=== PATIENT | female | born 1965 | race Caucasian/White ===

== ENCOUNTER → 2018-10-13 07:14 | Outpatient (CLI) | payer MEDICAID, SELFPAY ==
--- NOTE | 2018-10-13 07:49 | US_ITS ---
STUDY: ABDOMINAL ULTRASOUND REASON FOR EXAM: Female, 52 years old. Right-sided pain TECHNIQUE: Transabdominal ultrasound was performed with real-time and static sullivan scale imaging. TECHNICAL QUALITY: Adequate. COMPARISON: None. FINDINGS: Liver: The liver measures 14.3 cm. There is normal echogenicity of the liver. The bile ducts are within normal limits. There is hepatic color flow. The direction of portal flow is hepatopetal. There is no demonstrated mass lesion. Portal vein measurement: Gallbladder: Normal distended gallbladder. The gallbladder wall measures 2 mm. There is a negative sonographic Lawler's sign. There is no pericholecystic fluid. There are no gallstones. Common Bile Duct (C.B.D.): The common bile duct measures 4 mm. Pancreas: Normal size of the head, body and tail of the pancreas. There is normal echogenicity of the pancreas. There is no demonstrated pancreatic mass or cyst. Spleen: Normal size of the spleen. The spleen measures 9.6 cm. Right Kidney: Normal size of the right kidney. The right kidney measures 10.1 x 4.5 x 3.9 cm. Normal renal cortex. The right cortex measures 1.3 cm. There is a punctate hyperechoic focus of the right renal cortex. There is no demonstrated renal mass or cyst. There is no right hydronephrosis. Left Kidney: Normal size of the left kidney. The left kidney measures 10.2 x 4.7 x 4.5 cm. Normal renal cortex. The left cortex measures 1.2 cm. Shadowing hyperechoic lower pole 1.3 cm stone is noted. There is no demonstrated renal mass or cyst. There is no left hydronephrosis. Aorta: No aneurysm is noted. Common iliac arteries are slightly ectatic. I.V.C.: The IVC is patent. There is no ascites. US/Abdomen Complete IMPRESSION: Left renal stone. No hydronephrosis. Ectatic iliac arteries. Electronically Signed: Thanh Garcia DO at 10:54 EST Tel [phone], Service support ,
[2018-10-13 09:04] LABS: Absolute Lymphocyte Count 1.81 X10^3/ul (0.83-4.51); Basophil# 0.12 X10^3/uL; Basophil% 1.5 % (0-1); Eosinophil# 0.28 X10^3/uL; Eosinophils% 3.5 % (0-5); Hemoglobin 14.4 g/dl (12.0-15.0); Lymphocyte # 1.81 X10^3/ul (4.0); Lymphocyte % 22.9 % (19-41); Mean Corp Hgb Conc 32.7 g/gl (32-36); Mean Corpuscular Hgb 27.4 pg (27.0-32.0); Mean Corpuscular Volume 83.8 fL (81-99); Mean Platelet Vol. 9.9 fl (6.2-12.0); Monocyte# 0.69 X10^3/uL; Monocyte% 8.7 % (0-10); Neutrophil # 5.01 X10^3/uL (2.7-7.7); Platelet Count 387 K/mm3 (150-450); RBC Distribution Width CV 16.7 % (11.6-14.6); RBC Distribution Width SD 51.2 fl (35.1-43.9); Red Blood Count 5.25 M/mm3 (4.2-5.4); White Blood Count 7.9 K/mm3 (4.4-11.0)
[2018-10-13 09:06] LABS: Neutrophil % 63.3 % (47-70); POSITIVE COUNT NO; POSITIVE DIFFERENTIAL NO; POSITIVE MORPHOLOGY NO
[2018-10-13 09:24] LABS: Hemoglobin A1c 5.6 % (4.2-6.3)
[2018-10-13 09:31] LABS: ALB/GLOB Ratio 1.1 RATIO (0.9-2.4); AST(SGOT) 13 U/L (15-37); Alanine Aminotransfer ALT/SGPT 18 U/L (13-56); Alkaline Phosphatase 62 U/L (45-117); Anion Gap 9 (5-15); BUN 9 mg/dL (7-18); BUN/Creat Ratio 14.4 RATIO (10-20); Calcium,Total 8.5 mg/dL (8.5-10.1); Chloride 107 mmol/L (98-107); Cholesterol 170 mg/dL (200); Creatinine, Serum 0.62 mg/dL (0.55-1.02); EST Glomerular Filtration Rate 107 mL/min (>60); Est Glom Filt Rate - Afr Amer 130 mL/min (>60); Globulin 3.6 g/dL (2.2-4.2); Glucose 78 mg/dL (74-106); High Density Lipoprotein 54 mg/dL; Potassium 4.4 mmol/L (3.5-5.1); Protein, Total 7.6 g/dL (6.4-8.2); Sodium Level 141 mmol/L (136-145); Thyroid Stim Hormone (TSH) 2.14 uIU/mL (0.358-3.74); Triglycerides 77 mg/dL; Very Low Density Lipoprotein 15 mg/dL (5-40)
[2018-10-13 12:33] LABS: Vitamin D,25 Hydroxy 39.3 ng/mL (29.95-100.01)
[2018-10-15 11:16] LABS: H. Pylori Antibody (IgG) 0.24 (0.00-0.79); Hep C Antibodies <0.1 s/co ratio (0.0-0.9)
== END ==
PROVIDERS: Referring Provider Nurse Practitioner Family; Visit Provider Nurse Practitioner Family
DX: R19.4 Change in bowel habit (principal); R10.84 Generalized abdominal pain
CPT/HCPCS: 36415; 76700; 80053; 80061; 82306; 83036; 84439; 84443; 85025; 86677; 86803

== ENCOUNTER → 2018-10-18 14:20 | Outpatient (CLI) | payer MEDICAID, SELFPAY ==
--- NOTE | 2018-10-18 14:24 | US_ITS ---
STUDY: ULTRASOUND OF THE FEMALE PELVIS - COMPLETE REASON FOR EXAM: Female, 53 years old. Pelvic pain LMP: December 14, 2017 TECHNIQUE: Transabdominal and Transvaginal TECHNICAL QUALITY: Adequate. COMPARISON: None. FINDINGS: The uterus is anteverted and is in a midline position. The uterus measures 8.5 x 4.9 x 4.2 cm. There is a Nabothian cyst of the cervix. The endometrium measures 5.7 mm in thickness, and is hyperechoic. There is no demonstrated endometrial mass. There is no demonstrated myometrial mass. I.U.D. - The patient does not have an I.U.D. The right ovary is visualized. The right ovary measures 1.9 x 1.0 x 1.0 cm. There is no right ovarian cyst or ovarian mass. There is no visualized right adnexal mass or complex lesion. There is normal arterial and normal venous vascularity. The left ovary is visualized. The left ovary measures 2.0 x 1.5 x 1.3 cm. There is no left ovarian cyst or ovarian mass. There is no visualized left adnexal mass or complex lesion. There is normal arterial and normal venous vascularity. There is no fluid in the cul-de-sac. The pre void volume of the bladder was 492.28 ml. Polycystic ovary disease: No. US/Pelvic (Non ) IMPRESSION: Uterus and ovaries have a normal ultrasound appearance. No free pelvic fluid. Electronically Signed: Ralf Griffin MD at 10:12 EST Tel , Service support ,
--- NOTE | 2018-10-18 14:25 | US_ITS ---
STUDY: ULTRASOUND OF THE FEMALE PELVIS - COMPLETE REASON FOR EXAM: Female, 53 years old. Pelvic pain LMP: December 14, 2017 TECHNIQUE: Transabdominal and Transvaginal TECHNICAL QUALITY: Adequate. COMPARISON: None. FINDINGS: The uterus is anteverted and is in a midline position. The uterus measures 8.5 x 4.9 x 4.2 cm. There is a Nabothian cyst of the cervix. The endometrium measures 5.7 mm in thickness, and is hyperechoic. There is no demonstrated endometrial mass. There is no demonstrated myometrial mass. I.U.D. - The patient does not have an I.U.D. The right ovary is visualized. The right ovary measures 1.9 x 1.0 x 1.0 cm. There is no right ovarian cyst or ovarian mass. There is no visualized right adnexal mass or complex lesion. There is normal arterial and normal venous vascularity. The left ovary is visualized. The left ovary measures 2.0 x 1.5 x 1.3 cm. There is no left ovarian cyst or ovarian mass. There is no visualized left adnexal mass or complex lesion. There is normal arterial and normal venous vascularity. There is no fluid in the cul-de-sac. The pre void volume of the bladder was 492.28 ml. Polycystic ovary disease: No. US/Transvaginal Non- IMPRESSION: Uterus and ovaries have a normal ultrasound appearance. No free pelvic fluid. Electronically Signed: Ralf Griffin MD at 10:12 EST Tel , Service support ,
== END ==
PROVIDERS: Referring Provider Nurse Practitioner Family; Visit Provider Nurse Practitioner Family
DX: R10.84 Generalized abdominal pain (principal)
CPT/HCPCS: 76830; 76856; 93976

== ENCOUNTER 2018-11-13 18:07 | Emergency (ER) | payer MEDICAID, SELFPAY ==
[2018-11-13 18:08] VITALS: BP 157/54; PULSE 95; RESP 16; TEMP 36.4; O2SAT 99; BMI 19.4
[2018-11-13] MEDS: Ketorolac 30 MG/ML Syringe IV (18:38)
[2018-11-13] MEDS: 0.9% Normal Saline 1,000 ML 1000 ML IV (18:38)
[2018-11-13 18:43] LABS: Absolute Lymphocyte Count 1.32 X10^3/ul (0.83-4.51); Absolute Neutrophil Count 9.9 X10^3/uL (2.0-7.7); Basophil# 0.07 X10^3/uL; Basophil% 0.6 % (0-1); Eosinophil# 0.08 X10^3/uL; Eosinophils% 0.7 % (0-5); Hematocrit 43.8 % (37-47); Hemoglobin 15.2 g/dl (12.0-15.0); Lymphocyte # 1.32 X10^3/ul (4.0); Lymphocyte % 11.2 % (19-41); Mean Corp Hgb Conc 34.7 g/gl (32-36); Mean Corpuscular Hgb 28.2 pg (27.0-32.0); Mean Corpuscular Volume 81.3 fL (81-99); Mean Platelet Vol. 9.8 fl (6.2-12.0); Monocyte# 0.39 X10^3/uL; Monocyte% 3.3 % (0-10); Neutrophil # 9.91 X10^3/uL (2.7-7.7); Platelet Count 407 K/mm3 (150-450); RBC Distribution Width CV 15.9 % (11.6-14.6); RBC Distribution Width SD 47.5 fl (35.1-43.9); Red Blood Count 5.39 M/mm3 (4.2-5.4); White Blood Count 11.8 K/mm3 (4.4-11.0)
[2018-11-13 18:43] LABS: Color, Urine Yellow (Yellow); Glucose, Dipstick Normal (Normal); Ketone-Dipstick 50 mg/dl (Negative); Leukocyte Esterase-Dipstick 25 /ul (Negative); Nitrite-Dipstick Negative (Negative); Occult Blood-Urine 250 /ul (Negative); Protein-Dipstick 100 mg/dl (Negative); Urine Bilirubin Dipstick Negative (Negative); Urine Clarity Clear (Clear); Urine Urobilinogen 1 mg/dl (Normal)
[2018-11-13 18:44] LABS: POSITIVE COUNT NO; POSITIVE DIFFERENTIAL NO; POSITIVE MORPHOLOGY NO
[2018-11-13 18:49] LABS: Bacteria 1+ /hpf (None Seen); Mucous, Urine 1+ /hpf (<or=2+); Red Blood Cells-Urine 0-5 SEEN /hpf (0-5); Squamous Epithelial Cells - UA 0-5 SEEN /hpf (5-10); White Blood Cells 0-5 SEEN /hpf (0-5)
[2018-11-13 18:53] LABS: ALB/GLOB Ratio 1.2 RATIO (0.9-2.4); AST(SGOT) 16 U/L (15-37); Alanine Aminotransfer ALT/SGPT 25 U/L (13-56); Albumin, Serum 4.8 g/dL (3.2-5.0); Alkaline Phosphatase 75 U/L (45-117); Anion Gap 11 (5-15); BUN 7 mg/dL (7-18); BUN/Creat Ratio 10.7 RATIO (10-20); Calcium,Total 9.1 mg/dL (8.5-10.1); Chloride 110 mmol/L (98-107); Creatinine, Serum 0.66 mg/dL (0.55-1.02); EST Glomerular Filtration Rate 101 mL/min (>60); Est Glom Filt Rate - Afr Amer 122 mL/min (>60); Estimated Creatinine Clearance 84.49 ml/min; Globulin 4.1 g/dL (2.2-4.2); Glucose 100 mg/dL (74-106); Lipase 107 U/L (73-393); Potassium 3.6 mmol/L (3.5-5.1); Protein, Total 8.9 g/dL (6.4-8.2); Sodium Level 143 mmol/L (136-145)
--- NOTE | 2018-11-13 19:57 | ED.DCSUM_ITS ---
- ER Visit Summary Date of Service: 11/13/18 Chief Complaint: Nausea, vomiting, fevers, chills History of Present Illness: The patient is a 53 F presents to the emergency department nausea and vomiting. The patient states that she was out drinking last night. States she woke this morning, she did feel mildly nauseated. She states throughout the day though it improved. About 3 PM, residual from a nap and had rather significant nausea. She had 2 episodes of vomiting. She also admits to fevers and chills. She denies any blood in the emesis. She did have a mild headache. She denies any visual change, neck pain, shortness of breath, or other systemic symptoms. Patient is otherwise healthy. She takes no daily medications. She has had prior tubal ligation, but no other abdominal surgery. Physical Examination: Vital signs reviewed General: Well-nourished, well-developed Head: Normocephalic, atraumatic Eyes: Pupils equal and reactive, extraocular muscles intact Neck, supple, no lymphadenopathy Heart: Regular rate and rhythm Respiratory: No distress, clear bilaterally Abdomen: Soft, nontender, nondistended, no peritoneal signs Back: Nontender Extremities: Nontender, no edema, no cords Skin: Normal color no rash Neuro: Alert and oriented, no focal or lateralizing deficits Test Results: [] Emergency Department Course and Treatment: The patient is very well-appearing. She has no focal abdominal tenderness. She is well hydrated. Her neck is supple. She is not meningitic or encephalopathic. IV was established. She was given fluids, Toradol, labs were obtained. Labs are unremarkable. Urine does show some trace ketones which I do feel is likely contributing to her nausea. On reevaluation, she is markedly improved. My suspicion is that this is likely a viral illness. The patient was counseled on supportive care and reasons to return. She will be discharged home. Treatment Plan: [] Disposition: Discharge Impression: 1. Nausea vomiting This note was generated with [employer] dictation software. It may contain incorrect words, spelling, and punctuation that were not noted in review of the chart prior to signing ED Disposition - Plan for ED Patient: Chief Complaint: Nausea/Vomiting Instructions: ED Nausea Vomiting Prescriptions: Ondansetron [Zofran Odt] 4 mg PO Q8H PRN PRN #10 tab PRN Reason: Nausea Referrals: Tobin Mccray,Ginette Genao [Primary Care Provider] -
[2018-11-13 20:29] VITALS: BP 124/83; PULSE 71; RESP 18; O2SAT 98
--- NOTE | 2018-11-13 20:29 | ED.RN ---
THIS NURSE REVIEWED D/C INSTRUCTIONS WITH PT. PT VERBALIZED UNDERSTANDING OF INSTRUCTIONS. IV D/C. IV CATHETER INTACT. PT TOLERATED WELL. PT DENIES FURTHER NEEDS OR QUESTIONS AT THIS TIME. PT AMBULATES FROM ROOM ON OWN WITHOUT ASSISTANCE FROM STAFF
== END 2018-11-13 20:30 | disposition home or self-care (01) ==
PROVIDERS: Emergency Provider Emergency Medicine
DX: R11.2 Nausea with vomiting, unspecified (principal); R50.9 Fever, unspecified
CPT/HCPCS: 80053; 81001; 83690; 85025; 87804; 96361; 96374; 99283; J7030; A4216

== ENCOUNTER → 2019-03-19 10:33 | Outpatient (CLI) | payer MEDICAID, SELFPAY ==
[2019-03-13 14:35] VITALS: BMI 19.4
[2019-03-18 08:51] VITALS: BMI 19.4
--- NOTE | 2019-03-19 10:34 | US_ITS ---
STUDY: THYROID ULTRASOUND REASON FOR EXAM: Female, 53 years old. Nontoxic thyroid goiter. Family history of thyroid cancer. Current smoker. TECHNIQUE: Ultrasound evaluation of the thyroid was performed with real-time and static sullivan-scale imaging. COMPARISON: None. FINDINGS: RIGHT LOBE: The right lobe of the thyroid gland measures 5.2 x 1.8 x 1.7 cm. There is a homogeneous echotexture. Lower pole solid nodule measuring 0.9 x 0.8 x 0.7 cm and mid pole solid nodule measuring 0.4 x 0.4 x 0.2 cm. LEFT LOBE: The left lobe of the thyroid gland measures 4.8 x 1.5 x 1.0 cm. There is a homogeneous echotexture. Upper complex cystic and lower pole solid nodules measuring 0.9 x 0.6 x 0.8 cm and 0.6 x 0.4 x 0.2 cm respectively. ISTHMUS: The isthmus measures 4 mm . Subcentimeter submandibular lymph nodes. US/Thyroid IMPRESSION: The thyroid gland is enlarged right lobe greater than left. Bilateral subcentimeter solid and/or complex cystic nodules with regular margins. Electronically Signed: Candido José MD at 4:56 EDT , Service support ,
== END ==
PROVIDERS: Referring Provider Nurse Practitioner Family; Visit Provider Nurse Practitioner Family
DX: E04.9 Nontoxic goiter, unspecified (principal)
CPT/HCPCS: 76536

== ENCOUNTER → 2019-03-20 10:43 | Outpatient (CLI) | payer MEDICAID, SELFPAY ==
[2019-03-18 08:51] VITALS: BMI 19.4
--- NOTE | 2019-03-20 10:44 | NM_ITS ---
CLINICAL: 53-year-old female with reported history of abdominal pain and nausea. RADIONUCLIDE HEPATOBILIARY SCINTIGRAPHY COMPARISON: Abdominal ultrasound report 10/13/2018 FINDINGS: Following the intravenous administration of 5.5 mCi of 99m Tc Mebrofenin, hepatobiliary images reveal: 1. Relatively prompt and homogeneous radiopharmaceutical concentration is noted by a normal sized liver. No parenchymal defects are identified. 2. Gallbladder activity is identified at 15 minutes post radiopharmaceutical administration. 3. Small intestinal tract is not visualized during 60 minutes of pre-CCK sequential imaging. Small bowel activity is identified following the administration of cholecystokinin. 4. Washout of the radiopharmaceutical by the hepatic parenchyma appears qualitatively normal. Cholecystokinin (0.02 ug/kg) was administered intravenously over a 30-minute period. The post CCK gallbladder ejection fraction calculated at 20 minutes following Cholecystokinin administration was noted to be 62.0 % (normal greater than 35%). During 30 minutes of post CCK imaging, there is no scintigraphic evidence of reflux of the radiotracer into the common hepatic duct or refilling of the gallbladder. NM/Hepatobilliary Img w/Pharm Int IMPRESSION: 1. NORMAL 99m Tc Mebrofenin hepatobiliary imaging examination with Cholecystokinin. A. A gallbladder ejection fraction calculated to be greater than 35% following the administration of Cholecystokinin makes the probability of functional hepatobiliary disease (gallbladder and/or sphincter of Oddi dyskinesia) and/or organic hepatobiliary disease (chronic acalculous cholecystitis and/or cystic duct syndrome) to be low. (Katherine Raya et al, Journal of Nuclear Medicine 32:1695, 1990). Electronically Signed: Sunil Linares DO at 23:11 EDT Tel , Service support ,
== END ==
PROVIDERS: Referring Provider Surgery; Visit Provider Surgery
DX: R10.11 Right upper quadrant pain (principal); R11.2 Nausea with vomiting, unspecified
CPT/HCPCS: 78227; A9537; J2805

== ENCOUNTER → 2019-04-04 14:39 | Outpatient (CLI) | payer MEDICAID, SELFPAY ==
[2019-03-18 08:51] VITALS: BMI 19.4
--- NOTE | 2019-04-04 14:44 | CT_ITS ---
STUDY: CT CHEST WITH CONTRAST REASON FOR EXAM: Female, 53 years old. Hemoptysis. RADIATION DOSAGE (If Supplied By Facility): CTDIvol = ( 7.1 ) mGy, DLP = ( 164.19 ) mGycm TECHNIQUE: Transaxial imaging was performed following intravenous administration of 100 IV Isovue 300. Individualized dose optimization techniques were used for this CT. COMPARISON: None. FINDINGS: There are emphysematous changes of the lungs with emphysematous blebs and hyperexpansion of the lungs, consistent with centrilobular emphysema. No infiltrates. No nodules or masses. No effusions There is no demonstrated pleural abnormality. Normal heart and pericardium. Normal mediastinum. Normal hilar regions. Normal enhanced pulmonary arteries. Normal aorta arch and descending thoracic aorta. Normal osseous structures. There is no demonstrated abnormality of the visualized upper abdomen. CT/Chest WITH Contrast IMPRESSION: Centrilobular emphysema. No acute chest disease. Electronically Signed: Abhishek Torres MD at 18:48 EDT , Service support ,
== END ==
DX: R04.2 Hemoptysis (principal)
CPT/HCPCS: 71260; Q9967

== ENCOUNTER 2019-04-11 07:32 | Day surgery (SDC) | payer MEDICAID, SELFPAY ==
[2019-03-18 08:51] VITALS: BMI 19.4
--- NOTE | 2019-03-21 09:44 | HP_ITS ---
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: No Is patient in pain?: Yes (RLQ) Pain scale (1-10): 3 Allergies morphine Allergy (Verified 03/18/19 08:48) Itching Medications cholecalciferol (vitamin D3) 5,000 unit capsule 5,000 unit PO DAILY 03/18/19 [History Confirmed 03/18/19] multivitamin tablet 1 tab PO DAILY 03/18/19 [History Confirmed 03/18/19] vitamin B complex tablet 1 tab PO DAILY 03/18/19 [History Confirmed 03/18/19] PFSH Medical History Black tarry stools (Acute) Acid reflux (Acute) Constipation (Acute) Vomiting (Acute) Nausea (Acute) Abdominal pain (Acute) SOB (shortness of breath) (Acute) Anxiety (Acute) Depression (Acute) Arthritis (Acute) Thyroid disease (Acute) Difficulty swallowing (Acute) Fatigue (Acute) Surgical History Hx of colonoscopy (Acute) Hx of tubal ligation (Acute) Family History Uncle Thyroid cancer Social History Smoking Status: Current every day smoker alcohol intake: current alcohol intake frequency: a few times a month substance use type: does not use caffeine: Yes what type of physical activity do you participate in: walking HPI HPI HPI: ALTON ZAVALA, is a 53 F who presents to the office today for HPI HPI Surgical H&P: Yes HPI: ALTON ZAVALA, is a 53 F who presents to the office today for evaluation of abdominal pain. Patient has been noting right upper quadrant abdominal pain worse with p.o. intake sometimes worse with activity. She has had increasing belching. She had a gallbladder ultrasound which was negative her TSH and T4 are normal despite her having a history of an overactive thyroid gland. She states that she has not been consuming alcohol. She was seen in [facility]'s emergency department in November of this year after having hematemesis. She had a colonoscopy in 2014 but had an extremely poor bowel prep. Random colon biopsies did not reveal any abnormalities ROS General General: Yes weight change and fatigue; no appetite, colon cancer, breast cancer or weakness HEENT HEENT: Yes difficulty swallowing and swollen glands; no eye injury, eye surgery or hoarseness Endo Endocrine: Yes thyroid disease; no diabetes mellitus, thyroid cancer, Hair loss, heat intolerance or cold intolerance Skin Skin: Yes changing moles; no rash Musc Musculoskeletal: Yes back problems and arthritis; no rheumatoid arthritis, gout or joint pain Cardio Cardiovascular: No murmur, pacemaker, heart disease, atrial fibrillation, high blood pressure, heart attack, heart stent, palpitations, shortness of breat with exertion or chest pain Psych Psychiatric: Yes depression and anxiety; no hearing voices Resp Respiratory: Yes shortness of breath, No sleep apnea, Yes cough, No COPD, No asthma, No emphysema, No wheezing Gastro Gastrointestinal: Yes abdominal pain, Yes nausea or vomiting, No diarrhea, Yes constipation, No blood in stool, Yes acid reflux, No hemorrhoids, No ulcers, No gallbladder problem, Yes black,tarry stools Miles Hematologic: No blood thinners, No blood disorders, No bleeding, No anemia, No blood clots Neuro Neurologic: Yes numbness, Yes tingling, No weakness Exam Const General: no acute distress, well developed, well hydrated Orientation: oriented to person, oriented to place, oriented to time [facility] Head: normocephalic, atraumatic Ears: external ears normal Mouth: moist mucous membranes Eyes Sclera: sclerae normal Pupils: normal by confrontation Neck Neck: no lymphadenopathy noted Neck mass: No Thyroid: thyroid normal, symmetrical Chest Chest palpation & inspection: normal inspection of the chest Resp Effort & Inspection: normal respiratory effort Auscultation: clear to auscultation bilaterally Percussion: percussion normal Cardio Rate: regular rate Rhythm: regular rhythm Heart Sounds: no murmurs GI Palpation: soft, no hepatosplenomegaly, no masses, nontender Rectal Exam: other Other: Rectal exam deferred. Extrem General: normal to inspection, no clubbing, cyanosis or edema Assessment & Plan Problems 1. Epigastric abdominal pain R10.13 2. Encounter for screening for malignant neoplasm of colon Z12.11 3. Right upper quadrant abdominal pain R10.11 Plan I have discussed the above with the patient. I have offered the patient colonoscopy as well as an EGD for evaluation. I have explained the risks/benefits of the procedure and described the procedure. I have discussed the risks with the patient, including but not limited to: infection, bleeding, perforation of the GI tract requiring emergency surgery, inability to complete the procedure, injury to any internal organs, complications of anesthesia, etc. - the patient understands and agrees to proceed. I have answered all the patient's questions to the patient's satisfaction and the patient has no further questions. The patient has been given instructions for the colon cleansing preparation. I am going to obtain a HIDA scan with ejection fraction to see how well her gallbladder is functioning Orders Orders: Colonoscopy 03/18/19 K21.9, R10.9, R11.0, R11.10 EGD 03/18/19 K21.9, K59.00, K92.1, R10.9, R11.0, R11.10 Hepatobilliary Img w/Pharm Int 03/20/19 R10.9, R11.0, R11.10 Coding Level of Care Code Off vis,new,level 3 Diagnoses Epigastric abdominal pain R10.13 Encounter for screening for malignant neoplasm of colon Z12.11 Right upper quadrant abdominal pain R10.11 03/21/19 0944 <Electronically signed by Aaron Baez MD> Date Aaron Baez MD I have re-examined the patient. There are no clinical changes since date of exam.
[2019-04-11] VITALS (8 sets, daily range): BP systolic 90–120; BP diastolic 54–85; PULSE 49–70; RESP 16; TEMP 36.4–36.8; O2SAT 97–100; BMI 18.9
--- NOTE | 2019-04-11 | COLBX_PTH ---
PATIENT: ALTON ZAVALA LOC: EN U#:[id number] AGE/SX: 53/F ROOM: RE04/11/[address]: Dr. Aaron Baez MD : 1965 BED: DIS: 04/11/2019 SPEC #: [id number] RECD: 04/11/19 09:41 STATUS: HAYLEE SUSAN #: [id number] LEMUEL: 04/11/19 00:[address]: Aaron Baez DEPT: SURGICAL PATHOLOGY RECD BY: Jake Fernández ENTERED: 04/11/19 10:25 SP TYPE: COLON BX OTHR DR: Abby Welsh, PERFORATOR TYPIST-C [facility] Tissues: A - Small intestine biopsy B - Gastric mucous membrane Procedures: Surgery Specimen Level IV HEADER OPERATION: [place] [place] DIAGNOSIS: Screening TISSUE SUBMITTED: A - Small bowel biopsy, B - Antrum, H. pylori and path MICROSCOPIC DIAGNOSIS A. Small bowel, biopsy: Minimal nonspecific chronic inflammation. B. Gastric antrum, biopsy: Minimal chronic inflammation. AM:margi 04/12/19 COMMENT B. The results of immunohistochemistry for Helicobacter pylori will be reported separately ([id number]). MICROSCOPIC DESCRIPTION Slides are reviewed. GROSS DESCRIPTION A - Received in fixative is one container labeled with the patient's name and designated small bowel biopsy. The specimen consists of one irregular fragment of light garzon soft tissue that measures 0.7 x 0.2 x 0.1 cm. The specimen is totally submitted in one cassette. B - Received in fixative is one container labeled with the patient's name and designated antrum. The specimen consists of one irregular fragment of light garzon soft tissue that measures 0.3 x 0.3 x 0.1 cm. The specimen is totally submitted in one cassette. / AM:margi 04/11/19 TC:3 CPT: 39464 x2
--- NOTE | 2019-04-11 09:00 | IMM_PTH ---
PATIENT: ALTON ZAVALA LOC: EN U#:[id number] AGE/SX: 53/F ROOM: RE04/11/[address]: Dr. Aaron Baez MD : 1965 BED: DIS: 04/11/2019 SPEC #: [id number] RECD: 04/11/19 10:55 STATUS: HAYLEE REQ #: [id number] LEMUEL: 04/11/19 09:[address]: Aaron Baez DEPT: IMMUNOHISTOCHEMISTRY RECD BY: Bridget Macedo ENTERED: 04/11/19 10:56 SP TYPE: IMMUNO OTHR DR: Abby Welsh, PHOTOENGRAVER APPRENTICE-C [facility] Tissues: B - Stomach, NOS Procedures: H Pylori (initial) PHYSICIAN & INSTITUTION [place] [id number] SPECIMEN INFORMATION: Tissue Source: B - Antrum Clinical Info: Screening Specimen Number: [id number] CPT code: 43984 METHODOLOGY: Deparaffinized sections of prefer/formalin-fixed tissue or PAP/DQ stained slides are incubated with monoclonal/polyclonal antibodies/oligonucleotide probes. Localization is made via biotin free immunoperoxidase method. Appropriate controls are performed and reacted as expected. Results on target cell population are indicated in the following table: RESULTS: ANTIBODY / CLONE RESULT Block B H Pylori (polyclonal) negative These tests were developed and their performance characteristics determined by [facility]. They may not have been cleared or approved by the U.S. Food and Drug Administration. The FDA has determined that such clearance or approval is not necessary. INTERPRETATION: B. Antrum, biopsy: Negative for Helicobacter pylori organisms. AM:margi 04/12/19
--- NOTE | 2019-04-11 09:29 | OP.ENDO_ITS ---
04/11/2019 Ginette Genao [facility] Re : Upper GI endoscopy procedure for Shayna Hodge [facility] This procedure was performed on March. My impressions and recommendations are as follows: Impressions : - Normal esophagus. No specimens collected. - Erythematous mucosa in the prepyloric region of the stomach. Biopsied. - Normal examined duodenum. Biopsied. Recommendations : - Await pathology results. - Repeat upper endoscopy (date not yet determined) for surveillance. - Return to my office in 1 week. - Continue present medications. My findings are described in the full procedure note, which is enclosed. If I can be of further assistance, please feel free to contact me at Doctor phone number(s): , Fax: [phone], Work: . Sincerely, MD Aaron Gilman MD 04/11/2019 9:28:50 AM This report has been signed electronically.
--- NOTE | 2019-04-11 09:32 | OP.ENDO_ITS ---
04/11/2019 Ginette Genao [facility] Re : Colonoscopy procedure for Shayna Lyons [facility] This procedure was performed on March. My impressions and recommendations are as follows: Impressions : - Non-bleeding internal hemorrhoids. - Diverticulosis in the sigmoid colon. No specimens collected. - The examination was otherwise normal. Recommendations : - Discharge patient to home. - Resume previous diet. - Continue present medications. - Await pathology results. - Repeat colonoscopy in 10 years for screening purposes. - Return to my office in 1 week. My findings are described in the full procedure note, which is enclosed. If I can be of further assistance, please feel free to contact me at Doctor phone number(s): , Fax: [phone], Work: . Sincerely, MD Aaron Gilman MD 04/11/2019 9:32:09 AM This report has been signed electronically.
== END 2019-04-11 10:19 | disposition home or self-care (01) ==
LOC: EN 07:32 → AC 07:34
PROVIDERS: Visit Provider Surgery
PROC: 0DJD8ZZ Inspection of Lower Intestinal Tract, Via Natural or Artificial Opening Endoscopic (ICD-10-PCS; CPT 45378; principal; 2019-04-11 08:55)
DX: K31.89 Other diseases of stomach and duodenum (principal); R10.13 Epigastric pain; R10.11 Right upper quadrant pain; Z12.11 Encounter for screening for malignant neoplasm of colon; K64.8 Other hemorrhoids; K57.30 Diverticulosis of large intestine without perforation or abscess without bleeding; F17.200 Nicotine dependence, unspecified, uncomplicated; F12.90 Cannabis use, unspecified, uncomplicated
CPT/HCPCS: 43239; 45378; 88305; 88342; J7120; J1610; J2405

== ENCOUNTER 2019-05-04 21:55 | Emergency (ER) | payer MEDICAID, SELFPAY ==
[2019-04-18 14:56] VITALS: BMI 19.1
[2019-05-04 21:55] VITALS: BP 149/88; PULSE 69; RESP 18; TEMP 36.9; O2SAT 98; BMI 19.4
--- NOTE | 2019-05-04 22:19 | ED.DCSUM_ITS ---
- ER Visit Summary Date of Service: 05/04/19 Chief Complaint: Multiple complaints History of Present Illness: The patient is a 53 F who actually presents with multiple complaints. Her largest concern is vaginal bleeding began lightly today but became heavy. She is uncertain if this is her menstrual period. She has been having irregular periods and states that she was having vaginal bleeding couple of times a month. She also reports urinary frequency without dysuria urgency. She denies any pelvic pain currently. She has been having problems with bowels for many weeks. She has been undergoing evaluation for this. She had upper and lower endoscopies. She was apparently diagnosed with diverticulosis. She complains of increased eructation and flatus. She states she feels like she needs to have a bowel movement but has not had constipation or diarrhea. She reports nausea without vomiting. She states she felt like she had a fever earlier and someone felt her and stated that she felt cold. She also complains of a headache which began earlier today and has progressed slowly through the day and she also rates it as severe. Physical Examination: Blood pressure 149/88 vitals otherwise within normal limits Patient appears very anxious Moist mucous membranes Heart regular rate and rhythm Lungs are clear Abdomen soft no reproducible tenderness nondistended Patient is alert with no focal or lateralizing neurological deficits normal strength normal sensation Pelvic examination shows moderate active bleeding but no clots Test Results: Labs unremarkable except blood in urine. is negative. Emergency Department Course and Treatment: Patient's current vaginal bleeding is moderate. She is not hemorrhaging or unstable. I believe she is safe to follow-up with gynecology. She was given IV fluids Toradol and Zofran and feels much better on reevaluation. She is requesting a prescription for an anti- inflammatory and was given naproxen. She was referred to gynecology to follow- up. She understands to return for new or worsening symptoms. She was discharged. Treatment Plan: [] Disposition: Discharge Impression: Menorrhagia Headache This note was generated with [employer] dictation software. It may contain incorrect words, spelling, and punctuation that were not noted in review of the chart prior to signing ED Disposition - Plan for ED Patient: Referrals: [facility] Mahendra,Ginette Genao [Primary Care Provider] -
[2019-05-04 22:26] LABS: Absolute Lymphocyte Count 2.93 X10^3/ul (0.83-4.51); Absolute Neutrophil Count 6.7 X10^3/uL (2.0-7.7); Basophil# 0.09 X10^3/uL; Basophil% 0.8 % (0-1); Eosinophil# 0.23 X10^3/uL; Eosinophils% 2.1 % (0-5); Hematocrit 45.8 % (37-47); Hemoglobin 15.6 g/dl (12.0-15.0); Lymphocyte # 2.93 X10^3/ul (4.0); Lymphocyte % 27.4 % (19-41); Mean Corp Hgb Conc 34.1 g/gl (32-36); Mean Corpuscular Hgb 27.5 pg (27.0-32.0); Mean Corpuscular Volume 80.6 fL (81-99); Mean Platelet Vol. 9.2 fl (6.2-12.0); Monocyte# 0.72 X10^3/uL; Monocyte% 6.7 % (0-10); Neutrophil # 6.72 X10^3/uL (2.7-7.7); Neutrophil % 62.8 % (47-70); Platelet Count 343 K/mm3 (150-450); RBC Distribution Width CV 17.7 % (11.6-14.6); RBC Distribution Width SD 52.3 fl (35.1-43.9); Red Blood Count 5.68 M/mm3 (4.2-5.4); White Blood Count 10.7 K/mm3 (4.4-11.0)
[2019-05-04 22:27] LABS: POSITIVE COUNT NO; POSITIVE DIFFERENTIAL NO; POSITIVE MORPHOLOGY NO
[2019-05-04] MEDS: 0.9% Normal Saline 1,000 ML 999 ML IV (22:29)
[2019-05-04] MEDS: Ketorolac 15 MG/ML Vial 30 MG IV (22:29)
[2019-05-04] MEDS: Ondansetron 4 MG/2 ML Vial IV (22:29)
[2019-05-04 22:38] LABS: Anion Gap 7 (5-15); BUN 4 mg/dL (7-18); Chloride 108 mmol/L (98-107); Creatinine, Serum 0.67 mg/dL (0.55-1.02); EST Glomerular Filtration Rate 98 mL/min (>60); Est Glom Filt Rate - Afr Amer 119 mL/min (>60); Estimated Creatinine Clearance 83.22 ml/min; Glucose 81 mg/dL (74-106); Potassium 3.7 mmol/L (3.5-5.1); Sodium Level 138 mmol/L (136-145)
[2019-05-04 23:00] VITALS: RESP 16
[2019-05-04 23:16] LABS: Mucous, Urine 0 SEEN /hpf (<or=2+)
[2019-05-04 23:20] LABS: Internal QC Validated? YES +Cl - CLEAR BKGD; Pregnancy, Urine Negative Negative
[2019-05-04 23:28] LABS: Color, Urine Yellow (Yellow); Glucose, Dipstick Normal (Normal); Ketone-Dipstick 5 mg/dl (Negative); Leukocyte Esterase-Dipstick 25 /ul (Negative); Nitrite-Dipstick Negative (Negative); Occult Blood-Urine 250 /ul (Negative); Protein-Dipstick Negative (Negative); Urine Bilirubin Dipstick Negative (Negative); Urine Clarity Cloudy (Clear); Urine Urobilinogen Normal (Normal)
[2019-05-04 23:40] LABS: Bacteria RARE /hpf (None Seen); Red Blood Cells-Urine 25-50 SEEN /hpf (0-5); Squamous Epithelial Cells - UA 0-5 SEEN /hpf (5-10); White Blood Cells 0-5 SEEN /hpf (0-5)
--- NOTE | 2019-05-05 00:08 | ED.DEP ---
ED Disposition - Plan for ED Patient: Instructions: Dysfunctional Uterine Bleeding Prescriptions: Naproxen [Naprosyn] 500 mg PO BID #20 tab Prescription Printed Referrals: [facility],Ginette Genao [Primary Care Provider] - Lester Moctezuma MD [STAFF PHYSICIAN] -
[2019-05-05 00:11] VITALS: PULSE 71; RESP 16; O2SAT 100
== END 2019-05-05 00:18 | disposition home or self-care (01) ==
LOC: ED 22:23
PROVIDERS: Emergency Provider Emergency Medicine
DX: N92.0 Excessive and frequent menstruation with regular cycle (principal); R51 Headache; Z72.0 Tobacco use
CPT/HCPCS: 80048; 81001; 81025; 85025; 96361; 96374; 96375; 99283; J7030; A4216; J2405

== ENCOUNTER → 2019-07-12 12:46 | Outpatient (CLI) | payer MEDICAID, SELFPAY ==
--- NOTE | 2019-07-14 07:25 | PFT ---
INTRODUCTION: The patient is a 53-year-old female that presents for pulmonary function studies secondary to a diagnosis of emphysema. Respiratory therapy reports good patient effort. Bronchodilators were used during testing. INTERPRETATION: Forced expiration spirometry demonstrates the presence of a moderate large airways obstructive ventilatory defect. There was no significant response to aerosolized bronchodilators. Spirograms are of fair quality and do not plateau indicating slow emptying of the lungs. Body plethysmography was performed and reveals a decrease TLC to 4.05 L, 78% of predicted, indicative of a mild restrictive ventilatory defect. The remainder of the lung volumes are symmetrically reduced. Diffusing capacity by single breath CO is within normal limits at 77% of predicted. IMPRESSION: Irreversible moderate mixed ventilatory defect with preserved diffusing capacity.
== END ==
DX: J43.2 Centrilobular emphysema (principal)
CPT/HCPCS: 94060; 94726; 94729

== ENCOUNTER → 2019-10-24 16:53 | Outpatient (CLI) | payer MEDICAID, SELFPAY ==
--- NOTE | 2019-10-24 17:00 | RAD_ITS ---
STUDY: X-RAY - RIGHT CLAVICLE REASON FOR EXAM: Female, 54 years old. Right clavicle pain and deformity TECHNIQUE: 2 view(s) of the clavicle. COMPARISON: None. FINDINGS: Normal clavicle. Normal acromioclavicular articulation. Normal visualized sternoclavicular articulation accounting for some rotation rotation. Normal visualized pulmonary apex. RAD/Clavicle IMPRESSION: Normal x-ray examination of the clavicle. Electronically Signed: Solis López MD (Brooks) at 8:02 EST , Service support ,
== END ==
DX: M89.8X8 Other specified disorders of bone, other site (principal)
CPT/HCPCS: 73000

== ENCOUNTER → 2020-12-05 07:53 | Outpatient (CLI) | payer MEDICAID, SELFPAY ==
[2020-12-05 08:33] LABS: Absolute Lymphocyte Count 1.27 X10^3/uL (0.83-4.51); Absolute Neutrophil Count 3.3 X10^3/uL (2.0-7.7); Basophil% 1.9 % (0-1); Eosinophil# 0.17 X10^3/uL; Eosinophils% 3.2 % (0-5); Hematocrit 44.7 % (37-47); Hemoglobin 14.9 g/dL (12.0-15.0); Lymphocyte # 1.27 X10^3/ul (4.0); Mean Corp Hgb Conc 33.3 g/dL (32-36); Mean Corpuscular Hgb 28.5 pg (27.0-32.0); Mean Corpuscular Volume 85.6 fL (81-99); Mean Platelet Vol. 9.5 fl (6.2-12.0); Monocyte# 0.47 X10^3/uL; Monocyte% 8.9 % (0-10); NRBC Flagged by Analyzer 0 % (0-5); Neutrophil # 3.27 X10^3/uL (2.7-7.7); Neutrophil % 61.8 % (47-70); Platelet Count 353 K/mm3 (150-450); RBC Distribution Width SD 52.5 fl (35.1-43.9); Red Blood Count 5.22 M/mm3 (4.2-5.4); White Blood Count 5.3 K/mm3 (4.4-11.0)
[2020-12-05 08:42] LABS: Anion Gap 4 (5-15); BUN 10 mg/dL (7-18); BUN/Creat Ratio 15.3 RATIO (10-20); Calcium,Total 9.1 mg/dL (8.5-10.1); Chloride 106 mmol/L (98-107); Creatinine, Serum 0.66 mg/dL (0.55-1.02); EST Glomerular Filtration Rate 100 mL/min (>60); Est Glom Filt Rate - Afr Amer 122 mL/min (>60); Glucose 92 mg/dL (74-106); Potassium 4.8 mmol/L (3.5-5.1); Sodium Level 137 mmol/L (136-145); T4 Free Direct 0.89 ng/dL (0.76-1.46); Thyroid Stim Hormone (TSH) 1.89 uIU/mL (0.358-3.74)
[2020-12-07 16:08] LABS: Endomysial Antibody IgA Negative (Negative)
[2020-12-07 18:53] LABS: Immunoglobulin A 199 mg/dL (87-352); t-Transglutaminase IgA <2 U/mL (0-3)
== END ==
DX: R10.84 Generalized abdominal pain (principal); E04.9 Nontoxic goiter, unspecified; F17.200 Nicotine dependence, unspecified, uncomplicated
CPT/HCPCS: 36415; 80048; 82784; 83516; 84439; 84443; 85025; 86255

== ENCOUNTER → 2020-12-10 07:55 | Outpatient (CLI) | payer MEDICAID, SELFPAY ==
--- NOTE | 2020-12-10 07:57 | US_ITS ---
STUDY: THYROID ULTRASOUND REASON FOR EXAM: Female, 55 years old. Non toxic goiter -- nodule TECHNIQUE: Ultrasound evaluation of the thyroid was performed with real-time and static sullivan-scale imaging. COMPARISON: Comparison is made with prior examination of 03/19/2019. FINDINGS: RIGHT LOBE: The right lobe of the thyroid gland measures 4.8 cm x 1.4 cm x 2.0 cm. There is a homogeneous echotexture. Several small hypoechoic solid nodules are seen. The largest measures 7 mm x 5 mm x 5 mm. This is unchanged. LEFT LOBE: The left lobe of the thyroid gland measures 4.6 cm x 1.5 cm x 0.9 cm. There is a homogeneous echotexture. Multiple subcentimeters nodules are seen. The largest measures 7 mm x 7 mm x 5 mm. It is solid with a rim-like calcification. ISTHMUS: The isthmus measures 2.6 mm. The regional lymph nodes are normal. US/Thyroid IMPRESSION: Stable examination with multiple subcentimeter nodules. Electronically Signed: Leeroy Howard MD at 10:46 EST , Service support ,
== END ==
DX: E04.1 Nontoxic single thyroid nodule (principal)
CPT/HCPCS: 76536

== ENCOUNTER → 2020-12-23 09:52 | Outpatient (CLI) | payer MEDICAID, SELFPAY ==
--- NOTE | 2020-12-23 09:55 | NM_ITS ---
1CLINICAL: 55-year-old female with reported history of thyroid nodularity. I-123 THYROID UPTAKE and SCAN COMPARISON: Thyroid ultrasound report 12/10/2020 FINDINGS: The patient was administered a 289 uCi I-123 capsule by mouth. The 4-hour I-123 radioactive iodine thyroidal uptake was calculated to be 33.5 % (normal 5 to 24 %). The I-123 thyroid scan demonstrates homogeneous radiopharmaceutical concentration throughout both lobes of a U -shaped thyroid gland. There are no colloidal parenchymal hypofunctioning-cold nodules noted in either lobe of the thyroid gland. NM/Thyroid Uptake Single or Mult IMPRESSION: 1. ABNORMAL, ELEVATED 4-hour I-123 radioactive iodine thyroidal uptake. 2. The I-123 thyroid scan in conjunction with the calculated iodine uptake value likely represents the presence of a diffuse toxic goiter. 3. If not previously obtained correlation with in-vitro thyroid function studies is recommended. Electronically Signed: Sunil Linares DO at 22:09 EST Tel , Service support ,
== END ==
DX: E04.9 Nontoxic goiter, unspecified (principal)
CPT/HCPCS: 78012; A9516

== ENCOUNTER → 2021-01-07 13:26 | Outpatient (CLI) | payer MEDICAID, SELFPAY ==
[2021-01-05 16:13] VITALS: BMI 19.4
[2021-01-09 12:38] LABS: Thyroid Peroxidase AB 10 IU/mL (0-34)
== END ==
DX: E05.00 Thyrotoxicosis with diffuse goiter without thyrotoxic crisis or storm (principal)
CPT/HCPCS: 36415; 86376

== ENCOUNTER → 2021-04-08 12:32 | Outpatient (CLI) | payer MEDICAID, SELFPAY ==
[2021-02-08 11:46] VITALS: BMI 19.4
[2021-04-08 13:56] LABS: Erythrocyte Sedimentation Rate 2 mm/hr (0-30)
[2021-04-08 13:57] LABS: Absolute Lymphocyte Count 1.71 X10^3/uL (0.83-4.51); Absolute Neutrophil Count 4.1 X10^3/uL (2.0-7.7); Basophil# 0.07 X10^3/uL; Basophil% 1.1 % (0-1); Eosinophil# 0.15 X10^3/uL; Eosinophils% 2.3 % (0-5); Hematocrit 44.8 % (37-47); Hemoglobin 14.7 g/dL (12.0-15.0); Lymphocyte # 1.71 X10^3/ul (0.83-4.51); Lymphocyte % 26.1 % (19-41); Mean Corp Hgb Conc 32.8 g/dL (32-36); Mean Corpuscular Hgb 28.9 pg (27.0-32.0); Mean Corpuscular Volume 88.2 fL (81-99); Mean Platelet Vol. 9.9 fl (6.2-12.0); Monocyte# 0.56 X10^3/uL; Monocyte% 8.5 % (0-10); NRBC Flagged by Analyzer 0 % (0-5); Neutrophil # 4.06 X10^3/uL (2.7-7.7); Neutrophil % 61.8 % (47-70); Platelet Count 332 K/mm3 (150-450); RBC Distribution Width CV 14.6 % (11.6-14.6); RBC Distribution Width SD 47.3 fl (35.1-43.9); Red Blood Count 5.08 M/mm3 (4.2-5.4); White Blood Count 6.6 K/mm3 (4.4-11.0)
[2021-04-08 14:32] LABS: ALB/GLOB Ratio 1.2 RATIO (0.9-2.4); AST(SGOT) 21 U/L (15-37); Alanine Aminotransfer ALT/SGPT 35 U/L (13-56); Albumin, Serum 4.2 g/dL (3.2-5.0); Alkaline Phosphatase 64 U/L (45-117); Anion Gap 5 (5-15); BUN 10 mg/dL (7-18); BUN/Creat Ratio 15.3 RATIO (10-20); CPK Total, Creatine Kinase 93 U/L (26-192); CRP < 2.90 mg/L (0.0-3.0); Calcium,Total 9.5 mg/dL (8.5-10.1); Chloride 105 mmol/L (98-107); Creatinine, Serum 0.66 mg/dL (0.55-1.02); EST Glomerular Filtration Rate 100 mL/min (>60); Est Glom Filt Rate - Afr Amer 121 mL/min (>60); Globulin 3.6 g/dL (2.2-4.2); Glucose 93 mg/dL (74-106); Potassium 4.1 mmol/L (3.5-5.1); Protein, Total 7.8 g/dL (6.4-8.2); Rheumatoid Factor < 10.0 IU/mL (<15); Sodium Level 137 mmol/L (136-145); Thyroid Stim Hormone (TSH) 1.42 uIU/mL (0.358-3.74)
[2021-04-10 17:33] LABS: ANTINUCLEAR ANTIBODIES DIRECT Negative (Negative); Anti-Smooth Muscle ABS 4 Units (0-19); Anti-dsDNA Ab <1 IU/mL (0-9)
== END ==
PROVIDERS: Referring Provider Nurse Practitioner Adult Health; Visit Provider Nurse Practitioner Adult Health
DX: R21 Rash and other nonspecific skin eruption (principal)
CPT/HCPCS: 36415; 80053; 82550; 83516; 84443; 85025; 85652; 86038; 86140; 86225; 86431

== ENCOUNTER → 2021-04-23 07:59 | Outpatient (CLI) | payer MEDICAID, SELFPAY ==
[2021-02-08 11:46] VITALS: BMI 19.4
--- NOTE | 2021-04-23 08:30 | MRI_ITS ---
STUDY: MRI BRAIN WITH AND WITHOUT CONTRAST REASON FOR EXAM: Female, 55 years old. DIZZINESS AND GIDDINESS TECHNIQUE: Standardized multiplanar fat and water weighted pulse sequences were obtained. IV 6cc dotarem was administered for the contrast portion of the examination. COMPARISON: None. FINDINGS: There are minor left frontal periventricular and right parietal subcortical and bilateral frontal lobe small subcortical white matter gliotic foci. Largest lesion is in the left frontal periventricular white matter measuring 8 mm. Brainstem is normal. There is no acute infarct or abnormal enhancement. There is no mass effect, midline shift, hydrocephalus or herniation. MRI/Brain W/WO Contrast IMPRESSION: 1. Mild burden of white matter lesions, nonspecific. This can be due to multiple sclerosis versus atherosclerotic disease. Electronically Signed: Albin Borjas MD at 20:17 EDT Tel , Service support ,
== END ==
PROVIDERS: Visit Provider Nurse Practitioner Adult Health
DX: R42 Dizziness and giddiness (principal)
CPT/HCPCS: 70553; A9575

== ENCOUNTER → 2021-05-11 09:56 | Outpatient (CLI) | payer MEDICAID, SELFPAY ==
[2021-02-08 11:46] VITALS: BMI 19.4
--- NOTE | 2021-05-11 09:58 | ART_ITS ---
Reason For Study: Pain Procedure A bilateral lower extremity continuous wave Doppler with analog waveform analysis,segmental pressures,and ankle brachial indexes with exercise. Left Segmental Pressures Left brachial= 147mmHg. Left posterior tibial artery = 163mmHg. Left dorsalis pedis artery = 144mmHg. The left dorsalis pedis waveforms are triphasic. The left posterior tibial artery waveforms are triphasic. Right Segmental Pressures Right brachial= 154mmHg. Right posterior tibial artery = 163mmHg. Right dorsalis pedis artery = 158mmHg. The right dorsalis pedis waveforms are triphasic. The right posterior tibial artery waveforms are triphasic. Indices The right ankle brachial index by the dorsalis pedis is 1.03. The right ankle brachial index by the posterior tibial artery is 1.06. The right post exercise ankle brachial index is 1.19. The left ankle brachial index by the dorsalis pedis is 0.94. The left ankle brachial index by the posterior tibial artery is 1.06. The left post exercise ankle brachial index is 1.19. VL/Lower Ext Art Exam w/ Exercise Interpretation Summary Triphasic Doppler waveforms are noted at ankle level bilaterally. Pulse-volume recordings appear satisfactory at all levels bilaterally. Resting ankle-brachial indices are norm al bilaterally. The patient was ambulated on a treadmill for 3.5 minutes at 1.5 miles per hour and a 5% grade, following which ankle pressures augmented bilaterally, a normal physiological response. There is no evidence of significant arterial occlusive disease in the lower ext remities bilaterally. Ordering Physician: Nereida Davis Referring Physician: [place] [facility] Performed By: Noemy Alston RVT
== END ==
PROVIDERS: Referring Provider Nurse Practitioner Adult Health; Visit Provider Nurse Practitioner Adult Health
DX: M79.606 Pain in leg, unspecified (principal)
CPT/HCPCS: 93924

== ENCOUNTER 2021-11-26 10:25 | Outpatient (CLI) | payer MEDICAID, SELFPAY ==
--- NOTE | 2021-11-26 10:38 | RAD_ITS ---
STUDY: X-RAY - ABDOMEN/PELVIS REASON FOR EXAM: Female, 56 years old. ABD DISTENSION, r/o ileus/obstruction TECHNIQUE: Single AP view of the abdomen / pelvis. COMPARISON: None. FINDINGS: Normal visualized lung bases. There is a moderate amount of colonic fecal material. The visualized liver, spleen and kidneys are grossly normal in size and morphology. Normal soft tissue structures. Moderate degree of osteoarthritis of both hip joints. RAD/Abdomen Single View IMPRESSION: Moderate amount of fecal material is seen in the colon. Electronically Signed: Leeroy Howard MD at 12:48 EST , Service support ,
[2021-11-26 11:19] LABS: Absolute Lymphocyte Count 1.55 X10^3/uL (0.83-4.51); Absolute Neutrophil Count 5.5 X10^3/uL (2.0-7.7); Basophil# 0.07 X10^3/uL; Basophil% 0.9 % (0-1); Eosinophil# 0.16 X10^3/uL; Hematocrit 47.1 % (37-47); Hemoglobin 15.9 g/dL (12.0-15.0); Lymphocyte # 1.55 X10^3/ul (0.83-4.51); Lymphocyte % 19.5 % (19-41); Mean Corp Hgb Conc 33.8 g/dL (32-36); Mean Corpuscular Hgb 31.3 pg (27.0-32.0); Mean Corpuscular Volume 92.7 fL (81-99); Mean Platelet Vol. 9.8 fl (6.2-12.0); Monocyte% 8.8 % (0-10); NRBC Flagged by Analyzer 0 % (0-5); Neutrophil # 5.46 X10^3/uL (2.7-7.7); Neutrophil % 68.5 % (47-70); Platelet Count 330 K/mm3 (150-450); RBC Distribution Width CV 12.9 % (11.6-14.6); RBC Distribution Width SD 44.2 fl (35.1-43.9); Red Blood Count 5.08 M/mm3 (4.2-5.4)
[2021-11-26 11:53] LABS: ALB/GLOB Ratio 1.1 RATIO (0.9-2.4); AST(SGOT) 18 U/L (15-37); Alanine Aminotransfer ALT/SGPT 30 U/L (13-56); Albumin, Serum 4.2 g/dL (3.2-5.0); Alkaline Phosphatase 68 U/L (45-117); Anion Gap 3 (5-15); BUN 8 mg/dL (7-18); BUN/Creat Ratio 13.2 RATIO (10-20); Calcium,Total 9.7 mg/dL (8.5-10.1); Chloride 103 mmol/L (98-107); Creatinine, Serum 0.61 mg/dL (0.55-1.02); EST Glomerular Filtration Rate 109 mL/min (>60); Est Glom Filt Rate - Afr Amer 132 mL/min (>60); Globulin 3.7 g/dL (2.2-4.2); Glucose 101 mg/dL (74-106); Lipase 89 U/L (73-393); Potassium 4.1 mmol/L (3.5-5.1); Protein, Total 7.9 g/dL (6.4-8.2); Sodium Level 133 mmol/L (136-145); Thyroid Stim Hormone (TSH) 1.59 uIU/mL (0.358-3.74)
== END 2021-11-26 23:59 | disposition short-term general hospital (02) ==
PROVIDERS: Visit Provider Nurse Practitioner Adult Health
DX: R14.0 Abdominal distension (gaseous) (principal)
CPT/HCPCS: 36415; 74018; 80053; 83690; 84443; 85025

== ENCOUNTER 2021-12-21 08:01 | Outpatient (CLI) | payer MEDICAID, SELFPAY ==
--- NOTE | 2021-12-21 08:04 | CT_ITS ---
STUDY: CT ABDOMEN AND PELVIS WITHOUT CONTRAST REASON FOR EXAM: Female, 56 years old. Bloating. Abnormal bowel movements. RADIATION DOSAGE (If Supplied By Facility): CTDIvol = ( 5.84 ) mGy, DLP = ( 253.5 ) mGycm TECHNIQUE: Transaxial images were obtained from the dome of the diaphragm to the symphysis pubis without oral contrast, and without intravenous contrast. Sagittal and coronal images were reconstructed. Individualized dose optimization techniques were used for this CT. COMPARISON: None. FINDINGS: The visualized lung bases are unremarkable. The visualized portions of the heart are within normal limits. Normal liver. Normal gallbladder and extrahepatic biliary system. Normal spleen. There are pancreatic calcifications in the distribution of the ducts consistent with chronic pancreatitis. Normal bilateral adrenal glands. Normal right kidney. There is a 5 mm nonobstructive calculus in the midpole calyx of the left kidney. Normal visualized stomach. Normal small intestine. Normal colon. The appendix is visualized and appears normal. Small lymph nodes are seen in the peritoneal fat in the right lower quadrant suggesting mesenteric adenitis. There is scattered atherosclerotic calcification of the abdominal aorta, without a demonstrated aneurysm. Normal inferior vena cava. Normal retroperitoneum. Normal urinary bladder. Follicles are seen in both ovaries. There is a small umbilical hernia containing fat. There are degenerative changes of the visualized lumbar spine. CT/Abdomen/Pelvis without Cont IMPRESSION: 5 mm nonobstructive calculus in the mid pole kidney except left kidney. Calcifications in the pancreas more prominent in the head of the pancreas suggestive of chronic pancreatitis. Electronically Signed: Leeroy Howard MD at 13:36 EST ,
== END 2021-12-21 23:59 | disposition home or self-care (01) ==
LOC: CT 08:02
PROVIDERS: Referring Provider Nurse Practitioner Adult Health; Visit Provider Nurse Practitioner Adult Health
DX: N20.0 Calculus of kidney (principal)
CPT/HCPCS: 74176

== ENCOUNTER 2022-01-17 09:15 | Outpatient (CLI) | payer MEDICAID, SELFPAY ==
[2022-01-17 10:19] LABS: Erythrocyte Sedimentation Rate 1 mm/hr (0-30)
[2022-01-17 10:22] LABS: Absolute Lymphocyte Count 1.53 X10^3/uL (0.83-4.51); Absolute Neutrophil Count 4.1 X10^3/uL (2.0-7.7); Basophil# 0.07 X10^3/uL; Basophil% 1.1 % (0-1); Eosinophil# 0.09 X10^3/uL; Eosinophils% 1.5 % (0-5); Hematocrit 46.1 % (37-47); Hemoglobin 15.6 g/dL (12.0-15.0); Lymphocyte # 1.53 X10^3/ul (0.83-4.51); Lymphocyte % 24.7 % (19-41); Mean Corp Hgb Conc 33.8 g/dL (32-36); Mean Corpuscular Hgb 30.6 pg (27.0-32.0); Mean Corpuscular Volume 90.6 fL (81-99); Mean Platelet Vol. 10.3 fl (6.2-12.0); Monocyte# 0.44 X10^3/uL; Monocyte% 7.1 % (0-10); NRBC Flagged by Analyzer 0 % (0-5); Neutrophil # 4.05 X10^3/uL (2.7-7.7); Neutrophil % 65.3 % (47-70); Platelet Count 331 K/mm3 (150-450); RBC Distribution Width CV 12.3 % (11.6-14.6); RBC Distribution Width SD 40.8 fl (35.1-43.9); Red Blood Count 5.09 M/mm3 (4.2-5.4); White Blood Count 6.2 K/mm3 (4.4-11.0)
[2022-01-17 10:53] LABS: Albumin, Serum 4.5 g/dL (3.2-5.0); BUN 5 mg/dL (7-18); BUN/Creat Ratio 7.4 RATIO (10-20); Creatinine, Serum 0.67 mg/dL (0.55-1.02); EST Glomerular Filtration Rate 97 mL/min (>60); Est Glom Filt Rate - Afr Amer 117 mL/min (>60); Glucose 104 mg/dL (74-106); Protein, Total 8.1 g/dL (6.4-8.2)
[2022-01-17 10:54] LABS: ALB/GLOB Ratio 1.2 RATIO (0.9-2.4); AST(SGOT) 17 U/L (15-37); Alanine Aminotransfer ALT/SGPT 28 U/L (13-56); Alkaline Phosphatase 72 U/L (45-117); Amylase 51 U/L (25-115); Anion Gap 4 (5-15); CRP < 2.90 mg/L (0.0-3.0); Calcium,Total 9.5 mg/dL (8.5-10.1); Chloride 105 mmol/L (98-107); Globulin 3.6 g/dL (2.2-4.2); Potassium 4.1 mmol/L (3.5-5.1); Sodium Level 138 mmol/L (136-145)
[2022-01-18 14:44] LABS: Carbohydrate Ag 19-9 2261 < 2 U/mL (0-35)
== END 2022-01-17 23:59 | disposition home or self-care (01) ==
LOC: LAB 09:16
PROVIDERS: Referring Provider Nurse Practitioner Adult Health; Visit Provider Nurse Practitioner Adult Health
DX: K86.89 Other specified diseases of pancreas (principal); R59.0 Localized enlarged lymph nodes; R10.9 Unspecified abdominal pain
CPT/HCPCS: 36415; 80053; 82150; 85025; 85652; 86140; 86301

== ENCOUNTER 2022-01-18 06:27 | Outpatient (CLI) | payer MEDICAID, SELFPAY ==
[2022-01-21 22:10] LABS: Fats, Neutral Normal (.); Fats, Total Normal (.)
== END 2022-01-18 23:59 | disposition home or self-care (01) ==
PROVIDERS: Referring Provider Nurse Practitioner Adult Health; Visit Provider Nurse Practitioner Adult Health
DX: K86.89 Other specified diseases of pancreas (principal)
CPT/HCPCS: 82705

== ENCOUNTER 2022-02-04 07:13 | Outpatient (CLI) | payer MEDICAID, SELFPAY ==
--- NOTE | 2022-02-04 07:14 | MRI_ITS ---
STUDY: MR MRCP WITHOUT CONTRAST REASON FOR EXAM: Female, 56 years old. pancreatitis per CT TECHNIQUE: Standard MRCP technique was utilized. 3-D postprocessing images were reviewed. COMPARISON: None. FINDINGS: Gall Bladder: Normal with no distention or demonstrated fixed intraluminal filling defect. Cystic duct: Normal with no demonstrated fixed filling defect. Intrahepatic ducts: Normal visualized intrahepatic ducts with no demonstrated fixed filling defect, dilation or stricture. Common hepatic duct: Normal with no demonstrated fixed filling defect, dilation or stricture. Common bile duct: Normal with no demonstrated fixed filling defect, dilation or stricture. Pancreatic duct: Normal with no demonstrated fixed filling defect, dilation or stricture. MRI/MRCP Abdomen without Contrast IMPRESSION: Normal MR Cholangiopancreatography (MRCP). Electronically Signed: Sukhwinder Elliott MD at 16:43 EDT ,
== END 2022-02-04 23:59 | disposition home or self-care (01) ==
LOC: MRI 07:14
PROVIDERS: Referring Provider Nurse Practitioner Adult Health; Visit Provider Nurse Practitioner Adult Health
DX: K86.89 Other specified diseases of pancreas (principal); R10.9 Unspecified abdominal pain
CPT/HCPCS: 74181

== ENCOUNTER 2022-03-21 07:45 | Day surgery (SDC) | payer MEDICAID, SELFPAY ==
[2022-03-21] VITALS (8 sets, daily range): BP systolic 81–104; BP diastolic 46–86; PULSE 79–97; RESP 16; TEMP 36.6–37.2; O2SAT 97–100; BMI 19.1
--- NOTE | 2022-03-21 | COLBX_PTH ---
PATIENT: ALTON ZAVALA LOC: EN U#:[id number] AGE/SX: 56/F ROOM: RE03/21/[address]: Dr. Samy Saravia DO : 1965 BED: DIS: 03/21/2022 SPEC #: [id number] RECD: 03/21/22 13:44 STATUS: HAYLEE SUSAN #: [id number] LEMUEL: 03/21/22 00:[address]: Samy Saravia DEPT: SURGICAL PATHOLOGY RECD BY: Jake Fernández ENTERED: 03/22/22 07:59 SP TYPE: COLON BX OTHR DR: Nereida Davis, BLADE WORKER-C [facility] Tissues: A - Duodenum, NOS B - Gastric mucous membrane C - Esophageal mucous membrane D - SPLENIC FLEXURE E - Cecum, NOS Procedures: Special Stain Group II Surgery Specimen Level IV Alcian Blue/PAS (control) HEADER OPERATION: Colonoscopy with biopsy and polypectomy, EGD with biopsy ([facility]) PRE-OP DIAGNOSIS: Pancreatic calcification, mesenteric lymphadenopathy, abdominal pain TISSUE SUBMITTED: A ? Duodenum biopsy, B ? Gastric body biopsy, C ? Distal esophagus biopsy, D ? Splenic flexure polyp, E ? Cecum biopsy MICROSCOPIC DIAGNOSIS A. Duodenum, biopsy: No pathologic change. B. Gastric body, biopsy: Mild chronic inflammation. See comment. C. Distal esophagus, biopsy: Gastroesophageal junctional mucosa with mild chronic inflammation. No evidence of goblet cell metaplasia. See comment. D. Colonic polyp at hepatic flexure, biopsy: Fragments of tubular adenoma. E. Cecum, biopsy: No pathologic change. AM:margi 03/23/2022 COMMENT B. The results of immunohistochemistry for Helicobacter pylori will be reported separately ([id number]). C. Alcian blue/PAS stain with matched control supports the above diagnosis. MICROSCOPIC DESCRIPTION Slides are reviewed. GROSS DESCRIPTION A - Received in fixative is one container labeled with the patient's name and designated duodenum biopsy. The specimen consists of multiple irregular fragments of light garzon soft tissue that in aggregate measure 1 x 0.3 x 0.1 cm. The specimen is totally submitted in one cassette. B - Received in fixative is one container labeled with the patient's name and designated gastric body biopsy. The specimen consists of two irregular fragments of light garzon soft tissue that in aggregate measure 0.5 x 0.3 x 0.1 cm. The specimen is totally submitted in one cassette. C - Received in fixative is one container labeled with the patient's name and designated distal esophagus biopsy. The specimen consists of multiple irregular fragments of light garzon soft tissue that in aggregate measure 1 x 0.3 x 0.1 cm. The specimen is totally submitted in one cassette. D - Received in fixative is one container labeled with the patient's name and designated splenic flexure polyp. The specimen consists of two irregular fragments of light garzon soft tissue that in aggregate measure 0.6 x 0.3 x 0.1 cm. The specimen is totally submitted in one cassette. E - Received in fixative is one container labeled with the patient's name and designated cecum biopsy. The specimen consists of two irregular fragments of light garzon soft tissue that in aggregate measure 0.8 x 0.3 x 0.1 cm. The specimen is totally submitted in one cassette. / SJ:rg 03/22/2022 TC:3 CPT: 85003 x5, 17639
[2022-03-21 08:16] LABS: Bedside Glucose 83 mg/dL (74-106)
[2022-03-21] MEDS: Lactated Ringers 1,000 ML 15 ML IV (08:26)
--- NOTE | 2022-03-21 08:33 | PCM.HP.BLA ---
History and Physical Date of Admission: 03/21/22 ALTON ZAVALA, is a 56 F who presents to the office today for discussion of results from recent work-up for suggestion of chronic pancreatitis per CT scan which showed calcifications in the pancreas. Pancreas calcifications on CT--fecal elastase pending, normal fecal fat, normal amylase and lipase, normal CA 19-9, normal inflammatory markers, normal MRCP 12/21/21 CT abdomen and pelvis without contrast CT: small lymph nodes RLQ suggestive of mesenteric adenitis; calcifications in pancreas suggestive of chronic pancreatitis. She reports a 20 yr hx of GI symptoms. She reports RLQ pain that has worsened x 1.5 yrs. Can be assoc with nausea. Doesn't know if related to bowel changes. Feels cramps across lower abd. Stomach swells when she eats, poor appetite, makes herself eat. Lifelong constipation; used to have BM only once a week for many years. Then changed her diet in 2006, was able to have BM daily then. Now can have urgency with BM, but needs to strain most of the time, then can be loose. Stool consistency and size vary significantly. Having BM every 1-3 days currently. Has had some dark stools but no hematochezia or melena. 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 Vomited twice since she had COVID in 09/2021, foamy acid emesis. No hematemesis. Gets extremely cold every time she eats. Daily heartburn, drinks more water then, then has increased belching and flatus. Can have difficulty swallowing. Reports years since she felt like food got stuck though. Weight is stable. Reports diverticulosis. Review of chart shows hx of colonoscopy 2014, poor prep. Patient underwent an EGD on 04/11/2019. Patient was noted to have a normal esophagus. Some mild local erythematous mucosa in the prepyloric region of the stomach. Biopsy for H. pylori was negative. Biopsies did show however she did have some minimal chronic inflammation and small bowel biopsies showed some minimal chronic inflammation. 2019 HIDA scan normal ROS Const Constitutional: Positive for fatigue Eyes Eyes: Positive for blurry vision and irritation ENT ENT: No difficulty swallowing Resp Respiratory: Positive for wheezing Cardio Cardiology: Positive for leg pain with exertion Gastro GI: Positive for abdominal pain, constipation, diarrhea, heartburn and nausea/dyspepsia; No belching, bloating, change in bowel habits, change in stool character, coffee ground emesis, cramping, difficulty swallowing, feeling full early, excessive flatus, incontinent of stools, Vomiting blood/hematemesis, Blood in stool, loose stools, Black,tarry stools, pain with swallowing, vomiting or other Genitourinary-Female: Positive for urinary frequency and urinary urgency Musc Musculoskeletal: Positive for joint pain, back pain, joint swelling, muscle cramps, muscle weakness, stiffness and leg pain with exertion Skin Skin: Positive for lesions; No yellowing of the eye or itchy eyes Psych Psychiatric: Positive for anxiety, No depression and Positive for obsessions/compulsions Endo Endocrine: Positive for cold intolerance, fatigue, heat intolerance, increased thirst/drinking and increased hunger Aller/Imm Allergy/Immunologic: Positive for wheezing; No itchy eyes Miles/Lymp Hematologic/Lymphatic: No easy bleeding or easy bruising Exam Const General: cooperative, well developed, well groomed and anxious Nutritional Appearance: thin Quality Reporting Tobacco Screening ([facility] 138) Smoking Status: Current every day smoker Assessment and Plan Assessment and Plan (1) Pancreatic calcification: Status: Acute (2) Mesenteric lymphadenopathy: Status: Acute (3) Abdominal pain: Status: Acute (4) Nausea: Status: Acute (5) Vomiting: Status: Acute (6) Constipation: Status: Acute (7) Diarrhea: Status: Acute Plan - Mirian Winter KNITTING MACHINE OPERATOR HELPER, KNITTING MACHINE OPERATOR HELPER-C: Today we reviewed normal results for work-up done for possible chronic pancreatitis because of calcifications of the pancreas seen on CT. She complains of increased nausea, diarrhea after eating; samples of Zenpep pancreatic enzymes provided to try for the next couple of days with meals, 1 pill with snack, 3 pills with 1 meal. She is scheduled for EGD and colonoscopy and follow-up after that. I have re-examined the patient. There are no clinical changes since date of exam.
--- NOTE | 2022-03-21 08:45 | IMM_PTH ---
PATIENT: ALTON ZAVALA LOC: EN U#:[id number] AGE/SX: 56/F ROOM: RE03/21/[address]: Dr. Samy Saravia DO : 1965 BED: DIS: 03/21/2022 SPEC #: [id number] RECD: 03/22/22 08:46 STATUS: HAYLEE REQ #: [id number] LEMUEL: 03/21/22 08:[address]: Samy Saravia DEPT: IMMUNOHISTOCHEMISTRY RECD BY: Bridget Macedo ENTERED: 03/22/22 08:47 SP TYPE: IMMUNO OTHR DR: Nereida Davis, FISHER DIP NET-C [facility] Tissues: B - Stomach, NOS Procedures: H Pylori (initial) PHYSICIAN & INSTITUTION [place] [id number] SPECIMEN INFORMATION: Tissue Source: B ? Gastric body biopsy Clinical Info: Pancreatic calcification, mesenteric lymphadenopathy, abdominal pain Specimen Number: [id number] CPT code: 97682 METHODOLOGY: Deparaffinized sections of prefer/formalin-fixed tissue or PAP/DQ stained slides are incubated with monoclonal/polyclonal antibodies/oligonucleotide probes. Localization is made via biotin free immunoperoxidase method. Appropriate controls are performed and reacted as expected. Results on target cell population are indicated in the following table: RESULTS: ANTIBODY / CLONE RESULT Block B H Pylori (polyclonal) negative These tests were developed and their performance characteristics determined by [facility]. They may not have been cleared or approved by the U.S. Food and Drug Administration. The FDA has determined that such clearance or approval is not necessary. The above immunohistochemical/dualISH markers are ordered and reviewed by the Pathologist. INTERPRETATION: B. Gastric body, biopsy: Negative for Helicobacter pylori organisms. AM:margi 03/24/2022
--- NOTE | 2022-03-21 09:25 | OP.CCLET_ITS ---
08/12/2022 Ginette Genao [facility] Re : Upper GI end[facility] This procedure was performed on Monday, March 21, 2022. My impressions and recommendations are as follows: Impressions : - LA Grade A reflux esophagitis. Biopsied. - Small hiatal hernia. - Erythematous mucosa in the antrum. - Duodenitis. Biopsied. Recommendations : - Discharge patient to home. - Resume previous diet. - Continue present medications. - Await pathology results. - Repeat upper endoscopy. - Return to GI office. My findings are described in the full procedure note, which is enclosed. If I can be of further assistance, please feel free to contact me at . Sincerely, Samy Saravia, 03/21/2022 9:24:27 AM This report has been signed electronically.
--- NOTE | 2022-03-21 09:25 | OP.EGD_ITS ---
Patient Name: Shayna Lyons Procedure Date: 03/21/2022 8:40 AM Date of : 1965 Age: 56 Procedure: Upper GI endoscopy Indications: Epigastric abdominal pain, Heartburn Providers: Samy Saravia DO Referring MD: Ginette Genao [facility] Medicines: Monitored Anesthesia Care Patient Profile: This is a 56 year old female. Refer to note in patient chart for documentation of history and physical. Patient has symptoms. Complications: No immediate complications. Procedure: Pre-Anesthesia Assessment: - Prior to the procedure, a History and Physical was performed, and patient medications and allergies were reviewed. The patient is competent. The risks and benefits of the procedure and the sedation options and risks were discussed with the patient. All questions were answered and informed consent was obtained. Patient identification and proposed procedure were verified by the physician in the pre-procedure area. Mental Status Examination: alert and oriented. Respiratory Examination: clear to auscultation. CV Examination: normal. Prophylactic Antibiotics: The patient does not require prophylactic antibiotics. Prior Anticoagulants: The patient has taken no previous anticoagulant or antiplatelet agents. ASA Grade Assessment: II - A patient with mild systemic disease. After reviewing the risks and benefits, the patient was deemed in satisfactory condition to undergo the procedure. The anesthesia plan was to use moderate sedation / analgesia (conscious sedation). Immediately prior to administration of medications, the patient was re-assessed for adequacy to receive sedatives. The heart rate, respiratory rate, oxygen saturations, blood pressure, adequacy of pulmonary ventilation, and response to care were monitored throughout the procedure. The physical status of the patient was re-assessed after the procedure. After obtaining informed consent, the endoscope was passed under direct vision. Throughout the procedure, the patient's blood pressure, pulse, and oxygen saturations were monitored continuously. The pediatric colonoscope was introduced through the mouth, and advanced to the second part of duodenum. The upper GI endoscopy was accomplished without difficulty. The patient tolerated the procedure well. Scope In: 8:49:40 AM Scope Out: 8:57:49 AM Total Procedure Duration Time 0 hours 8 minutes 9 seconds Findings: LA Grade A (one or more mucosal breaks less than 5 mm, not extending between tops of 2 mucosal folds) esophagitis with no bleeding was found 38 to 40 cm from the incisors. Biopsies were taken with a cold forceps for histology. Verification of patient identification for the specimen was done. Estimated blood loss was minimal. A small hiatal hernia was present. Patchy mildly erythematous mucosa without bleeding was found in the gastric antrum. Patchy mild inflammation characterized by congestion (edema) was found in the second portion of the duodenum. Biopsies were taken with a cold forceps for histology. Verification of patient identification for the specimen was done. Estimated blood loss was minimal. Impression: - LA Grade A reflux esophagitis. Biopsied. - Small hiatal hernia. - Erythematous mucosa in the antrum. - Duodenitis. Biopsied. Recommendation: - Discharge patient to home. - Resume previous diet. - Continue present medications. - Await pathology results. - Repeat upper endoscopy. - Return to GI office. Procedure Code(s): --- Professional --- 70564, Esophagogastroduodenoscopy, flexible, transoral; with biopsy, single or multiple CPT copyright 2017 [employer]. All rights reserved. The codes documented in this report are preliminary and upon business system consultant review may be revised to meet current compliance requirements. Samy Saravia DO 03/21/2022 9:24:27 AM This report has been signed electronically. Number of Addenda: 1 Note Initiated On: 03/21/2022 8:40 AM Addendum Number: 1 Addendum Date: 08/12/2022 6:27:33 AM MAC was used as sedation for this procedure. Samy Saravia DO 08/12/2022 6:27:41 AM This report has been signed electronically.
--- NOTE | 2022-03-21 09:29 | OP.CCLET_ITS ---
08/12/2022 Ginette Genao [facility] Re : Colonoscopy procedure for [facility]ay[facility]ons [facility] This procedure was performed on Monday, March 21, 2022. My impressions and recommendations are as follows: Impressions : - Hemorrhoids found on perianal exam. - Congested mucosa in the cecum. Biopsied. - One 6 mm polyp at the splenic flexure, removed with a cold snare. Resected and retrieved. Recommendations : - Discharge patient to home. - Resume previous diet. - Continue present medications. - Await pathology results. - Repeat colonoscopy in 5 years for surveillance. - Return to GI office. My findings are described in the full procedure note, which is enclosed. If I can be of further assistance, please feel free to contact me at . Sincerely, Samy Friend, 03/21/2022 9:28:42 AM This report has been signed electronically.
--- NOTE | 2022-03-21 09:29 | OP.COLON_ITS ---
Patient Name: Shayna Lyons Procedure Date: 03/21/2022 8:58 AM Date of : 1965 Age: 56 Procedure: Colonoscopy Indications: Screening for colorectal malignant neoplasm Providers: Samy Saravia DO Referring MD: Ginette Genao [facility] Medicines: Monitored Anesthesia Care Patient Profile: This is a 56 year old female. Refer to note in patient chart for documentation of history and physical. Patient has symptoms. Last Colonoscopy: date unknown. Complications: No immediate complications. Procedure: Pre-Anesthesia Assessment: - Prior to the procedure, a History and Physical was performed, and patient medications and allergies were reviewed. The patient is competent. The risks and benefits of the procedure and the sedation options and risks were discussed with the patient. All questions were answered and informed consent was obtained. Patient identification and proposed procedure were verified by the physician in the pre-procedure area. Mental Status Examination: alert and oriented. Respiratory Examination: clear to auscultation. CV Examination: normal. Prophylactic Antibiotics: The patient does not require prophylactic antibiotics. Prior Anticoagulants: The patient has taken no previous anticoagulant or antiplatelet agents. ASA Grade Assessment: II - A patient with mild systemic disease. After reviewing the risks and benefits, the patient was deemed in satisfactory condition to undergo the procedure. The anesthesia plan was to use moderate sedation / analgesia (conscious sedation). Immediately prior to administration of medications, the patient was re-assessed for adequacy to receive sedatives. The heart rate, respiratory rate, oxygen saturations, blood pressure, adequacy of pulmonary ventilation, and response to care were monitored throughout the procedure. The physical status of the patient was re-assessed after the procedure. - Prior to the procedure, a History and Physical was performed, and patient medications and allergies were reviewed. The patient is competent. The risks and benefits of the procedure and the sedation options and risks were discussed with the patient. All questions were answered and informed consent was obtained. Patient identification and proposed procedure were verified by the physician in the pre-procedure area. Mental Status Examination: alert and oriented. Airway Examination: normal oropharyngeal airway and neck mobility. Respiratory Examination: clear to auscultation. CV Examination: normal. ASA Grade Assessment: II - A patient with mild systemic disease. After reviewing the risks and benefits, the patient was deemed in satisfactory condition to undergo the procedure. The anesthesia plan was to use moderate sedation / analgesia (conscious sedation). Immediately prior to administration of medications, the patient was re-assessed for adequacy to receive sedatives. The heart rate, respiratory rate, oxygen saturations, blood pressure, adequacy of pulmonary ventilation, and response to care were monitored throughout the procedure. The physical status of the patient was re-assessed after the procedure. After I obtained informed consent, the scope was passed under direct vision. Throughout the procedure, the patient's blood pressure, pulse, and oxygen saturations were monitored continuously. The pediatric colonoscope was introduced through the anus and advanced to the cecum, identified by appendiceal orifice and ileocecal valve. The colonoscopy was performed without difficulty. The patient tolerated the procedure well. The quality of the bowel preparation was good. Moderate Sedation: Moderate (conscious) sedation was personally administered by an anesthesia professional. The following parameters were monitored: oxygen saturation, heart rate, blood pressure, respiratory rate, EKG, adequacy of pulmonary ventilation, and response to care. Scope In: 9:00:20 AM Scope Withdrawal Time 0 hours 8 minutes 4 seconds Scope Out: 9:19:08 AM Total Procedure Duration Time 0 hours 18 minutes 48 seconds Findings: Hemorrhoids were found on perianal exam. An area of mildly congested mucosa was found in the cecum. Biopsies were taken with a cold forceps for histology. Verification of patient identification for the specimen was done. Estimated blood loss was minimal. A 6 mm polyp was found in the splenic flexure. The polyp was sessile. The polyp was removed with a cold snare. Resection and retrieval were complete. Verification of patient identification for the specimen was done. Estimated blood loss was minimal. No additional abnormalities were found on retroflexion. Impression: - Hemorrhoids found on perianal exam. - Congested mucosa in the cecum. Biopsied. - One 6 mm polyp at the splenic flexure, removed with a cold snare. Resected and retrieved. Recommendation: - Discharge patient to home. - Resume previous diet. - Continue present medications. - Await pathology results. - Repeat colonoscopy in 5 years for surveillance. - Return to GI office. Procedure Code(s): --- Professional --- 82532, Colonoscopy, flexible; with removal of tumor(s), polyp(s), or other lesion(s) by snare technique 71535, 61, Colonoscopy, flexible; with biopsy, single or multiple CPT copyright 2017 [employer]. All rights reserved. The codes documented in this report are preliminary and upon cleaning staff supervisor review may be revised to meet current compliance requirements. Samy Saravia DO 03/21/2022 9:28:42 AM This report has been signed electronically. Number of Addenda: 1 Note Initiated On: 03/21/2022 8:58 AM Addendum Number: 1 Addendum Date: 08/12/2022 6:27:48 AM MAC was used as sedation for this procedure. Samy Saravia DO 08/12/2022 6:27:54 AM This report has been signed electronically.
== END 2022-03-21 10:33 | disposition home or self-care (01) ==
LOC: EN 07:46 → AC 07:47
PROVIDERS: Visit Provider Internal Medicine Gastroenterology
PROC: 0DJD8ZZ Inspection of Lower Intestinal Tract, Via Natural or Artificial Opening Endoscopic (ICD-10-PCS; CPT 45378; principal; 2022-03-21 08:40)
DX: Z12.11 Encounter for screening for malignant neoplasm of colon (principal); J44.9 Chronic obstructive pulmonary disease, unspecified; D12.3 Benign neoplasm of transverse colon; K64.9 Unspecified hemorrhoids; K21.00 Gastro-esophageal reflux disease with esophagitis, without bleeding; K29.80 Duodenitis without bleeding; K44.9 Diaphragmatic hernia without obstruction or gangrene; K59.00 Constipation, unspecified; K86.89 Other specified diseases of pancreas; I10 Essential (primary) hypertension; M19.90 Unspecified osteoarthritis, unspecified site; F17.200 Nicotine dependence, unspecified, uncomplicated; R59.0 Localized enlarged lymph nodes; R19.7 Diarrhea, unspecified; R11.2 Nausea with vomiting, unspecified; Z79.899 Other long term (current) drug therapy; Z86.73 Personal history of transient ischemic attack (TIA), and cerebral infarction without residual deficits; Z86.16 Personal history of COVID-19; Z20.822 Contact with and (suspected) exposure to COVID-19
CPT/HCPCS: 45385; 45380; 43239; 82962; 87426; 88305; 88313; 88342; J7120; J2405

== ENCOUNTER → 2022-07-06 | Outpatient (CLI) | payer MEDICAID, SELFPAY ==
[2022-07-06 13:03] LABS: LDH 239 U/L (84-246)
== END | disposition home or self-care (01) ==
LOC: LAB 11:00
PROVIDERS: Referring Provider Nurse Practitioner Adult Health; Visit Provider Nurse Practitioner Adult Health
DX: I88.0 Nonspecific mesenteric lymphadenitis (principal)
CPT/HCPCS: 36415; 83615

== ENCOUNTER → 2022-07-08 | Outpatient (CLI) | payer MEDICAID, SELFPAY ==
[2022-07-13 16:30] LABS: Pancreatic Elastase, Fecal 168 (>200)
[2022-07-14 14:00] LABS: Fats, Neutral Normal (.); Fats, Total Normal (.)
== END | disposition home or self-care (01) ==
LOC: LABSPEC 06:12
PROVIDERS: Referring Provider Nurse Practitioner Adult Health; Visit Provider Nurse Practitioner Adult Health
DX: K86.89 Other specified diseases of pancreas (principal)
CPT/HCPCS: 82653; 82705

== ENCOUNTER → 2023-04-04 | Outpatient (CLI) | payer MEDICAID, SELFPAY ==
[2023-04-04 10:01] LABS: Hemoglobin 14.9 g/dL (12.0-15.0); Mean Corp Hgb Conc 33.9 g/dL (32-36); Mean Corpuscular Hgb 31.4 pg (27.0-32.0); Mean Corpuscular Volume 92.6 fL (81-99); Mean Platelet Vol. 9.7 fl (6.2-12.0); Platelet Count 283 K/mm3 (150-450); RBC Distribution Width CV 13.6 % (11.6-14.6); RBC Distribution Width SD 46.9 fl (35.1-43.9); Red Blood Count 4.75 M/mm3 (4.2-5.4); White Blood Count 6.4 K/mm3 (4.4-11.0)
[2023-04-04 11:27] LABS: ALB/GLOB Ratio 1.2 RATIO (0.9-2.4); AST(SGOT) 22 U/L (15-37); Alanine Aminotransfer ALT/SGPT 26 U/L (13-56); Albumin, Serum 4.1 g/dL (3.2-5.0); Alkaline Phosphatase 76 U/L (45-117); Anion Gap 9 (5-15); BUN 9 mg/dL (7-18); BUN/Creat Ratio 13.7 RATIO (10-20); Calcium,Total 9.4 mg/dL (8.5-10.1); Chloride 106 mmol/L (98-107); Cholesterol 195 mg/dL (200); Creatinine, Serum 0.66 mg/dL (0.55-1.02); EST Glomerular Filtration Rate 99 mL/min (>60); Est Glom Filt Rate - Afr Amer 120 mL/min (>60); Globulin 3.4 g/dL (2.2-4.2); Glucose 98 mg/dL (74-106); High Density Lipoprotein 72 mg/dL; Lipase 28 U/L (13-75); Magnesium 2.3 mg/dL (1.6-2.6); Phosphorus 3.7 mg/dL (2.5-4.9); Potassium 4.2 mmol/L (3.5-5.1); Protein, Total 7.5 g/dL (6.4-8.2); Sodium Level 138 mmol/L (136-145); T4 Free Direct 0.92 ng/dL (0.76-1.46); Thyroid Stim Hormone (TSH) 1.18 uIU/mL (0.358-3.74); Triglycerides 58 mg/dL; Very Low Density Lipoprotein 12 mg/dL (5-40)
[2023-04-08 15:07] LABS: Immunoglobulin A 175 mg/dL (87-352); Immunoglobulin E 17 IU/mL (6-495); Immunoglobulin G 907 mg/dL (586-1602); Immunoglobulin M 38 mg/dL (26-217)
== END | disposition home or self-care (01) ==
PROVIDERS: Internal Medicine Gastroenterology; Referring Provider Nurse Practitioner Family; Visit Provider Nurse Practitioner Family
DX: K86.1 Other chronic pancreatitis (principal); F10.20 Alcohol dependence, uncomplicated; E03.9 Hypothyroidism, unspecified; I10 Essential (primary) hypertension; E78.5 Hyperlipidemia, unspecified
CPT/HCPCS: 36415; 80053; 80061; 82746; 82784; 82785; 83690; 83735; 84100; 84439; 84443; 85027

== ENCOUNTER → 2023-05-04 | Outpatient (CLI) | payer MEDICAID, SELFPAY | END | disposition home or self-care (01) | LOC: LAB 12:06 | DX: L81.8 Other specified disorders of pigmentation (principal) | CPT/HCPCS: 36415; 82533 ==

== ENCOUNTER → 2023-07-27 | Outpatient (CLI) | payer MEDICAID, SELFPAY ==
[2023-07-27 15:24] LABS: Absolute Lymphocyte Count 1.73 X10^3/uL (0.83-4.51); Basophil# 0.06 X10^3/uL; Basophil% 1.1 % (0-1); Eosinophil# 0.17 X10^3/uL; Eosinophils% 3.1 % (0-5); Hematocrit 46.3 % (37-47); Hemoglobin 15.5 g/dL (12.0-15.0); Lymphocyte # 1.73 X10^3/ul (0.83-4.51); Lymphocyte % 31.7 % (19-41); Mean Corp Hgb Conc 33.5 g/dL (32-36); Mean Corpuscular Hgb 31.7 pg (27.0-32.0); Mean Corpuscular Volume 94.7 fL (81-99); Mean Platelet Vol. 9.7 fl (6.2-12.0); Monocyte% 9.2 % (0-10); NRBC Flagged by Analyzer 0 % (0-5); Neutrophil # 2.98 X10^3/uL (2.7-7.7); Neutrophil % 54.7 % (47-70); Platelet Count 329 K/mm3 (150-450); RBC Distribution Width CV 13.8 % (11.6-14.6); RBC Distribution Width SD 48.4 fl (35.1-43.9); Red Blood Count 4.89 M/mm3 (4.2-5.4); White Blood Count 5.5 K/mm3 (4.4-11.0)
[2023-07-27 16:05] LABS: Erythrocyte Sedimentation Rate 4 mm/hr (0-30)
[2023-07-27 16:12] LABS: ALB/GLOB Ratio 1.1 RATIO (0.9-2.4); AST(SGOT) 19 U/L (15-37); Alanine Aminotransfer ALT/SGPT 29 U/L (13-56); Albumin, Serum 4.1 g/dL (3.2-5.0); Alkaline Phosphatase 78 U/L (45-117); Anion Gap 3 (5-15); BUN 9 mg/dL (7-18); BUN/Creat Ratio 11.2 RATIO (10-20); CRP < 2.90 mg/L (0.0-3.0); Calcium,Total 9.3 mg/dL (8.5-10.1); Chloride 106 mmol/L (98-107); EST Glomerular Filtration Rate 79 mL/min (>60); Est Glom Filt Rate - Afr Amer 95 mL/min (>60); Globulin 3.6 g/dL (2.2-4.2); Glucose 137 mg/dL (74-106); Potassium 3.8 mmol/L (3.5-5.1); Protein, Total 7.7 g/dL (6.4-8.2); Rheumatoid Factor < 10.0 IU/mL (<15); Sodium Level 137 mmol/L (136-145)
[2023-07-31 13:07] LABS: ANTINUCLEAR ANTIBODIES DIRECT Negative (Negative)
== END | disposition home or self-care (01) ==
LOC: LAB 14:48
PROVIDERS: Referring Provider Nurse Practitioner Family; Visit Provider Nurse Practitioner Family
DX: M25.50 Pain in unspecified joint (principal)
CPT/HCPCS: 36415; 80053; 85025; 85652; 86038; 86140; 86431

== ENCOUNTER 2023-08-19 13:25 | Emergency (ER) | payer MEDICAID, SELFPAY ==
[2023-08-19 13:26] VITALS: BP 171/107; PULSE 90; RESP 16; TEMP 36.3; O2SAT 99; BMI 19.1
--- NOTE | 2023-08-19 13:44 | EDS_ITS ---
HPI <SHANICE Dyson - Last Filed: 08/19/23 15:21> History of Present Illness Chief Complaint: Abd Pain Narrative Narrative: 57-year-old female with PMH of COPD, chronic pancreatitis presents with 2 weeks of right upper quadrant abdominal pain. She states there is always a dull pain that sometimes worsens after eating. No nausea or vomiting. No fever or chills. She has chronic constipation but had normal bowel movement yesterday. No blood in her stool. No urinary symptoms. She takes Creon with meals for chronic pancreatitis. States she drinks 3 shots a day and smokes 1 PPD. No abdominal surgical history. She states she seen Dr. Saravia in the past and had endoscopy and colonoscopy when she was diagnosed with chronic pancreatitis. PFSH <SHANICE Dyson - Last Filed: 08/19/23 15:21> [facility] Medical History Abdominal pain Acid reflux Alcohol use Anxiety Arthritis Asthma Back problem Black tarry stools Brain lesion Chronic cough Constipation COPD (chronic obstructive pulmonary disease) Depression Difficulty swallowing Easy bruising Fatigue History of diverticulitis History of edema History of pain when walking History of stress test Hypertension Injury of head and neck Leg cramps Loss of hearing Marijuana use Nausea PTSD (post-traumatic stress disorder) Rash Smoker SOB (shortness of breath) Syncope Thyroid disease TIA (transient ischemic attack) Vomiting Wears dentures Wears glasses Wears partial dentures Home Medications lisinopril 10 mg tablet 10 mg PO DAILY 06/04/21 [History Last Taken 03/21/22] cholecalciferol (vitamin D3) 125 mcg (5,000 unit) capsule 125 mcg PO DAILY 01/17/22 [History Last Taken Unknown] metoprolol succinate 50 mg tablet,extended release 24 hr 50 mg PO DAILY 01/17/22 [History Last Taken 03/21/22] albuterol sulfate 90 mcg/actuation aerosol inhaler (Ventolin HFA) 1 inh inhalation Q6H PRN SOB 03/16/22 [History Last Taken Unknown] multivitamin 1 cap PO DAILY 03/16/22 [History Last Taken Unknown] pknufh-nmmhjanf-hhgairp 36,000-114,000-180,000 unit capsule,delay rel (Creon) 1 cap PO TID #300 caps 07/15/22 [Rx Last Taken Unknown] simethicone 125 mg capsule (Gas Relief (simethicone)) 125 mg PO BID PRN abdominal distention/ 7 days #14 caps 08/19/23 [Rx Last Taken Unknown] Allergy/AdvReac Type Severity Reaction Status Date / Time morphine Allergy Itching Verified 08/19/23 13:31 Family History Uncle Thyroid cancer Thyroid disorder Father Alcoholism Grandfather Alcoholism Grandmother Depression Seizures Sister Heart disease Other Anxiety Cancer Surgical History Hx of colonoscopy Hx of tubal ligation Social History Smoking Status: Current every day smoker tobacco type: cigarettes alcohol intake: former substance use type: does not use caffeine: Yes what type of physical activity do you participate in: walking ROS <SHANICE Dyson - Last Filed: 08/19/23 15:21> ROS ED ROS Narrative Constitutional: Negative for fever, chills, malaise. CVS: Negative for palpitations, chest pain. Respiratory: Negative for shortness of breath, cough. GI: Positive for abdominal pain. Negative for nausea, vomiting, diarrhea. : Negative for dysuria, hematuria or frequency. EXAM <SHANICE Dyson - Last Filed: 08/19/23 15:21> Physical Exam Narrative Exam Narrative: CONST: Patient sitting in no acute distress. EYES: Normal inspection. NECK: Normal inspection. RESP: No respiratory distress, CTAB. CVS: Regular rate and rhythm, no murmur, no gallop. ABD: Soft with right upper quadrant tenderness with negative Lawler sign, no guarding or rebound, nondistended, no hepatosplenomegaly. SKIN: Color normal, no rash, warm, dry, intact. EXTREMITIES: Normal appearance, no pedal edema. NEURO: Oriented x4. PSYCH: Normal affect. Const Vital Signs: 08/19/23 13:26 Temperature 97.3 F L Temperature Source Temporal Pulse Rate 90 Respiratory Rate 16 Blood Pressure 171/107 H Blood Pressure Mean 128 Pulse Ox 99 Oxygen Delivery Method Room Air <Mejia Leblanc MD - Last Filed: 08/19/23 15:43> Physical Exam Const Vital Signs: 08/19/23 13:26 Temperature 97.3 F L Temperature Source Temporal Pulse Rate 90 Respiratory Rate 16 Blood Pressure 171/107 H Blood Pressure Mean 128 Pulse Ox 99 Oxygen Delivery Method Room Air [facility] <SHANICE Dyson - Last Filed: 08/19/23 15:21> [facility] Narrative Medical decision making narrative: Patient has had 2 weeks of intermittent RUQ pain. She appears well and nontoxic. Vital signs within normal limits. She has mild tenderness in right upper quadrant but negative Lawler sign. Differential includes gallstones, cholecystitis, chronic pancreatitis, GERD among others. I initially ordered a RUQ US but the tech stated the gallbladder is contracted since she ate recently and it could not be assessed. CBC, CMP, and lipase are within normal limits. I have low concern she has acute cholecystitis and think she can follow-up outpatient for an ultrasound. KUB shows significant gas and a nonobstructive pattern. I prescribed Gas-X and recommended she take MiraLAX as needed for constipation. She has follow-up scheduled with GI but was given return precautions. She was discharged in stable condition. Lab Data Attestation: I reviewed the patient's lab results. Labs: Laboratory Results - last 24 hr 08/19/23 13:55 WBC 5.9 RBC 5.27 Hgb 16.6 H Hct 48.7 H MCV 92.4 MCH 31.5 MCHC 34.1 RDW Std Deviation 46.2 H RDW Coeff of Laura 13.5 Plt Count 303 MPV 9.6 Immature Gran % (Auto) 0.300 Neut % (Auto) 55.9 Lymph % (Auto) 31.4 Gilliam % (Auto) 8.7 Eos % (Auto) 2.2 Baso % (Auto) 1.5 H Absolute Neuts (auto) 3.3 Absolute Lymphs (auto) 1.85 Nucleated RBC % 0 Sodium 135 L Potassium 4.0 Chloride 102 Carbon Dioxide 28.0 Anion Gap 5 BUN 5 L Creatinine 0.68 Estim Creat Clear Calc 76.98 Est GFR (MDRD) Af Amer 115 Est GFR (MDRD) Non-Af 95 BUN/Creatinine Ratio 7.4 L Glucose 122 H Calcium 9.8 Total Bilirubin 0.40 AST 14 L ALT 26 Alkaline Phosphatase 75 Total Protein 8.0 Albumin 4.4 Globulin 3.6 Albumin/Globulin Ratio 1.2 Lipase 35 Radiography Diagnostic Testing: Clinical Impression(s) from Imaging Studies KUB X-Ray 08/19/23 13:50 IMPRESSION: Non-obstructive bowel gas pattern. Electronically Signed: Uli Seals MD at 15:02 EDT , ED attending interpretation of KUB shows significant gas, no evidence of obstruction <Mejia Leblanc MD - Last Filed: 08/19/23 15:43> MDM MDM Narrative Medical decision making narrative: Patient has had 2 weeks of intermittent RUQ pain. She appears well and nontoxic. Vital signs within normal limits. She has mild tenderness in right upper quadrant but negative Lawler sign. Differential includes gallstones, cholecystitis, chronic pancreatitis, GERD among others. I initially ordered a R UQ US but the tech stated the gallbladder is contracted since she ate recently and it could not be assessed. CBC, CMP, and lipase are within normal limits. I have low concern she has acute cholecystitis and think she can follow-up outpatient for an ultrasound. KUB shows significant gas and a nonobstructive pattern. I prescribed Gas-X and recommended she take MiraLAX as needed for constipation. She has follow-up scheduled with GI but was given return precautions. She was discharged in stable condition. Dr. Leblanc: I have personally performed a face to face assessment of the patient and have reviewed the RAGINI Note. I performed a substantive portion of the visit including all aspects of the following. My hernandez findings include: History is right upper quadrant abdominal pain, constipation, history of chronic pancreatitis. Exam is afebrile. Vital signs noted. Abdomen soft with mild tenderness to palpation right upper quadrant, no wound or guarding. Medical Decision Making: Check labs. Ultrasound shows collapsed gallbladder according to tech, cannot be performed. Laboratory shows no elevation of lipase, normal white count, no concern for cholecystitis or pancreatitis. Check KUB. KUB interpreted by myself and 1 view shows nonobstructive gas pattern. I see a larger amount of gas. She will be prescribed Gas-X. I feel she be discharged safely home to follow-up with gastroenterology and her primary care physician. Disposition is discharged home in stable condition. Other additions or changes: [None] History & Record Review Discussion w/independent historian: Patient Additional record(s) reviewed:: Prior ED visit and Prior labs Lab Data Labs: Laboratory Results - last 24 hr 08/19/23 13:55 WBC 5.9 RBC 5.27 Hgb 16.6 H Hct 48.7 H MCV 92.4 MCH 31.5 MCHC 34.1 RDW Std Deviation 46.2 H RDW Coeff of Laura 13.5 Plt Count 303 MPV 9.6 Immature Gran % (Auto) 0.300 Neut % (Auto) 55.9 Lymph % (Auto) 31.4 Gilliam % (Auto) 8.7 Eos % (Auto) 2.2 Baso % (Auto) 1.5 H Absolute Neuts (auto) 3.3 Absolute Lymphs (auto) 1.85 Nucleated RBC % 0 Sodium 135 L Potassium 4.0 Chloride 102 Carbon Dioxide 28.0 Anion Gap 5 BUN 5 L Creatinine 0.68 Estim Creat Clear Calc 76.98 Est GFR (MDRD) Af Amer 115 Est GFR (MDRD) Non-Af 95 BUN/Creatinine Ratio 7.4 L Glucose 122 H Calcium 9.8 Total Bilirubin 0.40 AST 14 L ALT 26 Alkaline Phosphatase 75 Total Protein 8.0 Albumin 4.4 Globulin 3.6 Albumin/Globulin Ratio 1.2 Lipase 35 Radiography Diagnostic Testing: Clinical Impression(s) from Imaging Studies KUB X-Ray 08/19/23 13:50 IMPRESSION: Non-obstructive bowel gas pattern. Electronically Signed: Uli Seals MD at 15:02 EDT Reading Location ID and State: [address] [place] [address] Tel , Service support , Discharge Plan Triage Chief Complaint: Abd Pain ED Midlevel Provider: Michelle Rios ED Provider: Mejia Leblanc Dx/Rx/DC Orders Clinical Impression: Abdominal pain Instructions: Abdominal Pain Prescriptions: New simethicone [Gas Relief (simethicone)] 125 mg capsule 125 mg PO BID PRN (Reason: abdominal distention/) 7 Days Qty: 14 0RF No Action lisinopril 10 mg tablet 10 mg PO DAILY metoprolol succinate 50 mg tablet extended release 24 hr 50 mg PO DAILY cholecalciferol (vitamin D3) 125 mcg (5,000 unit) capsule 125 mcg PO DAILY albuterol sulfate [Ventolin HFA] 90 mcg/actuation Hfa Aerosol Inhaler 1 inh INHALATION Q6H PRN (Reason: SOB) multivitamin Capsule 1 cap PO DAILY Creon 36,000-114,000- 180,000 unit capsule,delayed release(DR/EC) 1 cap PO TID Qty: 300 2RF Rx Instructions: administer 1 capsule with meals and/or snacks Primary Care Provider: [facility] Ginette Mancuso [facility] - Activity Restrictions/Additional Instructions: Try Gas-X and MiraLAX 1 cap per day as needed for constipation. Follow-up with your primary care doctor or GI for a gallbladder ultrasound. Return to ER if symptoms worsen. Disposition Disposition: Home, Self Care Discharge Date/Time: 08/19/23 15:28
--- NOTE | 2023-08-19 13:50 | RAD_ITS ---
EXAM: XR ABDOMEN, 1 VIEW CLINICAL INDICATION: constipation TECHNIQUE: Frontal supine view of the abdomen/pelvis. COMPARISON: No relevant prior studies available. FINDINGS: GASTROINTESTINAL TRACT: No evidence of bowel obstruction or significant ileus. No significant stool burden within the large bowel. ORGANS: No organomegaly. BONES/JOINTS: No acute abnormality. RAD/Abdomen Single View (Portable) IMPRESSION: Non-obstructive bowel gas pattern. Electronically Signed: Uli Seals MD at 15:02 EDT ,
[2023-08-19] MEDS: Ketorolac 15 MG/ML Vial IV (13:55)
[2023-08-19 14:12] LABS: Absolute Lymphocyte Count 1.85 X10^3/uL (0.83-4.51); Absolute Neutrophil Count 3.3 X10^3/uL (2.0-7.7); Basophil# 0.09 X10^3/uL; Basophil% 1.5 % (0-1); Eosinophil# 0.13 X10^3/uL; Eosinophils% 2.2 % (0-5); Hematocrit 48.7 % (37-47); Hemoglobin 16.6 g/dL (12.0-15.0); Lymphocyte # 1.85 X10^3/ul (0.83-4.51); Lymphocyte % 31.4 % (19-41); Mean Corp Hgb Conc 34.1 g/dL (32-36); Mean Corpuscular Hgb 31.5 pg (27.0-32.0); Mean Corpuscular Volume 92.4 fL (81-99); Mean Platelet Vol. 9.6 fl (6.2-12.0); Monocyte# 0.51 X10^3/uL; Monocyte% 8.7 % (0-10); NRBC Flagged by Analyzer 0 % (0-5); Neutrophil # 3.29 X10^3/uL (2.7-7.7); Neutrophil % 55.9 % (47-70); Platelet Count 303 K/mm3 (150-450); RBC Distribution Width CV 13.5 % (11.6-14.6); RBC Distribution Width SD 46.2 fl (35.1-43.9); Red Blood Count 5.27 M/mm3 (4.2-5.4); White Blood Count 5.9 K/mm3 (4.4-11.0)
[2023-08-19 14:25] LABS: ALB/GLOB Ratio 1.2 RATIO (0.9-2.4); AST(SGOT) 14 U/L (15-37); Alanine Aminotransfer ALT/SGPT 26 U/L (13-56); Albumin, Serum 4.4 g/dL (3.2-5.0); Alkaline Phosphatase 75 U/L (45-117); Anion Gap 5 (5-15); BUN 5 mg/dL (7-18); BUN/Creat Ratio 7.4 RATIO (10-20); Calcium,Total 9.8 mg/dL (8.5-10.1); Chloride 102 mmol/L (98-107); Creatinine, Serum 0.68 mg/dL (0.55-1.02); EST Glomerular Filtration Rate 95 mL/min (>60); Est Glom Filt Rate - Afr Amer 115 mL/min (>60); Estimated Creatinine Clearance 76.98 ml/min; Globulin 3.6 g/dL (2.2-4.2); Glucose 122 mg/dL (74-106); Lipase 35 U/L (13-75); Sodium Level 135 mmol/L (136-145)
== END 2023-08-19 15:28 | disposition home or self-care (01) ==
PROVIDERS: Physician Assistant; Emergency Provider Emergency Medicine; Visit Provider Emergency Medicine
DX: R10.11 Right upper quadrant pain (principal); K86.1 Other chronic pancreatitis; F17.210 Nicotine dependence, cigarettes, uncomplicated; Z86.73 Personal history of transient ischemic attack (TIA), and cerebral infarction without residual deficits
CPT/HCPCS: 74018; 80053; 83690; 85025; 96374; 99283; A4216

== ENCOUNTER → 2023-10-03 | Outpatient (CLI) | payer MEDICAID, SELFPAY ==
[2023-10-03 10:03] LABS: Erythrocyte Sedimentation Rate 1 mm/hr (0-30)
[2023-10-03 10:05] LABS: Absolute Lymphocyte Count 1.54 X10^3/uL (0.83-4.51); Absolute Neutrophil Count 2.9 X10^3/uL (2.0-7.7); Basophil# 0.07 X10^3/uL; Basophil% 1.4 % (0-1); Eosinophil# 0.14 X10^3/uL; Eosinophils% 2.7 % (0-5); Hematocrit 48.5 % (37-47); Hemoglobin 16.5 g/dL (12.0-15.0); Lymphocyte # 1.54 X10^3/ul (0.83-4.51); Lymphocyte % 30.1 % (19-41); Mean Corpuscular Hgb 31.7 pg (27.0-32.0); Mean Corpuscular Volume 93.3 fL (81-99); Mean Platelet Vol. 9.5 fl (6.2-12.0); Monocyte# 0.41 X10^3/uL; NRBC Flagged by Analyzer 0 % (0-5); Neutrophil # 2.94 X10^3/uL (2.7-7.7); Neutrophil % 57.6 % (47-70); Platelet Count 308 K/mm3 (150-450); RBC Distribution Width CV 12.8 % (11.6-14.6); White Blood Count 5.1 K/mm3 (4.4-11.0)
[2023-10-03 10:41] LABS: ALB/GLOB Ratio 1.3 RATIO (0.9-2.4); AST(SGOT) 23 U/L (15-37); Alanine Aminotransfer ALT/SGPT 28 U/L (13-56); Albumin, Serum 4.6 g/dL (3.2-5.0); Alkaline Phosphatase 89 U/L (45-117); Amylase 65 U/L (25-115); Anion Gap 8 (5-15); BUN 9 mg/dL (7-18); BUN/Creat Ratio 13.8 RATIO (10-20); CRP < 2.90 mg/L (0.0-3.0); Calcium,Total 9.9 mg/dL (8.5-10.1); Chloride 101 mmol/L (98-107); Creatinine, Serum 0.65 mg/dL (0.55-1.02); EST Glomerular Filtration Rate 100 mL/min (>60); Est Glom Filt Rate - Afr Amer 121 mL/min (>60); Globulin 3.5 g/dL (2.2-4.2); Glucose 91 mg/dL (74-106); Lipase 36 U/L (13-75); Potassium 4.4 mmol/L (3.5-5.1); Protein, Total 8.1 g/dL (6.4-8.2); Sodium Level 135 mmol/L (136-145); Triglycerides 76 mg/dL
[2023-10-04 12:09] LABS: Anti-Centromere B Ab <0.2 AI (0.0-0.9); Anti-Chromatin <0.2 AI (0.0-0.9); Anti-Jo <0.2 AI (0.0-0.9); Anti-Scleroderma-70 AB <0.2 AI (0.0-0.9); Anti-dsDNA Ab <1 IU/mL (0-9); RNP Ab <0.2 AI (0.0-0.9); SJOGREN'S Anti-SS-A test < 0.2 AI (0.0-0.9); SJOGREN'S Anti-SS-B test < 0.2 AI (0.0-0.9); Smith Ab <0.2 AI (0.0-0.9)
[2023-10-04 17:07] LABS: Alpha-1-Globulins 0.3 g/dL (0.0-0.4); Alpha-2-Globulins 0.8 g/dL (0.4-1.0); Carbohydrate AG 19-9 < 2 U/mL (0-35); Cytoplasmic Ab (C-ANCA) <1:20 titer (Neg:<1:20); Endomysial Antibody IgA Negative (Negative); Gamma Globulin 0.9 g/dL (0.4-1.8); IgG, Quant 908 mg/dL (586-1602); Immunoglobulin A 204 mg/dL (87-352); Immunoglobulin G, Subclass 1 510 mg/dL (248-810); Immunoglobulin G, Subclass 2 286 mg/dL (130-555); Immunoglobulin G, Subclass 3 56 mg/dL (15-102); Immunoglobulin G, Subclass 4 43 mg/dL (2-96); Immunoglobulin M 44 mg/dL (26-217); PROEL- TOTAL PROTEIN 7.6 g/dL (6.0-8.5); Perinuclear Ab (P-ANCA) <1:20 titer (Neg:<1:20); t-Transglutaminase IgA <2 U/mL (0-3)
== END | disposition home or self-care (01) ==
LOC: LAB 09:36
PROVIDERS: Visit Provider Internal Medicine Gastroenterology
DX: K86.89 Other specified diseases of pancreas (principal); R59.0 Localized enlarged lymph nodes
CPT/HCPCS: 36415; 80053; 82150; 82784; 82787; 83516; 83690; 84165; 84478; 85025; 85652; 86140; 86225; 86235; 86255; 86256; 86301; 86334

== ENCOUNTER → 2023-10-06 | Outpatient (CLI) | payer MEDICAID, SELFPAY ==
--- NOTE | 2023-10-06 07:19 | US_ITS ---
INDICATION: chronic cholecystitis EXAMINATION: Ultrasound US Abdomen RUQ (limited) TECHNIQUE: Gonzalez-scale and color Doppler imaging was performed of the abdomen. COMPARISON: FINDINGS: LIVER: There is normal echotexture measuring 16.1 cm. No focal hepatic lesion. No intrahepatic biliary ductal dilatation. There is no free fluid. GALLBLADDER AND BILIARY TREE: No shadowing gallstone, pericholecystic fluid or gallbladder wall thickening is demonstrated. The proximal common bile duct measures 3 mm, which is within normal limits for the patient''s age. SONOGRAPHIC MURRY''S SIGN: Negative. PANCREAS: No focal abnormality is demonstrated in the pancreas. No pancreatic ductal dilatation. RIGHT KIDNEY: 9.9 x 5.3 x 4.0 cm. The cortex is 11 mm. There is no hydronephrosis. No shadowing calculus, focal lesion, or perinephric collection is demonstrated. VESSELS: Submitted longitudinal images of the intra-abdominal aorta demonstrate no gross abnormalities and are unremarkable. The IVC is patent. US/Abdomen Limited IMPRESSION: No acute sonographic abnormality is demonstrated in the abdomen. Electronically Signed: Thanh Garcia DO at 17:12 EST ,
== END | disposition home or self-care (01) ==
LOC: US 07:16
PROVIDERS: Referring Provider Internal Medicine Gastroenterology; Visit Provider Internal Medicine Gastroenterology
DX: K86.89 Other specified diseases of pancreas (principal); R59.0 Localized enlarged lymph nodes
CPT/HCPCS: 76705

== ENCOUNTER → 2023-10-17 | Outpatient (CLI) | payer MEDICAID, SELFPAY ==
--- NOTE | 2023-10-17 07:31 | CT_ITS ---
STUDY: CT ABDOMEN AND PELVIS WITH CONTRAST REASON FOR EXAM: Female, 58 years old. Chronic pancreatitis RADIATION DOSAGE (If Supplied By Facility): CTDIvol = ( 13.09 ) mGy, DLP = ( 292.21 ) mGycm TECHNIQUE: Transaxial images were obtained from the dome of the diaphragm to the symphysis pubis with oral contrast. Oral and amp; IV Readi-CAT and amp; 100mL Isovue-300 was administered. Sagittal and coronal images were reconstructed. Individualized dose optimization techniques were used for this CT. COMPARISON: Comparison is made with prior study dated December 21, 2021. FINDINGS: The visualized lung bases are unremarkable. The visualized portions of the heart are within normal limits. Normal liver. Normal gallbladder and extrahepatic biliary system. Normal spleen. Small calcifications are seen in the head of the pancreas. Normal bilateral adrenal glands. Normal right kidney. Stable nonobstructive left intrarenal calculi. Normal visualized stomach. Normal small intestine. Moderate amount of fecal material is seen throughout the colon. The appendix is visualized and appears normal. Normal abdominal aorta. Normal inferior vena cava. Normal retroperitoneum. Normal urinary bladder. Normal abdominal wall. Mild degree of disc space narrowing and spondylosis at the L1-L2 level. CT/Abdomen/Pelvis WITH Contrast IMPRESSION: Calcifications in the head of the pancreas. Nonobstructive left intrarenal calculus. Moderate amount of fecal material is seen in the colon. Electronically Signed: Leeroy Howard MD at 15:06 EST ,
== END | disposition home or self-care (01) ==
LOC: US 07:31
PROVIDERS: Referring Provider Internal Medicine Gastroenterology; Visit Provider Internal Medicine Gastroenterology
DX: K86.89 Other specified diseases of pancreas (principal); R59.0 Localized enlarged lymph nodes
CPT/HCPCS: 74177; Q9967

== ENCOUNTER → 2023-11-09 | Outpatient (CLI) | payer MEDICAID, SELFPAY ==
--- NOTE | 2023-11-09 09:39 | NM_ITS ---
CLINICAL: 58-year-old female with history of abdominal pain. RADIONUCLIDE HEPATOBILIARY SCINTIGRAPHY COMPARISON: CT of the abdomen-pelvis report 10/17/2023, previous hepatobiliary scintigraphy study report 03/20/2019 FINDINGS: Following the intravenous administration of 5.6 mCi of 99m Tc Mebrofenin, hepatobiliary images reveal:. 1. Relatively prompt and homogeneous radiopharmaceutical concentration is noted by a normal sized liver. No parenchymal defects are identified. 2. Gallbladder activity is identified at 15 minutes post radiopharmaceutical administration. 3. Small intestinal tract is observed by 60 minutes following tracer injection. 4. Washout of the radiopharmaceutical by the hepatic parenchyma appears qualitatively normal. Cholecystokinin (0.02 ug/kg) was administered intravenously over a 30-minute period. The post CCK gallbladder ejection fraction calculated at 20 minutes following Cholecystokinin administration was noted to be 92.0 % (normal greater than 35%) compared to 62% defined on the examination dated 03/20/2019. During 30 minutes of post CCK imaging, there is scintigraphic evidence of refilling of the gallbladder. NM/Hepatobilliary Img w/Pharm Int IMPRESSION: 1. A gallbladder ejection fraction calculated to be greater than 35% following the administration of Cholecystokinin makes the probability of functional hepatobiliary disease (gallbladder dyskinesia) and/or organic hepatobiliary disease (chronic acalculous cholecystitis and/or cystic duct syndrome) to be low. (Katherine Raya et al, Journal of Nuclear Medicine 32:1695, 1990). 2. An encountered normal gallbladder ejection fraction with refilling of the gallbladder following CCK administration may represent the presence of Sphincter of Oddi dysfunction. Correlation with Sphincter of Oddi manometry may be of benefit. (Radha and Radha, J Nucl Med 38:1824, 1997). 3. Overall compared to the examination dated 03/20/2019, there is current demonstration of refilling of the gallbladder following cholecystokinin administration as defined above. Electronically Signed: Sunil Linares DO at 10:03 EST ,
== END | disposition home or self-care (01) ==
LOC: NM 09:39
PROVIDERS: Referring Provider Internal Medicine Gastroenterology; Visit Provider Internal Medicine Gastroenterology
DX: K86.89 Other specified diseases of pancreas (principal); R59.0 Localized enlarged lymph nodes
CPT/HCPCS: 78227; A9537; J2805

== ENCOUNTER → 2024-05-30 | Outpatient (CLI) | payer MEDICAID, SELFPAY ==
[2024-05-30 13:15] LABS: Absolute Lymphocyte Count 1.73 X10^3/uL (0.83-4.51); Absolute Neutrophil Count 2.4 X10^3/uL (2.0-7.7); Basophil# 0.11 X10^3/uL; Basophil% 2.2 % (0-1); Eosinophil# 0.15 X10^3/uL; Eosinophils% 2.9 % (0-5); Hematocrit 40.4 % (37-47); Hemoglobin 13.6 g/dL (12.0-15.0); Lymphocyte # 1.73 X10^3/ul (0.83-4.51); Lymphocyte % 33.9 % (19-41); Mean Corp Hgb Conc 33.7 g/dL (32-36); Mean Corpuscular Hgb 32.2 pg (27.0-32.0); Mean Corpuscular Volume 95.5 fL (81-99); Mean Platelet Vol. 9.8 fl (6.2-12.0); Monocyte# 0.68 X10^3/uL; Monocyte% 13.3 % (0-10); NRBC Flagged by Analyzer 0 % (0-5); Neutrophil # 2.42 X10^3/uL (2.7-7.7); Neutrophil % 47.5 % (47-70); Platelet Count 258 K/mm3 (150-450); RBC Distribution Width CV 13.2 % (11.6-14.6); RBC Distribution Width SD 46.6 fl (35.1-43.9); Red Blood Count 4.23 M/mm3 (4.2-5.4); White Blood Count 5.1 K/mm3 (4.4-11.0)
[2024-05-30 13:57] LABS: ALB/GLOB Ratio 1.2 RATIO (0.9-2.4); AST(SGOT) 33 U/L (15-37); Alanine Aminotransfer ALT/SGPT 63 U/L (13-56); Albumin, Serum 4.2 g/dL (3.2-5.0); Alkaline Phosphatase 70 U/L (45-117); Anion Gap 7 (5-15); BUN 13 mg/dL (7-18); BUN/Creat Ratio 20.2 RATIO (10-20); Calcium,Total 9.9 mg/dL (8.5-10.1); Chloride 104 mmol/L (98-107); Creatinine, Serum 0.64 mg/dL (0.55-1.02); EST Glomerular Filtration Rate 101 mL/min (>60); Est Glom Filt Rate - Afr Amer 123 mL/min (>60); Globulin 3.5 g/dL (2.2-4.2); Glucose 94 mg/dL (74-106); Potassium 4.4 mmol/L (3.5-5.1); Protein, Total 7.7 g/dL (6.4-8.2); Sodium Level 136 mmol/L (136-145)
== END | disposition home or self-care (01) ==
LOC: LAB 12:32
PROVIDERS: Referring Provider Nurse Practitioner Family; Visit Provider Nurse Practitioner Family
DX: R10.9 Unspecified abdominal pain (principal)
CPT/HCPCS: 36415; 80053; 85025

== ENCOUNTER → 2024-06-05 | Outpatient (CLI) | payer MEDICAID, SELFPAY ==
--- NOTE | 2024-06-05 13:56 | US_ITS ---
INDICATION: ABD PAIN EXAMINATION: Ultrasound US Kidney(s) complete (eg, kidneys and bladder) TECHNIQUE: Gonzalez scale and color doppler images were obtained of the kidneys. COMPARISON: Prior study dated: CT from 10/17/2023 FINDINGS: RIGHT KIDNEY: 10.8 x 5.4 x 4 cm. There is no hydronephrosis. No shadowing calculus, focal lesion or perinephric collection is demonstrated. LEFT KIDNEY: 10.5 x 4.7 x 4.7 cm. There is no hydronephrosis. There is no mass identified. Lower pole calculus seen measuring 0.5 cm. Additional lower pole calculus seen measuring 1 x 0.7 x 0.5 cm. URINARY BLADDER: No acute abnormality. Prevoid bladder volume of 281 mL. Bilateral ureteral jets are seen. US/Kidney and Bladder IMPRESSION: Nonobstructing left lower pole renal calculi. No hydronephrosis. Electronically Signed: Mao Clements MD at 15:53 EDT ,
== END | disposition home or self-care (01) ==
LOC: US 13:45
PROVIDERS: Referring Provider Nurse Practitioner Family; Visit Provider Nurse Practitioner Family
DX: R10.9 Unspecified abdominal pain (principal)
CPT/HCPCS: 76770

== ENCOUNTER → 2025-02-27 | Outpatient (CLI) | payer MEDICAID, SELFPAY ==
[2025-02-27 16:43] LABS: Absolute Lymphocyte Count 1.35 X10^3/uL (0.83-4.51); Basophil# 0.08 X10^3/uL; Basophil% 1.7 % (0-1); Eosinophil# 0.09 X10^3/uL; Eosinophils% 1.9 % (0-5); Hematocrit 42.4 % (37-47); Hemoglobin 14.8 g/dL (12.0-15.0); Lymphocyte # 1.35 X10^3/ul (0.83-4.51); Mean Corp Hgb Conc 34.9 g/dL (32-36); Mean Corpuscular Hgb 32.8 pg (27.0-32.0); Mean Platelet Vol. 9.5 fl (6.2-12.0); Monocyte# 0.35 X10^3/uL; Monocyte% 7.2 % (0-10); NRBC Flagged by Analyzer 0 % (0-5); Neutrophil # 2.96 X10^3/uL (2.7-7.7); Neutrophil % 61.2 % (47-70); Platelet Count 297 K/mm3 (150-450); RBC Distribution Width CV 12.5 % (11.6-14.6); RBC Distribution Width SD 43.3 fl (35.1-43.9); Red Blood Count 4.51 M/mm3 (4.2-5.4); White Blood Count 4.8 K/mm3 (4.4-11.0)
[2025-02-27 18:12] LABS: ALB/GLOB Ratio 1.5 RATIO (0.9-2.4); AST(SGOT) 29 U/L (<=31); Alanine Aminotransfer ALT/SGPT 19 U/L (<=34); Albumin, Serum 4.4 g/dL (3.5-5.0); Alkaline Phosphatase 91 U/L (35-104); Amylase 90 U/L (28-100); Anion Gap 15 (5-15); BUN 11 mg/dL (4-19); Calcium,Total 9.4 mg/dL (7.6-11.0); Carbon Dioxide 24.1 mmol/L (21.0-32.0); Chloride 102 mmol/L (98-108); Creatinine, Serum 0.76 mg/dL (0.70-1.20); EST Glomerular Filtration Rate 91 (>60); Globulin 2.8 g/dL (2.2-4.2); Glucose 88 mg/dL (70-99); Lipase 38 U/L (13-75); Potassium 4.2 mmol/L (3.3-5.1); Protein, Total 7.2 g/dL (5.9-8.4); Sodium Level 140 mmol/L (133-145); Total Bilirubin 0.28 mg/dL (0.00-1.30)
== END | disposition home or self-care (01) ==
DX: R10.9 Unspecified abdominal pain (principal); I10 Essential (primary) hypertension
CPT/HCPCS: 36415; 80053; 82150; 83690; 84443; 85025

== ENCOUNTER → 2025-05-12 | Outpatient (CLI) | payer MEDICAID, SELFPAY ==
[2025-05-12 11:13] LABS: Absolute Lymphocyte Count 1.33 X10^3/uL (0.83-4.51); Absolute Neutrophil Count 4.2 X10^3/uL (2.0-7.7); Basophil# 0.07 X10^3/uL; Basophil% 1.2 % (0-1); Eosinophil# 0.08 X10^3/uL; Eosinophils% 1.3 % (0-5); Hematocrit 43.5 % (37-47); Hemoglobin 15.1 g/dL (12.0-15.0); Lymphocyte # 1.33 X10^3/ul (0.83-4.51); Lymphocyte % 22.1 % (19-41); Mean Corp Hgb Conc 34.7 g/dL (32-36); Mean Corpuscular Hgb 33.7 pg (27.0-32.0); Mean Corpuscular Volume 97.1 fL (81-99); Mean Platelet Vol. 10.5 fl (6.2-12.0); Monocyte# 0.35 X10^3/uL; Monocyte% 5.8 % (0-10); NRBC Flagged by Analyzer 0 % (0-5); Neutrophil # 4.16 X10^3/uL (2.7-7.7); Neutrophil % 69.3 % (47-70); Platelet Count 310 K/mm3 (150-450); RBC Distribution Width CV 13.2 % (11.6-14.6); RBC Distribution Width SD 47.6 fl (35.1-43.9); Red Blood Count 4.48 M/mm3 (4.2-5.4)
[2025-05-12 11:28] LABS: International Normalized Ratio 0.9; Prothrombin Time (Protime)PT. 12.4 SECONDS (11.7-14.9)
[2025-05-12 11:54] LABS: AST(SGOT) 33 U/L (<=31); Alanine Aminotransfer ALT/SGPT 30 U/L (<=34); Albumin, Serum 4.7 g/dL (3.5-5.0); Alkaline Phosphatase 93 U/L (35-104); Bilirubin, Direct 0.17 mg/dL (0.00-0.30); Globulin 3.2 g/dL (2.2-4.2); Lipase 144 U/L (13-75); Protein, Total 7.9 g/dL (5.9-8.4); Total Bilirubin 0.43 mg/dL (0.00-1.30)
== END | disposition home or self-care (01) ==
LOC: LAB 10:46
PROVIDERS: Referring Provider Nurse Practitioner Acute Care; Visit Provider Nurse Practitioner Acute Care
DX: R14.0 Abdominal distension (gaseous) (principal); R63.5 Abnormal weight gain; K59.1 Functional diarrhea; R11.0 Nausea; R10.9 Unspecified abdominal pain
CPT/HCPCS: 80076; 83690; 85025; 85610

== ENCOUNTER → 2025-05-28 | Outpatient (CLI) | payer MEDICAID, SELFPAY ==
--- NOTE | 2025-05-28 12:39 | CT_ITS ---
PROCEDURE: ABDOMEN/PELVIS WITH CONTRAST 05/28/2025 REASON FOR EXAM: ABDOMINAL PAIN History of chronic pancreatitis. TECHNIQUE: ABDOMEN/PELVIS WITH CONTRAST Coronal and Sagittal reconstruction series were provided. CONTRAST: Isovue-300 VOLUME: 88 mL One or more dose reduction techniques were used (e.g., Automated exposure control, adjustment of the mA and/or kV according to patient size, use of iterative reconstruction technique. RADIATION DOSE SUMMARY: CTDlvol: 12.2 mGy DLP: 537.57 mGycm COMPARISON: Prior study dated October 17, 2023. FINDINGS: Lung bases: Lung bases are clear. No significant coronary artery calcification is seen. Liver: Diffuse fatty infiltration. Mild hepatomegaly. Gallbladder: Unremarkable Spleen: Normal size. Pancreas: Punctate calcifications seen in the head of the pancreas. In keeping with chronic pancreatitis. Adrenals: Unremarkable Kidneys: Tiny nonobstructive left intrarenal calculus in the lower pole. Mild overlying cortical thickening in the inferior pole of the left kidney. Bladder: Unremarkable Reproductive Organs: Normal uterine size and contour. Ovaries are unremarkable. Bowel: Unremarkable Appendix: Unremarkable Lymph nodes: Unremarkable. Vasculature: The abdominal aorta and IVC are normal. Peritoneum / Retroperitoneum: Unremarkable Bones: Minimal degenerative changes. CT/Abdomen/Pelvis WITH Contrast IMPRESSION: Fatty infiltration of the liver. Mild hepatomegaly. Punctate calcifications seen in the head of the pancreas. Reading Location: [place] [id number]
--- NOTE | 2025-05-28 12:39 | CT_ITS ---
PROCEDURE: ABDOMEN/PELVIS WITH CONTRAST 05/28/2025 REASON FOR EXAM: ABDOMINAL PAIN History of chronic pancreatitis. TECHNIQUE: ABDOMEN/PELVIS WITH CONTRAST Coronal and Sagittal reconstruction series were provided. CONTRAST: Isovue-300 VOLUME: 88 mL One or more dose reduction techniques were used (e.g., Automated exposure control, adjustment of the mA and/or kV according to patient size, use of iterative reconstruction technique. RADIATION DOSE SUMMARY: CTDlvol: 12.2 mGy DLP: 537.57 mGycm COMPARISON: Prior study dated October 17, 2023. FINDINGS: Lung bases: Lung bases are clear. No significant coronary artery calcification is seen. Liver: Diffuse fatty infiltration. Mild hepatomegaly. Gallbladder: Unremarkable Spleen: Normal size. Pancreas: Punctate calcifications seen in the head of the pancreas. In keeping with chronic pancreatitis. Adrenals: Unremarkable Kidneys: Tiny nonobstructive left intrarenal calculus in the lower pole. Mild overlying cortical thickening in the inferior pole of the left kidney. Bladder: Unremarkable Reproductive Organs: Normal uterine size and contour. Ovaries are unremarkable. Bowel: Unremarkable Appendix: Unremarkable Lymph nodes: Unremarkable. Vasculature: The abdominal aorta and IVC are normal. Peritoneum / Retroperitoneum: Unremarkable Bones: Minimal degenerative changes. CT/Abdomen/Pelvis WITH Contrast IMPRESSION: Fatty infiltration of the liver. Mild hepatomegaly. Punctate calcifications seen in the head of the pancreas. Reading Location: [place] [id number]
--- OUTSIDE RECORDS SUMMARY | 2025-05-28 22:45 | XMS RPT_ITS | CCD ---
Author Organization [facility] Care Team Providers Care Funeral Driver Name Role Phone [facility], [facility] Primary Care Pro vider [facility], [facility] Referring Provid er Maggy CAR HOPPER, CAR HOPPER-Bry Gandhi Attending Provider Nereida Davis CNP Primary Care Provider FriendDr. Pablo Attending Provider [phone] FriendDr. Pablo Other Provider [phone] HODAN Davis Other Provider [phone] [place] [address], [facility], [facility] Referring Provid er Maggy LEYVA NP-Bry Gandhi Attending Provider [phone] Nereida Davis CNP Primary Care Provider Nereida Davis CNP Primary Care Provider [facility], [place] [facility] Primary Care Pro vider [facility], [place] [facility] Referring Provid er FriendDr. Pablo Attending Provider [phone] Nereida Davis CNP Primary Care Provider Jet LEYVA, Yeimi Unavailable SELF Referring Unavailable DAVIS, NEREIDA K Primary Care Unavailable MICHELLE NAVARRO Attending Unavailable MICHELLE NAVARRO Referring Unavailable DAVIS, NEREIDA K Primary Care Unavailable EVERTON GAMBLE DO Attending Unavail able PHYSICIAN, NONE Primary Care Unavailable EVERTON GAMBLE DO Attending Unavail able PHYSICIAN, NONE Primary Care Unavailable EVERTON GAMBLE DO Attending Unavail able PHYSICIAN, NONE Primary Care Unavailable EVERTON GAMBLE DO Attending Unavail able PHYSICIAN, NONE Primary Care Unavailable EVERTON GAMBLE DO Attending Unavail able PHYSICIAN, NONE Primary Care Unavailable Beam CAR HOPPER-C, Zebulun Primary Care Provider Beam CAR HOPPER-C, Zebulun Attending Provider Beam CAR HOPPER-C, Zebulun Referring Provider Everton CAR HOPPER-C, Xochilt Attending Provider [place] CAR HOPPER-C, Xochilt Referring Provider Beam VSC, Zebulun Primary Care Unavailable Beam VSC, Zebulun Referring Unavailable Xochilt Toscano Attending Unavailable [facility] [place], [facility] Primary Care Unavailable [place] VSC, Yeimi Attending Unavailabl e Jet VSC, Yeimi Referring Unavailabl e Beam VSC, Zebulun Primary Care Unavailable Beam VSC, Zebuleonardon Attending Unavailable Beam VSC, Zebulun Primary Care Unavailable Xochilt Toscano Attending Unavailable Xochilt Toscano Referring Unavailable [facility] [place], [facility] Primary Care Unavailable [place] VS, Yeimi Attending Unavailabl e Jet VSC, Yeimi Referring Unavailabl e Beam VSC, Zebulun Primary Care Unavailable Xochilt Toscano Attending Unavailable Xochilt Toscano Referring Unavailable Allergies Allergy Classification Reported Allergen(s) Allergy Type Date of Onset Reaction(s) Facility (20 sources) Morphine; Translations: [MORPHINE] Drug Allergy 02-23-2010 Itching [facility] (20 sources) Scopolamine; Translations: [SCOPOLAMINE] Drug Allergy 05-18-2016 Intolerance [facility] Work Phone: (1 source) Morphine Drug Allergy 05-12-2025 [facility] Medications Current Medications Medication Drug Class(es) Dates Sig (Normalized) Sig (Original) Albuterol Sulfate (13 sources) beta2-Adrenergic Agonist Start: 03-16-2022 Albuterol Sulfate (Ventolin Hfa) 90 mcg/actuation Hfa Aerosol Inhaler Active 1 INH INHALATION EVERY 6 HOURS March 16, 2022 2:51pm Start: 03-16-2022 Albuterol Sulf ate (Ventolin Hfa) 90 mcg/actuation Hfa Aerosol Inhaler Active 1 NMA INHALATION EVERY 6 HOURS as needed for SOB March 16, 2022 12:00am Start: 03-16-2022 Albuterol Sulf ate (Ventolin Hfa) 90 mcg/actuation Hfa Aerosol Inhaler Active 1 INH INHALATION EVERY 6 HOURS March 15, 2022 11:00pm cholecalciferol 0.125 mg oral capsule (14 sources) Vitamin D Start: 01-17-2022 take 1 capsule by mouth once daily Cholecalciferol (Vitamin D3) 125 mcg (5,000 unit) capsule Active 125 ug PO DAILY January 17, 2022 1:00am cholecalciferol, vitamin D3, (VITAMIN D3 ORAL) (20 sources) take 125 ug by mouth once daily cholecalciferol, vitamin D3, (VITAMIN D3 ORAL) Take 125 mcg by mouth once daily. Active take 125 ug by mouth once daily cholecalciferol, vitamin D3, (VITAMIN D3 ORAL) Take 125 mcg by mouth once daily. 0 Active Comment on above: Take 125 mcg by mout h once daily. dexamethasone 6 mg oral tablet (2 sources) Corticosteroid Start: 11-30-19 End: 12-05-19 take 1 tablet by mouth once daily dexAMETHasone (DECADRON) 6 mg tablet Indications: Closed nondisplaced fracture of scaphoid of left wrist, unspecified portion of scaphoid, initial encounter Take 1 tablet by mouth once daily for 5 days. 5 tablet 11/30/2024 12/05/2024 Active DULoxetine 20 mg delayed release oral capsule (11 sources) Serotonin and Norepinephrine Reuptake Inhibitor Start: 05-12-20 take 1 capsule by mouth twice daily Duloxetine (Cymbalta) 20 mg capsule,delayed release(DR/EC) Active 20 mg PO TWICE A DAY May 12, 2025 12:00am Start: 08-28-2024 take 1 capsule by mouth once D ULoxetine (CYMBALTA) 20 mg capsule Take 1 capsule by mouth every afternoon. 08/28/2024 Active Start: 05-18-2016 End: 06-07-2022 take 1 capsule by mouth once daily DULoxetine (CYMBALTA) 20 mg capsule Take 20 mg by mouth once daily. 0 05/18/2016 06/07/2022 Discontinued Comment on above: Take 1 capsule by mo [facility] once daily. Take 20 mg by mouth once daily. Folic Acid (4 sources) FOLIC ACID ORAL Take by mouth once daily. Active linaclotide 0.29 mg oral capsule (2 sources) Guanylate Cyclase-C Agonist Start: 5 take 1 capsule by mouth once daily in the morning Linaclotide (Linzess) 290 mcg capsule Active 290 ug PO EVERY MORNING 90 1 May 12, 2025 12:00am lisinopril 10 mg oral tablet (20 sources) Angiotensin Converting Enzyme Inhibitor Start: 1 take 1 tablet by mouth once daily Lisinopril 10 mg tablet Active 10 mg PO DAILY June 04, 2021 12:00am Comment on above: Take 10 mg by mouth once daily. 24 hr metoprolol succinate 50 mg extended release oral tablet (20 sources) beta-Adrenergic Yu Start: 4 take 1 tablet by mouth every hour metoprolol succinate ER (TOPROL XL) 50 mg 24 hr tablet Take 1 tablet by mouth every afternoon. 08/15/2024 Active Start: 01-17-2022 take 1 tablet by renuka once daily Metoprolol Succinate 50 mg tablet extended release 24 hr Active 50 mg PO DAILY January 17, 2022 1:00am Start: 06-04-2021 End: 01-17-2022 metoprolol succinate Discont inued PO DAILY June 04, 2021 1:02pm January 17, 2022 9:04am Start: 06-04-2021 End: 01-17-2022 metoprolol succinate Discont inued PO DAILY June 03, 2021 11:00pm January 17, 2022 8:04am Start: 06-04-2021 End: 01-17-2022 metoprolol succinate Discont inued PO DAILY June 04, 2021 12:00am January 17, 2022 9:04am End: 11-30-2024 take 1 tablet by mouth once daily metoprolol tartrate, short acting, (LOPRESSOR) 50 mg tablet Take 50 mg by mouth once daily. 11/30/2024 Discontinued (Course of therapy completed) Comment on above: Take 50 mg by mouth once daily. multivit-min/iron/foli c/lutein (CENTRUM SILVER WOMEN ORAL) (18 sources) take 1 tablet by mouth once daily multivit-min/iron/fo lic/lutein (CENTRUM SILVER WOMEN ORAL) Take 1 tablet by mouth once daily. Active take 1 tablet by renuka once daily multivit-min/iron/folic/lutein (CENTRUM SILVER WOMEN ORAL) Take 1 tablet by mouth once daily. 0 Active Comment on above: Take 1 tablet by renuka once daily. Multivitamin Capsule (3 sources) Start: 03-16-2022 Multivitamin Capsule Active 1 NMA PO DAILY March 16, 2022 12:00am Multivitamin preparation (10 sources) Start: 03-16-2022 take 1 capsule by mouth once daily Multivitamin Active 1 CAP PO DAILY March 16, 2022 2:51pm Start: 03-16-2022 take 1 capsule by mo [facility] once daily Multivitamin Active 1 CAP PO DAILY March 15, 2022 11:00pm Start: 03-16-2022 take 1 capsule by mo [facility] once daily Multivitamin Active 1 CAP PO DAILY March 16, 2022 12:00am omeprazole 20 mg delayed release oral capsule (7 sources) Proton Pump Inhibitor Start: 05-12-2025 take 1 capsule by mouth once daily Omeprazole 20 mg capsule,delayed release(DR/EC) Active 20 mg PO daily May 12, 2025 12:00am Start: 06-01-2016 End: 06-07-2022 take 1 capsule by mouth once daily omeprazole (PRILOSEC) 20 mg capsule Indications: Gastroesophageal reflux disease without esophagitis Take 1 capsule by mouth once daily. 30 capsule 1 06/01/2016 06/07/2022 Discontinued Comment on above: Take 1 capsule by mo [facility] once daily. salbutamol (VENTOLIN HFA) 100 mcg/actuation inhaler (18 sources) take 1-2 puff(s) by inhalation every four hours as needed, then take 8 puff(s) by inhalation once daily as needed salbutamol (VENTOLIN HFA) 100 mcg/actuation inhaler Inhale 1-2 Puffs as instructed every 4 hours as needed. Maximum 8 puffs daily. Active take 1-2 puff(s) by inhalation every four hours as needed, then take 8 puff(s) by inhalation once daily as needed salbutamol (VENTOLIN HFA) 100 mcg/actuat ion inhaler Inhale 1-2 Puffs as instructed every 4 hours as needed. Maximum 8 puffs daily. 0 Active Comment on above: Inhale 1-2 Puffs as instructed every 4 hours as needed. Maximum 8 puffs daily. traMADol hydrochloride 50 mg oral tablet (2 sources) Opioid Agonist Start: End: take 1 tablet by mouth every eight hours as needed for pain traMADol (ULTRAM) 50 mg tablet Indications: Closed nondisplaced fracture of scaphoid of left wrist, unspecified portion of scaphoid, initial encounter Take 1 tablet by mouth every 8 hours as needed for pain for up to 5 days. 15 tablet 11/30/2024 12/05/2024 Active Completed/Discontinued Medications Medication Drug Class(es) Dates Sig (Normalized) Sig (Original) ALPRAZolam 0.25 mg oral tablet (5 sources) Benzodiazepine Start: 07-31-2015 End: 06-07-2022 take 1 tablet by mouth once daily as needed for anxiety ALPRAZolam (XANAX) 0.25 mg tablet Indications: Other mixed anxiety disorders Take 1 tablet by mouth once daily as needed for Anxiety. 14 tablet 0 07/31/2015 06/07/2022 Discontinued Comment on above: Take 1 tablet by renuka once daily as needed for Anxiety. amylase [id number] unt / lipase [id number] unt / protease [id number] unt delayed release oral capsule (20 sources) Start: 07-14-2022 End: 05-12-2025 take 1 capsule by mouth three times daily at mealtime Mknzuo-Tynxfoxh-Cy ylase (Creon) 36,000-114,000- 180,000 unit capsule,delayed release(DR/EC) Discontinued 1 NMA PO THREE TIMES A DAY 300 2 July 15, 2022 12:00am May 12, 2025 10:01am administer 1 capsule with meals and/or snacks dicyclomine hydrochloride 10 mg oral capsule (5 sources) Anticholinergic Start: 06-01-2016 End: 06-07-2022 take 1 capsule by mouth at bedtime dicyclomine (BENTYL) 10 mg capsule Indications: Irritable bowel syndrome with diarrhea Take 1 capsule by mouth before meals and at bedtime. 120 capsule 0 06/01/2016 06/07/2022 Discontinued Comment on above: Take 1 capsule by mo [facility] before meals and at bedtime. metroNIDAZOLE 500 mg oral tablet (5 sources) Nitroimidazole Antimicrobial Start: 08-23-2019 End: 06-07-2022 take 1 tablet by mouth twice daily metroNIDAZOLE (FLAGYL) 500 mg tablet Take 1 tablet by mouth twice daily. 14 tablet 0 08/23/2019 06/07/2022 Discontinued Comment on above: Take 1 tablet by renuka th twice daily. naproxen 500 mg oral tablet (14 sources) Nonsteroidal Anti-inflammatory Drug Start: 05-05-2019 End: 06-04-2021 take 1 tablet by mouth twice daily Naproxen 500 MG tablet Discontinued 500 mg PO TWICE A DAY May 05, 2019 12:00am June 04, 2021 1:02pm ondansetron 4 mg disintegrating oral tablet (14 sources) Serotonin-3 Receptor Antagonist Start: 11-13-2018 End: 03-18-2019 take 1 tablet by mouth every eight hours as needed for nausea Ondansetron 4 MG tablet Discontinued 4 mg PO EVERY 8 HOURS NEEDED as needed for Nausea November 13, 2018 1:00am March 18, 2019 8:48am sertraline 25 mg oral tablet (5 sources) Serotonin Reuptake Inhibitor Start: 06-01-2016 End: 06-07-2022 take 1 tablet by mouth once daily sertraline (ZOLOFT) 25 mg tablet Take 1 tablet by mouth once daily. 30 tablet 1 06/01/2016 06/07/2022 Discontinued Comment on above: Take 1 tablet by renuka once daily. simethicone 125 mg oral capsule (7 sources) Start: 08-19-2023 End: 05-12-2025 take 1 capsule by mouth twice daily as needed Simethicone (Gas Relief (Simethicone)) 125 mg capsule Discontinued 125 mg PO TWICE A DAY as needed for abdominal distention/ 14 7 0 August 19, 2023 12:00am May 12, 2025 10:02am solifenacin succinate 5 mg oral tablet (12 sources) Cholinergic Muscarinic Antagonist Start: 06-07-2022 End: 11-30-2024 take 1 tablet by mouth once daily solifenacin (VESICARE) 5 mg tablet Take 1 tablet by mouth once daily. 90 tablet 3 06/07/2022 11/30/2024 Discontinued (Course of therapy completed) Comment on above: Take 1 tablet by renuka th once daily. Problems Active Problems Problem Classification Problem Date Documented Da te Episodic/Chronic Abdominal pain (20 sources) Abdominal pain; Translations: [Unspecified abdominal pain] Onset: 5 Episodic Anxiety disorders (20 sources) Anxiety; Translations: [Anxiety disorder, unspecified] Onset: 6 11-09-2021 Chronic Asthma (14 sources) Asthma; Translations: [Unspecified asthma, uncomplicated] 03-16-2022 Chronic Comment on above: PRN INHALER Conditions associated with dizziness or vertigo (14 sources) Lightheadedness; Translations: [Dizziness and giddiness] 12-13-2015 Episodic E Codes: Adverse effects of medical drugs (14 sources) Adverse reaction to drug; Translations: [Adverse effect of unspecified drugs, medicaments and biological substances, initial encounter] 12-13-2015 Episodic E Codes: Fall (3 sources) Accidental fall ; Translations: [Fall (on) (from) other stairs and steps, initial encounter] Onset: 5 11-30-2024 Episodic Esophageal disorders (20 sources) Gastroesophageal reflux disease; Translations: [Gastro-esophageal reflux disease without esophagitis] Onset: 5 05-04-2015 Chronic Essential hypertension (14 sources) Hypertensive disorder; Translations: [Essential (primary) hypertension] 03-16-2022 Chronic Comment on above: CONTROLLED WITH MEDS Fracture of upper limb (2 sources) Closed fracture of scaphoid bone of wrist; Translations: [Unspecified fracture of navicular [scaphoid] bone of left wrist, initial encounter for closed fracture] Onset: 5 11-30-2024 Episodic Gastrointestinal hemorrhage (14 sources) Feces color: tarry; Translations: [Melena] 03-18-2019 Episodic Genitourinary symptoms and ill-defined conditions (1 source) Urge incontinence of urine; Translations: [Urge incontinence] Chronic Genitourinary symptoms and ill-defined conditions (1 source) Increased frequency of urination; Translations: [Frequency of micturition] Episodic Lymphadenitis (20 sources) Mesenteric lymphadenopathy; Translations: [Localized enlarged lymph nodes] Episodic Malaise and fatigue (20 sources) Fatigue; Translations: [Other fatigue] Onset: 0 02-23-2010 Episodic Mood disorders (15 sources) Depressive disorder; Translations: [Depression] Chronic Nausea and vomiting (20 sources) Nausea; Translations: [Nausea] Onset: 5 Episodic Open wounds of extremities (4 sources) Laceration of right middle finger; Translations: [Laceration without foreign body of right middle finger without damage to nail, initial encounter] Episodic Osteoarthritis (14 sources) Arthritis; Translations: [Unspecified osteoarthritis, unspecified site] 03-18-2019 Chronic Other and unspecified benign neoplasm (12 sources) Tubular adenoma of colon; Translations: [Benign neoplasm of colon, unspecified] 04-04-2022 Episodic Other and unspecified benign neoplasm (6 sources) Benign neoplasm of colon, unspecified; Translations: [Benign neoplasm of colon] Episodic Other connective tissue disease (1 source) Muscle pain; Translations: [Myalgia, unspecified site] Episodic Other gastrointestinal disorders (14 sources) Dysphagia; Translations: [Dysphagia, unspecified] 03-18-2019 Episodic Other gastrointestinal disorders (16 sources) Diarrhea; Translations: [Diarrhea, unspecified] 02-07-2022 Episodic Other gastrointestinal disorders (14 sources) Constipation; Translations: [Constipation, unspecified] 03-18-2019 Episodic Other gastrointestinal disorders (12 sources) Constipation, unspecified; Translations: [Constipation, unspecified] Episodic Other gastrointestinal disorders (8 sources) Diarrhea, unspecified; Translations: [Diarrhea] Episodic Other gastrointestinal disorders (20 sources) Abdominal bloating; Translations: [Abdominal distension (gaseous)] 04-14-2015 Episodic Other gastrointestinal disorders (10 sources) Alteration in bowel elimination; Translations: [Change in bowel habit] 04-14-2015 Episodic Other gastrointestinal disorders (11 sources) Altered bowel function; Translations: [Change in bowel habit] 04-14-2015 Episodic Other gastrointestinal disorders (2 sources) Functional diarrhea; Translations: [Functional diarrhea] Onset: 5 Episodic Other gastrointestinal disorders (2 sources) Abdominal distension (gaseous); Translations: [Abdominal distension (gaseous)] Onset: 5 Episodic Other lower respiratory disease (14 sources) Dyspnea; Translations: [Shortness of breath] 03-16-2022 Episodic Comment on above: WITH [address] AIRS Other nervous system disorders (14 sources) Lesion of brain; Translations: [Disorder of brain, unspecified] 03-16-2022 Chronic Comment on above: FOLLOWS IWTH NEUROLO GIST Other nervous system disorders (3 sources) Demyelinating disease of central nervous system; Translations: [Demyelinating disease of central nervous system, unspecified] Chronic Other non-traumatic joint disorders (2 sources) Multiple joint pain; Translations: [Pain in unspecified joint] Episodic Other nutritional; endocrine; and metabolic disorders (4 sources) Weight increased; Translations: [Abnormal weight gain] 05-12-2025 Episodic Other nutritional; endocrine; and metabolic disorders (2 sources) Abnormal weight gain; Translations: [Abnormal weight gain] Onset: Episodic Other screening for suspected conditions (not mental disorders or infectious disease) (1 source) Patient encounter status; Translations: [Encounter for screening for other disorder] Episodic Other skin disorders (1 source) Eruption; Translations: [Rash and other nonspecific skin eruption] Episodic Pancreatic disorders (not diabetes) (20 sources) Disorder of pancreas; Translations: [Other specified diseases of pancreas] Episodic Residual codes; unclassified (14 sources) History of colonoscopy; Translations: [Other specified postprocedural states] 03-18-2019 Episodic Residual codes; unclassified (1 source) Unspecified symptoms and signs involving cognitive functions and awareness; Translations: [Other signs and symptoms involving cognition] Episodic Spondylosis; intervertebral disc disorders; other back problems (14 sources) Back problem; Translations: [Dorsopathy, unspecified] 03-16-2022 Episodic Comment on above: CHIROPRACTOR Systemic lupus erythematosus and connective tissue disorders (1 source) Sicca syndrome, unspecified; Translations: [Sicca syndrome] 04-03-2024 Chronic Thyroid disorders (14 sources) Disorder of thyroid gland; Translations: [Disorder of thyroid, unspecified] 03-16-2022 Episodic Comment on above: OVERACTIVE/NO MEDS Past or Other Problems Problem Classification Problem Date Documented Da te Episodic/Chronic Nonspecific chest pain (20 sources) Chest pain; Translations: [Chest pain, unspecified] Onset: 05-04-2015 05-04-2015 Episodic Other eye disorders (20 sources) Dry eyes; Translations: [Dry eye syndrome of bilateral lacrimal glands] Onset: 05-04-2015 05-04-2015 Episodic Other lower respiratory disease (20 sources) Dyspnea on exertion; Translations: [Shortness of breath] Onset: 05-04-2015 05-04-2015 Episodic Residual codes; unclassified (20 sources) Amnesia; Translations: [Other amnesia] Onset: 02-23-2010 02-23-2010 Episodic Results Test Name Value Interpretation Reference Range Facility [id number] 05-18-2025 [facility] Misc. COMMENT Normal . [facility] Comment on above: Order Comment: [id number] LAV WB RMT Result Comment: Test Ordered: [id number] Phosphatidylethanol (PEth) PHOSPHATIDYLETHANOL Positive [A ] MX Reference Range: . Phosphatidylethanol (PEth) 1262 ng/mL MX Reference Range: . Analyzed compound: PEth 16:0/18:1. 6-[id number]-hh-pnpuzbk-3-phosphoethanol. Analysis performed by Liquid Chromatography with Tandem Mass Spectrometry (LC/MS/MS). Detection limit: 20 ng/mL PEth levels in excess of 20 ng/mL are considered evidence of moderate to heavy ethanol consumption. However, the Center for Substance Abuse Treatment (CSAT) advises caution in interpretation and use of biomarkers alone to assess alcohol use. Results should be interpreted in the context of all available clinical and behavioral information. Reference: Substance Abuse and Mental Health Services Administration (2012). The Role of Biomarkers in the Treatment of Alcohol Use Disorders, 2012 Revision. Advisory, Volume 11, Issue 2. This test was developed and its performance characteristics determined by [facility]. It has not been cleared or approved by the Food and Drug Administration. Performed at: [employer] [facility] [address] [place] [id number] Television Engineer: Kinsey Rivera [facility], Phone: [phone] Performed at: [facility] [id number] Television Engineer: Aravind Gardner PhD, Phone: [phone] Performed By: #### L 500.4050, L100.0100 #### [facility] [address] [place], [address] Absolute lymphocyte countOrd ered By: Xochilt Toscano on 05-12-2025 Lymphocytes Auto (Unsp spec) [#/Vol] 1.33 10*3/uL 0.83-4.51 [facility] Absolute neutrophil countOrd ered By: Xochilt Toscano on 05-12-2025 Neutrophils (Bld) [#/Vol] 4.2 10*3/uL 2.0-7.7 [facility] Automated lymphocyte count a s percentage of total leukocytesOrdered By: Xochilt Toscano on 05-12-2025 Lymphocytes/100 WBC Auto (Unsp spec) 22.1 % 19-41 [facility] Basophil percentageOrdered B y: Xochilt Toscano on 05-12-2025 Basophils/100 WBC (Bld) 1.2 % High 0-1 [facility] Bilirubin directOrdered By: Xochilt Toscano on 05-12-2025 Bilirubin.direct [Mass/Vol] 0.17 mg/dL 0.00-0.30 [facility] Bilirubin, totalOrdered By: Xochilt Toscano on 05-12-2025 Bilirubin [Mass/Vol] 0.43 mg/dL 0.00-1.30 [facility] CBC W/Diff, Automatedon 04-15 Absolute Lymph 1.33 X10 3/uL Normal 0.83-4.51 [facility] Comment on above: Performed By: #### L 300.3900, L100.0100, L3410.9992, L501.2450, L500.3400 #### [facility] [address] [place], [address] Absolute Neut 4.2 X10 3/uL Normal 2.0-7.7 [facility] Comment on above: Performed By: #### L 300.3900, L100.0100, L3410.9992, L501.2450, L500.3400 #### [facility] [address] [place], [address] Basophils/100 WBC (Bld) 1.2 % High 0-1 [facility] Comment on above: Performed By: #### L 300.3900, L100.0100, L3410.9992, L501.2450, L500.3400 #### [facility] [address] [place], [address] Eosinophils/100 WBC (Bld) 1.3 % Normal 0-5 [facility] Comment on above: Performed By: #### L 300.3900, L100.0100, L3410.9992, L501.2450, L500.3400 #### [facility] [address] [place], [address] Erythrocyte distribution width (RBC) [Ratio] 13.2 % Normal 11.6-14.6 [facility] Comment on above: Performed By: #### L 300.3900, L100.0100, L3410.9992, L501.2450, L500.3400 #### [facility] [address] [place], [address] Hematocrit (Bld) [Volume fraction] 43.5 % Normal 37-47 [facility] Comment on above: Performed By: #### L 300.3900, L100.0100, L3410.9992, L501.2450, L500.3400 #### [facility] [address] [place], [address] Hemoglobin (Bld) [Mass/Vol] 15.1 g/dL High 12.0-15.0 [facility] Comment on above: Performed By: #### L 300.3900, L100.0100, L3410.9992, L501.2450, L500.3400 #### [facility] [address] [place], [address] IG% 0.300 Normal 0.0-0.9 [facility] [place] Comment on above: Result Comment: IG% - Immature Granulocytes (promyelocytes, myelocytes and metamyelocytes) > 1% indicates that a LEFT SHIFT is Present. Performed By: #### L 300.3900, L100.0100, L3410.9992, L501.2450, L500.3400 #### [facility] [address] [place], [address] Lymphocytes/100 WBC (Bld) 22.1 % Normal 19-41 [facility] Comment on above: Performed By: #### L 300.3900, L100.0100, L3410.9992, L501.2450, L500.3400 #### [facility] [address] [place], [address] MCH (RBC) [Entitic mass] 33.7 pg High 27.0-32.0 [facility] Comment on above: Performed By: #### L 300.3900, L100.0100, L3410.9992, L501.2450, L500.3400 #### [facility] [address] [place], [address] MCHC (RBC) [Mass/Vol] 34.7 g/dL Normal 32-36 [facility] Comment on above: Performed By: #### L 300.3900, L100.0100, L3410.9992, L501.2450, L500.3400 #### [facility] [address] [place], [address] MCV (RBC) [Entitic vol] 97.1 fL Normal 81-99 [facility] Comment on above: Performed By: #### L 300.3900, L100.0100, L3410.9992, L501.2450, L500.3400 #### [facility] [address] [place], [address] Monocytes/100 WBC (Bld) 5.8 % Normal 0-10 [facility] Comment on above: Performed By: #### L 300.3900, L100.0100, L3410.9992, L501.2450, L500.3400 #### [facility] [address] [place], [address] Neutrophils/100 WBC (Bld) 69.3 % Normal 47-70 [facility] Comment on above: Performed By: #### L 300.3900, L100.0100, L3410.9992, L501.2450, L500.3400 #### [facility] [address] [place], [address] Nucleated RBC (Bld) [#/Vol] 0 10*3/uL Normal 0-5 [facility] Comment on above: Performed By: #### L 300.3900, L100.0100, L3410.9992, L501.2450, L500.3400 #### [facility] [address] [place], [address] Platelet mean volume (Bld) [Entitic vol] 10.5 fL Normal 6.2-12.0 [facility] Comment on above: Performed By: #### L 300.3900, L100.0100, L3410.9992, L501.2450, L500.3400 #### [facility] [address] [place], [address] Platelets (Bld) [#/Vol] 310 10*3/uL Normal 150-450 [facility] Comment on above: Performed By: #### L 300.3900, L100.0100, L3410.9992, L501.2450, L500.3400 #### [facility] [address] [place], [address] RBC (Bld) [#/Vol] 4.48 10*6/uL Normal 4.2-5.4 [facility] Comment on above: Performed By: #### L 300.3900, L100.0100, L3410.9992, L501.2450, L500.3400 #### [facility] [address] [place], [address] RDW SD 47.6 fl High 35.1-43.9 [facility] Comment on above: Performed By: #### L 300.3900, L100.0100, L3410.9992, L501.2450, L500.3400 #### [facility] [address] [place], [address] WBC (Bld) [#/Vol] 6.0 10*3/uL Normal 4.4-11.0 [facility] Comment on above: Performed By: #### L 300.3900, L100.0100, L3410.9992, L501.2450, L500.3400 #### [facility] [address] [place], [address] Eosinophil percentageOrdered By: Xochilt Toscano on 05-12-2025 Eosinophils/100 WBC (Bld) 1.3 % 0-5 [facility] Erythrocyte distribution wid th ratioOrdered By: Xochilt Toscano on 05-12-2025 Erythrocyte distribution width (RBC) [Ratio] 13.2 % 11.6-14.6 [facility] Erythrocyte distribution wid th standard deviationOrdered By: Xochilt Toscano on 05-12-2025 Erythrocyte distribution width (RBC) [Ratio] 47.6 fl High 35.1-43.9 [facility] Gastroenterology Visit Repor ton 05-12-2025 Gastroenterology Visit Report [facility] [address] [place] [address] OFFICE VISIT Date of Service: 05/12/25 MR#: [id number] Acct: [id number] Name: SHAYNA LYONS Rep #: [id number] : 1965 Provider: HODAN soto Age/Sex: 59/F Location: [facility] Status: Signed Intake Vital Signs 08/19/23 13:26 05/12/25 10:22 Height 5 ft 5 in 5 ft 5 in Weight: 131 lb 6 oz BMI 21.8 BP 125/84 H Respiration 16 Pulse 66 Temp 97.6 F L Temp Source Temporal Pulse Oximetry (%) 98 Oxygen Delivery Method room air Intake Visit Reasons: CHRONIC PANCREATITIS DISCUSS CT SCAN Chief Complaint: diarrhea and vomiting Allergies morphine Allergy (Verified 05/12/25 10:04) Itching Medications ???Medication ???Instructions ???Recorded ???Confirmed ???Type lisinopril 10 mg tablet 10 mg PO DAILY 06/04/21 05/12/25 H istory cholecalciferol (vitamin D3) 125 125 mcg PO DAILY 01/17/22 05/12/25 History mcg (5,000 unit) capsule metoprolol succinate 50 mg 50 mg PO DAILY 01/17/22 05/12/25 H istory tablet,extended release 24 hr albuterol sulfate 90 mcg/actuation 1 inh inhalation Q6H PRN SOB 03/0405/12/25 History aerosol inhaler (Ventolin HFA) multivitamin 1 cap PO DAILY 03/16/22 05/12/25 H istory duloxetine 20 mg capsule,delayed 20 mg PO BID 05/12/25 05/12/25 His tory release (Cymbalta) linaclotide 290 mcg capsule 290 mcg PO QAM #90 caps 05/12/25 0 05/12/25 Rx (Linzess) omeprazole 20 mg capsule,delayed 20 mg PO QDAY 05/12/25 05/12/25 Hi story release Nurse's Note: water in the morning came right back up up and she would experience incontinence of bowel and bladder as well. [facility] Medical History Abdominal pain Acid reflux Alcohol use Anxiety Arthritis Asthma Back problem Black tarry stools Brain lesion Chronic cough Constipation COPD (chronic obstructive pulmonary disease) Depression Difficulty swallowing Easy bruising Fatigue History of diverticulitis History of edema History of pain when walking History of stress test Hypertension Injury of head and neck Leg cramps Loss of hearing Marijuana use Nausea PTSD (post-traumatic stress disorder) Rash Smoker SOB (shortness of breath) Syncope Thyroid disease TIA (transient ischemic attack) Vomiting Wears dentures Wears glasses Wears partial dentures Surgical History Hx of colonoscopy Hx of tubal ligation Family History Uncle Thyroid cancer Thyroid disorder Father Alcoholism Grandfather Alcoholism Grandmother Depression Seizures Sister Heart disease Other Anxiety Cancer Social History Smoking Status: Current every day smoker tobacco type: cigarettes alcohol intake: former substance use type: does not use caffeine: Yes what type of physical activity do you participate in: walking HPI HPI Chief Complaint: diarrhea and vomiting Details: SHAYNA LYONS, is a 59 F who presents to the office today for OV w/ Dr. Friend 10/03/2023 Pancreatic calcification: Status: Chronic Plan: Her pancreatic calcifications are secondary to a history of alcohol abuse in the past. She does not have any history of alcoholism at this time and has not had a drink in several years. There is however unfortunately I believe there is a complication of that. There were no signs of pancreatic masses we will be checking a CA 19-9 and possibly endoscopic ultrasound in the future. She got an MRI in show any signs of lesions in the pancreas. (2) Constipation: Status: Chronic Qualifiers: Constipation type: slow transit constipation Qualified Code(s): K59.01 - Slow transit constipation Plan: She will give samples of Linzess to take for approximately 5 days. She will give us a call in about a week and hopefully we will be able to get her something that on a daily basis that would help her chronic back to constipation. (3) Mesenteric lymphadenopathy: Status: Acute Plan: She is to see a toe trimmer. I think her mesenteric lymphadenopathy was possibly secondary to an underlying autoimmune disease. She is headed a antiassess be positive in the past for Sjogren's syndrome. She is also been having some signs and symptoms of possible rheumatoid arthritis with pain in her spine and really difficulty getting up in the morning. (4) Diarrhea: Status: Acute Qualifiers: Diarrhea type: functional diarrhea Qualified Code(s): K59.1 - Functional diarrhea Plan: Her diarrhea is much improved. She is having some bloating and abdominal distention. I believe this is mostly secondary to chronic idio (more content not included)... Normal [facility] Hematocrit Auto (Bld) [Volum e fraction]Ordered By: Xochilt Toscano on 05-12-2025 Hematocrit (Bld) [Volume fraction] 43.5 % 37-47 [facility] Hemoglobin measurementOrdere d By: Xochilt Toscano on 05-12-2025 Hemoglobin (Bld) [Mass/Vol] 15.1 g/dL High 12.0-15.0 [facility] Immature granulocytes/100 WB C Auto (Bld)Ordered By: Xochilt Toscano on 05-12-2025 Immature granulocytes/100 WBC (Bld) 0.300 % 0.0-0.9 [facility] Comment on above: IG% - Immature Granu locytes (promyelocytes, myelocytes and metamyelocytes) > 1% indicates that a LEFT SHIFT is Present. International normalized rat io (INR) calculationOrdered By: Xochilt Toscano on 05-12-2025 INR Coag (Bld) [Relative time] 0.9 {INR} [facility] - Chemistry and C hemistry - challengeOrdered By: Xochilt Toscano on 05-12-2025 AST [Catalytic activity/Vol] 33 U/L High <32 [facility] Lipaseon 05-12-2025 Lipase [Catalytic activity/Vol] 144 U/L High 13-75 [facility] Comment on above: Result Comment: Rachid multani note: LIPASE revised reference range effective 23. New Lipase methodology. Expected to produce lower values than the previous assay method. NEW Reference Range: 13 - 75 U/L Performed By: #### L 500.4050, L100.0100 #### [facility] [address] [place], [address] Lipase measurementOrdered By : Xochilt Toscano on 05-12-2025 Lipase [Catalytic activity/Vol] 144 U/L High 13-75 [facility] Comment on above: Please note:LIPASE r evised reference range effective 23. New Lipase methodology. Expected to produce lower values than the previous assay method. NEW Reference Range: 13 - 75 U/L Liver Profileon 05-12-2025 Albumin [Mass/Vol] 4.7 g/dL Normal 3.5-5.0 [facility] Comment on above: Performed By: #### L 500.4050, L100.0100 #### [facility] [address] [place], [address] ALK PHOS 93 U/L Normal 35-104 [facility] Comment on above: Performed By: #### L 500.4050, L100.0100 #### [facility] [address] [place], [address] ALT [Catalytic activity/Vol] 30 U/L Normal <=34 [facility] Comment on above: Performed By: #### L 500.4050, L100.0100 #### [facility] [address] [place], [address] AST [Catalytic activity/Vol] 33 U/L High <=31 [facility] Comment on above: Performed By: #### L 500.4050, L100.0100 #### [facility] [address] [place], [address] Bilirubin [Mass/Vol] 0.43 mg/dL Normal 0.00-1.30 [facility] Comment on above: Performed By: #### L 500.4050, L100.0100 #### [facility] [address] [place], [address] Bilirubin.direct [Mass/Vol] 0.17 mg/dL Normal 0.00-0.30 [facility] Comment on above: Performed By: #### L 500.4050, L100.0100 #### [facility] [address] [place], [address] Globulin (S) [Mass/Vol] 3.2 g/dL Normal 2.2-4.2 [facility] Comment on above: Performed By: #### L 500.4050, L100.0100 #### [facility] [address] [place], [address] T PROT 7.9 g/dL Normal 5.9-8.4 [facility] Comment on above: Performed By: #### L 500.4050, L100.0100 #### [facility] [address] [place], [address] MCV (mean corpuscular volume ) determinationOrdered By: Xochilt Toscano on 05-12-2025 MCV (RBC) [Entitic vol] 97.1 fL 81-99 [facility] Mean corpuscular hemoglobin (MCH) determinationOrdered By: Xochilt Toscano on 05-12-2025 MCH (RBC) [Entitic mass] 33.7 pg High 27.0-32.0 [facility] Mean corpuscular hemoglobin concentration (MCHC) determinationOrdered By: Xochilt Toscano on 05-12-2025 MCHC (RBC) [Mass/Vol] 34.7 g/dL 32-36 [facility] Mean platelet volume determi nationOrdered By: Xochilt Toscano on 05-12-2025 Platelet mean volume (Bld) [Entitic vol] 10.5 fL 6.2-12.0 [facility] Monocyte percentageOrdered B y: Xochilt Toscano on 05-12-2025 Monocytes/100 WBC (Bld) 5.8 % 0-10 [facility] Neutrophil percentageOrdered By: Xochilt Toscano on 05-12-2025 Neutrophils/100 WBC (Bld) 69.3 % 47-70 [facility] Nucleated red blood cell per centageOrdered By: Xochilt Toscano on 05-12-2025 Nucleated RBC/100 WBC (Bld) [Ratio] 0 % 0-5 [facility] Platelet countOrdered By: Zane Toscano on 05-12-2025 Platelets (Bld) [#/Vol] 310 10*3/uL 150-450 [facility] Prothrombin Time w/INRon INR Coag (PPP) [Relative time] 0.9 {INR} Normal [facility] Comment on above: Performed By: #### L 500.4050, L100.0100 #### [facility] [address] [place], [address] PT Coag (PPP) [Time] 12.4 s Normal 11.7-14.9 [facility] Comment on above: Performed By: #### L 500.4050, L100.0100 #### [facility] [place], [address] Prothrombin timeOrdered By: Xochilt Toscano on 05-12-2025 PT Coag (PPP) [Time] 12.4 s 11.7-14.9 [facility] RBC Auto (Bld) [#/Vol]Ordere d By: Xochilt Toscano on 05-12-2025 RBC (Bld) [#/Vol] 4.48 10*6/uL 4.2-5.4 [facility] Serum globulin measurementOr dered By: Xochilt Toscano on 05-12-2025 Globulin (S) [Mass/Vol] 3.2 g/dL 2.2-4.2 [facility] Serum or plasma alanine nagel otransferase (ALT) measurementOrdered By: Xochilt Toscano on 05-12-2025 ALT [Catalytic activity/Vol] 30 U/L <35 [facility] Serum or plasma albumin emilee urement (mass/volume)Ordered By: Xochilt Toscano on 05-12-2025 Albumin [Mass/Vol] 4.7 g/dL 3.5-5.0 [facility] Serum or plasma alkaline rachel sphatase measurementOrdered By: Xochilt Toscano on 05-12-2025 ALP [Catalytic activity/Vol] 93 U/L 35-104 [facility] Total proteinOrdered By: Marva Toscano on 05-12-2025 Protein [Mass/Vol] 7.9 g/dL 5.9-8.4 [facility] White blood cell (WBC) count Ordered By: Xochilt Toscano on 05-12-2025 WBC (Bld) [#/Vol] 6.0 10*3/uL 4.4-11.0 [facility] CNPSusan 04-30-2025 [place] Telephone (TAI) ----- SHAYNA LYONS ([id number]) 1965 F Date Time Provider Department 04/30/25 GARTH MADISNO, RALF LUJAN During your visit today, we recorded the following information about you: Ld Lepe MA 04/30/2025 4:47 PM Signed Scan on 04/30/2025 7:52 AM by Provider, External, PA-C: Neurology Referral 04/30/25 Neurology referral received from Tobi Horner CNP (Ginette Starks provider). Reason: Memory impairment-R41.3 Please assist with scheduling. THELMA Wolfe Sherrie 05/01/2025 9:[address] attempt unable to leave a message to return call to Neurology to arrange appointment from outside referral records in scan docs. Gia Senior 05/01/2025 10:23 AM Signed Patient returned call and is scheduled for 07/02/[address] Darby. Allergies As of Date: 04/30/2025 Noted Allergy Reaction MORPHINE 02/23/2010 9 - Itching SCOPOLAMINE 05/18/2016 5 - Intolerance Date Reviewed: 11/30/2024 Reviewed by: Michelle Navarro DO - Fully Assessed Prescriptions as of 05/01/2025 - DULoxetine (CYMBALTA) 20 mg capsule Take 1 capsule by mouth every afternoon. - metoprolol succinate ER (TOPROL XL) 50 mg 24 hr tablet Take 1 tablet by mouth every afternoon. - FOLIC ACID ORAL Take by mouth once daily. - multivit-min/iron/folic/l utein (CENTRUM SILVER WOMEN ORAL) Take 1 tablet by mouth once daily. - salbutamol (VENTOLIN HFA) 100 mcg/actuation inhaler Inhale 1-2 Puffs as instructed every 4 hours as needed. Maximum 8 puffs daily. - lisinopril (ZESTRIL, PRINIVIL) 10 mg tablet Take 10 mg by mouth once daily. - cholecalciferol, vitamin D3, (VITAMIN D3 ORAL) Take 125 mcg by mouth once daily. Problem List As Of Date 04/30/2025 Noted Resolved Memory Loss [R41.3] 02/23/2010 Weakness [R53.1] 02/23/2010 Bloating [R14.0] Abdominal pain, acute, right lower quadrant [R1* Change in bowel habits [R19.4] Dry eyes [H04.123] 05/04/2015 GERD (gastroesophageal reflux disease) [K21.9] 05/04/2015 Chest pain [R07.9] 05/04/2015 Shortness of breath on exertion [R06.02] 05/04/2015 Anxiety [F41.9] 06/01/2016 Encounter Status:Closed by LD LEPE on 05/01/25 Normal [facility] Absolute lymphocyte countOrd ered By: bulun Beam on 02-27-2025 Lymphocytes Auto (Unsp spec) [#/Vol] 1.35 10*3/uL 0.83-4.51 [facility] Absolute neutrophil countOrd ered By: bun Beam on 02-27-2025 Neutrophils (Bld) [#/Vol] 3.0 10*3/uL 2.0-7.7 [facility] Amylaseon 02-27-2025 GUILLERMO 90 U/L Normal 28-100 [facility] Comment on above: Performed By: #### L 501.2400, L500.4050, L501.2450, L100.0100, L501.9520 #### [facility] [address] [place], [address] Anion gap in Serum or Plasma Ordered By: ann-mariedolores Beam on 02-27-2025 Anion gap [Moles/Vol] 15 mmol/L 5- [facility] Automated lymphocyte count a s percentage of total leukocytesOrdered By: bulun Beam on 02-27-2025 Lymphocytes/100 WBC Auto (Unsp spec) 28.0 % - [facility] BUN/creatinine ratioOrdered By: [facility] Beam on 02-27-2025 Urea nitrogen/Creatinine [Mass ratio] 14.0 mg/mg 10- [facility] Basophil percentageOrdered B y: Zebulun Beam on 02-27-2025 Basophils/100 WBC (Bld) 1.7 % High 0-1 [facility] Bilirubin, totalOrdered By: Mindy Horner on 02-27-2025 Bilirubin [Mass/Vol] 0.28 mg/dL 0.00-1.30 [facility] CBC W/Diff, Automatedon 02-11 Absolute Lymph 1.35 X10 3/uL Normal 0.83-4.51 [facility] Comment on above: Performed By: #### L 501.2400, L500.4050, L501.2450, L100.0100, L501.9520 #### [facility] [address] [place], [address] Absolute Neut 3.0 X10 3/uL Normal 2.0-7.7 [facility] Comment on above: Performed By: #### L 501.2400, L500.4050, L501.2450, L100.0100, L501.9520 #### [facility] [address] [place], [address] Basophils/100 WBC (Bld) 1.7 % High 0-1 [facility] Comment on above: Performed By: #### L 501.2400, L500.4050, L501.2450, L100.0100, L501.9520 #### [facility] [address] [place], [address] Eosinophils/100 WBC (Bld) 1.9 % Normal 0-5 [facility] Comment on above: Performed By: #### L 501.2400, L500.4050, L501.2450, L100.0100, L501.9520 #### [facility] [address] [place], [address] Erythrocyte distribution width (RBC) [Ratio] 12.5 % Normal 11.6-14.6 [facility] Comment on above: Performed By: #### L 501.2400, L500.4050, L501.2450, L100.0100, L501.9520 #### [facility] [address] [place], [address] Hematocrit (Bld) [Volume fraction] 42.4 % Normal 37-47 [facility] Comment on above: Performed By: #### L 501.2400, L500.4050, L501.2450, L100.0100, L501.9520 #### [facility] [address] [place], [address] Hemoglobin (Bld) [Mass/Vol] 14.8 g/dL Normal 12.0-15.0 [facility] Comment on above: Performed By: #### L 501.2400, L500.4050, L501.2450, L100.0100, L501.9520 #### [facility] [address] [place], [address] IG% 0.000 Normal 0.0-0.9 [facility] Comment on above: Result Comment: IG% - Immature Granulocytes (promyelocytes, myelocytes and metamyelocytes) > 1% indicates that a LEFT SHIFT is Present. Performed By: #### L 501.2400, L500.4050, L501.2450, L100.0100, L501.9520 #### [facility] [address] [place], [address] Lymphocytes/100 WBC (Bld) 28.0 % Normal 19-41 [facility] Comment on above: Performed By: #### L 501.2400, L500.4050, L501.2450, L100.0100, L501.9520 #### [facility] [address] [place], [address] MCH (RBC) [Entitic mass] 32.8 pg High 27.0-32.0 [facility] Comment on above: Performed By: #### L 501.2400, L500.4050, L501.2450, L100.0100, L501.9520 #### [facility] [address] [place], [address] MCHC (RBC) [Mass/Vol] 34.9 g/dL Normal 32-36 [facility] Comment on above: Performed By: #### L 501.2400, L500.4050, L501.2450, L100.0100, L501.9520 #### [facility] [address] [place], [address] MCV (RBC) [Entitic vol] 94.0 fL Normal 81-99 [facility] Comment on above: Performed By: #### L 501.2400, L500.4050, L501.2450, L100.0100, L501.9520 #### [facility] [address] [place], [address] Monocytes/100 WBC (Bld) 7.2 % Normal 0-10 [facility] Comment on above: Performed By: #### L 501.2400, L500.4050, L501.2450, L100.0100, L501.9520 #### [facility] [address] [place], [address] Neutrophils/100 WBC (Bld) 61.2 % Normal 47-70 [facility] Comment on above: Performed By: #### L 501.2400, L500.4050, L501.2450, L100.0100, L501.9520 #### [facility] [address] [place], [address] Nucleated RBC (Bld) [#/Vol] 0 10*3/uL Normal 0-5 [facility] Comment on above: Performed By: #### L 501.2400, L500.4050, L501.2450, L100.0100, L501.9520 #### [facility] [address] [place], [address] Platelet mean volume (Bld) [Entitic vol] 9.5 fL Normal 6.2-12.0 [facility] Comment on above: Performed By: #### L 501.2400, L500.4050, L501.2450, L100.0100, L501.9520 #### [facility] [address] [place], [address] Platelets (Bld) [#/Vol] 297 10*3/uL Normal 150-450 [facility] Comment on above: Performed By: #### L 501.2400, L500.4050, L501.2450, L100.0100, L501.9520 #### [facility] [address] [place], [address] RBC (Bld) [#/Vol] 4.51 10*6/uL Normal 4.2-5.4 [facility] Comment on above: Performed By: #### L 501.2400, L500.4050, L501.2450, L100.0100, L501.9520 #### [facility] [address] [place], [address] RDW SD 43.3 fl Normal 35.1-43.9 [facility] Comment on above: Performed By: #### L 501.2400, L500.4050, L501.2450, L100.0100, L501.9520 #### [facility] [address] [place], [address] WBC (Bld) [#/Vol] 4.8 10*3/uL Normal 4.4-11.0 [facility] Comment on above: Performed By: #### L 501.2400, L500.4050, L501.2450, L100.0100, L501.9520 #### [facility] [address] [place], [address] Carbon dioxide, total [Moles /volume] in Central venous bloodOrdered By: Mindy Horner on 02-27-2025 CO2 [Moles/Vol] 24.1 mmol/L 21.0-32.0 [facility] Chloride assayOrdered By: Grabiel Horner on 02-27-2025 Chloride [Moles/Vol] 102 mmol/L 98-108 [facility] Comprehensive Metabolic Prof ilon 02-27-2025 Albumin [Mass/Vol] 4.4 g/dL Normal 3.5-5.0 [facility] Comment on above: Performed By: #### L 501.2400, L500.4050, L501.2450, L100.0100, L501.9520 #### [facility] [address] [place], [address] Albumin/Globulin [Mass ratio] 1.5 {ratio} Normal 0.9-2.4 [facility] Comment on above: Performed By: #### L 501.2400, L500.4050, L501.2450, L100.0100, L501.9520 #### [facility] [address] [place], [address] ALK PHOS 91 U/L Normal 35-104 [facility] Comment on above: Performed By: #### L 501.2400, L500.4050, L501.2450, L100.0100, L501.9520 #### [facility] [address] [place], [address] ALT [Catalytic activity/Vol] 19 U/L Normal <=34 [facility] Comment on above: Performed By: #### L 501.2400, L500.4050, L501.2450, L100.0100, L501.9520 #### [facility] [address] [place], [address] AST [Catalytic activity/Vol] 29 U/L Normal <=31 [facility] [place] Comment on above: Performed By: #### L 501.2400, L500.4050, L501.2450, L100.0100, [id number] #### [facility] [address] [place], [address] Bilirubin [Mass/Vol] 0.28 mg/dL Normal 0.00-1.30 [facility] Comment on above: Performed By: #### L 501.2400, L500.4050, L501.2450, L100.0100, [id number] #### [facility] [place] [facility] [address] [place], [address] BUN/CRE 14.0 RATIO Normal 10-20 [facility] [place] Comment on above: Performed By: #### L 501.2400, L500.4050, L501.2450, L100.0100, [id number] #### [facility] [place] [facility] [address] [place], [address] Calcium [Mass/Vol] 9.4 mg/dL Normal 7.6-11.0 [facility] Comment on above: Performed By: #### L 501.2400, L500.4050, L501.2450, L100.0100, [id number] #### [facility] [place] [facility] [address] [place], [address] Chloride [Moles/Vol] 102 mmol/L Normal 98-108 [facility] Comment on above: Performed By: #### L 501.2400, L500.4050, L501.2450, L100.0100, [id number] #### [facility] [place] [facility] [address] [place], [address] CO2 [Moles/Vol] 24.1 mmol/L Normal 21.0-32.0 [facility] [place] Comment on above: Performed By: #### L 501.2400, L500.4050, L501.2450, L100.0100, [id number] #### [facility] [place] [facility] [address] [place], [address] Creatinine [Mass/Vol] 0.76 mg/dL Normal 0.70-1.20 [facility] Comment on above: Performed By: #### L 501.2400, L500.4050, L501.2450, L100.0100, [id number] #### [facility] [place] [facility] [address] [place], [address] GAP 15 Normal 5-15 [facility] [place] Comment on above: Performed By: #### L 501.2400, L500.4050, L501.2450, L100.0100, [id number] #### [facility] [place] [facility] [address] [place], [address] GFR/1.73 sq M.predicted among non-blacks MDRD (S/P/Bld) [Vol rate/Area] 91 mL/min/{1.73_m2} Normal >60 [facility] Comment on above: Result Comment: mL/m in/1.73m2 CKD-EPI Creatinine Equation (2020) Performed By: #### L 501.2400, L500.4050, L501.2450, L100.0100, L501.9520 #### [facility] [place] [facility] [address] [place], [address] Globulin (S) [Mass/Vol] 2.8 g/dL Normal 2.2-4.2 [facility] Comment on above: Performed By: #### L 501.2400, L500.4050, L501.2450, L100.0100, L501.9520 #### [facility] [place] [facility] [address] [place], [address] Glucose [Mass/Vol] 88 mg/dL Normal 70-99 [facility] Comment on above: Performed By: #### L 501.2400, L500.4050, L501.2450, L100.0100, L501.9520 #### [facility] [place] [facility] [address] [place], [address] Potassium [Moles/Vol] 4.2 mmol/L Normal 3.3-5.1 [facility] Comment on above: Performed By: #### L 501.2400, L500.4050, L501.2450, L100.0100, L501.9520 #### [facility] [place] [facility] [address] [place], [address] Sodium [Moles/Vol] 140 mmol/L Normal 133-145 [facility] Comment on above: Performed By: #### L 501.2400, L500.4050, L501.2450, L100.0100, [id number] #### [facility] [place] [facility] [address] [place], [address] T PROT 7.2 g/dL Normal 5.9-8.4 [facility] Comment on above: Performed By: #### L 501.2400, L500.4050, L501.2450, L100.0100, [id number] #### [facility] [place] [facility] [address] [place], [address] Urea nitrogen [Mass/Vol] 11 mg/dL Normal 4-19 [facility] [place] Comment on above: Performed By: #### L 501.2400, L500.4050, L501.2450, L100.0100, L501.9520 #### [facility] [place] [facility] [address] [place], [address] Eosinophil percentageOrdered By: Zebulun Beam on 02-27-2025 Eosinophils/100 WBC (Bld) 1.9 % 0-5 [facility] Erythrocyte distribution wid th (RBC) [Ratio]Ordered By: Zebulun Beam on 02-27-2025 Erythrocyte distribution width (RBC) [Entitic vol] 43.3 fL 35.1-43.9 [facility] Erythrocyte distribution wid th ratioOrdered By: Zebulun Beam on 02-27-2025 Erythrocyte distribution width (RBC) [Ratio] 12.5 % 11.6-14.6 [facility] Erythrocyte distribution wid th standard deviationOrdered By: Mindy Horner on 02-27-2025 Erythrocyte distribution width (RBC) [Ratio] 43.3 fl 35.1-43.9 [facility] GFR/1.73 sq M.predicted gia g non-blacks MDRD (S/P/Bld) [Vol rate/Area]Ordered By: Mindy Horner on 02-27-2025 Estimated GFR (MDRD) Non-Af Amer 91 >60 [facility] Comment on above: mL/min/1.73m2 CKD-EP I Creatinine Equation (2020) Glomerular filtration rate ( GFR) estimation/1.73 sq m using serum, plasma, or whole bOrdered By: Mindy Horner on 02-27-2025 GFR/1.73 sq M.predicted among non-blacks MDRD (S/P/Bld) [Vol rate/Area] 91 mL/min/{1.73_m2} >60 [facility] Comment on above: mL/min/1.73m2 CKD-EP I Creatinine Equation (2020) Hematocrit Auto (Bld) [Volum e fraction]Ordered By: Mindy Horner on 02-27-2025 Hematocrit (Bld) [Volume fraction] 42.4 % 37-47 [facility] Hemoglobin measurementOrdere d By: Mindy Horner on 02-27-2025 Hemoglobin (Bld) [Mass/Vol] 14.8 g/dL 12.0-15.0 [facility] Immature granulocytes/100 WB C Auto (Bld)Ordered By: Mindy Horner on 02-27-2025 Immature granulocytes/100 WBC (Bld) 0.000 % 0.0-0.9 [facility] Comment on above: IG% - Immature Granu locytes (promyelocytes, myelocytes and metamyelocytes) > 1% indicates that a LEFT SHIFT is Present. Laboratory - Chemistry and C hemistry - challengeOrdered By: Mindy Horner on 02-27-2025 AST [Catalytic activity/Vol] 29 U/L <32 [facility] Lipaseon 02-27-2025 Lipase [Catalytic activity/Vol] 38 U/L Normal 13-75 [facility] Comment on above: Result Comment: Plea se note: LIPASE revised reference range effective 23. New Lipase methodology. Expected to produce lower values than the previous assay method. NEW Reference Range: 13 - 75 U/L Performed By: #### L 501.2400, L500.4050, L501.2450, L100.0100, L501.9520 #### [facility] [address] [place], [address] Lipase measurementOrdered By : Grabielbulun Beam on 02-27-2025 Lipase [Catalytic activity/Vol] 38 U/L 13-75 [facility] Comment on above: Please note:LIPASE r evised reference range effective 23. New Lipase methodology. Expected to produce lower values than the previous assay method. NEW Reference Range: 13 - 75 U/L Lymphocytes Auto (Unsp spec) [#/Vol]Ordered By: ann-marien Beam on 02-27-2025 Lymphocytes (Bld) [#/Vol] 1.35 10*3/uL 0.83-4.5 1 [facility] Lymphocytes/100 WBC Auto (Un sp spec)Ordered By: bulun Beam on 02-27-2025 Lymphocytes/100 WBC (Bld) 28.0 % 19-41 [facility] MCV (mean corpuscular volume ) determinationOrdered By: ann-marien Beam on 02-27-2025 MCV (RBC) [Entitic vol] 94.0 fL 81-99 [facility] Mean corpuscular hemoglobin (MCH) determinationOrdered By: bun Beam on 02-27-2025 MCH (RBC) [Entitic mass] 32.8 pg High 27.0-32.0 [facility] Mean corpuscular hemoglobin concentration (MCHC) determinationOrdered By: bulun Beam on 02-27-2025 MCHC (RBC) [Mass/Vol] 34.9 g/dL 32-36 [facility] Mean platelet volume determi nationOrdered By: bulun Beam on 02-27-2025 Platelet mean volume (Bld) [Entitic vol] 9.5 fL 6.2-12.0 [facility] Monocyte percentageOrdered B y: Zebulun Beam on 02-27-2025 Monocytes/100 WBC (Bld) 7.2 % 0-10 [facility] Neutrophil percentageOrdered By: Zebulun Beam on 02-27-2025 Neutrophils/100 WBC (Bld) 61.2 % 47-70 [facility] Nucleated red blood cell per centageOrdered By: Zeann-marielun Beam on 02-27-2025 Nucleated RBC/100 WBC (Bld) [Ratio] 0 % 0-5 [facility] Platelet countOrdered By: Grabiel Horner on 02-27-2025 Platelets (Bld) [#/Vol] 297 10*3/uL 150-450 [facility] Potassium (Unsp spec) [Mass/ Vol]Ordered By: Mindy Beam on 02-27-2025 Potassium [Moles/Vol] 4.2 mmol/L 3.3-5.1 [facility] Potassium measurement (mass/ volume)Ordered By: Mindy Horner on 02-27-2025 Potassium (Unsp spec) [Mass/Vol] 4.2 mmol/L 3.3-5.1 [facility] RBC Auto (Bld) [#/Vol]Ordere d By: Stevenludolores Beam on 02-27-2025 RBC (Bld) [#/Vol] 4.51 10*6/uL 4.2-5.4 [facility] Serum creatinine measurement (mass/volume)Ordered By: Mindy Horner on 02-27-2025 Creatinine [Mass/Vol] 0.76 mg/dL 0.70-1.20 [facility] Serum globulin measurementOr dered By: Mindy Beam on 02-27-2025 Globulin (S) [Mass/Vol] 2.8 g/dL 2.2-4.2 [facility] Serum glucose measurement (m ass/volume)Ordered By: Mindy Beam on 02-27-2025 Glucose [Mass/Vol] 88 mg/dL 70-99 [facility] Serum or plasma alanine nagel otransferase (ALT) measurementOrdered By: Mindy Beam on 02-27-2025 ALT [Catalytic activity/Vol] 19 U/L <35 [facility] Serum or plasma albumin emilee urement (mass/volume)Ordered By: Stevenlun Beam on 02-27-2025 Albumin [Mass/Vol] 4.4 g/dL 3.5-5.0 [facility] Serum or plasma albumin/glob ulin mass ratioOrdered By: bulun Beam on 02-27-2025 Albumin/Globulin [Mass ratio] 1.5 {ratio} 0.9-2.4 [facility] Serum or plasma alkaline rachel sphatase measurementOrdered By: Zebun Beam on 02-27-2025 ALP [Catalytic activity/Vol] 91 U/L 35-104 [facility] Serum or plasma amylase emilee urement (enzymatic activity/volume)Ordered By: Grabielbuludolores Beam on 02-27-2025 Amylase [Catalytic activity/Vol] 90 U/L 28-100 [facility] Serum or plasma calcium emilee urement (mass/volume)Ordered By: Grabielbulun Beam on 02-27-2025 Calcium [Mass/Vol] 9.4 mg/dL 7.6-11.0 [facility] Serum or plasma urea nitroge n measurement (mass/volume)Ordered By: Grabielbulun Beam on 02-27-2025 Urea nitrogen [Mass/Vol] 11 mg/dL 4-19 [facility] Sodium levelOrdered By: Steven Horner on 02-27-2025 Sodium [Moles/Vol] 140 mmol/L 133-145 [facility] TSH DL <= 0.005 mIU/L QnOrde red By: Mindy Beam on 02-27-2025 Thyroid Stimulating Hormone (TSH) 1.660 uIU/mL 0.300-4.20 0 [facility] TSH Qn 1.660 uIU/mL 0.300-4.20 0 [facility] Thyroid Stim Hormone (TSH)on 02-27-2025 TSH 1.660 uIU/mL Normal 0.300-4.20 0 [facility] Comment on above: Performed By: #### L 501.2400, L500.4050, L501.2450, L100.0100, L501.9520 #### [facility] [address] [place], [place], [id number] Total proteinOrdered By: Kendall ulun Beam on 02-27-2025 Protein [Mass/Vol] 7.2 g/dL 5.9-8.4 [facility] White blood cell (WBC) count Ordered By: Stevenlun Beam on 02-27-2025 WBC (Bld) [#/Vol] 4.8 10*3/uL 4.4-11.0 [facility] XR WRIST MINIMUM 3 VIEWS LEF Ton 01-31-2025 XR WRIST MINIMUM 3 VIEWS LEFT ORIGINAL EXAMINATION: THREE XRAY VIEWS OF THE LEFT WRIST01/29/2025 3:08 pm COMPARISON: Radiographs 01/06/2025 HISTORY: ORDERING SYSTEM PROVIDED HISTORY: Reason for Exam: wrist fx, FINDINGS: There is a sclerotic line in the distal radial metaphysis that is less distinct suggesting progressive healing of an impacted fracture in this region. No other acute findings or significant interval change. IMPRESSION: Progressive healing of nondisplaced impacted distal radial fracture. Interpreted by: Juan Miguel Leyva MD Preliminary Report By: Juan Miguel Leyva MD Electronically signed By Juan Miguel Leyva MD Dictated Date: 01/31/2025 2:28:24 PM Prelim Date: 01/31/2025 2:29:21 PM Sign Date: 01/31/2025 2:29:21 PM Ordering Provider: EVERTON GAMBLE [facility] MAIN CT WRIST W/O CONTRAST LEFTon 01-21-2025 CT WRIST W/O CONTRAST LEFT ORIGINAL EXAMINATION: CT OF THE LEFT WRIST WITHOUT CONTRAST 01/21/2025 3:16 pm TECHNIQUE: CT of the left wrist was performed without the administration of intravenous contrast. Multiplanar reformatted images are provided for review. Automated exposure control, iterative reconstruction, and/or weight based adjustment of the mA/kV was utilized to reduce the radiation dose to as low as reasonably achievable. COMPARISON: Wrist radiograph dated 01/06/2025 HISTORY ORDERING SYSTEM PROVIDED HISTORY: Reason for Exam: scaphoid fracture scaphoid fx from 4-6 wks ago, not healing. left wrist pain, swelling. smoker FINDINGS: There is no acute fracture or dislocation. Near completely healed fracture deformity of the distal radius. There is neutral ulnar variance. The scapholunate and lunotriquetral intervals are within normal limits. Carpal bossing of the 3rd metacarpal. Punctate bone fragment of unclear donor site adjacent to the medial base of the trapezium. There is no suspicious lytic or blastic osseous lesion. There is no aggressive periosteal reaction. Bone demineralization. Joint spaces are preserved. There is no joint effusion . There is no evidence of solid or cystic soft tissue mass within limitations for lack of contrast.. Limited evaluation of the tendons and ligaments on CT. No definite large amount of tenosynovitis. IMPRESSION: There is no evidence of scaphoid fracture. Near completely healed intra-articular distal radial fracture. Additional incidental findings as above. Interpreted by: Liana Cerrato Preliminary Report By: Liana Cerrato Electronically signed By Liana Cerrato Dictated Date: 01/21/2025 3:33:00 PM Prelim Date: 01/21/2025 3:40:24 PM Sign Date: 01/21/2025 3:40:24 PM Ordering Provider: EVERTON GAMBLE [facility] MAIN XR WRIST MINIMUM 3 VIEWS [facility] 01-08-2025 XR WRIST MINIMUM 3 VIEWS LEFT ORIGINAL EXAMINATION: THREE XRAY VIEWS OF THE LEFT WRIST 01/06/2025 2:53 pm COMPARISON: December 25, 2024 HISTORY: ORDERING SYSTEM PROVIDED HISTORY: Reason for Exam: left wrist pain FINDINGS: The previously described fiberglass cast has been removed. There is unchanged alignment about the healing distal radial impacted fracture. There is questionable fracture about the scaphoid. Bones are diffusely demineralized. There is mild soft tissue edema. Unchanged alignment about IMPRESSION: The impacted healing distal radial fracture. Questionable fracture deformity of the scaphoid. CT may be helpful for further evaluation as clinically indicated. Interpreted by: Meli South Preliminary Report By: Meli South Electronically signed By Meli South Dictated Date: 01/08/2025 2:56:51 PM Prelim Date: 01/08/2025 2:58:36 PM Sign Date: 01/08/2025 2:58:36 PM Ordering Provider: EVERTON GAMBLE [facility] MAIN XR WRIST MINIMUM 3 VIEWS [facility] 12-27-2024 XR WRIST MINIMUM 3 VIEWS LEFT ORIGINAL EXAMINATION: THREE XRAY VIEWS OF THE LEFT WRIST12/25/2024 1:49 pm COMPARISON: 12/11/2024 HISTORY: ORDERING SYSTEM PROVIDED HISTORY: Reason for Exam: wrist fracture FINDINGS: Overlying cast is noted and obscures osseous detail. Distal radial fracture alignment is not significantly changed. No new fractures or dislocations. No unexpected radiopaque foreign body. IMPRESSION: Distal radial fracture alignment is not significantly changed. Interpreted by: Lester Orozco DO Preliminary Report By: Lester Orozco DO Electronically signed By Lester Orozco DO Dictated Date: 12/27/2024 8:16:44 AM Prelim Date: 12/27/2024 8:18:43 AM Sign Date: 12/27/2024 8:18:43 AM Ordering Provider: [facility] XR WRIST MINIMUM 3 VIEWS LEF Ton 12-12-2024 XR WRIST MINIMUM 3 VIEWS LEFT ORIGINAL EXAMINATION: THREE XRAY VIEWS OF THE LEFT WRIST12/11/2024 3:47 pm COMPARISON: None HISTORY: ORDERING SYSTEM PROVIDED HISTORY: Reason for Exam: wrist pain, injury, pain FINDINGS: There is a subtle nondisplaced fracture of the distal radial metaphysis. No other fracture or dislocation is seen. Carpal bones are intact. IMPRESSION: Nondisplaced radial fracture. Interpreted by: Juan Miguel Leyva MD Preliminary Report By: Juan Miguel Leyva MD Electronically signed By Juan Miguel Leyva MD Dictated Date: 12/12/2024 10:55:25 AM Prelim Date: 12/12/2024 10:56:18 AM Sign Date: 12/12/2024 10:56:18 AM [facility] ([facility]) ----- SHAYNA LYONS ([id number]) 1965 F Date Time Provider Department 12/02/24 HERMILO ARIAS JR [facility] During your visit today, we recorded the following information about you: Allergies As of Date: 12/02/2024 Noted Allergy Reaction MORPHINE 02/23/2010 9 - Itching SCOPOLAMINE 05/18/2016 5 - Intolerance Date Reviewed: 11/30/2024 Reviewed by: Michelle Navarro DO - Fully Assessed Prescriptions as of 12/02/2024 - DULoxetine (CYMBALTA) 20 mg capsule Take 1 capsule by mouth every afternoon. - metoprolol succinate ER (TOPROL XL) 50 mg 24 hr tablet Take 1 tablet by mouth every afternoon. - FOLIC ACID ORAL Take by mouth once daily. - dexAMETHasone (DECADRON) 6 mg tablet Take 1 tablet by mouth once daily for 5 days. - traMADol (ULTRAM) 50 mg tablet Take 1 tablet by mouth every 8 hours as needed for pain for up to 5 days. - multivit-min/iron/folic/l utein (CENTRUM SILVER WOMEN ORAL) Take 1 tablet by mouth once daily. - salbutamol (VENTOLIN HFA) 100 mcg/actuation inhaler Inhale 1-2 Puffs as instructed every 4 hours as needed. Maximum 8 puffs daily. - lisinopril (ZESTRIL, PRINIVIL) 10 mg tablet Take 10 mg by mouth once daily. - cholecalciferol, vitamin D3, (VITAMIN D3 ORAL) Take 125 mcg by mouth once daily. Problem List As Of Date 12/02/2024 Noted Resolved Memory Loss [R41.3] 02/23/2010 Weakness [R53.1] 02/23/2010 Bloating [R14.0] Abdominal pain, acute, right lower quadrant [R1* Change in bowel habits [R19.4] Dry eyes [H04.123] 05/04/2015 GERD (gastroesophageal reflux disease) [K21.9] 05/04/2015 Chest pain [R07.9] 05/04/2015 Shortness of breath on exertion [R06.02] 05/04/2015 Anxiety [F41.9] 06/01/2016 Follow-up and Disposition History for Encounter Date Provider Department Center 12/02/2024 [id number] JR, PA[facility] Encounter Status:Closed by HERMILO ARIAS on 12/02/24 [facility] CNOVon 11-30-2024 [facility] Office Visit ([facility] ) ----- SHAYNA LYONS ([id number]) 1965 F Date Time Provider Department 11/30/24 12:05 PM MICHELLE NAVARRO [facility] During your visit today, we recorded the following information about you: Temperature Pulse Respiration Blood pressure 98.3 degrees 76/minute 17/minute 139/83 Last Period 11/30/22 Emily Osuna LPN 11/30/2024 2:41 PM Signed Patient declined depression screening at this time. 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 metoprolol succinate ER (TOPROL XL) 50 mg 24 hr tablet Take 1 tablet by mouth every afternoon. FOLIC ACID ORAL Take by mouth once daily. multivit-min/iron/folic/l utein (CENTRUM SILVER WOMEN ORAL) Take 1 tablet by mouth once daily. salbutamol (VENTOLIN HFA) 100 mcg/actuation inhaler Inhale 1-2 Puffs as instructed every 4 hours as needed. Maximum 8 puffs daily. lisinopril (ZESTRIL, PRINIVIL) 10 mg tablet Take 10 mg by mouth once daily. cholecalciferol, vitamin D3, (VITAMIN D3 ORAL) Take 125 mcg by mouth once daily. dexAMETHasone (DECADRON) 6 mg tablet Take 1 tablet by mouth once daily for 5 days. 5 tablet 0 traMADol (ULTRAM) 50 mg tablet Take 1 tablet by mouth every 8 hours as needed for pain for up to 5 days. 15 tablet 0 No current facility-administered medications for this visit. Social History Tobacco Use Smoking status: Every Day Current packs/day: 1.50 Average packs/day: 1.5 packs/day for 45.0 years (67.6 ttl pk-yrs) Types: Cigarettes Start date: 1979 Smokeless tobacco: Never Vaping Use Vaping status: Never Used Substance Use Topics Alcohol use: Not Currently Alcohol/week: 4.0 - 10.0 standard drinks of alcohol Types: 4 - 10 Standard drinks or equivalent per week Comment: 4-10 glasses per week; stopped 1-2 months Drug use: Yes Types: Marijuana Comment: has smoked marijuana in past, last used about a couple of months ago Alcohol Use: Not Currently (4-10 glasses per week; stopped 1-2 months) Tobacco Use: Types: Cigarettes FAMILY HISTORY Problem Relation Age of Onset Hypertension Mother Cancer Sister endometrial Seizures Maternal Grandmother Aneurysm Maternal Grandmother fatal Stroke Maternal Grandfather had pacemaker Diabetes Maternal Aunt gestational diabetes Heart Maternal Uncle Multiple Sclerosis No Family History Review of Systems Musculoskeletal: Positive for joint pain. Patient felt ice within the last few days both times hurting her left wrist All other systems reviewed and are negative. BP 139/83 Pulse 76 Temp (Src) 98.3 (Temporal) Resp 17 SpO2 100% LMP 11/30/2022 Physical Exam Vitals and nursing note reviewed. Constitutional: Appearance: Normal appearance. HENT: Head: Normocephalic. Cardiovascular: Heart sounds: Normal heart sounds. Pulmonary: Breath sounds: Normal breath sounds. Abdominal: General: Bowel sounds are normal. Musculoskeletal: General: Swelling, tenderness and signs of injury present. Comments: Patient had a mechanical fall tripped over her cat. Patient states she fell onto her outstretched hands and hurt her left wrist. She states that she has never had a broken bone but it certainly feels broken. Looking at the wrist she is got swelling over the navicular tenderness to palpation in the anatomic snuffbox difficulty moving her thumb pulses are +2/4 and capillary refill less than 3 seconds normal motor neurovascular and sensory to the digits. She has relief by holding the elbow flexed and the hand up. I reviewed the x-rays and although it is difficult to find I do think there is a hairline nondisplaced fracture of the navicular in the left wrist. I did highlight that area on the PA left view and we will have (more content not included)... Normal XR ELBOW 3V AP/LAT/OTHER LTo n 11-30-2024 XR ELBOW 3V AP/LAT/OTHER LT * * *Final Report* * * DATE OF EXAM: Nov 30 2024 2:46PM RMX [id number] - XR ELBOW 3V AP/LAT/OTHER LT / PROCEDURE REASON: Fall (on) (from) other stairs and steps, initial encounter * * * * Physician Interpretation * * * * XR ELBOW 3V AP/LAT/OTHER LT, XR HAND 3V PA/LAT/OBL LT, XR WRIST 4V PA/LAT/OBL/SCAPH LT Ordering Physician: MICHELLE NAVARRO LEFT ELBOW 4 VIEWS Clinical Statement: Pain. Fall. FINDINGS: No fracture, dislocation, or joint effusion. The alignment is normal. Minimal enthesopathy in the lateral epicondylar region. IMPRESSION: No acute osseous abnormality. LEFT HAND 3 VIEWS: INDICATION: Pain. Fall. FINDINGS: No fracture or dislocation. The osseous structures are intact. The alignment is normal. Mild osteophytic change at the first carpometacarpal joint and multiple interphalangeal joints. IMPRESSION: No acute osseous abnormality. LEFT WRIST 5 VIEWS: INDICATION: Pain. Fall. FINDINGS: There is a buckle fracture involving the distal radial metaphysis. No additional fractures are shown. The carpal rows demonstrate normal alignment. There is soft tissue swelling present. IMPRESSION: Buckle fracture distal radius The referring provider will be contacted by the Imaging Support Navigator Team. Parachute Folder: [place] Transcribe Date/Time: Dec 02 2024 6:44A Dictated by : ALYSON OG MD This examination was interpreted and the report reviewed and electronically signed by: ALYSON OG MD on Dec 02 2024 6:48AM EST [id number] [facility] XR HAND 3V PA/LAT/OBL LTon 0 11-30-2024 XR HAND 3V PA/LAT/OBL LT * * *Final Repo rt* * * DATE OF EXAM: Nov 30 2024 2:46PM [id number] - XR HAND 3V PA/LAT/OBL LT / PROCEDURE REASON: Fall (on) (from) other stairs and steps, initial encounter * * * * Physician Interpretation * * * * XR ELBOW 3V AP/LAT/OTHER LT, XR HAND 3V PA/LAT/OBL LT, XR WRIST 4V PA/LAT/OBL/SCAPH LT Ordering Physician: MICHELLE NAVARRO LEFT ELBOW 4 VIEWS Clinical Statement: Pain. Fall. FINDINGS: No fracture, dislocation, or joint effusion. The alignment is normal. Minimal enthesopathy in the lateral epicondylar region. IMPRESSION: No acute osseous abnormality. LEFT HAND 3 VIEWS: INDICATION: Pain. Fall. FINDINGS: No fracture or dislocation. The osseous structures are intact. The alignment is normal. Mild osteophytic change at the first carpometacarpal joint and multiple interphalangeal joints. IMPRESSION: No acute osseous abnormality. LEFT WRIST 5 VIEWS: INDICATION: Pain. Fall. FINDINGS: There is a buckle fracture involving the distal radial metaphysis. No additional fractures are shown. The carpal rows demonstrate normal alignment. There is soft tissue swelling present. IMPRESSION: Buckle fracture distal radius The referring provider will be contacted by the Imaging Support Navigator Team. Parachute Folder: PSCB Transcribe Date/Time: Dec 02 2024 6:44A Dictated by : ALYSON OG MD This examination was interpreted and the report reviewed and electronically signed by: ALYSON OG MD on Dec 02 2024 6:48AM EST [id number] [facility] XR WRIST 4V PA/LAT/OBL/SCAPH LTon 11-30-2024 XR WRIST 4V PA/LAT/OBL/SCAPH LT * * *Final Report* * * DATE OF EXAM: Nov 30 2024 2:46PM [id number] - XR WRIST 4V PA/LAT/OBL/SCAPH LT / PROCEDURE REASON: Fall (on) (from) other stairs and steps, initial encounter * * * * Physician Interpretation * * * * XR ELBOW 3V AP/LAT/OTHER LT, XR HAND 3V PA/LAT/OBL LT, XR WRIST 4V PA/LAT/OBL/SCAPH LT Ordering Physician: MICHELLE NAVARRO LEFT ELBOW 4 VIEWS Clinical Statement: Pain. Fall. FINDINGS: No fracture, dislocation, or joint effusion. The alignment is normal. Minimal enthesopathy in the lateral epicondylar region. IMPRESSION: No acute osseous abnormality. LEFT HAND 3 VIEWS: INDICATION: Pain. Fall. FINDINGS: No fracture or dislocation. The osseous structures are intact. The alignment is normal. Mild osteophytic change at the first carpometacarpal joint and multiple interphalangeal joints. IMPRESSION: No acute osseous abnormality. LEFT WRIST 5 VIEWS: INDICATION: Pain. Fall. FINDINGS: There is a buckle fracture involving the distal radial metaphysis. No additional fractures are shown. The carpal rows demonstrate normal alignment. There is soft tissue swelling present. IMPRESSION: Buckle fracture distal radius The referring provider will be contacted by the Imaging Support Navigator Team. Parachute Folder: [place] Transcribe Date/Time: Dec 02 2024 6:44A Dictated by : ALYSON OG MD This examination was interpreted and the report reviewed and electronically signed by: ALYSON OG MD on Dec 02 2024 6:48AM EST [id number] Normal Kidney and Bladderon 024 Kidney and Bladder [facility] Imaging Services [address] [place] [id number] Kidney and Bladder MR#: [id number] Acct: [id number] Name: SHAYNA LYONS Rep #: [id number] : [id number] F [id number] From: Mao thomas MD PCP: [facility] Status: REG CLI Study: Kidney and Bladder Date of Exam: 06/05/24 Exam# [id number] Ordering Dr: Yeimi Chaudhary [facility]-C [id number] INDICATION: ABD PAIN EXAMINATION: Ultrasound US Kidney(s) complete (eg, kidneys and bladder) TECHNIQUE: Gonzalez scale and color doppler images were obtained of the kidneys. COMPARISON: Prior study dated: CT from 10/17/2023 FINDINGS: RIGHT KIDNEY: 10.8 x 5.4 x 4 cm. There is no hydronephrosis. No shadowing calculus, focal lesion or perinephric collection is demonstrated. LEFT KIDNEY: 10.5 x 4.7 x 4.7 cm. There is no hydronephrosis. There is no mass identified. Lower pole calculus seen measuring 0.5 cm. Additional lower pole calculus seen measuring 1 x 0.7 x 0.5 cm. URINARY BLADDER: No acute abnormality. Prevoid bladder volume of 281 mL. Bilateral ureteral jets are seen. US/Kidney and Bladder IMPRESSION: Nonobstructing left lower pole renal calculi. No hydronephrosis. Electronically Signed: Mao Clements MD at 15:53 EDT Reading Location ID and State: [facility] / [place] Tel , Service support , CC: [facility] Yeimi Chaudhary; [facility] Parachute Folder: Signed Normal [facility] CBC W/Diff, Automatedon 05-13 Absolute Lymph 1.73 X10 3/uL Normal 0.83-4.51 [facility] Comment on above: Performed By: #### L 500.4050, L100.0100 #### [facility] [address] [place], [address] Absolute Neut 2.4 X10 3/uL Normal 2.0-7.7 [facility] Comment on above: Performed By: #### L 500.4050, L100.0100 #### [facility] [address] [place], [address] Basophils/100 WBC (Bld) 2.2 % High 0-1 [facility] Comment on above: Performed By: #### L 500.4050, L100.0100 #### [facility] [address] [place], [address] Eosinophils/100 WBC (Bld) 2.9 % Normal 0-5 [facility] Comment on above: Performed By: #### L 500.4050, L100.0100 #### [facility] [address] [place], [address] Erythrocyte distribution width (RBC) [Ratio] 13.2 % Normal 11.6-14.6 [facility] Comment on above: Performed By: #### L 500.4050, L100.0100 #### [facility] [address] [place], [address] Hematocrit (Bld) [Volume fraction] 40.4 % Normal 37-47 [facility] Comment on above: Performed By: #### L 500.4050, L100.0100 #### [facility] [address] [place], [address] Hemoglobin (Bld) [Mass/Vol] 13.6 g/dL Normal 12.0-15.0 [facility] Comment on above: Performed By: #### L 500.4050, L100.0100 #### [facility] [address] [place], [address] IG% 0.200 Normal 0.0-0.9 [facility] Comment on above: Result Comment: IG% - Immature Granulocytes (promyelocytes, myelocytes and metamyelocytes) > 1% indicates that a LEFT SHIFT is Present. Performed By: #### L 500.4050, L100.0100 #### [facility] [address] [place], [address] Lymphocytes/100 WBC (Bld) 33.9 % Normal 19-41 [facility] Comment on above: Performed By: #### L 500.4050, L100.0100 #### [facility] [address] [place], [address] MCH (RBC) [Entitic mass] 32.2 pg High 27.0-32.0 [facility] Comment on above: Performed By: #### L 500.4050, L100.0100 #### [facility] [address] [place], [address] MCHC (RBC) [Mass/Vol] 33.7 g/dL Normal 32-36 [facility] Comment on above: Performed By: #### L 500.4050, L100.0100 #### [facility] [address] [place], [address] MCV (RBC) [Entitic vol] 95.5 fL Normal 81-99 [facility] Comment on above: Performed By: #### L 500.4050, L100.0100 #### [facility] [address] [place], [address] Monocytes/100 WBC (Bld) 13.3 % High 0-10 [facility] Comment on above: Performed By: #### L 500.4050, L100.0100 #### [facility] [address] [place], [address] Neutrophils/100 WBC (Bld) 47.5 % Normal 47-70 [facility] Comment on above: Performed By: #### L 500.4050, L100.0100 #### [facility] [address] [place], [address] Nucleated RBC (Bld) [#/Vol] 0 10*3/uL Normal 0-5 [facility] Comment on above: Performed By: #### L 500.4050, L100.0100 #### [facility] [address] [place], [address] Platelet mean volume (Bld) [Entitic vol] 9.8 fL Normal 6.2-12.0 [facility] Comment on above: Performed By: #### L 500.4050, L100.0100 #### [facility] [address] [place], [address] Platelets (Bld) [#/Vol] 258 10*3/uL Normal 150-450 [facility] Comment on above: Performed By: #### L 500.4050, L100.0100 #### [facility] [address] [place], [address] RBC (Bld) [#/Vol] 4.23 10*6/uL Normal 4.2-5.4 [facility] Comment on above: Performed By: #### L 500.4050, L100.0100 #### [facility] [address] [place], [address] RDW SD 46.6 fl High 35.1-43.9 [facility] Comment on above: Performed By: #### L 500.4050, L100.0100 #### [facility] [address] [place], [address] WBC (Bld) [#/Vol] 5.1 10*3/uL Normal 4.4-11.0 [facility] Comment on above: Performed By: #### L 500.4050, L100.0100 #### [facility] [address] [place], [address] Comprehensive Metabolic Prof [facility] 05-30-2024 Albumin [Mass/Vol] 4.2 g/dL Normal 3.2-5.0 [facility] Comment on above: Performed By: #### L 500.4050, L100.0100 #### [facility] [address] [place], [address] Albumin/Globulin [Mass ratio] 1.2 {ratio} Normal 0.9-2.4 [facility] Comment on above: Performed By: #### L 500.4050, L100.0100 #### [facility] [address] [place], [address] ALK P 70 U/L Normal 45-117 [facility] Comment on above: Performed By: #### L 500.4050, L100.0100 #### [facility] [address] [place], [address] ALT [Catalytic activity/Vol] 63 U/L High 13-56 [facility] Comment on above: Performed By: #### L 500.4050, L100.0100 #### [facility] [address] [place], [address] AST [Catalytic activity/Vol] 33 U/L Normal 15-37 [facility] Comment on above: Performed By: #### L 500.4050, L100.0100 #### [facility] [address] [place], [address] Bilirubin [Mass/Vol] 0.50 mg/dL Normal 0.20-1.00 [facility] Comment on above: Result Comment: For patients on eltrombopag therapy, use of [place] TBIL is not recommended. Performed By: #### L 500.4050, L100.0100 #### [facility] [address] [place], [address] BUN/CRE 20.2 RATIO High 10-20 [facility] Comment on above: Performed By: #### L 500.4050, L100.0100 #### [facility] [address] [place], [address] CA,Total 9.9 mg/dL Normal 8.5-10.1 [facility] Comment on above: Performed By: #### L 500.4050, L100.0100 #### [facility] [address] [place], [address] Chloride [Moles/Vol] 104 mmol/L Normal 98-107 [facility] Comment on above: Performed By: #### L 500.4050, L100.0100 #### [facility] [address] [place], [address] CO2 [Moles/Vol] 25.0 mmol/L Normal 21.0-32.0 [facility] Comment on above: Performed By: #### L 500.4050, L100.0100 #### [facility] [address] [place], [address] Creatinine [Mass/Vol] 0.64 mg/dL Normal 0.55-1.02 [facility] Comment on above: Result Comment: The validity of the calculated GFR GFRAA in patients over 70 years has not been determined. Clinical correlation is essential. Performed By: #### L 500.4050, L100.0100 #### [facility] [address] [place], [address] EST GFR - AA 123 mL/min Normal >60 [facility] Comment on above: Result Comment: Afri can Israeli GFR Calc Performed By: #### L 500.4050, L100.0100 #### [facility] [address] [place], [address] GAP 7 Normal 5-15 [facility] Comment on above: Performed By: #### L 500.4050, L100.0100 #### [facility] [address] [place], [address] GFR/1.73 sq M.predicted among non-blacks MDRD (S/P/Bld) [Vol rate/Area] 101 mL/min/{1.73_m2} Normal >60 [facility] Comment on above: Result Comment: Non- GFR Calc Performed By: #### L 500.4050, L100.0100 #### [facility] [address] [place], [address] Globulin (S) [Mass/Vol] 3.5 g/dL Normal 2.2-4.2 [facility] Comment on above: Performed By: #### L 500.4050, L100.0100 #### [facility] [address] [place], [address] Glucose [Mass/Vol] 94 mg/dL Normal 74-106 [facility] Comment on above: Performed By: #### L 500.4050, L100.0100 #### [facility] [address] [place], [address] Potassium [Moles/Vol] 4.4 mmol/L Normal 3.5-5.1 [facility] Comment on above: Performed By: #### L 500.4050, L100.0100 #### [facility] [address] [place], [address] Sodium [Moles/Vol] 136 mmol/L Normal 136-145 [facility] Comment on above: Performed By: #### L 500.4050, L100.0100 #### [facility] [address] [place], [address] T PROT 7.7 g/dL Normal 6.4-8.2 [facility] Comment on above: Performed By: #### L 500.4050, L100.0100 #### [facility] [address] [place], [address] Urea nitrogen [Mass/Vol] 13 mg/dL Normal 7-18 [facility] Comment on above: Performed By: #### L 500.4050, L100.0100 #### [facility] [address] [place], [address] Absolute lymphocyte countOrd ered By: Samy Saravia on 10-03-2023 Lymphocytes Auto (Unsp spec) [#/Vol] 1.54 10*3/uL 0.83-4.51 [facility] Albumin Elph [Mass/Vol]Order ed By: Samy Saravia on 10-03-2023 Albumin [Mass/Vol] 1.0 g/dL 2.9-4.4 [facility] Atypical perinuclear antineu trophil cytoplasmic antibodies measurementOrdered By: Samy Saravia on 10-03-2023 Neutrophil cytoplasmic Ab.perinuclear.atypical IF (S) [Titer] <1:20 titer Neg:<1:20 [facility] Comment on above: The atypical pANCA p attern has been observed in asignificant percentage of patients with ulcerative colitis,primary sclerosing cholangitis and autoimmune hepatitis. Basophil percentageOrdered B y: Samy Saravia on 10-03-2023 Amylase [Catalytic activity/Vol] 65 U/L 25-115 [facility] Basophil percentage < 0.2 AI 0.0-0.9 [facility] Basophils/100 WBC (Bld) 1.4 % 0-1 [facility] Bilirubin [Mass/Vol] 0.70 mg/dL 0.20-1.00 [facility] Comment on above: For patients on eltr ombopag therapy, use of [place] TBIL is not recommended. Chloride [Moles/Vol] 101 mmol/L 98-107 [facility] Eosinophils/100 WBC (Bld) 2.7 % 0-5 [facility] Glucose [Mass/Vol] 91 mg/dL 74-106 [facility] Neutrophils (Bld) [#/Vol] 2.9 10*3/uL 2.0-7.7 [facility] Neutrophils/100 WBC (Bld) 57.6 % 47-70 [facility] Potassium [Moles/Vol] 4.4 mmol/L 3.5-5.1 [facility] Protein [Mass/Vol] 8.1 g/dL 6.4-8.2 [facility] Sodium [Moles/Vol] 135 mmol/L 136-145 [facility] Triglyceride [Mass/Vol] 76 mg/dL <199 [facility] Comment on above: The drugs N-Acetylcy steine and Metamizole may falsely depress this assay.Serum Triglycerides Reference Interval Normal <150 mg/dL Borderline high 150 - 199 mg/dL High 200 - 499 mg/dL Very High > or = 500 mg/dL WBC (Bld) [#/Vol] 5.1 10*3/uL 4.4-11.0 [facility] Blood erythrocytes count (nu mber/volume)Ordered By: Samy Saravia on 10-03-2023 RBC (Bld) [#/Vol] 5.20 10*6/uL 4.2-5.4 [facility] Blood hemoglobin measurement (mass/volume)Ordered By: Samy Saravia on 10-03-2023 Hemoglobin (Bld) [Mass/Vol] 16.5 g/dL 12.0-15.0 [facility] Blood lymphocytes/100 leukoc ytesOrdered By: Samy Saravia on 10-03-2023 Lymphocytes/100 WBC (Bld) 30.1 % 19-41 [facility] Blood monocytes/100 leukocyt esOrdered By: Samy Saravia on 10-03-2023 Monocytes/100 WBC (Bld) 8.0 % 0-10 [facility] Blood platelet mean volumeOr dered By: Samy Saravia on 10-03-2023 Platelet mean volume (Bld) [Entitic vol] 9.5 fL 6.2-12.0 [facility] Determination of erythrocyte mean corpuscular volume (MCV)Ordered By: Samy Saravia on 10-03-2023 MCV (RBC) [Entitic vol] 93.3 fL 81-99 [facility] Erythrocyte sedimentation ra teOrdered By: Samy Saravia on 10-03-2023 ESR (Bld) [Velocity] 1 mm/h 0-30 [facility] Hematocrit Auto (Bld) [Volum e fraction]Ordered By: Samy Saravia on 10-03-2023 Hematocrit (Bld) [Volume fraction] 48.5 % 37-47 [facility] Interpretation of serum or p lasma protein pattern by immunofixation (narrative resultOrdered By: Samy Saravia on 10-03-2023 Protein Fractions Immunofixation Jorge [Interp] Not Observed g/dL Not Observed [facility] - Chemistry and C hemistry - challengeOrdered By: Samy Saravia on 10-03-2023 ALP [Catalytic activity/Vol] 89 U/L 45-117 [facility] ALT [Catalytic activity/Vol] 28 U/L 13-56 [facility] CO2 [Moles/Vol] 26.0 mmol/L 21.0-32.0 [facility] Lipase [Catalytic activity/Vol] 36 U/L 13-75 [facility] Comment on above: Please note:LIPASE r evised reference range effective 23. New Lipase methodology. Expected to produce lower values than the previous assay method. NEW Reference Range: 13 - 75 U/L Urea nitrogen/Creatinine [Mass ratio] 13.8 mg/mg 10-20 [facility] - Hematology and Cell countsOrdered By: Samy Saravia on 10-03-2023 Erythrocyte distribution width (RBC) [Entitic vol] 44.0 fL 35.1-43.9 [facility] Erythrocyte distribution width (RBC) [Ratio] 12.8 % 11.6-14.6 [facility] Immature granulocytes/100 WBC (Bld) 0.200 % 0.0-0.9 [facility] Comment on above: IG% - Immature Granu locytes (promyelocytes, myelocytes and metamyelocytes) > 1% indicates that a LEFT SHIFT is Present. MCH (RBC) [Entitic mass] 31.7 pg 27.0-32.0 [facility] Nucleated RBC/100 WBC (Bld) [Ratio] 0 % 0-5 [facility] MCHC Auto (RBC) [Mass/Vol]Or dered By: Samy Saravia on 10-03-2023 MCHC (RBC) [Mass/Vol] 34.0 g/dL 32-36 [facility] No Panel InformationOrdered By: Samy Saravia on 10-03-2023 Addendum Document Comment . [facility] Comment on above: Protein electrophore sis scan will follow via computer,mail, or coin box inspector delivery. CA 19-9 Antigen < 2 U/mL 0-35 [facility] Comment on above: [employer] El ectrochemiluminescence Immunoassay(ECLIA)Values obtained with different assay methods or kits cannotbe used interchangeably. Results cannot be interpreted asabsolute evidence of the presence or absence of malignantdisease.Performed at: [address] [id number] Director: Aravind Gardner PhD, Phone: [phone] [employer] [facility] Antibody <0.2 AI 0.0-0.9 [facility] Endomysial IgA Antibody Negative Negative [facility] Estimated GFR (MDRD) Amer 121 mL/min >60 [facility] Comment on above: GFR Calc Estimated GFR (MDRD) Non-Af Amer 100 mL/min >60 [facility] Comment on above: Non- GFR Calc Immunoglobulin G4 43 mg/dL 2-96 [facility] Miscellaneous Test See comment [facility] Comment on above: Scanned image report available in EMR [employer] Antibody <0.2 AI 0.0-0.9 [facility] Platelets bldOrdered By: Navi Saravia on 10-03-2023 Platelets (Bld) [#/Vol] 308 10*3/uL 150-450 [facility] Serum DNA double strand anti body assay (units/volume)Ordered By: Samy Saravia on 10-03-2023 DNA double strand Ab Qn (S) [IU]/mL 0-9 [facility] Comment on above: Negative <5 Equivoca l 5 - 9 Positive >9 Serum IgG subclass 1 measure ment (mass/volume)Ordered By: Samy Saravia on 10-03-2023 IgG subclass 1 (S) [Mass/Vol] 510 mg/dL 248-810 [facility] Serum IgG subclass 2 measure ment (mass/volume)Ordered By: Samy Saravia on 10-03-2023 IgG subclass 2 (S) [Mass/Vol] 286 mg/dL 130-555 [facility] Serum IgG subclass 3 measure ment (mass/volume)Ordered By: Samy Saravia on 10-03-2023 IgG subclass 3 (S) [Mass/Vol] 56 mg/dL 15-102 [facility] Serum Joaquina-1 antibody assay (u nits/volume)Ordered By: Samy Saravia on 10-03-2023 Joaquina-1 extractable nuclear Ab Qn (S) <0.2 AI 0.0-0.9 [facility] Serum Scl-70 extractable nuc lear antibody assay (units/volume)Ordered By: Samy Saravia on 10-03-2023 SCL-70 extractable nuclear Ab Qn (S) <0.2 AI 0.0-0.9 [facility] Serum Zaman extractable nucl ear antibody detectionOrdered By: Samy Saravia on 10-03-2023 Zaman extractable nuclear Ab Ql (S) <0.2 AI 0.0-0.9 [facility] Serum bcsas-1-lawlatdb measu rement by electrophoresisOrdered By: Samy Saravia on 10-03-2023 Alpha 1 globulin Elph [Mass/Vol] 0.3 g/dL 0.0-0.4 [facility] Alpha 1 globulin Elph [Mass/Vol] 0.8 g/dL 0.4-1.0 [facility] Serum classic neutrophil cyt oplasmic antibody assay (units/volume)Ordered By: Samy Saravia on 10-03-2023 Neutrophil cytoplasmic Ab.classic Qn (S) <1:20 titer Neg:<1:20 [facility] Serum globulin measurement ( mass/volume)Ordered By: Samy Saravia on 10-03-2023 Globulin (S) [Mass/Vol] 6.6 g/dL 2.2-3.9 [facility] Serum or plasma C reactive p rotein measurement (mass/volume)Ordered By: Samy Saravia on 10-03-2023 CRP [Mass/Vol] mg/L 0.0-3.0 [facility] Comment on above: C-Reactive Protein ( CRP) provides useful information for thediagnosis, therapy and monitoring of inflammatory processesand associated diseases. For the evaluation of Relative Riskfor Cardiovascular Disease, a High Sensitivity CRP (HSCRP)should be ordered. Serum or plasma IgA measurem ent (mass/volume)Ordered By: Samy Saravia on 10-03-2023 IgA [Mass/Vol] 204 mg/dL 87-352 [facility] Serum or plasma IgG measurem ent (mass/volume)Ordered By: Samy Saravia on 10-03-2023 IgG [Mass/Vol] 908 mg/dL [id number] [facility] IgG [Mass/Vol] Not Reportable [facility] Serum or plasma IgM measurem ent (mass/volume)Ordered By: Samy Saravia on 10-03-2023 IgM [Mass/Vol] 44 mg/dL 26-217 [facility] Serum or plasma albumin emilee urement (mass/volume)Ordered By: Samy Saravia on 10-03-2023 Albumin [Mass/Vol] 4.6 g/dL 3.2-5.0 [facility] Serum or plasma albumin/glob ulin mass ratioOrdered By: Samy Saravia on 10-03-2023 Albumin/Globulin [Mass ratio] 1.3 {ratio} 0.9-2.4 [facility] Serum or plasma beta globuli n measurement by electrophoresis (mass/volume)Ordered By: Samy Saravia on 10-03-2023 Beta globulin Elph [Mass/Vol] 1.1 g/dL 0.7-1.3 [facility] Serum or plasma calcium emilee urement (mass/volume)Ordered By: Samy Saravia on 10-03-2023 Calcium [Mass/Vol] 9.9 mg/dL 8.5-10.1 [facility] Serum or plasma creatinine m easurement (mass/volume)Ordered By: Samy Saravia on 10-03-2023 Creatinine [Mass/Vol] 0.65 mg/dL 0.55-1.02 [facility] Comment on above: The validity of the calculated GFR & GFRAA in patients over 70 years has not been determined. Clinical correlation is essential. Serum or plasma gamma globul in measurement by electrophoresis (mass/volume)Ordered By: Samy Saravia on 10-03-2023 Gamma globulin Elph [Mass/Vol] 0.9 g/dL 0.4-1.8 [facility] Serum or plasma immunoelectr ophoresis interpretation (nominal result)Ordered By: Samy Saravia on 10-03-2023 Interpretation IEP [Interp] Comment . [facility] Comment on above: No monoclonality det ected. Serum or plasma urea nitroge n measurement (mass/volume)Ordered By: Samy Saravia on 10-03-2023 Urea nitrogen [Mass/Vol] 9 mg/dL 7-18 [facility] Serum perinuclear neutrophil cytoplasmic antibody titer by immunofluorescenceOrdered By: Samy Saravia on 10-03-2023 Neutrophil cytoplasmic Ab.perinuclear IF (S) [Titer] <1:20 titer Neg:<1:20 [facility] Comment on above: The presence of posi tive fluorescence exhibiting P-ANCA orC-ANCA patterns alone is not specific for the diagnosis ofWegener's Granulomatosis (WG) or microscopic polyangiitis.Decisions about treatment should not be based solely onANCA IFA results. The [employer] Consensusrecommends follow up testing of positive sera with both MA-3 and MPO-ANCA enzyme immunoassays. As many as 5% serumsamples are positive only by EIA. Ref. AM J Clin [id number];111:[id number]. Serum tissue transglutaminas e IgA antibody assay (units/volume)Ordered By: Samy Saravia on 10-03-2023 tTG IgA Qn (S) <2 U/mL 0-3 [facility] Comment on above: Negative 0 - 3 Weak Positive 4 - 10 Positive >10 Tissue Transglutaminase (tTG) has been identified as the endomysial antigen. Studies have demonstr- ated that endomysial IgA antibodies have over 99% specificity for gluten sensitive enteropathy. Thin prep Papanicolaou smear with manual screeningOrdered By: Samy Saravia on 10-03-2023 Thin prep Papanicolaou smear with manual screening 23 U/L 15-37 [facility] Thin prep Papanicolaou smear with manual screening 8 5-15 [facility] Thin prep Papanicolaou smear with manual screening 0.2 0.7-1.7 [facility] Total protein bloodOrdered B y: Samy Saravia on 10-03-2023 Protein [Mass/Vol] 7.6 g/dL 6.0-8.5 [facility] Absolute lymphocyte countOrd ered By: Michelle Rios on 08-19-2023 Lymphocytes Auto (Unsp spec) [#/Vol] 1.85 10*3/uL 0.83-4.51 [facility] Basophil percentageOrdered B y: Michelle Rios on 08-19-2023 Basophils/100 WBC (Bld) 1.5 % 0-1 [facility] Bilirubin [Mass/Vol] 0.40 mg/dL 0.20-1.00 [facility] Comment on above: For patients on eltr ombopag therapy, use of [place] TBIL is not recommended. Chloride [Moles/Vol] 102 mmol/L 98-107 [facility] Eosinophils/100 WBC (Bld) 2.2 % 0-5 [facility] Glucose [Mass/Vol] 122 mg/dL 74-106 [facility] Comment on above: Fasting Glucose resu lt from 100 to 125 mg/dL suggests IMPAIRED HOMEOSTASIS per A.D.A. criteria. Neutrophils (Bld) [#/Vol] 3.3 10*3/uL 2.0-7.7 [facility] Neutrophils/100 WBC (Bld) 55.9 % 47-70 [facility] Potassium [Moles/Vol] 4.0 mmol/L 3.5-5.1 [facility] Protein [Mass/Vol] 8.0 g/dL 6.4-8.2 [facility] Sodium [Moles/Vol] 135 mmol/L 136-145 [facility] WBC (Bld) [#/Vol] 5.9 10*3/uL 4.4-11.0 [facility] Blood erythrocytes count (nu mber/volume)Ordered By: Michelle Rios on 08-19-2023 RBC (Bld) [#/Vol] 5.27 10*6/uL 4.2-5.4 [facility] Blood hemoglobin measurement (mass/volume)Ordered By: Michelle Rios on 08-19-2023 Hemoglobin (Bld) [Mass/Vol] 16.6 g/dL 12.0-15.0 [facility] Blood lymphocytes/100 leukoc ytesOrdered By: Michelle Rios on 08-19-2023 Lymphocytes/100 WBC (Bld) 31.4 % 19-41 [facility] Blood monocytes/100 leukocyt esOrdered By: Michelle Rios on 08-19-2023 Monocytes/100 WBC (Bld) 8.7 % 0-10 [facility] Blood platelet mean volumeOr dered By: Michelle Rios on 08-19-2023 Platelet mean volume (Bld) [Entitic vol] 9.6 fL 6.2-12.0 [facility] Determination of erythrocyte mean corpuscular volume (MCV)Ordered By: Michelle Rios on 08-19-2023 MCV (RBC) [Entitic vol] 92.4 fL 81-99 [facility] Hematocrit Auto (Bld) [Volum e fraction]Ordered By: Michelle Rios on 08-19-2023 Hematocrit (Bld) [Volume fraction] 48.7 % 37-47 [facility] Laboratory - Chemistry and C hemistry - challengeOrdered By: Michelle Rios on 08-19-2023 ALP [Catalytic activity/Vol] 75 U/L 45-117 [facility] ALT [Catalytic activity/Vol] 26 U/L 13-56 [facility] CO2 [Moles/Vol] 28.0 mmol/L 21.0-32.0 [facility] Globulin (S) [Mass/Vol] 3.6 g/dL 2.2-4.2 [facility] Lipase [Catalytic activity/Vol] 35 U/L - [facility] Comment on above: Please note:LIPASE r evised reference range effective 23. New Lipase methodology. Expected to produce lower values than the previous assay method. NEW Reference Range: 13 - 75 U/L Urea nitrogen/Creatinine [Mass ratio] 7.4 mg/mg 10-20 [facility] Laboratory - Hematology and Cell countsOrdered By: Michelle Rios on 08-19-2023 Erythrocyte distribution width (RBC) [Entitic vol] 46.2 fL 35.1-43.9 [facility] Erythrocyte distribution width (RBC) [Ratio] 13.5 % 11.6-14.6 [facility] Immature granulocytes/100 WBC (Bld) 0.300 % 0.0-0.9 [facility] Comment on above: IG% - Immature Granu locytes (promyelocytes, myelocytes and metamyelocytes) > 1% indicates that a LEFT SHIFT is Present. MCH (RBC) [Entitic mass] 31.5 pg 27.0-32.0 [facility] Nucleated RBC/100 WBC (Bld) [Ratio] 0 % 0-5 [facility] MCHC Auto (RBC) [Mass/Vol]Or dered By: Michelle Rios on 08-19-2023 MCHC (RBC) [Mass/Vol] 34.1 g/dL 32-36 [facility] No Panel InformationOrdered By: Michelle Rios on 08-19-2023 Estimated Creatinine Clearance Calc 76.98 ml/min [facility] Estimated GFR (MDRD) Amer 115 mL/min >60 [facility] Comment on above: GFR Calc Estimated GFR (MDRD) Non-Af Amer 95 mL/min >60 [facility] Comment on above: Non- GFR Calc Platelets bldOrdered By: Christie Rios on 08-19-2023 Platelets (Bld) [#/Vol] 303 10*3/uL 150-450 [facility] Serum or plasma albumin emilee urement (mass/volume)Ordered By: Michelle Rios on 08-19-2023 Albumin [Mass/Vol] 4.4 g/dL 3.2-5.0 [facility] Serum or plasma albumin/glob ulin mass ratioOrdered By: Michelle Rios on 08-19-2023 Albumin/Globulin [Mass ratio] 1.2 {ratio} 0.9-2.4 [facility] Serum or plasma calcium emilee urement (mass/volume)Ordered By: Michelle Rios on 08-19-2023 Calcium [Mass/Vol] 9.8 mg/dL 8.5-10.1 [facility] Serum or plasma creatinine m easurement (mass/volume)Ordered By: Michelle Rios on 08-19-2023 Creatinine [Mass/Vol] 0.68 mg/dL 0.55-1.02 [facility] Comment on above: The validity of the calculated GFR & GFRAA in patients over 70 years has not been determined. Clinical correlation is essential. Serum or plasma urea nitroge n measurement (mass/volume)Ordered By: Michelle Rios on 08-19-2023 Urea nitrogen [Mass/Vol] 5 mg/dL 7-18 [facility] Thin prep Papanicolaou smear with manual screeningOrdered By: Michelle Rios on 08-19-2023 Thin prep Papanicolaou smear with manual screening 14 U/L 15-37 [facility] Thin prep Papanicolaou smear with manual screening 5 5-15 [facility] Absolute lymphocyte countOrd ered By: Yeimi Chaudhary on 07-27-2023 Lymphocytes Auto (Unsp spec) [#/Vol] 1.73 10*3/uL 0.83-4.51 [facility] Basophil percentageOrdered B y: Yeimi Chaudhary on 07-27-2023 Basophils/100 WBC (Bld) 1.1 % 0-1 [facility] Bilirubin [Mass/Vol] 0.40 mg/dL 0.20-1.00 [facility] Comment on above: For patients on eltr ombopag therapy, use of [place] TBIL is not recommended. Chloride [Moles/Vol] 106 mmol/L 98-107 [facility] Eosinophils/100 WBC (Bld) 3.1 % 0-5 [facility] Glucose [Mass/Vol] 137 mg/dL 74-106 [facility] Comment on above: Fasting Glucose resu lt greater than or equal to 126 mg/dL suggests DIABETES MELLITUS per A.D.A. criteria. Neutrophils (Bld) [#/Vol] 3.0 10*3/uL 2.0-7.7 [facility] Neutrophils/100 WBC (Bld) 54.7 % 47-70 [facility] Potassium [Moles/Vol] 3.8 mmol/L 3.5-5.1 [facility] Protein [Mass/Vol] 7.7 g/dL 6.4-8.2 [facility] Sodium [Moles/Vol] 137 mmol/L 136-145 [facility] WBC (Bld) [#/Vol] 5.5 10*3/uL 4.4-11.0 [facility] Blood erythrocytes count (nu mber/volume)Ordered By: Yeimi Chaudhary on 07-27-2023 RBC (Bld) [#/Vol] 4.89 10*6/uL 4.2-5.4 [facility] Blood hemoglobin measurement (mass/volume)Ordered By: Yeimi Chaudhary on 07-27-2023 Hemoglobin (Bld) [Mass/Vol] 15.5 g/dL 12.0-15.0 [facility] Blood lymphocytes/100 leukoc ytesOrdered By: Yeimi Chaudhary on 07-27-2023 Lymphocytes/100 WBC (Bld) 31.7 % 19-41 [facility] Blood monocytes/100 leukocyt esOrdered By: Yeimi Chaudhary on 07-27-2023 Monocytes/100 WBC (Bld) 9.2 % 0-10 [facility] Blood platelet mean volumeOr dered By: Yeimi Chaudhary on 07-27-2023 Platelet mean volume (Bld) [Entitic vol] 9.7 fL 6.2-12.0 [facility] Determination of erythrocyte mean corpuscular volume (MCV)Ordered By: Yeimi Chaudhary on 07-27-2023 MCV (RBC) [Entitic vol] 94.7 fL 81-99 [facility] Erythrocyte sedimentation ra teOrdered By: Yeimi Chaudhary on 07-27-2023 ESR (Bld) [Velocity] 4 mm/h 0-30 [facility] Hematocrit Auto (Bld) [Volum e fraction]Ordered By: Yeimi Chaudhary on 07-27-2023 Hematocrit (Bld) [Volume fraction] 46.3 % 37-47 [facility] Laboratory - Chemistry and C hemistry - challengeOrdered By: Yeimi Chaudhary on 07-27-2023 ALP [Catalytic activity/Vol] 78 U/L 45-117 [facility] ALT [Catalytic activity/Vol] 29 U/L 13-56 [facility] CO2 [Moles/Vol] 28.0 mmol/L 21.0-32.0 [facility] Globulin (S) [Mass/Vol] 3.6 g/dL 2.2-4.2 [facility] Urea nitrogen/Creatinine [Mass ratio] 11.2 mg/mg 10-20 [facility] Laboratory - Hematology and Cell countsOrdered By: Yeimi Chaudhary on 07-27-2023 Erythrocyte distribution width (RBC) [Entitic vol] 48.4 fL 35.1-43.9 [facility] Erythrocyte distribution width (RBC) [Ratio] 13.8 % 11.6-14.6 [facility] Immature granulocytes/100 WBC (Bld) 0.200 % 0.0-0.9 [facility] Comment on above: IG% - Immature Granu locytes (promyelocytes, myelocytes and metamyelocytes) > 1% indicates that a LEFT SHIFT is Present. MCH (RBC) [Entitic mass] 31.7 pg 27.0-32.0 [facility] Nucleated RBC/100 WBC (Bld) [Ratio] 0 % 0-5 [facility] MCHC Auto (RBC) [Mass/Vol]Or dered By: Yeimi Chaudhary on 07-27-2023 MCHC (RBC) [Mass/Vol] 33.5 g/dL 32-36 [facility] No Panel InformationOrdered By: Yeimi Chaudhary on 07-27-2023 Anti-Nuclear Antibody Screen Negative Negative [facility] Comment on above: Performed at: [facility] [address] Director: Aravind Gardner PhD, Phone: [phone] Estimated GFR (MDRD) Amer 95 mL/min >60 [facility] Comment on above: GFR Calc Estimated GFR (MDRD) Non-Af Amer 79 mL/min >60 [facility] Comment on above: Non- GFR Calc Platelets bldOrdered By: Elizabeth Chaudhary on 07-27-2023 Platelets (Bld) [#/Vol] 329 10*3/uL 150-450 [facility] Serum or plasma C reactive p rotein measurement (mass/volume)Ordered By: Yeimi Chaudhary on 07-27-2023 CRP [Mass/Vol] mg/L 0.0-3.0 [facility] Comment on above: C-Reactive Protein ( CRP) provides useful information for thediagnosis, therapy and monitoring of inflammatory processesand associated diseases. For the evaluation of Relative Riskfor Cardiovascular Disease, a High Sensitivity CRP (HSCRP)should be ordered. Serum or plasma albumin emilee urement (mass/volume)Ordered By: Yeimi Chaudhary on 07-27-2023 Albumin [Mass/Vol] 4.1 g/dL 3.2-5.0 [facility] Serum or plasma albumin/glob ulin mass ratioOrdered By: Yeimi Chaudhary on 07-27-2023 Albumin/Globulin [Mass ratio] 1.1 {ratio} 0.9-2.4 [facility] Serum or plasma calcium emilee urement (mass/volume)Ordered By: Yeimi Chaudhary on 07-27-2023 Calcium [Mass/Vol] 9.3 mg/dL 8.5-10.1 [facility] Serum or plasma creatinine m easurement (mass/volume)Ordered By: Yeimi Chaudhary on 07-27-2023 Creatinine [Mass/Vol] 0.80 mg/dL 0.55-1.02 [facility] Comment on above: The validity of the calculated GFR & GFRAA in patients over 70 years has not been determined. Clinical correlation is essential. Serum or plasma urea nitroge n measurement (mass/volume)Ordered By: Yeimi Chaudhary on 07-27-2023 Urea nitrogen [Mass/Vol] 9 mg/dL 7-18 [facility] Serum rheumatoid factor dete ctionOrdered By: Yeimi Chaudhary on 07-27-2023 Rheumatoid factor Ql (S) < 10.0 IU/mL <15 [facility] Thin prep Papanicolaou smear with manual screeningOrdered By: Yeimi Chaudhary on 07-27-2023 Thin prep Papanicolaou smear with manual screening 19 U/L 15-37 [facility] Thin prep Papanicolaou smear with manual screening 3 5-15 [facility] Serum or plasma cortisol blair surement (mass/volume)on 05-04-2023 Cortisol [Mass/Vol] 11.80 ug/dL 3.44-22.45 [facility] Comment on above: Adult (AM) 5.27 - 22 .45 ug/dL Adult (PM) 3.44 - 16.76 ug/dLPlease note revised CORTISOL reference range effective 2020. Basophil percentageOrdered B y: Yeimi Chaudhary on 04-04-2023 Basophil percentage 3.7 mg/dL 2.5-4.9 [facility] Bilirubin [Mass/Vol] 0.50 mg/dL 0.20-1.00 [facility] Comment on above: For patients on eltr ombopag therapy, use of [place] TBIL is not recommended. Chloride [Moles/Vol] 106 mmol/L 98-107 [facility] Cholesterol [Mass/Vol] 195 mg/dL <200 [facility] Comment on above: <200 mg/dL Desirable 200-240 mg/dL Borderline >240 mg/dL High Risk Glucose [Mass/Vol] 98 mg/dL 74-106 [facility] Potassium [Moles/Vol] 4.2 mmol/L 3.5-5.1 [facility] Protein [Mass/Vol] 7.5 g/dL 6.4-8.2 [facility] Sodium [Moles/Vol] 138 mmol/L 136-145 [facility] Triglyceride [Mass/Vol] 58 mg/dL <199 [facility] Comment on above: The drugs N-Acetylcy steine and Metamizole may falsely depress this assay.Serum Triglycerides Reference Interval Normal <150 mg/dL Borderline high 150 - 199 mg/dL High 200 - 499 mg/dL Very High > or = 500 mg/dL WBC (Bld) [#/Vol] 6.4 10*3/uL 4.4-11.0 [facility] Blood erythrocytes count (nu mber/volume)Ordered By: Yeimi Chaudhary on 04-04-2023 RBC (Bld) [#/Vol] 4.75 10*6/uL 4.2-5.4 [facility] Blood hemoglobin measurement (mass/volume)Ordered By: Yeimi Chaudhary on 04-04-2023 Hemoglobin (Bld) [Mass/Vol] 14.9 g/dL 12.0-15.0 [facility] Blood platelet mean volumeOr dered By: Yeimi Chaudhary on 04-04-2023 Platelet mean volume (Bld) [Entitic vol] 9.7 fL 6.2-12.0 [facility] Determination of erythrocyte mean corpuscular volume (MCV)Ordered By: Yeimi Chaudhary on 04-04-2023 MCV (RBC) [Entitic vol] 92.6 fL 81-99 [facility] Hematocrit Auto (Bld) [Volum e fraction]Ordered By: Yeimi Chaudhary on 04-04-2023 Hematocrit (Bld) [Volume fraction] 44.0 % 37-47 [facility] Laboratory - Chemistry and C hemistry - challengeOrdered By: Yemii Chaudhary on 04-04-2023 ALP [Catalytic activity/Vol] 76 U/L 45-117 [facility] ALT [Catalytic activity/Vol] 26 U/L 13-56 [facility] CO2 [Moles/Vol] 23.0 mmol/L 21.0-32.0 [facility] Free T4 [Mass/Vol] 0.92 ng/dL 0.76-1.46 [facility] Globulin (S) [Mass/Vol] 3.4 g/dL 2.2-4.2 [facility] Lipase [Catalytic activity/Vol] 28 U/L 13-75 [facility] Comment on above: Please note:LIPASE r evised reference range effective 23. New Lipase methodology. Expected to produce lower values than the previous assay method. NEW Reference Range: 13 - 75 U/L Magnesium [Mass/Vol] 2.3 mg/dL 1.6-2.6 [facility] Urea nitrogen/Creatinine [Mass ratio] 13.7 mg/mg 10-20 [facility] Laboratory - Hematology and Cell countsOrdered By: Yeimi Chaudhary on 04-04-2023 Erythrocyte distribution width (RBC) [Entitic vol] 46.9 fL 35.1-43.9 [facility] Erythrocyte distribution width (RBC) [Ratio] 13.6 % 11.6-14.6 [facility] MCH (RBC) [Entitic mass] 31.4 pg 27.0-32.0 [facility] MCHC Auto (RBC) [Mass/Vol]Or dered By: Yeimi Chaudhary on 04-04-2023 MCHC (RBC) [Mass/Vol] 33.9 g/dL 32-36 [facility] No Panel InformationOrdered By: Yeimi Chaudhary on 04-04-2023 Estimated GFR (MDRD) Amer 120 mL/min >60 [facility] Comment on above: GFR Calc Estimated GFR (MDRD) Non-Af Amer 99 mL/min >60 [facility] Comment on above: Non- GFR Calc Thyroid Stimulating Hormone (TSH) 1.18 uIU/mL 0.358-3.74 [facility] No Panel InformationOrdered By: Samy Saravia on 04-04-2023 Immunoglobulin E 17 IU/mL 6-495 [facility] Comment on above: Performed at: [facility] [address] [id number] Director: Aravind Gardner PhD, Phone: [phone] at: - [facility] [id number] [place], [place] [id number] Director: Pablo Fletcher MD, Phone: [phone] Platelets bldOrdered By: Elizabeth Chaudhary on 04-04-2023 Platelets (Bld) [#/Vol] 283 10*3/uL 150-450 [facility] Serum or plasma IgA measurem ent (mass/volume)Ordered By: Samy Saravia on 04-04-2023 IgA [Mass/Vol] 175 mg/dL 87-352 [facility] Serum or plasma IgG measurem ent (mass/volume)Ordered By: Samy Saravia on 04-04-2023 IgG [Mass/Vol] 907 mg/dL [phone] [facility] Serum or plasma IgM measurem ent (mass/volume)Ordered By: Samy Saravia on 04-04-2023 IgM [Mass/Vol] 38 mg/dL 26-217 [facility] Serum or plasma albumin emilee urement (mass/volume)Ordered By: Yeimi Chaudhary on 04-04-2023 Albumin [Mass/Vol] 4.1 g/dL 3.2-5.0 [facility] Serum or plasma albumin/glob ulin mass ratioOrdered By: Yeimi Chaudhary on 04-04-2023 Albumin/Globulin [Mass ratio] 1.2 {ratio} 0.9-2.4 [facility] Serum or plasma calcium emilee urement (mass/volume)Ordered By: Yeimi Chaudhary on 04-04-2023 Calcium [Mass/Vol] 9.4 mg/dL 8.5-10.1 [facility] Serum or plasma cholesterol in HDL measurement (mass/volume)Ordered By: Yeimi Chaudhary on 04-04-2023 Cholesterol in HDL [Mass/Vol] 72 mg/dL >40 [facility] Comment on above: The drugs N-Acetylcy steine and Metamizole may falsely depress this assay. Reference Range HDL <40 mg/dL Low HDL Cholesterol HDL >or= 60 mg/dL High HDL Cholesterol Serum or plasma cholesterol in VLDL measurement (mass/volume)Ordered By: Yeimi Chaudhary on 04-04-2023 Cholesterol in VLDL [Mass/Vol] 12 mg/dL 5-40 [facility] Serum or plasma creatinine m easurement (mass/volume)Ordered By: Yeimi Chaudhary on 04-04-2023 Creatinine [Mass/Vol] 0.66 mg/dL 0.55-1.02 [facility] Comment on above: The validity of the calculated GFR & GFRAA in patients over 70 years has not been determined. Clinical correlation is essential. Serum or plasma folate measu rement (mass/volume)Ordered By: Yeimi Chaudhary on 04-04-2023 Folate [Mass/Vol] 11.70 ng/mL 3.1-55.4 [facility] Serum or plasma low density lipoprotein (LDL) cholesterol measurement (mass/volume)Ordered By: Yeimi Chaudhary on 04-04-2023 Cholesterol in LDL [Mass/Vol] 111 mg/dL 0-130 [facility] Serum or plasma urea nitroge n measurement (mass/volume)Ordered By: Yeimi Chaudhary on 04-04-2023 Urea nitrogen [Mass/Vol] 9 mg/dL 7-18 [facility] Thin prep Papanicolaou smear with manual screeningOrdered By: Yeimi Chaudhary on 04-04-2023 Thin prep Papanicolaou smear with manual screening 22 U/L 15-37 [facility] Thin prep Papanicolaou smear with manual screening 9 5-15 [facility] Thin prep Papanicolaou smear with manual screeningon 07-06-2022 Thin prep Papanicolaou smear with manual screening 239 U/L 84-246 [facility] Work Phone: ESR Westergren method (Bld) [Velocity]on 06-07-2022 ESR (Bld) [Velocity] 2 mm/h 0 - 20 mm/hr [facility]INALYS[facility], REFLEX MICROSCOP ICon 06-07-2022 Bilirubin Ql (U) Negative Negative [facility] Clarity (Unsp spec) Clear Clear [facility] Color (U) Light Yellow Yellow [facility] Glucose Test strip (U) [Mass/Vol] Negative Negative [facility] Hemoglobin Ql (U) Negative Negative [facility] Ketones Ql (U) Negative Negative [facility] Leukocyte esterase Test strip Ql (U) Negative Negative [facility] Nitrite Ql (U) Negative Negative [facility] pH (U) 8.0 [pH] 5.0 - 8.0 [facility] Protein (U) [Mass/Vol] Negative Negative [facility] Specific gravity (U) [Rel density] 1.009 1.005 - 1.030 [facility] Urobilinogen Ql (U) Negative Negative [facility] Glucose Glucometer (BldC) [M ass/Vol]on 03-21-2022 Glucose [Mass/Vol] 83 mg/dL 74-106 [facility] Work Phone: Comment on above: MANAGEMENT OF PATIEN T CARE PER NURSING PROTOCOL No Panel Informationon 02-25 [facility] No Panel Informationon 01-18 Miscellaneous Test See comment [facility] Work Phone: Comment on above: TEST RESULT LIMITSPa ncreatic Elastase, Fecal 285 ug Elast./g >200 Severe Pancreatic Insufficiency: <100 Moderate Pancreatic Insufficiency: 100 - 200 Normal: >200 TESTING PERFORMED AT [facility]. ORIGINAL REPORT ON FILE IN LAB CONTAINS ADDITIONAL TEST SITE INFORMATION. Stool Neutral Fats Normal [facility] Work Phone: Comment on above: Normal (<60 Droplets /HPF) Qualitative fecal fat or lip idson 01-18-2022 Fat Ql (Stl) Normal [facility] Work Phone: Comment on above: Normal (<100 Droplet s/HPF)Performed at: [address] [id number] Director: Aravind Gardner PhD, Phone: [phone] Absolute lymphocyte counton 01-17-2022 Lymphocytes Auto (Unsp spec) [#/Vol] 1.53 10*3/uL 0.83-4.51 [facility] Work Phone: Basophil percentageon 2021 Amylase [Catalytic activity/Vol] 51 U/L 25-115 [facility] Work Phone: Basophils/100 WBC (Bld) 1.1 % 0-1 [facility] Work Phone: Bilirubin [Mass/Vol] 0.60 mg/dL 0.20-1.00 [facility] Work Phone: Comment on above: For patients on eltr ombopag therapy, use of [place] TBIL is not recommended. Chloride [Moles/Vol] 105 mmol/L 98-107 [facility] Work Phone: Eosinophils/100 WBC (Bld) 1.5 % 0-5 [facility] Work Phone: Glucose [Mass/Vol] 104 mg/dL 74-106 [facility] Work Phone: Comment on above: Fasting Glucose resu lt from 100 to 125 mg/dL suggests IMPAIRED HOMEOSTASIS per A.D.A. criteria. Neutrophils (Bld) [#/Vol] 4.1 10*3/uL 2.0-7.7 [facility] Work Phone: Neutrophils/100 WBC (Bld) 65.3 % 47-70 [facility] Work Phone: Potassium [Moles/Vol] 4.1 mmol/L 3.5-5.1 [facility] Work Phone: Protein [Mass/Vol] 8.1 g/dL 6.4-8.2 [facility] Work Phone: Sodium [Moles/Vol] 138 mmol/L 136-145 [facility] Work Phone: WBC (Bld) [#/Vol] 6.2 10*3/uL 4.4-11.0 [facility] Work Phone: [phone] Blood erythrocytes count (nu mber/volume)on 01-17-2022 RBC (Bld) [#/Vol] 5.09 10*6/uL 4.2-5.4 [facility] Work Phone: [phone] Blood hemoglobin measurement (mass/volume)on 01-17-2022 Hemoglobin (Bld) [Mass/Vol] 15.6 g/dL 12.0-15.0 [facility] Work Phone: Blood lymphocytes/100 leukoc yteson 01-17-2022 Lymphocytes/100 WBC (Bld) 24.7 % 19-41 [facility] Work Phone: Blood monocytes/100 leukocyt eson 01-17-2022 Monocytes/100 WBC (Bld) 7.1 % 0-10 [facility] Work Phone: [phone] Blood platelet mean volumeon 01-17-2022 Platelet mean volume (Bld) [Entitic vol] 10.3 fL 6.2-12.0 [facility] Work Phone: [phone] Determination of erythrocyte mean corpuscular volume (MCV)on 01-17-2022 MCV (RBC) [Entitic vol] 90.6 fL 81-99 [facility] Work Phone: Erythrocyte sedimentation ra shobha 01-17-2022 ESR (Bld) [Velocity] 1 mm/h 0-30 [facility] Work Phone: [phone] Hematocrit Auto (Bld) [Volum e fraction]on 01-17-2022 Hematocrit (Bld) [Volume fraction] 46.1 % 37-47 [facility] Work Phone: [phone] Laboratory - Chemistry and C hemistry - challengeon 01-17-2022 ALP [Catalytic activity/Vol] 72 U/L 45-117 [facility] Work Phone: ALT [Catalytic activity/Vol] 28 U/L 13-56 [facility] Work Phone: CO2 [Moles/Vol] 29.0 mmol/L 21.0-32.0 [facility] Work Phone: Globulin (S) [Mass/Vol] 3.6 g/dL 2.2-4.2 [facility] Work Phone: Urea nitrogen/Creatinine [Mass ratio] 7.4 mg/mg 10-20 [facility] Work Phone: Laboratory - Hematology and Cell countson 01-17-2022 Erythrocyte distribution width (RBC) [Entitic vol] 40.8 fL 35.1-43.9 [facility] Work Phone: Erythrocyte distribution width (RBC) [Ratio] 12.3 % 11.6-14.6 [facility] Work Phone: Immature granulocytes/100 WBC (Bld) 0.300 % 0.0-0.9 [facility] Work Phone: Comment on above: IG% - Immature Granu locytes (promyelocytes, myelocytes and metamyelocytes) > 1% indicates that a LEFT SHIFT is Present. MCH (RBC) [Entitic mass] 30.6 pg 27.0-32.0 [facility] Work Phone: Nucleated RBC/100 WBC (Bld) [Ratio] 0 % 0-5 [facility] Work Phone: MCHC Auto (RBC) [Mass/Vol]on 01-17-2022 MCHC (RBC) [Mass/Vol] 33.8 g/dL 32-36 [facility] Work Phone: No Panel Informationon 01-17 CA 19-9 Antigen Serial Monitoring See comment [facility] Work Phone: Comment on above: Scanned image report available in EMR Estimated GFR (MDRD) Amer 117 mL/min >60 [facility] Work Phone: Comment on above: GFR Calc Estimated GFR (MDRD) Non-Af Amer 97 mL/min >60 [facility] Work Phone: Comment on above: Non- GFR Calc Platelets bldon 01-17-2022 Platelets (Bld) [#/Vol] 331 10*3/uL 150-450 [facility] Work Phone: Serum or plasma C reactive p rotein measurement (mass/volume)on 01-17-2022 CRP [Mass/Vol] mg/L 0.0-3.0 [facility] Work Phone: Comment on above: C-Reactive Protein ( CRP) provides useful information for thediagnosis, therapy and monitoring of inflammatory processesand associated diseases. For the evaluation of Relative Riskfor Cardiovascular Disease, a High Sensitivity CRP (HSCRP)should be ordered. Serum or plasma albumin emilee urement (mass/volume)on 01-17-2022 Albumin [Mass/Vol] 4.5 g/dL 3.2-5.0 [facility] Work Phone: Serum or plasma albumin/glob ulin mass ratioon 01-17-2022 Albumin/Globulin [Mass ratio] 1.2 {ratio} 0.9-2.4 [facility] Work Phone: Serum or plasma calcium emilee urement (mass/volume)on 01-17-2022 Calcium [Mass/Vol] 9.5 mg/dL 8.5-10.1 [facility] Work Phone: Serum or plasma creatinine m easurement (mass/volume)on 01-17-2022 Creatinine [Mass/Vol] 0.67 mg/dL 0.55-1.02 [facility] Work Phone: Comment on above: The validity of the calculated GFR & GFRAA in patients over 70 years has not been determined. Clinical correlation is essential. Serum or plasma urea nitroge n measurement (mass/volume)on 01-17-2022 Urea nitrogen [Mass/Vol] 5 mg/dL 7-18 [facility] Work Phone: Thin prep Papanicolaou smear with manual screeningon 01-17-2022 Thin prep Papanicolaou smear with manual screening 17 U/L 15-37 [facility] Work Phone: Thin prep Papanicolaou smear with manual screening 4 5-15 [facility] Work Phone: Absolute lymphocyte counton 11-26-2021 Lymphocytes Auto (Unsp spec) [#/Vol] 1.55 10*3/uL 0.83-4.51 [facility] Work Phone: Basophil percentageon 2021 Basophils/100 WBC (Bld) 0.9 % 0-1 [facility] Work Phone: Bilirubin [Mass/Vol] 0.70 mg/dL 0.20-1.00 [facility] Work Phone: Comment on above: For patients on eltr ombopag therapy, use of Dimension [place] TBIL is not recommended. Chloride [Moles/Vol] 103 mmol/L 98-107 [facility] Work Phone: [phone] Eosinophils/100 WBC (Bld) 2.0 % 0-5 [facility] Work Phone: [phone] Glucose [Mass/Vol] 101 mg/dL 74-106 [facility] Work Phone: [phone] Comment on above: Fasting Glucose resu lt from 100 to 125 mg/dL suggests IMPAIRED HOMEOSTASIS per A.D.A. criteria. Neutrophils (Bld) [#/Vol] 5.5 10*3/uL 2.0-7.7 [facility] Work Phone: Neutrophils/100 WBC (Bld) 68.5 % 47-70 [facility] Work Phone: Potassium [Moles/Vol] 4.1 mmol/L 3.5-5.1 [facility] Work Phone: Protein [Mass/Vol] 7.9 g/dL 6.4-8.2 [facility] Work Phone: Sodium [Moles/Vol] 133 mmol/L 136-145 [facility] Work Phone: WBC (Bld) [#/Vol] 8.0 10*3/uL 4.4-11.0 [facility] Work Phone: [phone] Blood erythrocytes count (nu mber/volume)on 11-26-2021 RBC (Bld) [#/Vol] 5.08 10*6/uL 4.2-5.4 [facility] Work Phone: Blood hemoglobin measurement (mass/volume)on 11-26-2021 Hemoglobin (Bld) [Mass/Vol] 15.9 g/dL 12.0-15.0 [facility] Work Phone: Blood lymphocytes/100 leukoc yteson 11-26-2021 Lymphocytes/100 WBC (Bld) 19.5 % 19-41 [facility] Work Phone: Blood monocytes/100 leukocyt eson 11-26-2021 Monocytes/100 WBC (Bld) 8.8 % 0-10 [facility] Work Phone: [phone] Blood platelet mean volumeon 11-26-2021 Platelet mean volume (Bld) [Entitic vol] 9.8 fL 6.2-12.0 [facility] Work Phone: Determination of erythrocyte mean corpuscular volume (MCV)on 11-26-2021 MCV (RBC) [Entitic vol] 92.7 fL 81-99 [facility] Work Phone: Hematocrit Auto (Bld) [Volum e fraction]on 11-26-2021 Hematocrit (Bld) [Volume fraction] 47.1 % 37-47 [facility] Work Phone: Laboratory - Chemistry and C hemistry - challengeon 11-26-2021 ALP [Catalytic activity/Vol] 68 U/L 45-117 [facility] Work Phone: [phone] ALT [Catalytic activity/Vol] 30 U/L 13-56 [facility] Work Phone: [phone] CO2 [Moles/Vol] 27.0 mmol/L 21.0-32.0 [facility] Work Phone: [phone] Globulin (S) [Mass/Vol] 3.7 g/dL 2.2-4.2 [facility] Work Phone: [phone] Lipase [Catalytic activity/Vol] 89 U/L 73-393 [facility] Work Phone: Urea nitrogen/Creatinine [Mass ratio] 13.2 mg/mg 10-20 [facility] Work Phone: Laboratory - Hematology and Cell countson 11-26-2021 Erythrocyte distribution width (RBC) [Entitic vol] 44.2 fL 35.1-43.9 [facility] Work Phone: Erythrocyte distribution width (RBC) [Ratio] 12.9 % 11.6-14.6 [facility] Work Phone: Immature granulocytes/100 WBC (Bld) 0.300 % 0.0-0.9 [facility] Work Phone: Comment on above: IG% - Immature Granu locytes (promyelocytes, myelocytes and metamyelocytes) > 1% indicates that a LEFT SHIFT is Present. MCH (RBC) [Entitic mass] 31.3 pg 27.0-32.0 [facility] Work Phone: Nucleated RBC/100 WBC (Bld) [Ratio] 0 % 0-5 [facility] Work Phone: MCHC Auto (RBC) [Mass/Vol]on 11-26-2021 MCHC (RBC) [Mass/Vol] 33.8 g/dL 32-36 [facility] Work Phone: No Panel Informationon 11-26 Estimated GFR (MDRD) Amer 132 mL/min >60 [facility] Work Phone: Comment on above: GFR Calc Estimated GFR (MDRD) Non-Af Amer 109 mL/min >60 [facility] Work Phone: Comment on above: Non- GFR Calc Thyroid Stimulating Hormone (TSH) 1.59 uIU/mL 0.358-3.74 [facility] Work Phone: Platelets bldon 11-26-2021 Platelets (Bld) [#/Vol] 330 10*3/uL 150-450 [facility] Work Phone: Serum or plasma albumin emilee urement (mass/volume)on 11-26-2021 Albumin [Mass/Vol] 4.2 g/dL 3.2-5.0 [facility] Work Phone: Serum or plasma albumin/glob ulin mass ratioon 11-26-2021 Albumin/Globulin [Mass ratio] 1.1 {ratio} 0.9-2.4 [facility] Work Phone: Serum or plasma calcium emilee urement (mass/volume)on 11-26-2021 Calcium [Mass/Vol] 9.7 mg/dL 8.5-10.1 [facility] Work Phone: Serum or plasma creatinine m easurement (mass/volume)on 11-26-2021 Creatinine [Mass/Vol] 0.61 mg/dL 0.55-1.02 [facility] Work Phone: Comment on above: The validity of the calculated GFR & GFRAA in patients over 70 years has not been determined. Clinical correlation is essential. Serum or plasma urea nitroge n measurement (mass/volume)on 11-26-2021 Urea nitrogen [Mass/Vol] 8 mg/dL 7-18 [facility] Work Phone: Thin prep Papanicolaou smear with manual screeningon 11-26-2021 Thin prep Papanicolaou smear with manual screening 18 U/L 15-37 [facility] Work Phone: Thin prep Papanicolaou smear with manual screening 3 5-15 [facility] Work Phone: HPV w/Genotypeon 10-04-2019 HPV HighRisk Other Normal [facility] Comment on above: Result Comment: Nega tive for HPV DNA high risk types: 31,33,35,39,45,51,52,56,58,59,66,68 by This test was developed and its performance characteristics determined by [facility][Note 3]david Pathology and Laboratory Medicine [facility] ([facility]). It has not been cleared or approved by the FDA. [facility] is regulated under CLIA as qualified to perform high-complexity testing. This test is used for clinical purposes. It should not be regarded as investigational or for research. PCR. This test was developed and its performance characteristics determined by [facility][Note 3]david Pathology and Laboratory Medicine [facility] ([facility]). It has not been cleared or approved by the FDA. [facility] is regulated under CLIA as qualified to perform high-complexity testing. This test is used for clinical purposes. It should not be regarded as investigational or for research. Performed By: #### H PVHRR #### [facility] [address] [address] HPV HighRisk Type 16 NHPV16 Normal [facility] Comment on above: Performed By: #### H PVHRR #### [facility] [address] [place] [address] HPV HighRisk Type 18 NHPV18 Normal [facility] Comment on above: Performed By: #### H PVHRR #### [facility] [address] [place] [address] CYTOLOGYon 09-30-2019 CYTOLOGY ADDITIONAL PROCEDURES PRESENT Specimen #: [id number] Submitting Physician: HODAN MCCARTHY SPECIMEN SUBMITTED A: CERVICAL, SCREENING, FLUID FINAL DIAGNOSIS A. CERVICAL, SCREENING, FLUID Satisfactory for interpretation. Negative for intraepithelial lesion or malignancy. NICOLÁS Garcia(ASCP) (Electronic Signature) ADDITIONAL PROCEDURE(S) HUMAN PAPILLOMA VIRUS Date Ordered: 10/03/2019 Date Reported: 10/04/2019 Procedure Results and Interpretation Negative for HPV DNA high risk type 16 by PCR. Negative for HPV DNA high risk type 18 by PCR. Negative for HPV DNA high risk types: 31,33,35,39,45,51,52,56,5 8,59,66,68 by PCR. This test was developed and its performance characteristics determined by [facility] Pathology and Laboratory Medicine [facility] ([facility]). It has not been cleared or approved by the FDA. [facility] is regulated under CLIA as qualified to perform high-complexity testing. This test is used for clinical purposes. It should not be regarded as investigational or for research. CLINICAL DATA HPV Testing: Automatic HPV typing (HPV) Date of Last Menstrual Period: 08/27/19 Clinical History: ROUTINE STAINS A: CERVICAL, SCREENING, FLUID THIN PREP [employer] Markel Bullock M.D., Director Credit Risk Date of Report: 10/04/2019 Date of Procedure: 09/30/2019 Date of Receipt: 10/03/2019 Submitted by: HODAN MCCARTHY Location: Diagnostic interpretation performed at [facility], [address] [place] [address]. CLIA Number: [id number] The Pap Smear is a screening test for cervical cancer. False negative results occur with all screening tests, emphasizing the need for rescreening at recommended intervals, and clinical correlation. Normal [facility] Comment on above: Performed By: #### C #### See report for performing lab information. Vital Signs Date Time Vital Sign Value Performing Clinician Facility 05-12-2025 10:22-0400 Body height 165.1 cm Mindy PETTIT Work Phone: [phone] [place] [address] 05-12-2025 10:22-0400 Body mass index (BMI) [Ratio] 21.8 kg/m2 Zebulun Beam [facility] Work Phone: [phone])[phone] [place] [address] 05-12-2025 10:22-0400 Body temperature 97.6 [degF] Zebulun Beam [facility] Work Phone: [phone])[phone] [place] [address] 05-12-2025 10:22-0400 Body weight 59.59 kg Zebulun Beam [facility] Work Phone: [phone])660-035057 [place] [address] 05-12-2025 10:22-0400 Diastolic blood pressure 84 mm[Hg] Zebulun Beam [facility] Work Phone: 2(276)945-301457 [place] [address] 05-12-2025 10:22-0400 Heart rate 66 /min Zebulun Beam [facility] Work Phone: [phone])890-906710 [address] 05-12-2025 10:22-0400 Respiratory rate 16 /min Zebulun Beam [facility] Work Phone: 4(705)232-692157 [place] [address] 05-12-2025 10:22-0400 SaO2% (BldA) [Mass fraction] 98 % Zebulun Beam [facility] Work Phone: [phone])968-510357 [place] [address] 05-12-2025 10:22-0400 Systolic blood pressure 125 mm[Hg] Zebulun Beam [facility] Work Phone: [phone] [place] [address] 11-30-2024 12:49-0500 Body temperature 98.29 [degF] Michelle Navarro DO Work Phone: [facility] 11-30-2024 12:49-0500 Diastolic blood pressure 83 mm[Hg] Michelle Navarro DO Work Phone: [facility] 11-30-2024 12:49-0500 Heart rate 76 /min Michelle Navarro DO Work Phone: [facility] 11-30-2024 12:49-0500 Respiratory rate 17 /min Michelle Navarro DO Work Phone: [facility] 11-30-2024 12:49-0500 SaO2% (BldA) [Mass fraction] 100 % Michelle Navarro DO Work Phone: [facility] 11-30-2024 12:49-0500 Systolic blood pressure 139 mm[Hg] Michelle Navarro DO Work Phone: [facility] 04-03-2024 16:09-0400 Body mass index (BMI) [Ratio] 18.35 kg/m2 Veronique Palma MD Work Phone: [facility] 04-03-2024 16:09-0400 Body temperature 98.1 [degF] Veronique Palma MD Work Phone: [facility] 04-03-2024 16:09-0400 Body weight 50.8 kg Veronique Palma MD Work Phone: [facility] 08-19-2023 13:26-0400 Body height 165.1 cm [facility] Work Phone: [phone] [address] 08-19-2023 13:26-0400 Body mass index (BMI) [Ratio] 19.1 kg/m2 [facility] Work Phone: [phone])485-319514 [place] [address] 08-19-2023 13:26-0400 Body temperature 97.3 [degF] [facility] Work Phone: [phone])[phone] [place] [address] 08-19-2023 13:26-0400 Body weight 52.16 kg [facility] Work Phone: [phone])813-097110 [address] 08-19-2023 13:26-0400 Diastolic blood pressure 107 mm[Hg] [facility] Work Phone: 0(273)287-674457 [place] [address] 08-19-2023 13:26-0400 Heart rate 90 /min [facility] Work Phone: 5(303)659-205657 [place] [address] 08-19-2023 13:26-0400 Respiratory rate 16 /min [facility] Work Phone: [phone])085-445410 [address] 08-19-2023 13:26-0400 SaO2% (BldA) [Mass fraction] 99 % [facility] Work Phone: [facility] 08-19-2023 13:26-0400 Systolic blood pressure 171 mm[Hg] [facility] Work Phone: [facility] 07-06-2022 10:08-0400 Body height 165.1 cm [facility] Work Phone: [facility] Work Phone: 07-06-2022 10:08-0400 Body mass index (BMI) [Ratio] 22.9 kg/m2 [facility] Work Phone: [facility] Work Phone: 07-06-2022 10:08-0400 Body weight 62.59 kg [facility] Work Phone: [facility] Work Phone: 07-06-2022 10:08-0400 Diastolic blood pressure 64 mm[Hg] [facility] Work Phone: [facility] Work Phone: 07-06-2022 10:08-0400 Heart rate 60 /min [facility] Work Phone: [facility] Work Phone: 07-06-2022 10:08-0400 SaO2% (BldA) [Mass fraction] 97 % [facility] Work Phone: [facility] Work Phone: 07-06-2022 10:08-0400 Systolic blood pressure 102 mm[Hg] [facility] Work Phone: [facility] Work Phone: 06-07-2022 12:44-0400 Body height 166.4 cm Veronique Palma MD Work Phone: [facility] 06-07-2022 12:44-0400 Body temperature 98.29 [degF] Veronique Palma MD Work Phone: [facility] 06-07-2022 12:44-0400 Body weight 53.07 kg Veronique Palma MD Work Phone: [facility] 06-07-2022 12:44-0400 Diastolic blood pressure 49 mm[Hg] Veronique Palma MD Work Phone: [facility] 06-07-2022 12:44-0400 Heart rate 67 /min Veronique Palma MD Work Phone: [facility] 06-07-2022 12:44-0400 Systolic blood pressure 92 mm[Hg] Veronique Palma MD Work Phone: [facility] 03-21-2022 09:46-0400 Body temperature 97.8 [degF] [facility] Work Phone: [facility] Work Phone: 03-21-2022 09:46-0400 Diastolic blood pressure 65 mm[Hg] [facility] Work Phone: [facility] Work Phone: 03-21-2022 09:46-0400 Heart rate 79 /min [facility] Work Phone: [facility] Work Phone: 03-21-2022 09:46-0400 Respiratory rate 16 /min [facility] Work Phone: [facility] Work Phone: 03-21-2022 09:46-0400 SaO2% (BldA) [Mass fraction] 100 % [facility] Work Phone: [facility] Work Phone: 03-21-2022 09:46-0400 Systolic blood pressure 103 mm[Hg] [facility] Work Phone: [facility] Work Phone: 03-21-2022 08:17-0400 Body height 165.1 cm [facility] Work Phone: [facility] Work Phone: 03-21-2022 08:17-0400 Body mass index (BMI) [Ratio] 19.1 kg/m2 [facility] Work Phone: [facility] Work Phone: 03-21-2022 08:17-0400 Body weight 52 kg [facility] Work Phone: [facility] Work Phone: 02-07-2022 09:17-0400 Body height 165.1 cm [facility] Work Phone: [facility] Work Phone: 02-07-2022 09:17-0400 Body mass index (BMI) [Ratio] 20.5 kg/m2 [facility] Work Phone: [facility] Work Phone: 02-07-2022 09:17-0400 Body weight 55.79 kg [facility] Work Phone: [facility] Work Phone: 02-07-2022 09:17-0400 Diastolic blood pressure 76 mm[Hg] [facility] Work Phone: [facility] Work Phone: 02-07-2022 09:17-0400 Heart rate 71 /min [facility] Work Phone: [facility] Work Phone: 02-07-2022 09:17-0400 SaO2% (BldA) [Mass fraction] 98 % [facility] Work Phone: [facility] Work Phone: 02-07-2022 09:17-0400 Systolic blood pressure 117 mm[Hg] [facility] Work Phone: [facility] Work Phone: 01-17-2022 07:38-0500 Body mass index (BMI) [Ratio] 19.8 kg/m2 [facility] Work Phone: [facility] Work Phone: 01-17-2022 07:38-0500 Body weight 53.97 kg [facility] Work Phone: [facility] Work Phone: Encounters Encounter Date Encounter Type Care Provider Facility Start: 06-03-2025 ambulatory Zebulun Beam VSC Facili ty:[facility] Start: 05-12-2025 End: 05-12-2025 Patient encounter procedure Xochilt Everton [facility] Work Phone: Start: 05-12-2025 End: 05-12-2025 ambulatory Zebulun Beam [facility] Work Phone: -[facility] Start: 05-12-2025 End: 05-12-2025 ambulatory Zebulun Beam VSC Facility:[facility] Start: 04-30-2025 End: 05-01-2025 Telephone encounter Ralf Dunbar MD Work Phone: Neurology Start: 02-27-2025 End: 02-27-2025 ambulatory Zebulun Beam [facility] Work Phone: [facility] Work Phone: Start: 02-27-2025 End: 02-27-2025 Patient encounter procedure Zebulun Beam [facility] -Norberto Ginette Birgit Start: 02-27-2025 End: 02-27-2025 ambulatory Zebulun Beam VSC Facility:[facility] Start: 01-29-2025 End: 01-29-2025 ambulatory EVERTON GAMBLE DO Facility:A Start: 01-21-2025 End: 01-21-2025 ambulatory EVERTON GAMBLE DO Facility:A Start: 01-06-2025 End: 01-06-2025 ambulatory EVERTON GAMBLE DO Facility:A Start: 12-25-2024 End: 12-25-2024 ambulatory EVERTON GAMBLE DO Facility:A Start: 12-11-2024 End: 12-11-2024 ambulatory EVERTON GAMBLE DO Facility:A Start: 12-02-2024 End: 12-02-2024 Telephone encounter Hermilo Arias APRN.CHRONIC CARE NURSE Work Phone: [facility] Start: 11-30-2024 ambulatory MICHELLE NAVARRO Facility: [id number] Start: 11-30-2024 End: 11-30-2024 Subsequent hospital visit by physician Kendra [facility] Work Phone: [facility] Comment on above: Fall (on) (from) oth er stairs and steps, initial encounter [W10.8XXA] Start: 11-30-2024 End: 11-30-2024 Patient encounter procedure Michelle Navarro DO Work Phone: [facility] Comment on above: Closed nondisplaced fracture of scaphoid of left wrist, unspecified portion of scaphoid, initial encounter (Primary Dx); Fall (on) (from) other stairs and steps, initial encounter Start: 11-30-2024 End: 11-30-2024 ambulatory SELF Facility:[id number] Start: 06-05-2024 End: 06-05-2024 ambulatory [facility] Facility:[facility] Start: 05-30-2024 End: 05-30-2024 [facility] Facility:[facility] Start: 04-17-2024 Patient encounter procedure [facility] Provider [facility] Department Start: 04-17-2024 Telephone encounter Veronique purdy MD Work Phone: Rheumatology Comment on above: Records Start: 04-03-2024 End: 04-03-2024 Office outpatient visit 40 minutes Veronique Palma MD Work Phone: Rheumatology Comment on above: Polyarthralgia (Prim hodan Dx); Sicca, unspecified type (HCC) Start: 11-09-2023 End: 11-09-2023 ambulatory [facility] Work Phone: [facility] Work Phone: Start: 11-09-2023 End: 11-09-2023 Patient encounter procedure [facility] Work Phone: [facility]-Nuclear Medicine, [facility] Work Phone: Start: 10-17-2023 End: 10-17-2023 ambulatory [facility] Work Phone: [facility] Work Phone: Start: 10-17-2023 End: 10-17-2023 Patient encounter procedure [facility] Work Phone: [facility]-Ultrasound, [facility] Work Phone: Start: 10-06-2023 End: 10-06-2023 ambulatory [facility] Work Phone: [facility] Work Phone: Start: 10-06-2023 End: 10-06-2023 Patient encounter procedure [facility] Work Phone: [facility]-Ultrasound, [facility] Work Phone: Start: 10-03-2023 End: 10-03-2023 ambulatory [facility] Work Phone: [facility] Work Phone: Start: 10-03-2023 End: 10-03-2023 Patient encounter procedure [facility] Work Phone: [facility] Work Phone: Start: 08-19-2023 End: 08-19-2023 Emergency department patient visit [facility] Work Phone: [facility]Emergency Department Work Phone: Start: 07-27-2023 End: 07-27-2023 ambulatory [facility] Work Phone: Start: 07-27-2023 End: 07-27-2023 Patient encounter procedure [facility]Laboratory Work Phone: Start: 05-04-2023 End: 05-04-2023 ambulatory [facility] Work Phone: Start: 05-04-2023 End: 05-04-2023 Patient encounter procedure [facility] Start: 04-04-2023 End: 04-04-2023 ambulatory [facility] Work Phone: Start: 04-04-2023 End: 04-04-2023 Patient encounter procedure [facility] Start: 01-06-2023 End: 01-06-2023 Patient encounter procedure [facility] Comment on above: Laceration without f oreign body of right middle finger without damage to nail, initial encounter (Primary Dx); Laceration without foreign body of right ring finger without damage to nail, initial encounter Start: 01-04-2023 End: 01-04-2023 Patient encounter procedure [facility] Comment on above: Laceration without f oreign body of right middle finger without damage to nail, initial encounter (Primary Dx); Laceration without foreign body of right ring finger without damage to nail, initial encounter Start: 08-18-2022 Telephone encounter Aaron diallo MD Work Phone: Neurology Comment on above: Appointment (Called pt to reschedule 09/14 appt w/Dr. Mackenzie(Provider Unavailable) Lvm for pt to call scheduling.) Start: 07-08-2022 End: 07-08-2022 ambulatory [facility] Work Phone: [facility] Work Phone: Start: 07-08-2022 End: 07-08-2022 Patient encounter procedure [facility] Work Phone: [facility], Specimen Start: 07-06-2022 End: 07-06-2022 ambulatory [facility] Work Phone: [facility] Work Phone: Start: 07-06-2022 End: 07-06-2022 Patient encounter procedure [facility] Work Phone: [facility] Start: 06-10-2022 Telephone encounter Hue George PhD Work Phone: Neuropyschology Comment on above: Results Start: 06-07-2022 ambulatory Markie solis MD Work Phone: Urology Start: 06-07-2022 End: 06-07-2022 Patient encounter procedure Markie Matson MD Work Phone: Urology Comment on above: Urinary frequency (P rimary Dx); Urge incontinence of urine Polyarthralgia (Prim hodan Dx); Malaise and fatigue; Skin rash; Myalgia; Lymphadenopathy Cognitive complaints with normal neuropsychological exam (Primary Dx); Abdominal pain, acute, right lower quadrant; Depression, unspecified depression type Start: 04-04-2022 End: 04-04-2022 Patient encounter procedure [facility] Work Phone: [facility] Start: 03-21-2022 Non-patient / Non-visit [facility] Work Phone: [facility] Start: 03-21-2022 End: 03-21-2022 Admission to same day surgery center [facility] Work Phone: [facility] Start: 03-11-2022 [facility] Comment on above: Smoking Cessation Start: 02-25-2022 End: 02-25-2022 Subsequent hospital visit by physician Nathalie Mcknight (I-Stat/3t) Work Phone: Radiology Comment on above: 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] Start: 02-07-2022 End: 02-07-2022 Patient encounter procedure [facility] Work Phone: [facility] Start: 02-04-2022 End: 02-04-2022 Patient encounter procedure [facility] Work Phone: [facility] Start: 01-18-2022 End: 01-18-2022 Patient encounter procedure [facility] Work Phone: [facility], Specimen Start: 01-17-2022 End: 01-17-2022 Patient encounter procedure [facility] Work Phone: [facility] Start: 01-17-2022 End: 01-17-2022 Patient encounter procedure [facility] Work Phone: [facility] Start: 12-21-2021 End: 12-21-2021 Patient encounter procedure [facility] Work Phone: [facility], [facility] Start: 11-26-2021 End: 11-26-2021 Patient encounter procedure [facility] Work Phone: [facility] Procedures Date Procedure Procedure Detail Performing Clinician Start: 11-09-2023 Radionuclide imaging of liver and/or biliary tract using radioactive isotope [facility] Work Phone: Start: 10-17-2023 Computed tomography of abdomen and pelvis with contrast [facility] Work Phone: Start: 10-06-2023 Ultrasonography of abdomen [facility] Work Phone: Start: 08-19-2023 Plain X-ray abdomen [facility] Work Phone: Start: 06-07-2022 Urnls dip stick/tablet rgnt auto w/o microscopy Bulk Order Provider Start: 03-21-2022 End: 03-21-2022 Viral antigen assay [facility] Work Phone: Start: 03-21-2022 Colonoscopy [facility] Work Phone: Start: 02-25-2022 Mri brain brain stem w/o w/contrast material Shruthi Elizabeth MD Work Phone: Start: 02-04-2022 Magnetic resonance cholangiopancreatography [facility] Work Phone: Start: 12-21-2021 CT of abdomen and pelvis without contrast [facility] Work Phone: Start: 11-26-2021 Diagnostic radiography of abdomen [facility] Work Phone: Start: 01-15-2021 Ecg routine ecg w/least 12 lds i&r only Start: 05-18-2016 Adult depression screening assessment Mri (I-Stat/3t) Work Phone: Start: 05-20-2015 Colonoscopy Mri (I-Stat/3t) Work Phone: H/O: tubal ligation Hx of tubal ligation [facility] Work Phone: Viral antigen assay [facility] Work Phone: Plan of Treatment Date Care Activity Detail Author Start: 12-25-2032 Urine microalbumin profile [facility] Start: 02-13-2029 Screening for malign ant neoplasm of cervix [facility] Start: 07-14-2025 Influenza vaccination Influenz a Vaccine (Season Ended) [facility] Start: 07-02-2025 End: 07-02-2025 Patient encounter procedure 07/02/2025 9:00 AM EDT Office Visit Neurology [address] [address] Jackie Darby MD [address] [place], [place] [id number] Memory impairment-R41.3 Neurology Comment on above: Memory impairment-R4 1.3 Start: 05-12-2025 Procedure [facility] Start: 07-14-2024 Covid-19 Vaccine ( season) Covid-19 Vaccine ( season) [facility] Start: 07-14-2024 Influenza vaccination [facility] Start: 04-03-2024 End: 07-03-2024 C reactive protein [Mass/volume] in Serum or Plasma C-REACTIVE PROTEIN Lab Routine Polyarthralgia Sicca, unspecified type (HCC) Expected: 04/03/2024, Expires: 07/03/2024 [facility] Comment on above: Expected: 04/03/2024 , Expires: 07/03/2024 Start: 04-03-2024 End: 07-03-2024 CBC W Auto Differential panel - Blood COMPLETE BLOOD COUNT AND DIFFERENTIAL Lab Routine Polyarthralgia Sicca, unspecified type (HCC) Expected: 04/03/2024, Expires: 07/03/2024 [facility] Work Phone: Comment on above: Expected: 04/03/2024 , Expires: 07/03/2024 Start: 04-03-2024 End: 07-03-2024 Complement C3 [Mass/volume] in Serum or Plasma C3 COMPLEMENT Lab Routine Polyarthralgia Sicca, unspecified type (HCC) Expected: 04/03/2024, Expires: 07/03/2024 [facility] Comment on above: Expected: 04/03/2024 , Expires: 07/03/2024 Start: 04-03-2024 End: 07-03-2024 Complement C4 [Mass/volume] in Serum or Plasma C4 COMPLEMENT Lab Routine Polyarthralgia Sicca, unspecified type (HCC) Expected: 04/03/2024, Expires: 07/03/2024 [facility] Comment on above: Expected: 04/03/2024 , Expires: 07/03/2024 Start: 04-03-2024 End: 07-03-2024 Comprehensive metabolic 2000 panel - Serum or Plasma COMPREHENSIVE METABOLIC PANEL Lab Routine Polyarthralgia Sicca, unspecified type (HCC) Expected: 04/03/2024, Expires: 07/03/2024 [facility] Comment on above: Expected: 04/03/2024 , Expires: 07/03/2024 Start: 04-03-2024 End: 07-03-2024 Erythrocyte sedimentation rate SEDIMENTATION RATE, WESTERGREN Lab Routine Polyarthralgia Sicca, unspecified type (HCC) Expected: 04/03/2024, Expires: 07/03/2024 [facility] Comment on above: Expected: 04/03/2024 , Expires: 07/03/2024 Start: 04-03-2024 End: 07-03-2024 Urinalysis complete panel - Urine URINALYSIS, WITH MICROSCOPIC Lab Routine Polyarthralgia Sicca, unspecified type (HCC) Expected: 04/03/2024, Expires: 07/03/2024 [facility] Comment on above: Expected: 04/03/2024 , Expires: 07/03/2024 Start: 11-13-2023 Behavioral Health Screening Behavioral Health Screening [facility] Start: 10-03-2023 Procedure [facility] Start: 08-19-2023 [facility] Start: 07-14-2023 Covid-19 Vaccine ( season) Covid-19 Vaccine ( season) [facility] Start: 07-14-2023 Influenza vaccination INFLUENZA (Sea son Ended) [facility] Start: 11-13-2022 DEPRESSION ASSESSMENT DEPRESSION ASS [facility] Start: 07-14-2022 Influenza vaccination C [facility] Start: 07-08-2022 Elastase, pancreatic (el-1), fecal; quantitative [facility] Work Phone: Start: 07-08-2022 Fat [Presence] in Stool [facility] Work Phone: Start: 06-07-2022 End: 08-07-2022 C reactive protein [Mass/volume] in Serum or Plasma [facility] Work Phone: Comment on above: Expected: 06/07/2022 , Expires: 08/07/2022 Start: 03-21-2022 Colonoscopy w/biopsy single/multiple COLONOSCOPY AND BIOPSY [facility] Work Phone: Start: 03-21-2022 Colsc flx w/rmvl of tumor polyp lesion snare tq COLONOSCOPY W/LESION REMOVAL [facility] Work Phone: Start: 03-21-2022 Egd transoral biopsy single/multiple EGD BIOPSY SINGLE/MULTIPLE [facility] Work Phone: Start: 03-21-2022 Patient discharge [facility] Work Phone: Start: 11-13-2021 DEPRESSION ASSESSMENT [facility] Start: 05-20-2018 Colonoscopy COLONOSCOPY [facility] Start: 05-20-2018 COLORECTAL CANCER SCREENING COLORECTAL CANCER SCREENING [facility] Start: 05-20-2018 Screening for malign ant neoplasm of colon [facility] Start: 03-09-2018 DIABETES [facility]CREEN [facility] Start: 03-09-2018 Diabetes Screening Diabetes Screenin g [facility] Start: 2017 Influenza vaccination LUNG CANCER SC TOMASZNING [facility] Start: 2017 Screening for malign ant neoplasm of lung Lung Cancer Screening [facility] Start: 2017 SHINGRIX VACCINE (1 of 2) THACKER GRIX VACCINE (1 of 2) [facility] Start: 05-18-2017 Adult depression screening assessment DEPRESSION SCREENING [facility] Start: 2012 COLOGUARD (FIT-DNA) COLOGUARD (FIT-D NA) [facility] Start: [address] COLONOGRAPHY [facility] Start: 2012 FECAL OCCULT BLOOD FECAL OCCULT BLOO D [facility] Start: 2012 Lipid panel Lipid Screening [facility] Start: 2012 LIPID SCREEN LIPID SCREEN [facility] Start: 2012 Screening for malign ant neoplasm of colon [facility] Start: 2012 SIGMOIDOSCOPY SIGMOIDOSCOPY [facility] Start: 2007 Mammography MAMMOGRAM [facility] Start: 2007 Screening for malign ant neoplasm of breast Mammogram Screening [facility] Start: 1997 HPV TESTING HPV TESTING [facility] Start: 1988 PAP TESTING PAP TESTING [facility] Start: 1986 Hepatitis B Vaccine (1 of 3 - 19+ 3-dose series) Hepatitis B Vaccine (1 of 3 - 19+ 3-dose series) [facility] Start: 1986 Pneumococcal Vaccine : 50+ (1 of 2 - PCV) Pneumococcal Vaccine: 50+ (1 of 2 - PCV) [facility] Start: 1986 Urine microalbumin profile DTAP,TDAP,TD (1 - Tdap) [facility] Start: 1985 Depression Screening Depression Scre ening [facility] Start: 1985 HEPATITIS C SCREENING HEPATITIS C [facility] Start: 1985 Hepatitis C screening Hepatitis C [facility] Start: 1985 HIV SCREENING HIV SCREENING [facility] Start: 1985 HIV screening HIV Screening [facility] Start: 1973 PNEUMOCOCCAL (1 - PCV) PNEUMOCOCCAL (1 - PCV) [facility] Start: 1973 Pneumococcal vaccination Pneum ococcal Vaccine (1 of 2 - PCV) [facility] Start: 1972 COVID-19 VACCINE (1) Cl [facility] Start: 04-16-1968 COVID-19 VACCINE (#1) COVID-19 VACCI NE (#1) [facility] Start: 1967 HEPATITIS B (1 of 3 - 3-dose series) HEPATITIS B (1 of 3 - 3-dose series) [facility] CBC W Auto Different ial panel - Blood [facility] CT Abdomen and Pelvi s W contrast IV [facility] CT Abdomen and Pelvi s W contrast IV [facility] Fat [Mass/mass] in Stool [facility] Work Phone: Fat.neutral [Presenc e] in Stool [facility] Work Phone: Hepatic function panel [facility] Immunoglobulin measurement [facility] Work Phone: Patient Education Abdominal Pain [facility] Work Phone: Patient referral [facility] Work Phone: Prothrombin time [facility] Radionuclide imaging of liver and/or biliary tract using radioactive isotope [facility] Triacylglycerol lipa se measurement [facility] End: 07-07-2023 US SOFT TISSUE PELVIS US SOFT TISSUE PELVIS Radiology Routine Polyarthralgia Malaise and fatigue Skin rash Lymphadenopathy 1 Occurrences starting 06/07/2022 until 07/07/2023 [facility] Work Phone: Comment on above: 1 Occurrences starti ng 06/07/2022 until 07/07/2023 End: 07-07-2023 XR ANKLE GENERAL 3V AP/LAT/OBL LEFT XR ANKLE GENERAL 3V AP/LAT/OBL LEFT Radiology Routine Polyarthralgia Malaise and fatigue Skin rash 1 Occurrences starting 06/07/2022 until 07/07/2023 [facility] Work Phone: Comment on above: 1 Occurrences starti ng 06/07/2022 until 07/07/2023 End: 07-07-2023 XR ANKLE GENERAL 3V AP/LAT/OBL RIGHT XR ANKLE GENERAL 3V AP/LAT/OBL RIGHT Radiology Routine Polyarthralgia Malaise and fatigue Skin rash 1 Occurrences starting 06/07/2022 until 07/07/2023 [facility] Work Phone: Comment on above: 1 Occurrences starti ng 06/07/2022 until 07/07/2023 End: 12-30-2025 XR Elbow - left AP and Lateral and oblique XR ELBOW SPECIAL VIEWS AP/LAT/OTHER LEFT Radiology Routine Fall (on) (from) other stairs and steps, initial encounter 1 Occurrences starting 11/30/2024 until 12/30/2025 [facility] Comment on above: 1 Occurrences starti mayda 11/30/2024 until 12/30/2025 XR Elbow - left AP a nd Lateral and oblique XR ELBOW SPECIAL VIEWS AP/LAT/OTHER LEFT Radiology Routine Fall (on) (from) other stairs and steps, initial encounter 11/30/2024 2:46 PM [facility] End: 07-07-2023 XR FOOT GENERAL 3V AP/LAT/OBL BILATERAL XR FOOT GENERAL 3V AP/LAT/OBL BILATERAL Radiology Routine Polyarthralgia Malaise and fatigue Skin rash 1 Occurrences starting 06/07/2022 until 07/07/2023 [facility] Work Phone: Comment on above: 1 Occurrences startearl [place] 06/07/2022 until 07/07/2023 End: 12-30-2025 XR Hand - left PA and Lateral and Oblique XR HAND GENERAL 3V PA/LAT/OBL LEFT Radiology Routine Fall (on) (from) other stairs and steps, initial encounter 1 Occurrences starting 11/30/2024 until 12/30/2025 [facility] Work Phone: Comment on above: 1 Occurrences startearl [place] 11/30/2024 until 12/30/2025 XR Hand - left PA an d Lateral and Oblique XR HAND GENERAL 3V PA/LAT/OBL LEFT Radiology Routine Fall (on) (from) other stairs and steps, initial encounter 11/30/2024 2:46 PM [facility] End: 07-07-2023 XR HAND GENERAL 3V PA/LAT/OBL BILATERAL XR HAND GENERAL 3V PA/LAT/OBL BILATERAL Radiology Routine Polyarthralgia Malaise and fatigue Skin rash 1 Occurrences starting 06/07/2022 until 07/07/2023 [facility] Work Phone: Comment on above: 1 Occurrences startearl [place] 06/07/2022 until 07/07/2023 End: 12-30-2025 XR Wrist - left 4 Views XR WRIST INJURY 4V PA/LAT/OBL/SCAPH LEFT Radiology Routine Fall (on) (from) other stairs and steps, initial encounter 1 Occurrences starting 11/30/2024 until 12/30/2025 [facility] Comment on above: 1 Occurrences starti ng 11/30/2024 until 12/30/2025 XR Wrist - left 4 Views XR WRIST INJURY 4V PA/LAT/OBL/SCAPH LEFT Radiology Routine Fall (on) (from) other stairs and steps, initial encounter 11/30/2024 2:46 PM EST [facility] Immun[facility] Immunization Date Immunization Notes Care Provider Urbano archuleta 12-25-2022 tetanus toxoid, redu radha diphtheria toxoid, and acellular pertussis vaccine, adsorbed [facility] [place] [facility] Payers Date Payer Category Payer Self-pay [id number] 2022 Unknown [facility] [id number] 2022-Present [phone] [address] [place] [address] [facility] [id number] 2014 Unknown [id number] 2014 Unknown [id number] 2014 Medicaid [employer] [id number] 2014-Present [phone] [address] [place] [address] Medicaid [id number] 2014 Medicaid [id number] 1967 Unknown [id number] 1967 Unknown [id number] 1967 Unknown [id number] 1967 Unknown [id number] 1967 Unknown [id number] Unknown [id number] Unknown [id number] Unknown [id number] Unknown [id number] Unknown [id number] Unknown [id number] Social History Date Type Detail Facility Start: 02-07-2022 End: 10-03-2023 Tobacco smoking status [facility] Unknown if ever smoked [facility] Start: 04-04-2019 Cigarettes [facility] Start: 1965 Sex Assigned At Female [facility] Start: 03-09-2022 End: 10-03-2023 Tobacco smoking status DCIS Smokes tobacco daily [facility] Start: 11-13-1979 History of tobacco use Cigarette Smo ker [facility] Start: 01-11-2022 Alcohol intake Current drinke r of alcohol (finding) [facility] Start: 1965 Sex Assigned At Not on file [facility] Start: 02-15-2022 End: 06-07-2022 Exposure to SARS-CoV-2 (event) Not sure [facility] Start: 03-09-2022 End: 11-30-2024 Alcohol intake Ex-drinker (finding) [facility] Start: 03-09-2022 History SDOH Alcohol Comment 4-10 glasses per week; stopped 1-2 months [facility] Start: 03-09-2022 End: 11-25-2022 Cigarettes smoked current (pack per day) - Reported 1.5 [facility] Start: 03-09-2022 End: 11-30-2024 Tobacco use and exposure Smokeless tobacco non-user [facility] Work Phone: Start: 11-25-2022 End: 12-25-2022 Tobacco use panel [facility] National Score (1-10 0), lower number is lower risk 74 [facility] Start: 03-04-2025 Sex Female (finding) [place] [facility] Goals Date Patient Goal Desired Activity /State Functional Status Date Assessment Result Facility 06-18-2015 Are you deaf, or do you have serious difficulty hearing No 06/18/2015 8:02 AM Leesa Hood Ma [facility] 06-18-2015 Are you blind, or do you have serious difficulty seeing, even when wearing glasses No 06/18/2015 8:02 AM Leesa Hood Ma [facility] 06-18-2015 Do you have serious difficulty walking or climbing stairs No 06/18/2015 8:02 AM Leesa Hood Ma [facility] 06-18-2015 Do you have difficul ty dressing or bathing No 06/18/2015 8:02 AM Leesa Hood Ma [facility] 06-18-2015 Because of a physica l, mental, or emotional condition, do you have difficulty doing errands alone such as visiting a physician's office or shopping No 06/18/2015 8:02 AM Leesa Hood Ma [facility] Mental Status Date Assessment Result Facility 03-21-2022 Cognitive function Voice/Name [facility] Work Phone: 06-18-2015 Because of a physica l, mental, or emotional condition, do you have serious difficulty concentrating, remembering, or making decisions No 06/18/2015 8:02 AM Leesa Hood Ma [facility] Clinical Notes 02-25-2022 to 05-12-2025 Note Date & Type Note Facility 05-12-2025 Evaluation note Diagnosis Onset Date Resolution Abdominal pain acute May 12, 2025 9:54am Bloating acute May 12 9:54am Diarrhea acute May 12 9:54am Nausea acute May 12 9:54am Weight gain acute May 12 9:54am [facility] Work Phone: 1(174) 448-901106-19-2025 Telephone encounter Note* Telephone Encounter - Gia Senior - 05/01/2025 10:23 AM EDT Patient returned call and is scheduled for 07/02/[address]by. [facility]-19-2025 Miscellaneous Notes* Telephone Encounter - Gia Senior - 05/01/2025 10:23 AM EDT Patient returned call and is scheduled for 07/02/[address]by. * Telephone Encounter - Gia Senior - 05/01/2025 9:[address] attempt unable to leave a message to return call to Neurology to arrange appointment from outside referral records in scan docs. * Telephone Encounter - Ld Lepe MA - 04/30/2025 4:46 PM EDT Scan on 04/30/2025 7:52 AM by Provider, External, PAJohnsonC: Neurology Referral 04/30/25 Neurology referral received from Tobi Horner CNP (Ginette Starks provider). Reason: Memory impairment-R41.3 Please assist with scheduling. Ld Lepe MA [facility] Telephone encounter Note * Telephone Encounter - Gia Senior - 05/01/2025 9:[address] attempt unable to leave a message to return call to Neurology to arrange appointment from outside referral records in scan docs. [facility]-18-2025 Telephone encounter Note* Telephone Encounter - Ld Lepe MA - 04/30/2025 4:46 PM EDT Scan on 04/30/2025 7:52 AM by Provider, Bang, AMANDA: Neurology Referral 04/30/25 Neurology referral received from Tobi Horner CNP (Ginette Starks provider). Reason: Memory impairment-R41.3 Please assist with scheduling. Ld Lepe MA [facility]-18-2025 History of Present illness Narrative* Javier Rebollar RT(R) - 11/30/2024 2:40 PM EST Radiology Service Progress Note PATIENT NAME: Shayna Lyons DATE OF SERVICE: November 30, 2024 TIME: 4:17 PM PATIENT IDENTITY VERIFICATION COMPLETED USING TWO (2) IDENTIFIERS: Name and Date of confirmedby patient verbally. FALL SCREENING: Has the patient had 2 falls in the last year or 1 fall with injury or currently using an Ambulatory Assistive Device (Walker, Cane, Wheelchair, Crutches, etc.)? No PATIENT GENDER DATA: Assigned female at . status: : No status:NO. PATIENT RELEVANT IMPLANT DATA REVIEWED: Not Applicable PATIENT PRESENTS WITH AN IMPLANTABLE OR ATTACHED OUTSIDE REPAIRER SPECIAL: No RADIOLOGY DEPARTMENT: General X-ray: Exam(s) Completed: Upper Extremity X- Ray(s): Elbow, left , Wrist, left , and Hand, left PERIPHERAL IV DATA: Not applicable SIGNED BY: RT Alexis(R) November 30, 2024 4:17 PM documented [facility]25 NoteHNO ID: [id number] Author: JAVIER REBOLLAR RT(R) Service: ? Author Type: Technologist Type: Progress Notes Filed: 11/30/2024 16:18 Note Text: Radiology Service Progress Note PATIENT NAME: Shayna Lyons DATE OF SERVICE: November 30, 2024 TIME: 4:17 PM PATIENT IDENTITY VERIFICATION COMPLETED USING TWO (2) IDENTIFIERS: Name and Date of confirmed by patient verbally. FALL SCREENING: Has the patient had 2 falls in the last year or 1 fall with injury or currently using an Ambulatory Assistive Device (Walker, Cane, Wheelchair, Crutches, etc.)? No PATIENT GENDER DATA: Assigned female at . status: : No status: NO. PATIENT RELEVANT IMPLANT DATA REVIEWED: Not Applicable PATIENT PRESENTS WITH AN IMPLANTABLE OR ATTACHED OUTSIDE REPAIRER SPECIAL: No RADIOLOGY DEPARTMENT: General X-ray: Exam(s) Completed: Upper Extremity X-Ray(s): Elbow, left , Wrist, left , and Hand, left PERIPHERAL IV DATA: Not applicable SIGNED BY: RT Alexis(Ronda) November 30, 2024 4:17 PM01-18-2025 NoteHNO ID: [id number] Author: MICHELLE NAVARRO, DO Service: ? 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 metoprolol succinate ER (TOPROL XL) 50 mg 24 hr tablet Take 1 tablet by mouth every afternoon. FOLIC ACID ORAL Take by mouth once daily. multivit-min/iron/folic/lutein (CENTRUM SILVER WOMEN ORAL) Take 1 tablet by mouth once daily. salbutamol (VENTOLIN HFA) 100 mcg/actuation inhaler Inhale 1-2 Puffs as instructed every 4 hours as needed. Maximum 8 puffs daily. lisinopril (ZESTRIL, PRINIVIL) 10 mg tablet Take 10 mg by mouth once daily. cholecalciferol, vitamin D3, (VITAMIN D3 ORAL) Take 125 mcg by mouth once daily. dexAMETHasone (DECADRON) 6 mg tablet Take 1 tablet by mouth once daily for 5 days. 5 tablet 0 traMADol (ULTRAM) 50 mg tablet Take 1 tablet by mouth every 8 hours as needed for pain for up to 5 days. 15 tablet 0 No current facility-administered medications for this visit. Social History Tobacco Use Smoking status: Every Day Current packs/day: 1.50 Average packs/day: 1.5 packs/day for 45.0 years (67.6 ttl pk-yrs) Types: Cigarettes Start date: 1979 Smokeless tobacco: Never Vaping Use Vaping status: Never Used Substance Use Topics Alcohol use: Not Currently Alcohol/week: 4.0 - 10.0 standard drinks of alcohol Types: 4 - 10 Standard drinks or equivalent per week Comment: 4-10 glasses per week; stopped 1-2 months Drug use: Yes Types: Marijuana Comment: has smoked marijuana in past, last used about a couple of months ago Alcohol Use: Not Currently (4-10 glasses per week; stopped 1-2 months) Tobacco Use: Types: Cigarettes FAMILY HISTORY Problem Relation Age of Onset Hypertension Mother Cancer Sister endometrial Seizures Maternal Grandmother Aneurysm Maternal Grandmother fatal Stroke Maternal Grandfather had pacemaker Diabetes Maternal Aunt gestational diabetes Heart Maternal Uncle Multiple Sclerosis No Family History Review of Systems Musculoskeletal: Positive for joint pain. Patient felt ice within the last few days both times hurting her left wrist All other systems reviewed and are negative. BP 139/83 Pulse 76 Temp (Src) 98.3 (Temporal) Resp 17 SpO2 100% LMP 11/30/2022 Physical Exam Vitals and nursing note reviewed. Constitutional: Appearance: Normal appearance. HENT: Head: Normocephalic. Cardiovascular: Heart sounds: Normal heart sounds. Pulmonary: Breath sounds: Normal breath sounds. Abdominal: General: Bowel sounds are normal. Musculoskeletal: General: Swelling, tenderness and signs of injury present. Comments: Patient had a mechanical fall tripped over her cat. Patient states she fell onto her outstretched hands and hurt her left wrist. She states that she has never had a broken bone but it certainly feels broken. Looking at the wrist she is got swelling over the navicular tenderness to palpation in the anatomic snuffbox difficulty moving her thumb pulses are +2/4 and capillary refill less than 3 seconds normal motor neurovascular and sensory to the digits. She has relief by holding the elbow flexed and the hand up. I reviewed the x-rays and although it is difficult to find I do think there is a hairline nondisplaced fracture of the navicular in the left wrist. I did highlight that area on the PA left view and we will have the radiologist review that. Patient was advised to follow-up with an orthopedist. She is in the meantime placed in a thumb spica splint and a sling. She is advised on how to use these and to stay safe to move the sling at bedtime and she can remove the splint for showers. She was given tramadol and Decadron for soreness. Patient was given a thumb spica splint and a sling. She was advised on the proper use to take the slin (more content not included)...01-18-2025 History of Present illness Narrative* Michelle Navarro, - 11/30/2024 2:37 PM EST Shayna Lyons is a 59 year old FEMALE who presents with Wrist/forearm Injury (Left /Last night /See below /), Fall (3 days ago/Patient states possibly tripped on her cat that follows her around /[place] //Last night /Tripped over cat /At home //Patient states she has a lot on her mind and wasn't paying attention /), and Low Back Pain (S/p fall /3 days ago /See above /) HPI PAST MEDICAL HISTORY Diagnosis Date Abdominal pain, acute, right lower quadrant Acquired absence of teeth, 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 metoprolol succinate ER (TOPROL XL) 50 mg 24 hr tablet Take 1 tablet by mouth every afternoon. FOLIC ACID ORAL Take by mouth once daily. multivit-min/iron/folic/lutein (CENTRUM SILVER WOMEN ORAL) Take 1 tablet by mouth once daily. salbutamol (VENTOLIN HFA) 100 mcg/actuation inhaler Inhale 1-2 Puffs as instructed every 4 hours asneeded. Maximum 8 puffs daily. lisinopril (ZESTRIL, PRINIVIL) 10 mg tablet Take 10 mg by mouth once daily. cholecalciferol, vitamin D3, (VITAMIN D3 ORAL) Take 125 mcg by mouth once daily. dexAMETHasone (DECADRON) 6 mg tablet Take 1 tablet by mouth once daily for 5 days. 5 tablet 0 traMADol (ULTRAM) 50 mg tablet Take 1 tablet by mouth every 8 hours as needed for pain for up to 5 days. 15 tablet 0 No current facility-administered medications for this visit. Social History Tobacco Use Smoking status: Every Day Current packs/day: 1.50 Average packs/day: 1.5 packs/day for 45.0 years (67.6 ttl pk-yrs) Types: Cigarettes Start date: 1979 Smokeless tobacco: Never Vaping Use Vaping status: Never Used Substance Use Topics Alcohol use: Not Currently Alcohol/week: 4.0 - 10.0 standard drinks of alcohol Types: 4 - 10 Standard drinks or equivalent per week Comment: 4-10 glasses per week; stopped 1-2 months Drug use: Yes Types: Marijuana Comment: has smoked marijuana in past, last used about a couple of months ago Alcohol Use: Not Currently (4-10 glasses per week; stopped 1-2 months) Tobacco Use: Types: Cigarettes FAMILY HISTORY Problem Relation Age of Onset Hypertension Mother Cancer Sister endometrial Seizures Maternal Grandmother Aneurysm Maternal Grandmother fatal Stroke Maternal Grandfather had pacemaker Diabetes Maternal Aunt gestational diabetes Heart Maternal Uncle Multiple Sclerosis No Family History Review of Systems Musculoskeletal: Positive for joint pain. Patient felt ice within the last few days both times hurting her left wrist All other systems reviewed and are negative. BP 139/83 Pulse 76 Temp (Src) 98.3 (Temporal) Resp 17 SpO2 100% LMP 11/30/2022 Physical Exam Vitals and nursing note reviewed. Constitutional: Appearance: Normal appearance. HENT: Head: Normocephalic. Cardiovascular: Heart sounds: Normal heart sounds. Pulmonary: Breath sounds: Normal breath sounds. Abdominal: General: Bowel sounds are normal. Musculoskeletal: General: Swelling, tenderness and signs of injury present. Comments: Patient had a mechanical fall tripped over her cat. Patient states she fell onto her outstretched hands and hurt her left wrist. She states that she has never had a broken bone but it certainly feels broken. Looking at the wrist she is got swelling over the navicular tenderness to palpation in the anatomic snuffbox difficulty moving her thumb pulses are +2/4 and capillary refill less than 3 seconds normal motor neurovascular and sensory to the digits. She has relief by holding the elbow flexed and the hand up. I reviewed the x-rays and although it is difficult to find I do think there is a hairline nondisplaced fracture of the navicular in the left wrist. I did highlight that area on the PA left view and we will have the radiologist review that. Patient was advised to follow-up with an orthopedist. She is in the meantime placed in a thumb spica splint and a sling. She is advised on how to use these andto stay safe to move the sling at bedtime and she can remove the splint for showers. She was given tramadol and Decadron for soreness. Patient was given a thumb spica splint and a sling. She was advised on the proper use to take the sling off at bedtime and to use the lint except for bath. And the p atient was advised to follow-up with an orthopedist. Neurological: Mental Status: She is alert. ASSESSMENT/PLAN: 1. Closed nondisplaced fracture of scaphoid of left wrist, unspecified portion of scaphoid, initialencounter - ICD9: 814.01, ICD10: S62.002A (primary diagnosis) - DEXAMETHASONE 6 MG TABLET - TRAMADOL 50 MG TABLET 2. Fall (on) (from) other stairs and steps, initial encounter - ICD9: E880.9, ICD10: W10.8XXA - XR HAND GENERAL 3V PA/LAT/OBL LEFT - XR WRIST INJURY 4V PA/LAT/OBL/SCAPH LEFT - XR ELBOW SPECIAL VIEWS AP/LAT/OTHER LEFT - SPLINT - SLING, ARM Michelle Navarro * Emily Osuna LPN - 11/30/2024 12:50 PM EST Patient declined depression screening at this time. Emily Osuna LPN documented in this [facility]25 NoteHNO ID: [id number] Author: EMILY OSUNA LPN Service: ? Author Type: LICENSED NURSE Type: Progress Notes Filed: 11/30/2024 14:41 Note Text: Patient declined depression screening at this time. Emily Osuna [facility]06-05-2024 Telephone encounter Note* Telephone Encounter - Joel Palma MA - 04/17/2024 5:32 PM EDT Outside Medical Records: Records from Yeimi Chaudhary NP received Scanned into [employer] under Scanned Docs Tab Message Forwarded to Dr Palma Please review Joel Palma MA [facility] Miscellaneous Notes* Telephone Encounter - Joel Palma MA - 04/17/2024 5:32 PM EDT Outside Medical Records: Records from Yeimi Chaudhary NP received Scanned into [employer] under Scanned Docs Tab Message Forwarded to Dr Palma Please review Joel Palma MA documented in this encounterKind[facility]05-31-[facility]24 History of Present illness Narrative* Veronique Palma MD - 04/12/2024 1:52 PM EDT Images from the original note were not included. Rheumatology Outpatient Clinic Follow Up Visit Date of Service: 04/03/2024 Patient: Shayna Lyons Medical Record: [id number] Primary Care Physician: Nereida Davis CNP Last Rheumatology visit: 04/03/2024 (with Veronique Palma) History of Present Illness Shayna Lyons is a 58 year old White female who presents on 04/03/2024 for an in-person visit for evaluation of sjogren's. Shayna is RF negative - 9 (03/09/2015). Her most recent KERMIT was negative (05/03/2022). Shayna Lyons is a 58 year old White female who presents on 04/03/2024 for an in-person visit for evaluation of ? Sjogren's syndrome. Solomon johnson is RF negative - 9 (03/09/2015). Her most recent KERMIT was negative (05/03/2022). Interval Hx: She reports she is here because she was told she has Sjogren's syndrome by Dr Pablo Friend. I last saw her in 2021 and she has no recollection of that visit or seeing me, She saw Dr Valencia Vick as per the patient in 2013. She reports lately she has been having hot flashes and has been placed on folate which has helped her significantly with her sporadic pains which she buys OTC from a health foods store. She has also been started on cymbalta for her PTSD which is helping her. She denies being told she has a low white count. She endorses dry mouth and dry eyes which has been ongoing. Has been told by herman induction machine operator touse sam and sam baby shampoo, when she has used eye drops it has caused her pain. She has photosensitivity. Chaim munoz reports no parotid swelling lately She believes she has got periodontal disease from the dentist as they did not wear gloves and over the years her teeth have broken and fallen off. Last time she went to a dentist was 4 years ago for dentures. Her cat stole her bottom dentures and she has not been able to afford new set of dentures. She reports sun sensitivity and avoids it. Has not been seen by dermatology. She reports ra ynaud's involving her hands and feet for 10 years. She has never had any digital ulcerations associated with numbness and tingling. ? Patient-Entered Data PAIN EVALUATION 04/03/2024 1550 Pain Level: 1 Pain Location: -- all over body Description: Aching;Cramping Duration Units: Years Frequency: Intermittent Intervention/Comfort measure: Medication PROMIS Assessments No data to display RAPID 3 Kaur Activities of Daily Living No Data Dress self? - Get in and out of bed? - Walk outdoors? - Wash and dry body? - Get in and out of car? - RAPID 3 Disease Activity Weighed Score Levels: 0 - 1: Near Remission 1.3 - 2.0: Low Severity 2.3 - 4.0: Moderate Severity 4.3 - 10.0: High Severity No data to display ROS RHEUMATOLOGYAll other reviewed and negative other than HPI. 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) Bloating Change in bowel habits Chest pain Dry eyes Eye doctor treating with OTC meds GERD (gastroesophageal reflux disease) PTSD (post-traumatic stress disorder) 2002 Shortness of breath on exertion Past Surgical History PAST SURGICAL HISTORY Procedure Laterality Date COLONOSCOPY FLX DX W/COLLJ SPEC WHEN PFRMD 05/20/15 Colonoscopy ESOPHAGOGASTRODUODENOSCOPY TRANSORAL DIAGNOSTIC 05/20/15 EGD PAST SURGICAL HISTORY OF dental procedure-dentures TUBAL LIGATION, 1988 Family History FAMILY HISTORY Problem Relation Age of Onset Hypertension Mother Cancer Sister endometrial Seizures Maternal Grandmother Aneurysm Maternal Grandmother fatal Stroke Maternal Grandfather had pacemaker Diabetes Maternal Aunt gestational diabetes Heart Maternal Uncle Multiple Sclerosis No Family History Social History Social History Tobacco Use Smoking status: Every Day Packs/day: 1.50 Years: 42.00 Additional pack years: 0.00 Total pack years: 63.00 Types: Cigarettes Smokeless tobacco: Never Substance Use Topics Alcohol use: Not Currently Comment: 4-10 glasses per week; stopped 1-2 months Drug use: Yes Types: Marijuana Comment: has smoked marijuana in past, last used about a couple of months ago Current Medications Current Outpatient Medications on File Prior to Visit Medication Sig multivit-min/iron/folic/lutein (CENTRUM SILVER WOMEN ORAL) Take 1 tablet by mouth once daily. salbutamol (VENTOLIN HFA) 100 mcg/actuation inhaler Inhale 1-2 Puffs as instructed every 4 hours asneeded. Maximum 8 puffs daily. metoprolol tartrate, short acting, (LOPRESSOR) 50 mg tablet Take 50 mg by mouth once daily. lisinopril (ZESTRIL, PRINIVIL) 10 mg tablet Take 10 mg by mouth once daily. cholecalciferol, vitamin D3, (VITAMIN D3 ORAL) Take 125 mcg by mouth once daily. solifenacin (VESICARE) 5 mg tablet Take 1 tablet by mouth once daily. (Patient not taking: Reportedon 04/03/2024) No current facility-administered medications on file prior to visit. Objective Labs Latest Ref Rng & Units 02/23/2010 03/09/2015 05/18/2016 CBC WBC 3.70 - 11.00 k/uL 7.97 10.61 Hemoglobin 11.5 - 15.5 g/dL 12.7 14.7 Hemoglobin, [place] 12.0 - 16.0 g/dL 13.5 Hematocrit 36.0 - 46.0 % 39.5 44.1 Platelet Count 150 - 400 k/uL 310 317 Abs Neut (ANC) 1.45 - 7.50 k/uL 6.08 Abs Neut, [place] 2.0 - 8.1 k/uL 5.8 Abs Lymp, S[place] 1.0 - 5.5 k/uL 2.2 Abs Lymph 1.00 - 4.00 k/uL 1.28 Latest Ref Rng & Units 02/23/2010 03/09/2015 CMP Sodium 132 - 148 mmol/L 141 Sodium, Saira 136 - 145 mmol/L 141 Potassium 3.5 - 5.0 mmol/L 4.6 Potassium, [place] 3.5 - 5.1 mmol/L 3.8 Chloride 98 - 110 mmol/L 106 Chloride, Saira 98 - 107 mmol/L 102 CO2 23 - 32 mmol/L 21 CO2, [place] 21.0 - 32.0 mmol/L 28.0 Glucose 65 - 100 mg/dL 78 Glucose, Saira 70 - 99 mg/dL 85 BUN 8 - 25 mg/dL 8 BUN, [place] 7 - 18 mg/dL 10 Creatinine 0.70 - 1.40 mg/dL 0.64 Creatinine, [place] 0.6 - 1.0 mg/dL 0.8 Calcium, [place] 8.5 - 10.1 mg/dL 9.1 Calcium 8.5 - 10.5 mg/dL 8.9 AST 7 - 40 U/L 21 AST, [place] 15 - 37 U/L 17 ALT 0 - 45 U/L 12 ALT, [place]air[place] 30 - 65 U/L 36 Alkaline Phosphatase 40 - 150 U/L 47 Latest Ref Rng & Units 02/23/2010 03/09/2015 06/07/2022 ESR, WSR WSR 0 - 20 mm/hr 5 2 Sed Rate, Saira 0 - 20 mm/hr 1 Latest Ref Rng & Units 02/23/2010 06/07/2022 CRP CRP <0.9 mg/dL 0.4 <0.3 Latest Ref Rng & Units 03/09/2015 CK CK 30 - 220 U/L 138 Latest Ref Rng & Units 03/09/2015 RF and CCP Rheumatoid Factor <20 IU/mL <10 Latest Ref Rng & Units 02/23/2010 03/09/2015 01/17/2022 01/17/2022 Antibodies KERMIT Negative Negative KERMIT by EIA <1.5 OD Ratio 0.3 KERMIT Titer Negative Negative KERMIT Pattern Not applicable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 Date Visits Requested Visits Authorized [id number] Pending Review Auto-Generat ed Referral 06/07/2022 07/07/2023 1 1 * Diagnostic Procedure Only (Routine) - Pending Review Specialty Diagnoses / Procedures Referred By Contac t Referred To Contact XR IMAGING Diagnoses Polyarthralgia Malaise and fatigue Skin rash Procedures XR HAND GENERAL 3V PA/LAT/OBL BILATERAL RADEX HAND MINIMUM 3 VIEWS Veronique Palma MD [address] [place] [address] Xr Imaging Referral ID Status Reason Start Date Expiration Date Visits Requested Visits Authorized [id number] Pending Review Auto-Generat ed Referral 06/07/2022 07/07/2023 1 1 * Consult, Test, Treat (Routine) - Authorized Specialty Diagnoses / Procedures Referred By Contac t Referred To Contact Dermatology Diagnoses Skin rash Procedures CONSULT TO DERMATOLOGY OFFICE/OUTPATIENT [facility] 60-74 MINUTES Veronique Palma MD [address] [place] [address] Referral ID Status Reason Start Date Expiration Date Visits Requested Visits Authorized [id number] Authorized PCP Requested Referral 06/07/2022 06/07/2023 1 1 [facility] Diagnostic Procedure Only (Routine) - Closed Specialty Diagnoses / Procedures Referred By Contac t Referred To Contact XR IMAGING Diagnoses Fall (on) (from) other stairs and steps, initial encounter Procedures XR ELBOW SPECIAL VIEWS AP/LAT/OTHER LEFT RADEX ELBOW COMPLETE MINIMUM 3 VIEWS Michelle Navarro DO [address] [place] [address] [place] [address] Referral ID Status Reason Start Date Expiration Date V isits Requested Visits Authorized [id number] Closed Auto-Generate d Referral 11/30/2024 12/30/2025 1 1 * Diagnostic Procedure Only (Routine) - Closed Specialty Diagnoses / Procedures Referred By Contac t Referred To Contact XR IMAGING Diagnoses Fall (on) (from) other stairs and steps, initial encounter Procedures XR WRIST INJURY 4V PA/LAT/OBL/SCAPH LEFT RADEX WRIST COMPLETE MINIMUM 3 VIEWS Michelle Navarro DO [address] [address] [place] [address] Referral ID Status Reason Start Date Expiration Date V isits Requested Visits Authorized [id number] Closed Auto-Generate d Referral 11/30/2024 12/30/2025 1 1 * Diagnostic Procedure Only (Routine) - Closed Specialty Diagnoses / Procedures Referred By Contac t Referred To Contact XR IMAGING Diagnoses Fall (on) (from) other stairs and steps, initial encounter Procedures XR HAND GENERAL 3V PA/LAT/OBL LEFT RADEX HAND MINIMUM 3 VIEWS Michelle Navarro DO [address] [place] [address] [place] [address] Referral ID Status Reason Start Date Expiration Date V isits Requested Visits Authorized [id number] Closed Auto-Generate d Referral 11/30/2024 12/30/2025 1 1 [facility] (n[facility]ative)No reason for referral information availableWGenesis Hospital Work Phone: Reason for visit Narrative* Diagnostic Procedure Only (Routine) - Closed Specialty Diagnoses / Procedures Referred By Contac t Referred To Contact XR IMAGING Diagnoses Fall (on) (from) other stairs and steps, initial encounter Procedures XR ELBOW SPECIAL VIEWS AP/LAT/OTHER LEFT RADEX ELBOW COMPLETE MINIMUM 3 VIEWS Michelle Navarro, [address] [place] [address] [place] [address] Referral ID Status Reason Start Date Expiration Date V isits Requested Visits Authorized [id number] Closed Auto-Generate d Referral 11/30/2024 12/30/2025 1 1 [facility] Summary Purpose Family History No Family History Records Found Relationship Condition Age at Onset Recorded Date/T cat Not Specified Anxiety Unknown Malignant neoplasm Unknown uncle Malignant neoplasm of thyroid gland Unkno wn Disorder of thyroid Unknown father Alcoholism Unknown grandfather Alcoholism Unknown grandmother Depression Unknown Seizure Unknown sister Cardiac disease Unknown Advance Directives No Advanced Directives Records Found Advance Directive Response Recorded Date/ Time Living Will No February 08, 2021 11:46am 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 No February 08 21 11:46am Advance Directive Response Recorded Date/ Time Living Will No March 16, 2022 2: 53pm 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 No March 16, 2022 2:53pm Advance Directive Response Recorded Date/ Time Living Will No August 19 3 1:36pm 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 No August 19, 023 1:36pm Chief Complaint and Reason for Visit Chief Complaint ABDOMINAL PAIN ENLARGED LYMPH NODES EORDER E ORDER ABDOMINAL PAIN 3 WK FU Reason for Visit Abdominal pain Constipation Mesenteric lymphadenopathy Nausea Pancreatic calcification Abdominal pain Constipation Diarrhea Mesenteric lymphadenopathy Nausea Pancreatic calcification Vomiting Chief Complaint 2 WK FU FU E-ORDER e orders Reason for Visit Acid reflux Constipation Diarrhea Mesenteric lymphadenopathy Pancreatic calcification Tubular adenoma of colon Constipation Mesenteric lymphadenitis Pancreatic calcification Chief Complaint abdominal pain FU K86.89 R59.0 Reason for Visit Acid reflux Diarrhea Mesenteric lymphadenopathy Tubular adenoma of colon Constipation Pancreatic calcification Chief Complaint abdominal pain FU K86.89 R59.0 DISEASE OF PANCREAS Reason for Visit Acid reflux Diarrhea Mesenteric lymphadenopathy Tubular adenoma of colon Constipation Pancreatic calcification Chief Complaint abdominal pain FU K86.89 R59.0 DISEASE OF PANCREAS DISEASE OF PANCREAS Reason for Visit Acid reflux Diarrhea Mesenteric lymphadenopathy Tubular adenoma of colon Constipation Pancreatic calcification Chief Complaint Admit Date CHRONIC PANCREATITIS DISCUSS CT SCAN Apr 9:54am Reason for Visit Admit Date Abdominal pain May 12, 2025 9:54 am Bloating May 12, 2025 9:54 am Diarrhea May 12, 2025 9:54 am Nausea May 12, 2025 9:54 am Weight gain May 12, 2025 9:54 am Chief Complaint Admit Date CHRONIC PANCREATITIS DISCUSS CT SCAN Apr 9:54am INT LAB ORDERS May 12, 2025 10:4 5am Reason for Referral Specialty Diagnoses / Procedures Referred By Semaj montague Referred To Contact MR IMAGING Diagnoses Demyelinating disease of central nervous system (HCC) Procedures MRI BRAIN WO/W IVCON MRI BRAIN BRAIN STEM W/O W/CONTRAST MATERIAL Aaron Mackenzie MD [address] [id number] Mr Imaging Referral ID Status Reason Start Date Expiration Date Visits Requested Visits Authorized [id number] Waiting for Online Response Auto-Generat ed Referral 01/11/2022 02/10/2023 1 1 Specialty Diagnoses / Procedures Referred By Semaj montague Referred To Contact MR IMAGING Diagnoses Demyelinating disease of central nervous system (HCC) Procedures MRI THORACIC SPINE WO/W IVCON MRI SPINAL CANAL THORACIC W/O & W/CONTR Aaron Gordon MD [address] [place] [address] Mr Imaging Referral ID Status Reason Start Date Expiration Date V isits Requested Visits Authorized [id number] Closed Auto-Generate d Referral 02/10/2022 04/11/2022 1 1 Specialty Diagnoses / Procedures Referred By Semaj montague Referred To Contact MR IMAGING Diagnoses Demyelinating disease of central nervous system (HCC) Procedures MRI CERVICAL SPINE WO/W IVCON MRI SPINAL CANAL CERVICAL W/O & W/CONTR ANTOINEL Aaron Mackenzie MD [address] [place] [address] Mr Imaging Referral ID Status Reason Start Date Expiration Date Visits Requested Visits Authorized [id number] Waiting for Online Response Auto-Generat ed Referral 01/11/2022 02/10/2023 1 1 Specialty Diagnoses / Procedures Referred By Semaj montague Referred To Contact Markie Matson MD [address] [place] [address] Referral ID Status Reason Start Date Expiration Date Visits Re quested Visits Authorized [id number] Closed 1 1 Additional Source Comments INFORMATION SOURCE (unrecogn ized section and content) DATE CREATED AUTHOR 10/04/2019 [facility] DATE CREATED AUTHOR AUTHOR'S ORGANIZ ATION 01/31/2021 [facility] DATE CREATED AUTHOR AUTHOR'S ORGANIZ ATION 12/02/2024 [facility] nt DATE CREATED AUTHOR AUTHOR'S ORGANIZ ATION 01/31/2025 [facility] DATE CREATED AUTHOR AUTHOR'S ORGANIZ ATION 05/04/2025 [facility] DATE CREATED AUTHOR AUTHOR'S ORGANIZ ATION 05/21/2025 [facility] Goals (unrecognized section and content) Goals may be documented in a n alternate sectionGoals may be documented in an alternate sectionGoals may be documented in an alternate sectionGoals may be documented in an alternate sectionGoals may be documented in an alternate sectionGoals may be documented in an alternate sectionGoals may be documented in an alternate sectionGoals may be documented in an alternate sectionGoals may be documented in an alternate sectionGoals may be documented in an alternate sectionGoals may be documented in an alternate sectionGoals may be documented in an alternate section Source Comments (unrecognize d section and content) In the event this informatio n is protected by the Federal Confidentiality of Alcohol and Drug Abuse Patient Records regulations: The Federal rules restrict any use of the information to criminally investigate or prosecute any alcohol or drug abuse patient.[facility] the event this information is protected by the Federal Confidentiality of Alcohol and Drug Abuse Patient Records regulations: The Federal rules restrict any use of the information to criminally investigate or prosecute any alcohol or drug abuse patient.[facility] the event this information is protected by the Federal Confidentiality of Alcohol and Drug Abuse Patient Records regulations: The Federal rules restrict any use of the information to criminally investigate or prosecute any alcohol or drug abuse patient.[facility] the event this information is protected by the Federal Confidentiality of Alcohol and Drug Abuse Patient Records regulations: The Federal rules restrict any use of the information to criminally investigate or prosecute any alcohol or drug abuse patient.[facility] the event this information is protected by the Federal Confidentiality of Alcohol and Drug Abuse Patient Records regulations: The Federal rules restrict any use of the information to criminally investigate or prosecute any alcohol or drug abuse patient.[facility] the event this information is protected by the Federal Confidentiality of Alcohol and Drug Abuse Patient Records regulations: The Federal rules restrict any use of the information to criminally investigate or prosecute any alcohol or drug abuse patient.[facility] the event this information is protected by the Federal Confidentiality of Alcohol and Drug Abuse Patient Records regulations: The Federal rules restrict any use of the information to criminally investigate or prosecute any alcohol or drug abuse patient.[facility] the event this information is protected by the Federal Confidentiality of Alcohol and Drug Abuse Patient Records regulations: The Federal rules restrict any use of the information to criminally investigate or prosecute any alcohol or drug abuse patient.[facility] the event this information is protected by the Federal Confidentiality of Alcohol and Drug Abuse Patient Records regulations: The Federal rules restrict any use of the information to criminally investigate or prosecute any alcohol or drug abuse patient.[facility] the event this information is protected by the Federal Confidentiality of Alcohol and Drug Abuse Patient Records regulations: The Federal rules restrict any use of the information to criminally investigate or prosecute any alcohol or drug abuse patient.[facility] the event this information is protected by the Federal Confidentiality of Alcohol and Drug Abuse Patient Records regulations: The Federal rules restrict any use of the information to criminally investigate or prosecute any alcohol or drug abuse patient.[facility] the event this information is protected by the Federal Confidentiality of Alcohol and Drug Abuse Patient Records regulations: The Federal rules restrict any use of the information to criminally investigate or prosecute any alcohol or drug abuse patient.[facility] the event this information is protected by the Federal Confidentiality of Alcohol and Drug Abuse Patient Records regulations: The Federal rules restrict any use of the information to criminally investigate or prosecute any alcohol or drug abuse patient.[facility] the event this information is protected by the Federal Confidentiality of Alcohol and Drug Abuse Patient Records regulations: The Federal rules restrict any use of the information to criminally investigate or prosecute any alcohol or drug abuse patient.[facility] the event this information is protected by the Federal Confidentiality of Alcohol and Drug Abuse Patient Records regulations: The Federal rules restrict any use of the information to criminally investigate or prosecute any alcohol or drug abuse patient.[facility] the event this information is protected by the Federal Confidentiality of Alcohol and Drug Abuse Patient Records regulations: The Federal rules restrict any use of the information to criminally investigate or prosecute any alcohol or drug abuse patient.[facility] the event this information is protected by the Federal Confidentiality of Alcohol and Drug Abuse Patient Records regulations: The Federal rules restrict any use of the information to criminally investigate or prosecute any alcohol or drug abuse patient.[facility] the event this information is protected by the Federal Confidentiality of Alcohol and Drug Abuse Patient Records regulations: The Federal rules restrict any use of the information to criminally investigate or prosecute any alcohol or drug abuse patient.[facility] the event this information is protected by the Federal Confidentiality of Alcohol and Drug Abuse Patient Records regulations: The Federal rules restrict any use of the information to criminally investigate or prosecute any alcohol or drug abuse patient.[facility] the event this information is protected by the Federal Confidentiality of Alcohol and Drug Abuse Patient Records regulations: The Federal rules restrict any use of the information to criminally investigate or prosecute any alcohol or drug abuse patient.[facility] the event this information is protected by the Federal Confidentiality of Alcohol and Drug Abuse Patient Records regulations: The Federal rules restrict any use of the information to criminally investigate or prosecute any alcohol or drug abuse patient.[facility] Reason for Visit (unrecogniz ed section and content) Reason Comments Radiology MRI Specialty Diagnoses / Procedures Referred By Contac t Referred To Contact MR IMAGING Diagnoses Demyelinating disease of central nervous system (HCC) Procedures MRI BRAIN WO/W IVCON MRI BRAIN BRAIN STEM W/O W/CONTRAST MATERIAL Aaron Mackenzie MD [address] [place] [address] Mr Imaging Referral ID Status Reason Start Date Expiration Date Visits Requested Visits Authorized [id number] Waiting for Online Response Auto-Generat ed Referral 01/11/2022 02/10/2023 1 1 Specialty Diagnoses / Procedures Referred By Contac t Referred To Contact MR IMAGING Diagnoses Demyelinating disease of central nervous system (HCC) Procedures MRI THORACIC SPINE WO/W IVCON MRI SPINAL CANAL THORACIC W/O & W/CONTR Aaron [facility] [address] [facility] [place] [id number] Mr Imaging Referral ID Status Reason Start Date Expiration Date V isits Requested Visits Authorized [id number] Closed Auto-Generate d Referral 02/10/2022 04/11/2022 1 1 Specialty Diagnoses / Procedures Referred By Contac t Referred To Contact MR IMAGING Diagnoses Demyelinating disease of central nervous system (HCC) Procedures MRI CERVICAL SPINE WO/W IVCON MRI SPINAL CANAL CERVICAL W/O & W/CONTR Aaron Gordon MD [address] [place] [id number] Mr Imaging Referral ID Status Reason Start Date Expiration Date Visits Requested Visits Authorized [id number] Waiting for Online Response Auto-Generat ed Referral 01/11/2022 02/10/2023 1 1 Reason Comments Smoking Cessation Reason Comments Consult Specialty Diagnoses / Procedures Referred By Contac t Referred To Contact Urology Diagnoses Urge incontinence of urine Overflow incontinence of urine Procedures CONSULT TO UROLOGY OFFICE/OUTPATIENT [facility] 60-74 MINUTES Aaron Mackenzie MD [address] [facility] [place] [address] Referral ID Status Reason Start Date Expiration Date V isits Requested Visits Authorized [id number] Closed PCP Requested Referral 03/09/2022 03/09/2023 1 1 Specialty Diagnoses / Procedures Referred By Contac t Referred To Contact Rheumatology Diagnoses Polyarthralgia Malaise and fatigue Skin rash Myalgia Procedures CONSULT TO RHEUM/IMMUN DISEASE OFFICE/OUTPATIENT [facility] 60-74 MINUTES Aaron Mackenzie MD [address] [place] [address] Referral ID Status Reason Start Date Expiration Date V isits Requested Visits Authorized [id number] Closed PCP Requested Referral 03/09/2022 03/09/2023 1 1 Reason Comments Results Reason Comments [facility]Dr. Mackenzie(Provider Unavailable) Lvm for pt to call scheduling. Reason Comments Finger Injury Reason Comments Sjogren's Disease Reason Comments Records Reason Comments Wrist/forearm Injury Left Last night See below Fall [address]ritz possibly tripped on her cat that follows her around At home Last night Tripped over cat At home Patient states she has a lot on her mind and wasn't paying attention Low Back Pain S/p fall 3 days ago See above Care Teams (unrecognized sec tion and content) Funeral Driver Relationship Specialty Start Date End Date Nereida Davis CNP [address] [place], [place] [address] PCP - General Internal Medicine 12/28/21 Funeral Driver Relationship Specialty Start Date End Date Nereida Davis CNP [address] [place] [address] PCP - General Internal Medicine 12/28/21 Funeral Driver Relationship Specialty Start Date End Date Nereida Davis CNP [address] [place] [address], [place] [address] PCP - General Internal Medicine 12/28/21 Funeral Driver Relationship Specialty Start Date End Date Nereida Davis CNP [address] [place] [address], [place] [address] PCP - General Internal Medicine 12/28/21 Funeral Driver Relationship Specialty Start Date End Date Nereida Davis CNP [address] [place] [address], [place] [address] PCP - General Internal Medicine 12/28/21 Funeral Driver Relationship Specialty Start Date End Date Nereida Davis CNP [address] [place] [place] [address], [place] [address] PCP - General Internal Medicine 12/28/21 Funeral Driver Relationship Specialty Start Date End Date Nereida Dvais CNP [address] [place] [address], [place] [address] PCP - General Internal Medicine 12/28/21 Funeral Driver Relationship Specialty Start Date End Date Nereida Davis CNP [address] [place] [address], [place] [address] PCP - General Internal Medicine 12/28/21 Funeral Driver Relationship Specialty Start Date End Date Nereida Davis CNP [address] [place] [address], [place] [address] PCP - General Internal Medicine 12/28/21 Funeral Driver Relationship Specialty Start Date End Date Nereida Davis CNP [address] [place] [address], [place] [address] PCP - General Internal Medicine 12/28/21 Team Status: Active Member Role Status Dates [facility] Family Provider Active [facility] Primary Care Provider A ctive Team Status: Inactive Member Role Status Dates [facility] Primary Care Provider A ctive Yeimi Chaudhary CAR HOPPER, CAR HOPPER-C Attending Provider, Referrin g Provider Active Team Status: Inactive Member Role Status Dates [facility] Primary Care Provider A ctive AKI LIMA Attending Provider, Referring Provider Ac tive Team Status: Inactive Member Role Status Dates [facility] Primary Care Provider, Referring Provider Active Dr. Samy Saravia , Attending Provider Active Team Status: Inactive Member Role Status Dates [facility] Primary Care Provider A ctive Mejia Leblanc MD Attending Provider, Emergency Provid er Active Team Status: Active Member Role Status Dates [facility] Primary Care Provider A ctive Dr. Samy Saravia , Attending Provider, Referring Provider Active Team Status: Inactive Member Role Status Dates [facility] Primary Care Provider A ctive Dr. Samy Saravia , Attending Provider Active Team Status: Inactive Member Role Status Dates [facility] Primary Care Provider A ctive Dr. Samy Saravia , Attending Provider, Referring Provider Active Funeral Driver Relationship Specialty Start Date End Date Nereida Davis CNP [address] [place] [address] PCP - General Internal Medicine 12/28/21 Yeimi Chaudhary NP [address] [place] [address] Referring Family Medicine 10/11/23 Funeral Driver Relationship Specialty Start Date End Date Nereida Davis CNP [address] [place] [address] PCP - General Internal Medicine 12/28/21 Yeimi Chaudhary NP [address] [place] [address] Referring Family Medicine 10/11/23 Funeral Driver Relationship Specialty Start Date End Date Nereida Davis CNP [address] [place] [address] PCP - General Internal Medicine 12/28/21 Yeimi Chaudhary NP [address] [place] [address] Referring Family Medicine 10/11/23 Funeral Driver Relationship Specialty Start Date End Date Nereida Davis CNP [address] [facility] [place] [address] PCP - General Internal Medicine 12/28/21 Yeimi Chaudhary NP [address] [place] [address] Referring Family Medicine 10/11/23 Funeral Driver Relationship Specialty Start Date End Date Nereida Davis CNP [address] [place] [address] PCP - General Internal Medicine 12/28/21 Yeimi Chaudhary NP [address] [place] [address] Referring Family Medicine 10/11/23 Funeral Driver Relationship Specialty Start Date End Date Nereida Davis CNP [address] [place] [address] PCP - General Internal Medicine 12/28/21 Yeimi Chaudhary NP [address] [facility] [place] [address] Referring Family Medicine 10/11/23 Team Status: Active Member Role Status Dates [facility] Family Provider Active Zebulun Beam VSC, CAR HOPPER-C Primary Care Provider Active Team Status: Inactive Member Role Status Dates Stevenludolores Beam VSC, CAR HOPPER-C Primary Care Provider Active Start: February 27, 2025 End: February 27, 2025 Zebulun Beam VSC, CAR HOPPER-C Attending Provider Active Start: February 27, 2025 End: February 27, 2025 Funeral Driver Relationship Specialty Start Date End Date Nereida Davis, LINDA [address] [place] [address] PCP - General Internal Medicine 12/28/21 Yeimi Chaudhary NP [address] [place] [address] Referring Family Medicine 10/11/23 Team Status: Active Member Role/Relationship Status Dates [facility] Family Provider Active Zebulun Beam VSC, CAR HOPPER-C Primary Care Provider Active Team Status: Inactive Member Role/Relationship Status Dates Zebulun Beam VSC, CAR HOPPER-C Primary Care Provider Active Start: February 27, 2025 End: February 27, 2025 Zebulun Beam VSC, CAR HOPPER-C Attending Provider Active Start: February 27, 2025 End: February 27, 2025 Team Status: Inactive Member Role/Relationship Status Dates Zebulun Beam VSC, CAR HOPPER-C Primary Care Provider Active Start: May 12, 2025 End: May 12, 2025 Zebulun Beam VSC, CAR HOPPER-C Referring Provider Active Start: May 12, 2025 End: May 12, 2025 Xochilt Toscano NP-C Attending Provider Active Start: May 12, 2025 End: May 12, 2025 Team Status: Active Member Role/Relationship Status Dates Zebulun Beam VSC, CAR HOPPER-C Primary Care Provider Active Team Status: Inactive Member Role/Relationship Status Dates Zebulun Beam VSC, CAR HOPPER-C Primary Care Provider Active Start: May 12, 2025 End: May 12, 2025 Xochilt Toscano NP-Bry Attending Provider Active Start: May 12, 2025 End: May 12, 2025 Xochilt Toscano NP-C Referring Provider Active Start: May 12, 2025 End: May 12, 2025 FOR RECORDS PERTAINING TO PATIENTS WHO ARE OR HAVE BEEN ENROLLED IN A CHEMICAL DEPENDENCY/SUBSTANCEABUSE PROGRAM, SOME INFORMATION MAY BE OMITTED. This clinical summary was aggregated from multiple sources. Caution should be exercised in using it in the provision of clinical care. This summary normalizes information from multiple sources, and as a consequence, information in this document may materially change the coding, format and clinical context of patient data. In addition, data may be omitted in some cases. CLINICAL DECISIONS SHOULD BE BASED ON THE PRIMARY CLINICAL RECORDS. [facility] [employer] [facility]. provides no warranty or guarantee of the accuracy or completeness of information in this document.
--- OUTSIDE RECORDS SUMMARY | 2025-05-28 22:45 | XMS RPT_ITS | CCD ---
Author Organization [facility] Care Team Providers Care Legal Services Professional Name Role Phone [facility] Primary Care Pro vider [facility] Referring Provid er Maggy GEAR TECHNICIAN, GEAR TECHNICIAN-Bry Gandhi Attending Provider Nereida Davis CNP Primary Care Provider FriendDr. Pablo Attending Provider [phone] FriendDr. Pablo Other Provider [phone] HODAN Davis Other Provider [phone] [place] [address], [facility]ider [facility] Referring Provid er Maggy LEYVA NP-Bry Gandhi Attending Provider [phone] Nereida Davis CNP Primary Care Provider Nereida Davis CNP Primary Care Provider [facility] Primary Care Pro vider [facility] Referring Provid er FriendDr. Pablo Attending Provider [phone] Nereida Davis CNP Primary Care Provider Jet [...] able PHYSICIAN, NONE Primary Care Unavailable Beam GEAR TECHNICIAN-C, Zebulun Primary Care Provider Beam GEAR TECHNICIAN-C, Zebulun Attending Provider Beam GEAR TECHNICIAN-C, Zebulun Referring Provider Everton GEAR TECHNICIAN-C, Xochilt Attending Provider [place] GEAR TECHNICIAN-C, Xochilt Referring Provider Beam VSC, Zebulun Primary Care Unavailable Beam VSC, Zebulun Referring Unavailable Xochilt Toscano Attending Unavailable [facility] [place], [facility] Primary Care Unavailable [place] VSC, Yeimi Attending Unavailabl e Jet VSC, Yeimi Referring Unavailabl e Beam VSC, Zebulun Primary Care Unavailable Beam VSC, Zebuleonardon Attending Unavailable Beam VSC, Zebulun Primary Care Unavailable Xochilt Toscano Attending Unavailable Xochilt Toscano Referring Unavailable [facility] [place], [facility] Primary Care Unavailable [place] VS, Yeimi Attending Unavailabl e Jet VSC, Yeimi Referring Unavailabl e Beam VSC, Zebulun Primary Care Unavailable Xochilt Toscano Attending Unavailable Xochilt Toscano Referring Unavailable Allergies Allergy Classification Reported Allergen(s) Allergy Type Date of Onset Reaction(s) Facility (20 sources) Morphine; Translations: [MORPHINE] Drug Allergy 02-23-2010 Itching [facility] (20 sources) Scopolamine; Translations: [SCOPOLAMINE] Drug Allergy 05-18-2016 Intolerance [facility] Work Phone: (1 source) Morphine Drug Allergy 05-12-2025 [facility] Repository Medications Current Medications Medication Drug Class(es) [...] on above: Take 1 capsule by mo [facility] once daily. Take 20 mg by mouth [...] Start: 03-16-2022 take 1 capsule by mo [facility] once daily Multivitamin Active 1 CAP PO DAILY March 15, 2022 11:00pm Start: 03-16-2022 take 1 capsule by mo [facility] once daily Multivitamin Active 1 CAP PO [...] on above: Take 1 capsule by mo [facility] once daily. salbutamol (VENTOLIN HFA) 100 mcg/actuation [...] once daily as needed for Anxiety. amylase 605160 unt / lipase 85831 unt / protease [id number] unt delayed release oral capsule (20 sources) Start: 07-14-2022 End: 05-12-2025 take 1 capsule by mouth three times daily at mealtime Zmvotz-Jolredpn-De ylase (Creon) 36,000-114,000- 180,000 unit capsule,delayed release(DR/EC) [...] on above: Take 1 capsule by mo [facility] before meals and at bedtime. metroNIDAZOLE 500 [...] Value Interpretation Reference Range Facility [id number] 05-18-2025 [facility] Misc. COMMENT Normal . [facility] Comment on above: Order Comment: [id number] 4PeTH LAV WB RMT Result Comment: Test Ordered: [id number] Phosphatidylethanol (PEth) PHOSPHATIDYLETHANOL Positive [A ] MX Reference Range: . Phosphatidylethanol (PEth) 1262 ng/mL MX Reference Range: . Analyzed compound: PEth 16:0/18:1. 8-dambdtqnf-0-jloodc-rc-nkmbikg-3-phosphoethanol. Analysis performed by Liquid Chromatography with Tandem [...] developed and its performance characteristics determined by [employer]. It has not been cleared or approved by the Food and Drug Administration. Performed at: [facility] [address] [place] [id number] Game Attendant: Kinsey Rivera [facility], Phone: [phone] Performed at: [facility] [address] [id number] Game Attendant: Aravind Gardner PhD, Phone: [phone] Performed By: #### L 500.4050, L100.0100 #### [facility] Laboratory [address] [place], [address] Absolute lymphocyte countOrd ered By: Xochilt Toscano on 05-12-2025 Lymphocytes Auto (Unsp spec) [#/Vol] 1.33 10*3/uL 0.83-4.51 [facility] Absolute neutrophil countOrd ered By: Xochilt Toscano on 05-12-2025 Neutrophils (Bld) [#/Vol] 4.2 10*3/uL 2.0-7.7 [facility] Automated lymphocyte count a s percentage of total leukocytesOrdered By: Xochilt Toscano on 05-12-2025 Lymphocytes/100 WBC Auto (Unsp spec) 22.1 % 19-41 [facility] Basophil percentageOrdered B y: Xochilt Toscano on 05-12-2025 Basophils/100 WBC (Bld) 1.2 % High 0-1 [facility] Bilirubin directOrdered By: Xochilt Toscano on 05-12-2025 Bilirubin.direct [Mass/Vol] 0.17 mg/dL 0.00-0.30 [facility] Bilirubin, totalOrdered By: Xochilt Toscano on 05-12-2025 Bilirubin [Mass/Vol] 0.43 mg/dL 0.00-1.30 [facility] CBC W/Diff, Automatedon 04-15 Absolute Lymph 1.33 X10 3/uL Normal 0.83-4.51 [facility] Comment on above: Performed By: #### L 300.3900, L100.0100, L3410.9992, L501.2450, L500.3400 #### [facility] Laboratory [address] [place], [address] Absolute Neut 4.2 X10 3/uL Normal 2.0-7.7 [facility] Comment on above: Performed By: #### L 300.3900, L100.0100, L3410.9992, L501.2450, L500.3400 #### [facility] Laboratory [address] [place], [address] Basophils/100 WBC (Bld) 1.2 % High 0-1 [facility] Comment on above: Performed By: #### L 300.3900, L100.0100, L3410.9992, L501.2450, L500.3400 #### [facility] Laboratory [address] [place], [address] Eosinophils/100 WBC (Bld) 1.3 % Normal 0-5 [facility] Comment on above: Performed By: #### L 300.3900, L100.0100, L3410.9992, L501.2450, L500.3400 #### [facility] Laboratory [address] [place], [address] Erythrocyte distribution width (RBC) [Ratio] 13.2 % Normal 11.6-14.6 [facility] Comment on above: Performed By: #### L 300.3900, L100.0100, L3410.9992, L501.2450, L500.3400 #### [facility] Laboratory [address] [place], [address] Hematocrit (Bld) [Volume fraction] 43.5 % Normal 37-47 [facility] Comment on above: Performed By: #### L 300.3900, L100.0100, L3410.9992, L501.2450, L500.3400 #### [facility] [address] [place], [address] Hemoglobin (Bld) [Mass/Vol] 15.1 g/dL High 12.0-15.0 [facility] Comment on above: Performed By: #### L 300.3900, L100.0100, L3410.9992, L501.2450, L500.3400 #### [facility] Laboratory [address] [place], [address] IG% 0.300 Normal 0.0-0.9 [facility] Comment on above: Result Comment: IG% - Immature Granulocytes (promyelocytes, myelocytes and metamyelocytes) > 1% indicates that a LEFT SHIFT is Present. Performed By: #### L 300.3900, L100.0100, L3410.9992, L501.2450, L500.3400 #### [facility] Laboratory [address] [place], [address] Lymphocytes/100 WBC (Bld) 22.1 % Normal 19-41 [facility] Comment on above: Performed By: #### L 300.3900, L100.0100, L3410.9992, L501.2450, L500.3400 #### [facility] Laboratory [address] [place], [address] MCH (RBC) [Entitic mass] 33.7 pg High 27.0-32.0 [facility] Comment on above: Performed By: #### L 300.3900, L100.0100, L3410.9992, L501.2450, L500.3400 #### [facility] Laboratory [address] [place], [address] MCHC (RBC) [Mass/Vol] 34.7 g/dL Normal 32-36 [facility] Comment on above: Performed By: #### L 300.3900, L100.0100, L3410.9992, L501.2450, L500.3400 #### [facility] [address] [place], [address] MCV (RBC) [Entitic vol] 97.1 fL Normal 81-99 [facility] Comment on above: Performed By: #### L 300.3900, L100.0100, L3410.9992, L501.2450, L500.3400 #### [facility] [address] [place], [address] Monocytes/100 WBC (Bld) 5.8 % Normal 0-10 [facility] Comment on above: Performed By: #### L 300.3900, L100.0100, L3410.9992, L501.2450, L500.3400 #### [facility] Laboratory [address] [place], [address] Neutrophils/100 WBC (Bld) 69.3 % Normal 47-70 [facility] Comment on above: Performed By: #### L 300.3900, L100.0100, L3410.9992, L501.2450, L500.3400 #### [facility] Laboratory [address] [place], [address] Nucleated RBC (Bld) [#/Vol] 0 10*3/uL Normal 0-5 [facility] Comment on above: Performed By: #### L 300.3900, L100.0100, L3410.9992, L501.2450, L500.3400 #### [facility] Laboratory [address] [place], [address] Platelet mean volume (Bld) [Entitic vol] 10.5 fL Normal 6.2-12.0 [facility] Comment on above: Performed By: #### L 300.3900, L100.0100, L3410.9992, L501.2450, L500.3400 #### [facility] Laboratory [address] [place], [address] Platelets (Bld) [#/Vol] 310 10*3/uL Normal 150-450 [facility] Comment on above: Performed By: #### L 300.3900, L100.0100, L3410.9992, L501.2450, L500.3400 #### [facility] Laboratory [address] [place], [address] RBC (Bld) [#/Vol] 4.48 10*6/uL Normal 4.2-5.4 [facility] Comment on above: Performed By: #### L 300.3900, L100.0100, L3410.9992, L501.2450, L500.3400 #### [facility] Laboratory [address] [place], [address] RDW SD 47.6 fl High 35.1-43.9 [facility] Comment on above: Performed By: #### L 300.3900, L100.0100, L3410.9992, L501.2450, L500.3400 #### [facility] Laboratory [address] [place], [address] WBC (Bld) [#/Vol] 6.0 10*3/uL Normal 4.4-11.0 [facility] Comment on above: Performed By: #### L 300.3900, L100.0100, L3410.9992, L501.2450, L500.3400 #### [facility] [address] [place], [address] Eosinophil percentageOrdered By: Xochilt Toscano on 05-12-2025 Eosinophils/100 WBC (Bld) 1.3 % 0-5 [facility] Erythrocyte distribution wid th ratioOrdered By: Xochilt Toscano on 05-12-2025 Erythrocyte distribution width (RBC) [Ratio] 13.2 % 11.6-14.6 [facility] Erythrocyte distribution wid th standard deviationOrdered By: Xochilt Toscano on 05-12-2025 Erythrocyte distribution width (RBC) [Ratio] 47.6 fl High 35.1-43.9 [facility] Gastroenterology Visit Repor ton 05-12-2025 Gastroenterology Visit Report [facility]astroenter[facility] [address] [place] [address] OFFICE VISIT Date of Service: 05/12/25 MR#: [id number] Acct: [id number] Name: SHAYNA LYONS Rep #: [id number] : 1965 Provider: HODAN soto Age/Sex: 59/F [place] [facility] Status: Signed Intake Vital Signs 08/19/23 [...] incontinence of bowel and bladder as well. 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 I think her mesenteric lymphadenopathy was possibly [...] chronic idio (more content not included)... Normal [facility] Hematocrit Auto (Bld) [Volum e fraction]Ordered By: Xochilt Toscano on 05-12-2025 Hematocrit (Bld) [Volume fraction] 43.5 % 37-47 [facility] Hemoglobin measurementOrdere d By: Xochilt Toscano on 05-12-2025 Hemoglobin (Bld) [Mass/Vol] 15.1 g/dL High 12.0-15.0 [facility] Immature granulocytes/100 WB C Auto (Bld)Ordered By: Xochilt Toscano on 05-12-2025 Immature granulocytes/100 WBC (Bld) 0.300 % 0.0-0.9 [facility] Comment on above: IG% - Immature Granu locytes (promyelocytes, myelocytes and metamyelocytes) > 1% indicates that a LEFT SHIFT is Present. International normalized rat io (INR) calculationOrdered By: Xochilt Toscano on 05-12-2025 INR Coag (Bld) [Relative time] 0.9 {INR} [facility] Laboratory - Chemistry and C hemistry - challengeOrdered By: Xochilt Toscano on 05-12-2025 AST [Catalytic activity/Vol] 33 U/L High <32 [facility] Lipaseon 05-12-2025 Lipase [Catalytic activity/Vol] 144 U/L High 13-75 [facility] Comment on above: Result Comment: Rachid multani note: LIPASE revised reference range effective 23. New Lipase methodology. Expected to produce lower values than the previous assay method. NEW Reference Range: 13 - 75 U/L Performed By: #### L 500.4050, L100.0100 #### [facility] [address] [place], [address] Lipase measurementOrdered By : Xochilt Toscano on 05-12-2025 Lipase [Catalytic activity/Vol] 144 U/L High 13-75 [facility] Comment on above: Please note:LIPASE r evised reference range effective 23. New Lipase methodology. Expected to produce lower values than the previous assay method. NEW Reference Range: 13 - 75 U/L Liver Profileon 05-12-2025 Albumin [Mass/Vol] 4.7 g/dL Normal 3.5-5.0 [facility] Comment on above: Performed By: #### L 500.4050, L100.0100 #### [facility] Laboratory [address] [place], [address] ALK PHOS 93 U/L Normal 35-104 [facility] Comment on above: Performed By: #### L 500.4050, L100.0100 #### [facility] Laboratory [address] [place], [address] ALT [Catalytic activity/Vol] 30 U/L Normal <=34 [facility] Comment on above: Performed By: #### L 500.4050, L100.0100 #### [facility] Laboratory [address] [place], [address] AST [Catalytic activity/Vol] 33 U/L High <=31 [facility] Comment on above: Performed By: #### L 500.4050, L100.0100 #### [facility] Laboratory [address] [place], [address] Bilirubin [Mass/Vol] 0.43 mg/dL Normal 0.00-1.30 [facility] Comment on above: Performed By: #### L 500.4050, L100.0100 #### [facility] Laboratory [address] [place], [address] Bilirubin.direct [Mass/Vol] 0.17 mg/dL Normal 0.00-0.30 [facility] Comment on above: Performed By: #### L 500.4050, L100.0100 #### [facility] Laboratory [address] [place], [address] Globulin (S) [Mass/Vol] 3.2 g/dL Normal 2.2-4.2 [facility] Comment on above: Performed By: #### L 500.4050, L100.0100 #### [facility] Laboratory [address] [place], [address] T PROT 7.9 g/dL Normal 5.9-8.4 [facility] Comment on above: Performed By: #### L 500.4050, L100.0100 #### [facility] Laboratory [address] [place], [address] MCV (mean corpuscular volume ) determinationOrdered By: Xochilt Toscano on 05-12-2025 MCV (RBC) [Entitic vol] 97.1 fL 81-99 [facility] Mean corpuscular hemoglobin (MCH) determinationOrdered By: Xochilt Toscano on 05-12-2025 MCH (RBC) [Entitic mass] 33.7 pg High 27.0-32.0 [facility] Mean corpuscular hemoglobin concentration (MCHC) determinationOrdered By: Xochilt Toscano on 05-12-2025 MCHC (RBC) [Mass/Vol] 34.7 g/dL 32-36 [facility] Mean platelet volume determi nationOrdered By: Xochilt Toscano on 05-12-2025 Platelet mean volume (Bld) [Entitic vol] 10.5 fL 6.2-12.0 [facility] Monocyte percentageOrdered B y: Xochilt Toscano on 05-12-2025 Monocytes/100 WBC (Bld) 5.8 % 0-10 [facility] Neutrophil percentageOrdered By: Xochilt Toscano on 05-12-2025 Neutrophils/100 WBC (Bld) 69.3 % 47-70 [facility] Nucleated red blood cell per centageOrdered By: Xochilt Toscano on 05-12-2025 Nucleated RBC/100 WBC (Bld) [Ratio] 0 % 0-5 [facility] Platelet countOrdered By: Zane Toscano on 05-12-2025 Platelets (Bld) [#/Vol] 310 10*3/uL 150-450 [facility] Prothrombin Time w/INRon INR Coag (PPP) [Relative time] 0.9 {INR} Normal [facility] Comment on above: Performed By: #### L 500.4050, L100.0100 #### [facility] Laboratory [address] [place], [address] PT Coag (PPP) [Time] 12.4 s Normal 11.7-14.9 [facility] Comment on above: Performed By: #### L 500.4050, L100.0100 #### [facility] [place], [address] Prothrombin timeOrdered By: Xochilt Toscano on 05-12-2025 PT Coag (PPP) [Time] 12.4 s 11.7-14.9 [facility] RBC Auto (Bld) [#/Vol]Ordere d By: Xochilt Toscano on 05-12-2025 RBC (Bld) [#/Vol] 4.48 10*6/uL 4.2-5.4 [facility] Serum globulin measurementOr dered By: Xochilt Toscano on 05-12-2025 Globulin (S) [Mass/Vol] 3.2 g/dL 2.2-4.2 [facility] Serum or plasma alanine nagel otransferase (ALT) measurementOrdered By: Xochilt Toscano on 05-12-2025 ALT [Catalytic activity/Vol] 30 U/L <35 [facility] Serum or plasma albumin emilee urement (mass/volume)Ordered By: Xochilt Toscano on 05-12-2025 Albumin [Mass/Vol] 4.7 g/dL 3.5-5.0 [facility] Serum or plasma alkaline rachel sphatase measurementOrdered By: Xochilt Toscano on 05-12-2025 ALP [Catalytic activity/Vol] 93 U/L 35-104 [facility] Total proteinOrdered By: Marva Toscano on 05-12-2025 Protein [Mass/Vol] 7.9 g/dL 5.9-8.4 [facility] White blood cell (WBC) count Ordered By: Xochilt Toscano on 05-12-2025 WBC (Bld) [#/Vol] 6.0 10*3/uL 4.4-11.0 [facility] CNPSusan 04-30-2025 TH[place]ON Telephone (TAI) ----- SHAYNA LYONS ([id number]) 1965 F Date Time Provider Department 04/30/25 GARTH MADISON, RALF LUJAN During your visit today, we [...] call and is scheduled for 07/02/[address] [place] [address] Darby. Allergies As of Date: [...] Status:Closed by LD LEPE on 05/01/25 Normal [facility] Absolute lymphocyte countOrd ered By: bulun Beam on 02-27-2025 Lymphocytes Auto (Unsp spec) [#/Vol] 1.35 10*3/uL 0.83-4.51 [facility] Absolute neutrophil countOrd ered By: bun Beam on 02-27-2025 Neutrophils (Bld) [#/Vol] 3.0 10*3/uL 2.0-7.7 [facility] Amylaseon 02-27-2025 GUILLERMO 90 U/L Normal 28-100 [facility] Comment on above: Performed By: #### L 501.2400, L500.4050, L501.2450, L100.0100, L501.9520 #### [facility] Laboratory [address] [place], [address] Anion gap in Serum or Plasma Ordered By: ann-mariedolores Beam on 02-27-2025 Anion gap [Moles/Vol] 15 mmol/L 5- [facility] Automated lymphocyte count a s percentage of total leukocytesOrdered By: bulun Beam on 02-27-2025 Lymphocytes/100 WBC Auto (Unsp spec) 28.0 % - [facility] BUN/creatinine ratioOrdered By: [facility] Beam on 02-27-2025 Urea nitrogen/Creatinine [Mass ratio] 14.0 mg/mg 10- [facility] Basophil percentageOrdered B y: Zebulun Beam on 02-27-2025 Basophils/100 WBC (Bld) 1.7 % High 0-1 [facility] Bilirubin, totalOrdered By: Mindy Horner on 02-27-2025 Bilirubin [Mass/Vol] 0.28 mg/dL 0.00-1.30 [facility] CBC W/Diff, Automatedon 02-11 Absolute Lymph 1.35 X10 3/uL Normal 0.83-4.51 [facility] Comment on above: Performed By: #### L 501.2400, L500.4050, L501.2450, L100.0100, L501.9520 #### [facility] Laboratory [address] [place], [address] Absolute Neut 3.0 X10 3/uL Normal 2.0-7.7 [facility] Comment on above: Performed By: #### L 501.2400, L500.4050, L501.2450, L100.0100, L501.9520 #### [facility] Laboratory [address] [place], [address] Basophils/100 WBC (Bld) 1.7 % High 0-1 [facility] Comment on above: Performed By: #### L 501.2400, L500.4050, L501.2450, L100.0100, L501.9520 #### [facility] Laboratory [address] [place], [address] Eosinophils/100 WBC (Bld) 1.9 % Normal 0-5 [facility] Comment on above: Performed By: #### L 501.2400, L500.4050, L501.2450, L100.0100, L501.9520 #### [facility] Laboratory [address] [place], [address] Erythrocyte distribution width (RBC) [Ratio] 12.5 % Normal 11.6-14.6 [facility] Comment on above: Performed By: #### L 501.2400, L500.4050, L501.2450, L100.0100, L501.9520 #### [facility] Laboratory [address] [place], [address] Hematocrit (Bld) [Volume fraction] 42.4 % Normal 37-47 [facility] Comment on above: Performed By: #### L 501.2400, L500.4050, L501.2450, L100.0100, L501.9520 #### [facility] Laboratory [address] [place], [address] Hemoglobin (Bld) [Mass/Vol] 14.8 g/dL Normal 12.0-15.0 [facility] Comment on above: Performed By: #### L 501.2400, L500.4050, L501.2450, L100.0100, L501.9520 #### [facility] [address] [place], [address] IG% 0.000 Normal 0.0-0.9 [facility] Comment on above: Result Comment: IG% - Immature Granulocytes (promyelocytes, myelocytes and metamyelocytes) > 1% indicates that a LEFT SHIFT is Present. Performed By: #### L 501.2400, L500.4050, L501.2450, L100.0100, L501.9520 #### [facility] [address] [place], [address] Lymphocytes/100 WBC (Bld) 28.0 % Normal 19-41 [facility] Comment on above: Performed By: #### L 501.2400, L500.4050, L501.2450, L100.0100, L501.9520 #### [facility] [address] [place], [address] MCH (RBC) [Entitic mass] 32.8 pg High 27.0-32.0 [facility] Comment on above: Performed By: #### L 501.2400, L500.4050, L501.2450, L100.0100, L501.9520 #### [facility] Laboratory [address] [place], [address] MCHC (RBC) [Mass/Vol] 34.9 g/dL Normal 32-36 [facility] Comment on above: Performed By: #### L 501.2400, L500.4050, L501.2450, L100.0100, L501.9520 #### [facility] [address] [place], [address] MCV (RBC) [Entitic vol] 94.0 fL Normal 81-99 [facility] Comment on above: Performed By: #### L 501.2400, L500.4050, L501.2450, L100.0100, L501.9520 #### [facility] [address] [place], [address] Monocytes/100 WBC (Bld) 7.2 % Normal 0-10 [facility] Comment on above: Performed By: #### L 501.2400, L500.4050, L501.2450, L100.0100, L501.9520 #### [facility] [address] [place], [address] Neutrophils/100 WBC (Bld) 61.2 % Normal 47-70 [facility] Comment on above: Performed By: #### L 501.2400, L500.4050, L501.2450, L100.0100, L501.9520 #### [facility] [address] [place], [address] Nucleated RBC (Bld) [#/Vol] 0 10*3/uL Normal 0-5 [facility] Comment on above: Performed By: #### L 501.2400, L500.4050, L501.2450, L100.0100, L501.9520 #### [facility] [address] [place], [address] Platelet mean volume (Bld) [Entitic vol] 9.5 fL Normal 6.2-12.0 [facility] Comment on above: Performed By: #### L 501.2400, L500.4050, L501.2450, L100.0100, L501.9520 #### [facility] [address] [place], [address] Platelets (Bld) [#/Vol] 297 10*3/uL Normal 150-450 [facility] Comment on above: Performed By: #### L 501.2400, L500.4050, L501.2450, L100.0100, L501.9520 #### [facility] [address] [place], [address] RBC (Bld) [#/Vol] 4.51 10*6/uL Normal 4.2-5.4 [facility] Comment on above: Performed By: #### L 501.2400, L500.4050, L501.2450, L100.0100, L501.9520 #### [facility] [address] [place], [address] RDW SD 43.3 fl Normal 35.1-43.9 [facility] Comment on above: Performed By: #### L 501.2400, L500.4050, L501.2450, L100.0100, L501.9520 #### [facility] [address] [place], [address] WBC (Bld) [#/Vol] 4.8 10*3/uL Normal 4.4-11.0 [facility] Comment on above: Performed By: #### L 501.2400, L500.4050, L501.2450, L100.0100, L501.9520 #### [facility] [address] [place], [address] Carbon dioxide, total [Moles /volume] in Central venous bloodOrdered By: Mindy Horner on 02-27-2025 CO2 [Moles/Vol] 24.1 mmol/L 21.0-32.0 [facility] Chloride assayOrdered By: Grabiel Horner on 02-27-2025 Chloride [Moles/Vol] 102 mmol/L 98-108 [facility] Comprehensive Metabolic Prof ilon 02-27-2025 Albumin [Mass/Vol] 4.4 g/dL Normal 3.5-5.0 [facility] Comment on above: Performed By: #### L 501.2400, L500.4050, L501.2450, L100.0100, L501.9520 #### [facility] [address] [place], [address] Albumin/Globulin [Mass ratio] 1.5 {ratio} Normal 0.9-2.4 [facility] Comment on above: Performed By: #### L 501.2400, L500.4050, L501.2450, L100.0100, L501.9520 #### [facility] [address] [place], [address] ALK PHOS 91 U/L Normal 35-104 [facility] Comment on above: Performed By: #### L 501.2400, L500.4050, L501.2450, L100.0100, L501.9520 #### [facility] [address] [place], [address] ALT [Catalytic activity/Vol] 19 U/L Normal <=34 [facility] Comment on above: Performed By: #### L 501.2400, L500.4050, L501.2450, L100.0100, L501.9520 #### [facility] [address] [place], [address] AST [Catalytic activity/Vol] 29 U/L Normal <=31 [facility] Comment on above: Performed By: #### L 501.2400, L500.4050, L501.2450, L100.0100, L501.9520 #### [facility] [address] [place], [address] Bilirubin [Mass/Vol] 0.28 mg/dL Normal 0.00-1.30 [facility] Comment on above: Performed By: #### L 501.2400, L500.4050, L501.2450, L100.0100, L501.9520 #### [facility] [address] [place], [address] BUN/CRE 14.0 RATIO Normal 10-20 [facility] Comment on above: Performed By: #### L 501.2400, L500.4050, L501.2450, L100.0100, L501.9520 #### [facility] [address] [place], [address] Calcium [Mass/Vol] 9.4 mg/dL Normal 7.6-11.0 [facility] Comment on above: Performed By: #### L 501.2400, L500.4050, L501.2450, L100.0100, L501.9520 #### [facility] [address] [place], [address] Chloride [Moles/Vol] 102 mmol/L Normal 98-108 [facility] Comment on above: Performed By: #### L 501.2400, L500.4050, L501.2450, L100.0100, L501.9520 #### [facility] [address] [place], [address] CO2 [Moles/Vol] 24.1 mmol/L Normal 21.0-32.0 [facility] Comment on above: Performed By: #### L 501.2400, L500.4050, L501.2450, L100.0100, L501.9520 #### [facility] [address] [place], [address] Creatinine [Mass/Vol] 0.76 mg/dL Normal 0.70-1.20 [facility] Comment on above: Performed By: #### L 501.2400, L500.4050, L501.2450, L100.0100, L501.9520 #### [facility] [address] [place], [address] GAP 15 Normal 5-15 [facility] Comment on above: Performed By: #### L 501.2400, L500.4050, L501.2450, L100.0100, L501.9520 #### [facility] [address] [place], [address] GFR/1.73 sq M.predicted among non-blacks MDRD (S/P/Bld) [Vol rate/Area] 91 mL/min/{1.73_m2} Normal >60 [facility] Comment on above: Result Comment: mL/m in/1.73m2 CKD-EPI Creatinine Equation (2020) Performed By: #### L 501.2400, L500.4050, L501.2450, L100.0100, L501.9520 #### [facility] [address] [place], [address] Globulin (S) [Mass/Vol] 2.8 g/dL Normal 2.2-4.2 [facility] Comment on above: Performed By: #### L 501.2400, L500.4050, L501.2450, L100.0100, L501.9520 #### [facility] [address] [place], [address] Glucose [Mass/Vol] 88 mg/dL Normal 70-99 [facility] Comment on above: Performed By: #### L 501.2400, L500.4050, L501.2450, L100.0100, L501.9520 #### [facility] [address] [place], [address] Potassium [Moles/Vol] 4.2 mmol/L Normal 3.3-5.1 [facility] Comment on above: Performed By: #### L 501.2400, L500.4050, L501.2450, L100.0100, L501.9520 #### [facility] [address] [place], [address] Sodium [Moles/Vol] 140 mmol/L Normal 133-145 [facility] Comment on above: Performed By: #### L 501.2400, L500.4050, L501.2450, L100.0100, L501.9520 #### [facility] [address] [place], [address] T PROT 7.2 g/dL Normal 5.9-8.4 [facility] Comment on above: Performed By: #### L 501.2400, L500.4050, L501.2450, L100.0100, L501.9520 #### [facility] [address] [place], [address] Urea nitrogen [Mass/Vol] 11 mg/dL Normal 4-19 [facility] Comment on above: Performed By: #### L 501.2400, L500.4050, L501.2450, L100.0100, L501.9520 #### [facility] [address] [place], [address] Eosinophil percentageOrdered By: Zebulun Beam on 02-27-2025 Eosinophils/100 WBC (Bld) 1.9 % 0-5 [facility] Erythrocyte distribution wid th (RBC) [Ratio]Ordered By: Zebulun Beam on 02-27-2025 Erythrocyte distribution width (RBC) [Entitic vol] 43.3 fL 35.1-43.9 [facility] Erythrocyte distribution wid th ratioOrdered By: Zebulun Beam on 02-27-2025 Erythrocyte distribution width (RBC) [Ratio] 12.5 % 11.6-14.6 [facility] Erythrocyte distribution wid th standard deviationOrdered By: Mindy Horner on 02-27-2025 Erythrocyte distribution width (RBC) [Ratio] 43.3 fl 35.1-43.9 [facility] GFR/1.73 sq M.predicted gia g non-blacks MDRD (S/P/Bld) [Vol rate/Area]Ordered By: Mindy Horner on 02-27-2025 Estimated GFR (MDRD) Non-Af Amer 91 >60 [facility] Comment on above: mL/min/1.73m2 CKD-EP I Creatinine Equation (2020) Glomerular filtration rate ( GFR) estimation/1.73 sq m using serum, plasma, or whole bOrdered By: Mindy Horner on 02-27-2025 GFR/1.73 sq M.predicted among non-blacks MDRD (S/P/Bld) [Vol rate/Area] 91 mL/min/{1.73_m2} >60 [facility] Comment on above: mL/min/1.73m2 CKD-EP I Creatinine Equation (2020) Hematocrit Auto (Bld) [Volum e fraction]Ordered By: Mindy Horner on 02-27-2025 Hematocrit (Bld) [Volume fraction] 42.4 % 37-47 [facility] Hemoglobin measurementOrdere d By: Mindy Horner on 02-27-2025 Hemoglobin (Bld) [Mass/Vol] 14.8 g/dL 12.0-15.0 [facility] Immature granulocytes/100 WB C Auto (Bld)Ordered By: Mindy Horner on 02-27-2025 Immature granulocytes/100 WBC (Bld) 0.000 % 0.0-0.9 [facility] Comment on above: IG% - Immature Granu locytes (promyelocytes, myelocytes and metamyelocytes) > 1% indicates that a LEFT SHIFT is Present. Laboratory - Chemistry and C hemistry - challengeOrdered By: Mindy Horner on 02-27-2025 AST [Catalytic activity/Vol] 29 U/L <32 [facility] Lipaseon 02-27-2025 Lipase [Catalytic activity/Vol] 38 U/L Normal 13-75 [facility] Comment on above: Result Comment: Plea se note: LIPASE revised reference range effective 23. New Lipase methodology. Expected to produce lower values than the previous assay method. NEW Reference Range: 13 - 75 U/L Performed By: #### L 501.2400, L500.4050, L501.2450, L100.0100, L501.9520 #### [facility] [address] [place], [address] Lipase measurementOrdered By : Grabielbulun Beam on 02-27-2025 Lipase [Catalytic activity/Vol] 38 U/L 13-75 [facility] Comment on above: Please note:LIPASE r evised reference range effective 23. New Lipase methodology. Expected to produce lower values than the previous assay method. NEW Reference Range: 13 - 75 U/L Lymphocytes Auto (Unsp spec) [#/Vol]Ordered By: ann-marien Beam on 02-27-2025 Lymphocytes (Bld) [#/Vol] 1.35 10*3/uL 0.83-4.5 1 [facility] Lymphocytes/100 WBC Auto (Un sp spec)Ordered By: bulun Beam on 02-27-2025 Lymphocytes/100 WBC (Bld) 28.0 % 19-41 [facility] MCV (mean corpuscular volume ) determinationOrdered By: ann-marien Beam on 02-27-2025 MCV (RBC) [Entitic vol] 94.0 fL 81-99 [facility] Mean corpuscular hemoglobin (MCH) determinationOrdered By: bun Beam on 02-27-2025 MCH (RBC) [Entitic mass] 32.8 pg High 27.0-32.0 [facility] Mean corpuscular hemoglobin concentration (MCHC) determinationOrdered By: bulun Beam on 02-27-2025 MCHC (RBC) [Mass/Vol] 34.9 g/dL 32-36 [facility] Mean platelet volume determi nationOrdered By: bulun Beam on 02-27-2025 Platelet mean volume (Bld) [Entitic vol] 9.5 fL 6.2-12.0 [facility] Monocyte percentageOrdered B y: Zebulun Beam on 02-27-2025 Monocytes/100 WBC (Bld) 7.2 % 0-10 [facility] Neutrophil percentageOrdered By: Zebulun Beam on 02-27-2025 Neutrophils/100 WBC (Bld) 61.2 % 47-70 [facility] Nucleated red blood cell per centageOrdered By: Zeann-marielun Beam on 02-27-2025 Nucleated RBC/100 WBC (Bld) [Ratio] 0 % 0-5 [facility] Platelet countOrdered By: Grabiel Horner on 02-27-2025 Platelets (Bld) [#/Vol] 297 10*3/uL 150-450 [facility] Potassium (Unsp spec) [Mass/ Vol]Ordered By: Mindy Beam on 02-27-2025 Potassium [Moles/Vol] 4.2 mmol/L 3.3-5.1 [facility] Potassium measurement (mass/ volume)Ordered By: Mindy Horner on 02-27-2025 Potassium (Unsp spec) [Mass/Vol] 4.2 mmol/L 3.3-5.1 [facility] RBC Auto (Bld) [#/Vol]Ordere d By: Stevenludolores Beam on 02-27-2025 RBC (Bld) [#/Vol] 4.51 10*6/uL 4.2-5.4 [facility] Serum creatinine measurement (mass/volume)Ordered By: Mindy Horner on 02-27-2025 Creatinine [Mass/Vol] 0.76 mg/dL 0.70-1.20 [facility] Serum globulin measurementOr dered By: Mindy Beam on 02-27-2025 Globulin (S) [Mass/Vol] 2.8 g/dL 2.2-4.2 [facility] Serum glucose measurement (m ass/volume)Ordered By: Mindy Beam on 02-27-2025 Glucose [Mass/Vol] 88 mg/dL 70-99 [facility] Serum or plasma alanine nagel otransferase (ALT) measurementOrdered By: Mindy Beam on 02-27-2025 ALT [Catalytic activity/Vol] 19 U/L <35 [facility] Serum or plasma albumin emilee urement (mass/volume)Ordered By: Stevenlun Beam on 02-27-2025 Albumin [Mass/Vol] 4.4 g/dL 3.5-5.0 [facility] Serum or plasma albumin/glob ulin mass ratioOrdered By: bulun Beam on 02-27-2025 Albumin/Globulin [Mass ratio] 1.5 {ratio} 0.9-2.4 [facility] Serum or plasma alkaline rachel sphatase measurementOrdered By: Zebun Beam on 02-27-2025 ALP [Catalytic activity/Vol] 91 U/L 35-104 [facility] Serum or plasma amylase emilee urement (enzymatic activity/volume)Ordered By: Grabielbuludolores Beam on 02-27-2025 Amylase [Catalytic activity/Vol] 90 U/L 28-100 [facility] Serum or plasma calcium emilee urement (mass/volume)Ordered By: Grabielbulun Beam on 02-27-2025 Calcium [Mass/Vol] 9.4 mg/dL 7.6-11.0 [facility] Serum or plasma urea nitroge n measurement (mass/volume)Ordered By: Grabielbulun Beam on 02-27-2025 Urea nitrogen [Mass/Vol] 11 mg/dL 4-19 [facility] Sodium levelOrdered By: Steven Horner on 02-27-2025 Sodium [Moles/Vol] 140 mmol/L 133-145 [facility] TSH DL <= 0.005 mIU/L QnOrde red By: Mindy Beam on 02-27-2025 Thyroid Stimulating Hormone (TSH) 1.660 uIU/mL 0.300-4.20 0 [facility] TSH Qn 1.660 uIU/mL 0.300-4.20 0 [facility] Thyroid Stim Hormone (TSH)on 02-27-2025 TSH 1.660 uIU/mL Normal 0.300-4.20 0 [facility] Comment on above: Performed By: #### L 501.2400, L500.4050, L501.2450, L100.0100, L501.9520 #### [facility] [address] [place], [place], [id number] Total proteinOrdered By: Kendall ulun Beam on 02-27-2025 Protein [Mass/Vol] 7.2 g/dL 5.9-8.4 [facility] White blood cell (WBC) count Ordered By: Stevenlun Beam on 02-27-2025 WBC (Bld) [#/Vol] 4.8 10*3/uL 4.4-11.0 [facility] XR WRIST MINIMUM 3 VIEWS [...] 01/31/2025 2:29:21 PM Ordering Provider: EVERTON GAMBLE [facility] MAIN CT WRIST W/O CONTRAST LEFTon 01-21-2025 [...] 01/21/2025 3:40:24 PM Ordering Provider: EVERTON GAMBLE [facility] MAIN XR WRIST MINIMUM 3 VIEWS [facility] 01-08-2025 XR WRIST MINIMUM 3 VIEWS LEFT [...] 01/08/2025 2:58:36 PM Ordering Provider: EVERTON GAMBLE [facility] MAIN XR WRIST MINIMUM 3 VIEWS [facility] 12-27-2024 XR WRIST MINIMUM 3 VIEWS LEFT [...] Sign Date: 12/27/2024 8:18:43 AM Ordering Provider: [facility] XR WRIST MINIMUM 3 VIEWS LEF Ton [...] Nondisplaced radial fracture. Interpreted by: Juan Miguel Leyav MD Preliminary Report By: Juan Miguel Leyva MD Electronically signed By Juan Miguel Leyva MD Dictated Date: 12/12/2024 10:55:25 AM Prelim Date: 12/12/2024 10:56:18 AM Sign Date: 12/12/2024 10:56:18 AM [facility] Telephone ([facility]) ----- SHAYNA LYONS ([id number]) 1965 F Date Time Provider Department 12/02/24 HERMILO ARIAS JR [facility] During your visit today, we recorded the [...] for Encounter Date Provider Department Center 12/02/2024 [id number] JR, PAUL [facility] Encounter Status:Closed by HERMILO ARIAS on 12/02/24 [facility] CNOVon 11-30-2024 [facility] Office Visit ([facility] ) ----- SHAYNA LYONS ([id number]) 1965 F Date Time Provider Department 11/30/24 12:05 PM MICHELLE NAVARRO [facility] During your visit today, we recorded the [...] will have (more content not included)... Normal [facility] XR ELBOW 3V AP/LAT/OTHER LTo n 11-30-2024 [...] XR WRIST 4V PA/LAT/OBL/SCAPH LT Ordering Physician: MIHCELLE NAVARRO LEFT ELBOW 4 VIEWS Clinical Statement: [...] contacted by the Imaging Support Navigator Team. Adult Education Teacher: [place] Transcribe Date/Time: Dec 02 2024 6:44A Dictated by : ALYSON OG MD This examination was interpreted and the report reviewed and electronically signed by: ALYSON OG MD on Dec 02 2024 6:48AM EST [id number] [facility] XR HAND 3V PA/LAT/OBL LTon 0 11-30-2024 [...] contacted by the Imaging Support Navigator Team. Adult Education Teacher: PSCB Transcribe Date/Time: Dec 02 2024 6:44A Dictated by : ALYSON OG MD This examination was interpreted and the report reviewed and electronically signed by: ALYSON OG MD on Dec 02 2024 6:48AM EST [id number] [facility] XR WRIST 4V PA/LAT/OBL/SCAPH LTon 11-30-2024 XR [...] contacted by the Imaging Support Navigator Team. Adult Education Teacher: B[place] Transcribe Date/Time: Dec 02 2024 6:44A Dictated by : ALYSON OG MD This examination was interpreted and the report reviewed and electronically signed by: ALYSON OG MD on Dec 02 2024 6:48AM EST [id number] Normal [facility] Kidney and Bladderon 024 Kidney and Bladder [facility] Imaging Services [address] [place] [id number] Kidney and Bladder MR#: [id number] Acct: [id number] Name: SHAYNA LYONS Rep #: [id number] : 1965 F 58 From: Mao thomas MD PCP: [facility] Status: REG CLI Study: Kidney and Bladder Date of Exam: 06/05/24 Exam# [id number] Ordering Dr: Yeimi Chaudhary [facility] GEAR TECHNICIAN-C [id number] INDICATION: ABD PAIN EXAMINATION: Ultrasound US Kidney(s) [...] 15:53 EDT Reading Location ID and State: [facility] [place] Tel , Service support , CC: [facility] GEAR TECHNICIAN-C Yeimi Chaudhary; [facility] Adult Education Teacher: Signed Normal [facility] CBC W/Diff, Automatedon 05-13 Absolute Lymph 1.73 X10 3/uL Normal 0.83-4.51 [facility] Comment on above: Performed By: #### L 500.4050, L100.0100 #### [facility] [address] [place], [address] Absolute Neut 2.4 X10 3/uL Normal 2.0-7.7 [facility] Comment on above: Performed By: #### L 500.4050, L100.0100 #### [facility] [address] [place], [address] Basophils/100 WBC (Bld) 2.2 % High 0-1 [facility] Comment on above: Performed By: #### L 500.4050, L100.0100 #### [facility] [address] [place], [address] Eosinophils/100 WBC (Bld) 2.9 % Normal 0-5 [facility] Comment on above: Performed By: #### L 500.4050, L100.0100 #### [facility] [address] [place], [address] Erythrocyte distribution width (RBC) [Ratio] 13.2 % Normal 11.6-14.6 [facility] Comment on above: Performed By: #### L 500.4050, L100.0100 #### [facility] [address] [place], [address] Hematocrit (Bld) [Volume fraction] 40.4 % Normal 37-47 [facility] Comment on above: Performed By: #### L 500.4050, L100.0100 #### [facility] [address] [place], [address] Hemoglobin (Bld) [Mass/Vol] 13.6 g/dL Normal 12.0-15.0 [facility] Comment on above: Performed By: #### L 500.4050, L100.0100 #### [facility] [address] [place], [address] IG% 0.200 Normal 0.0-0.9 [facility] Comment on above: Result Comment: IG% - Immature Granulocytes (promyelocytes, myelocytes and metamyelocytes) > 1% indicates that a LEFT SHIFT is Present. Performed By: #### L 500.4050, L100.0100 #### [facility] [address] [place], [address] Lymphocytes/100 WBC (Bld) 33.9 % Normal 19-41 [facility] Comment on above: Performed By: #### L 500.4050, L100.0100 #### [facility] [address] [place], [address] MCH (RBC) [Entitic mass] 32.2 pg High 27.0-32.0 [facility] Comment on above: Performed By: #### L 500.4050, L100.0100 #### [facility] [address] [place], [address] MCHC (RBC) [Mass/Vol] 33.7 g/dL Normal 32-36 [facility] Comment on above: Performed By: #### L 500.4050, L100.0100 #### [facility] [address] [place], [address] MCV (RBC) [Entitic vol] 95.5 fL Normal 81-99 [facility] Comment on above: Performed By: #### L 500.4050, L100.0100 #### [facility] [address] [place], [address] Monocytes/100 WBC (Bld) 13.3 % High 0-10 [facility] Comment on above: Performed By: #### L 500.4050, L100.0100 #### [facility] [address] [place], [address] Neutrophils/100 WBC (Bld) 47.5 % Normal 47-70 [facility] Comment on above: Performed By: #### L 500.4050, L100.0100 #### [facility] [address] [place], [address] Nucleated RBC (Bld) [#/Vol] 0 10*3/uL Normal 0-5 [facility] Comment on above: Performed By: #### L 500.4050, L100.0100 #### [facility] [address] [place], [address] Platelet mean volume (Bld) [Entitic vol] 9.8 fL Normal 6.2-12.0 [facility] Comment on above: Performed By: #### L 500.4050, L100.0100 #### [facility] [address] [place], [address] Platelets (Bld) [#/Vol] 258 10*3/uL Normal 150-450 [facility] Comment on above: Performed By: #### L 500.4050, L100.0100 #### [facility] [address] [place], [address] RBC (Bld) [#/Vol] 4.23 10*6/uL Normal 4.2-5.4 [facility] Comment on above: Performed By: #### L 500.4050, L100.0100 #### [facility] [address] [place], [address] RDW SD 46.6 fl High 35.1-43.9 [facility] Comment on above: Performed By: #### L 500.4050, L100.0100 #### [facility] [address] [place], [address] WBC (Bld) [#/Vol] 5.1 10*3/uL Normal 4.4-11.0 [facility] Comment on above: Performed By: #### L 500.4050, L100.0100 #### [facility] [facility] [address] [place], [address] Comprehensive Metabolic Prof [facility] 05-30-2024 Albumin [Mass/Vol] 4.2 g/dL Normal 3.2-5.0 [facility] Comment on above: Performed By: #### L 500.4050, L100.0100 #### [facility] [address] [place], [address] Albumin/Globulin [Mass ratio] 1.2 {ratio} Normal 0.9-2.4 [facility] Comment on above: Performed By: #### L 500.4050, L100.0100 #### [facility] [address] [place], [address] ALK P 70 U/L Normal 45-117 [facility] Comment on above: Performed By: #### L 500.4050, L100.0100 #### [facility] [address] [place], [address] ALT [Catalytic activity/Vol] 63 U/L High 13-56 [facility] Comment on above: Performed By: #### L 500.4050, L100.0100 #### [facility] [address] [place], [address] AST [Catalytic activity/Vol] 33 U/L Normal 15-37 [facility] Comment on above: Performed By: #### L 500.4050, L100.0100 #### [facility] [address] [place], [address] Bilirubin [Mass/Vol] 0.50 mg/dL Normal 0.20-1.00 [facility] Comment on above: Result Comment: For patients on eltrombopag therapy, use of Dimension [place] TBIL is not recommended. Performed By: #### L 500.4050, L100.0100 #### [facility] [address] [place], [address] BUN/CRE 20.2 RATIO High 10-20 [facility] Comment on above: Performed By: #### L 500.4050, L100.0100 #### [facility] [address] [place], [address] CA,Total 9.9 mg/dL Normal 8.5-10.1 [facility] Comment on above: Performed By: #### L 500.4050, L100.0100 #### [facility] [address] [place], [address] Chloride [Moles/Vol] 104 mmol/L Normal 98-107 [facility] Comment on above: Performed By: #### L 500.4050, L100.0100 #### [facility] [address] [place], [address] CO2 [Moles/Vol] 25.0 mmol/L Normal 21.0-32.0 [facility] Comment on above: Performed By: #### L 500.4050, L100.0100 #### [facility] [address] [place], [address] Creatinine [Mass/Vol] 0.64 mg/dL Normal 0.55-1.02 [facility] Comment on above: Result Comment: The validity of the calculated GFR GFRAA in patients over 70 years has not been determined. Clinical correlation is essential. Performed By: #### L 500.4050, L100.0100 #### [facility] [address] [place], [address] EST GFR - AA 123 mL/min Normal >60 [facility] Comment on above: Result Comment: Afri can [place] GFR Calc Performed By: #### L 500.4050, L100.0100 #### [facility] [address] [place], [address] GAP 7 Normal 5-15 [facility] Comment on above: Performed By: #### L 500.4050, L100.0100 #### [facility] [address] [place], [address] GFR/1.73 sq M.predicted among non-blacks MDRD (S/P/Bld) [Vol rate/Area] 101 mL/min/{1.73_m2} Normal >60 [facility] Comment on above: Result Comment: Non- GFR Calc Performed By: #### L 500.4050, L100.0100 #### [facility] [address] [place], [address] Globulin (S) [Mass/Vol] 3.5 g/dL Normal 2.2-4.2 [facility] Comment on above: Performed By: #### L 500.4050, L100.0100 #### [facility] [address] [place], [address] Glucose [Mass/Vol] 94 mg/dL Normal 74-106 [facility] Comment on above: Performed By: #### L 500.4050, L100.0100 #### [facility] [address] [place], [address] Potassium [Moles/Vol] 4.4 mmol/L Normal 3.5-5.1 [facility] Comment on above: Performed By: #### L 500.4050, L100.0100 #### [facility] [address] [place], [address] Sodium [Moles/Vol] 136 mmol/L Normal 136-145 [facility] Comment on above: Performed By: #### L 500.4050, L100.0100 #### [facility] [address] [place], [address] T PROT 7.7 g/dL Normal 6.4-8.2 [facility] Comment on above: Performed By: #### L 500.4050, L100.0100 #### [facility] [address] [place], [address] Urea nitrogen [Mass/Vol] 13 mg/dL Normal 7-18 [facility] Comment on above: Performed By: #### L 500.4050, L100.0100 #### [facility] [address] [place], [address] Absolute lymphocyte countOrd ered By: Samy Saravia on 10-03-2023 Lymphocytes Auto (Unsp spec) [#/Vol] 1.54 10*3/uL 0.83-4.51 [facility] Albumin Elph [Mass/Vol]Order ed By: Samy Saravia on 10-03-2023 Albumin [Mass/Vol] 1.0 g/dL 2.9-4.4 [facility] Atypical perinuclear antineu trophil cytoplasmic antibodies measurementOrdered By: Samy Saravia on 10-03-2023 Neutrophil cytoplasmic Ab.perinuclear.atypical IF (S) [Titer] <1:20 titer Neg:<1:20 [facility] Comment on above: The atypical pANCA p attern has been observed in asignificant percentage of patients with ulcerative colitis,primary sclerosing cholangitis and autoimmune hepatitis. Basophil percentageOrdered B y: Samy Saravia on 10-03-2023 Amylase [Catalytic activity/Vol] 65 U/L 25-115 [facility] Basophil percentage < 0.2 AI 0.0-0.9 [facility] Basophils/100 WBC (Bld) 1.4 % 0-1 [facility] Bilirubin [Mass/Vol] 0.70 mg/dL 0.20-1.00 [facility] Comment on above: For patients on eltr ombopag therapy, use of Dimension [place] TBIL is not recommended. Chloride [Moles/Vol] 101 mmol/L 98-107 [facility] Eosinophils/100 WBC (Bld) 2.7 % 0-5 [facility] Glucose [Mass/Vol] 91 mg/dL 74-106 [facility] Neutrophils (Bld) [#/Vol] 2.9 10*3/uL 2.0-7.7 [facility] Neutrophils/100 WBC (Bld) 57.6 % 47-70 [facility] Potassium [Moles/Vol] 4.4 mmol/L 3.5-5.1 [facility] Protein [Mass/Vol] 8.1 g/dL 6.4-8.2 [facility] Sodium [Moles/Vol] 135 mmol/L 136-145 [facility] Triglyceride [Mass/Vol] 76 mg/dL <199 [facility] Comment on above: The drugs N-Acetylcy steine and Metamizole may falsely depress this assay.Serum Triglycerides Reference Interval Normal <150 mg/dL Borderline high 150 - 199 mg/dL High 200 - 499 mg/dL Very High > or = 500 mg/dL WBC (Bld) [#/Vol] 5.1 10*3/uL 4.4-11.0 [facility] Blood erythrocytes count (nu mber/volume)Ordered By: Samy Saravia on 10-03-2023 RBC (Bld) [#/Vol] 5.20 10*6/uL 4.2-5.4 [facility] Blood hemoglobin measurement (mass/volume)Ordered By: Samy Saravia on 10-03-2023 Hemoglobin (Bld) [Mass/Vol] 16.5 g/dL 12.0-15.0 [facility] Blood lymphocytes/100 leukoc ytesOrdered By: Samy Saravia on 10-03-2023 Lymphocytes/100 WBC (Bld) 30.1 % 19-41 [facility] Blood monocytes/100 leukocyt esOrdered By: Samy Saravia on 10-03-2023 Monocytes/100 WBC (Bld) 8.0 % 0-10 [facility] Blood platelet mean volumeOr dered By: Samy Saravia on 10-03-2023 Platelet mean volume (Bld) [Entitic vol] 9.5 fL 6.2-12.0 [facility] Determination of erythrocyte mean corpuscular volume (MCV)Ordered By: Samy Saravia on 10-03-2023 MCV (RBC) [Entitic vol] 93.3 fL 81-99 [facility] Erythrocyte sedimentation ra teOrdered By: Samy Saravia on 10-03-2023 ESR (Bld) [Velocity] 1 mm/h 0-30 [facility] Hematocrit Auto (Bld) [Volum e fraction]Ordered By: Samy Saravia on 10-03-2023 Hematocrit (Bld) [Volume fraction] 48.5 % 37-47 [facility] Interpretation of serum or p lasma protein pattern by immunofixation (narrative resultOrdered By: Samy Saravia on 10-03-2023 Protein Fractions Immunofixation Jorge [Interp] Not Observed g/dL Not Observed [facility] - Chemistry and C hemistry - challengeOrdered By: Samy Saravia on 10-03-2023 ALP [Catalytic activity/Vol] 89 U/L 45-117 [facility] ALT [Catalytic activity/Vol] 28 U/L 13-56 [facility] CO2 [Moles/Vol] 26.0 mmol/L 21.0-32.0 [facility] Lipase [Catalytic activity/Vol] 36 U/L 13-75 [facility] Comment on above: Please note:LIPASE r evised reference range effective 23. New Lipase methodology. Expected to produce lower values than the previous assay method. NEW Reference Range: 13 - 75 U/L Urea nitrogen/Creatinine [Mass ratio] 13.8 mg/mg 10-20 [facility] - Hematology and Cell countsOrdered By: Samy Saravia on 10-03-2023 Erythrocyte distribution width (RBC) [Entitic vol] 44.0 fL 35.1-43.9 [facility] Erythrocyte distribution width (RBC) [Ratio] 12.8 % 11.6-14.6 [facility] Immature granulocytes/100 WBC (Bld) 0.200 % 0.0-0.9 [facility] Comment on above: IG% - Immature Granu locytes (promyelocytes, myelocytes and metamyelocytes) > 1% indicates that a LEFT SHIFT is Present. MCH (RBC) [Entitic mass] 31.7 pg 27.0-32.0 [facility] Nucleated RBC/100 WBC (Bld) [Ratio] 0 % 0-5 [facility] MCHC Auto (RBC) [Mass/Vol]Or dered By: Samy Saravia on 10-03-2023 MCHC (RBC) [Mass/Vol] 34.0 g/dL 32-36 [facility] No Panel InformationOrdered By: Samy Saravia on 10-03-2023 Addendum Document Comment . [facility] Comment on above: Protein electrophore sis scan will follow via computer,mail, or appeals specialist delivery. CA 19-9 Antigen < 2 U/mL 0-35 [facility] Comment on above: [facility] El ectrochemiluminescence Immunoassay(ECLIA)Values obtained with different assay methods or kits cannotbe used interchangeably. Results cannot be interpreted asabsolute evidence of the presence or absence of malignantdisease.Performed at: [address] [id number] Director: Aravind Gardner PhD, Phone: [phone] [employer] [facility] Antibody <0.2 AI 0.0-0.9 [facility] Endomysial IgA Antibody Negative Negative [facility] Estimated GFR (MDRD) Amer 121 mL/min >60 [facility] Comment on above: GFR Calc Estimated GFR (MDRD) Non-Af Amer 100 mL/min >60 [facility] Comment on above: Non- GFR Calc Immunoglobulin G4 43 mg/dL 2-96 [facility] Miscellaneous Test See comment [facility] Comment on above: Scanned image report available in EMR [employer] Antibody <0.2 AI 0.0-0.9 [facility] Platelets bldOrdered By: Navi Saravia on 10-03-2023 Platelets (Bld) [#/Vol] 308 10*3/uL 150-450 [facility] Serum DNA double strand anti body assay (units/volume)Ordered By: Samy Saravia on 10-03-2023 DNA double strand Ab Qn (S) [IU]/mL 0-9 [facility] Comment on above: Negative <5 Equivoca l 5 - 9 Positive >9 Serum IgG subclass 1 measure ment (mass/volume)Ordered By: Samy Saravia on 10-03-2023 IgG subclass 1 (S) [Mass/Vol] 510 mg/dL 248-810 [facility] Serum IgG subclass 2 measure ment (mass/volume)Ordered By: Samy Saravia on 10-03-2023 IgG subclass 2 (S) [Mass/Vol] 286 mg/dL 130-555 [facility] Serum IgG subclass 3 measure ment (mass/volume)Ordered By: Samy Saravia on 10-03-2023 IgG subclass 3 (S) [Mass/Vol] 56 mg/dL 15-102 [facility] Serum Joaquina-1 antibody assay (u nits/volume)Ordered By: Samy Saravia on 10-03-2023 Joaquina-1 extractable nuclear Ab Qn (S) <0.2 AI 0.0-0.9 [facility] Serum Scl-70 extractable nuc lear antibody assay (units/volume)Ordered By: Samy Saravia on 10-03-2023 SCL-70 extractable nuclear Ab Qn (S) <0.2 AI 0.0-0.9 [facility] Serum Zaman extractable nucl ear antibody detectionOrdered By: Samy Saravia on 10-03-2023 Zaman extractable nuclear Ab Ql (S) <0.2 AI 0.0-0.9 [facility] Serum [id number] measu rement by electrophoresisOrdered By: Samy Saravia on 10-03-2023 Alpha 1 globulin Elph [Mass/Vol] 0.3 g/dL 0.0-0.4 [facility] Alpha 1 globulin Elph [Mass/Vol] 0.8 g/dL 0.4-1.0 [facility] Serum classic neutrophil cyt oplasmic antibody assay (units/volume)Ordered By: Samy Saravia on 10-03-2023 Neutrophil cytoplasmic Ab.classic Qn (S) <1:20 titer Neg:<1:20 [facility] Serum globulin measurement ( mass/volume)Ordered By: Samy Saravia on 10-03-2023 Globulin (S) [Mass/Vol] 6.6 g/dL 2.2-3.9 [facility] Serum or plasma C reactive p rotein measurement (mass/volume)Ordered By: Samy Saravia on 10-03-2023 CRP [Mass/Vol] mg/L 0.0-3.0 [facility] Comment on above: C-Reactive Protein ( CRP) provides useful information for thediagnosis, therapy and monitoring of inflammatory processesand associated diseases. For the evaluation of Relative Riskfor Cardiovascular Disease, a High Sensitivity CRP (HSCRP)should be ordered. Serum or plasma IgA measurem ent (mass/volume)Ordered By: Samy Saravia on 10-03-2023 IgA [Mass/Vol] 204 mg/dL 87-352 [facility] Serum or plasma IgG measurem ent (mass/volume)Ordered By: Samy Saravia on 10-03-2023 IgG [Mass/Vol] 908 mg/dL 586-1602 [facility] IgG [Mass/Vol] Not Reportable [facility] Serum or plasma IgM measurem ent (mass/volume)Ordered By: Samy Saravia on 10-03-2023 IgM [Mass/Vol] 44 mg/dL 26-217 [facility] Serum or plasma albumin emilee urement (mass/volume)Ordered By: Samy Saravia on 10-03-2023 Albumin [Mass/Vol] 4.6 g/dL 3.2-5.0 [facility] Serum or plasma albumin/glob ulin mass ratioOrdered By: Samy Saravia on 10-03-2023 Albumin/Globulin [Mass ratio] 1.3 {ratio} 0.9-2.4 [facility] Serum or plasma beta globuli n measurement by electrophoresis (mass/volume)Ordered By: Samy Saravia on 10-03-2023 Beta globulin Elph [Mass/Vol] 1.1 g/dL 0.7-1.3 [facility] Serum or plasma calcium emilee urement (mass/volume)Ordered By: Samy Saravia on 10-03-2023 Calcium [Mass/Vol] 9.9 mg/dL 8.5-10.1 [facility] Serum or plasma creatinine m easurement (mass/volume)Ordered By: Samy Saravia on 10-03-2023 Creatinine [Mass/Vol] 0.65 mg/dL 0.55-1.02 [facility] Comment on above: The validity of the calculated GFR & GFRAA in patients over 70 years has not been determined. Clinical correlation is essential. Serum or plasma gamma globul in measurement by electrophoresis (mass/volume)Ordered By: Samy Saravia on 10-03-2023 Gamma globulin Elph [Mass/Vol] 0.9 g/dL 0.4-1.8 [facility] Serum or plasma immunoelectr ophoresis interpretation (nominal result)Ordered By: Samy Saravia on 10-03-2023 Interpretation IEP [Interp] Comment . [facility] Comment on above: No monoclonality det ected. Serum or plasma urea nitroge n measurement (mass/volume)Ordered By: Samy Saravia on 10-03-2023 Urea nitrogen [Mass/Vol] 9 mg/dL 7-18 [facility] Serum perinuclear neutrophil cytoplasmic antibody titer by immunofluorescenceOrdered By: Samy Saravia on 10-03-2023 Neutrophil cytoplasmic Ab.perinuclear IF (S) [Titer] <1:20 titer Neg:<1:20 [facility] Comment on above: The presence of posi tive fluorescence exhibiting P-ANCA orC-ANCA patterns alone is not specific for the diagnosis ofWegener's Granulomatosis (WG) or microscopic polyangiitis.Decisions about treatment should not be based solely onANCA IFA results. The [employer] ANCA [employer] Consensusrecommends follow up testing of positive sera with both RI-3 and MPO-ANCA enzyme immunoassays. As many as 5% serumsamples are positive only by EIA. Ref. AM J Clin [id number];111:507-513. Serum tissue transglutaminas e IgA antibody assay (units/volume)Ordered By: Samy Saravia on 10-03-2023 tTG IgA Qn (S) <2 U/mL 0-3 [facility] Comment on above: Negative 0 - 3 Weak Positive 4 - 10 Positive >10 Tissue Transglutaminase (tTG) has been identified as the endomysial antigen. Studies have demonstr- ated that endomysial IgA antibodies have over 99% specificity for gluten sensitive enteropathy. Thin prep Papanicolaou smear with manual screeningOrdered By: Samy Saravia on 10-03-2023 Thin prep Papanicolaou smear with manual screening 23 U/L 15-37 [facility] Thin prep Papanicolaou smear with manual screening 8 5-15 [facility] Thin prep Papanicolaou smear with manual screening 0.2 0.7-1.7 [facility] Total protein bloodOrdered B y: Samy Saravia on 10-03-2023 Protein [Mass/Vol] 7.6 g/dL 6.0-8.5 [facility] Absolute lymphocyte countOrd ered By: Michelle Rios on 08-19-2023 Lymphocytes Auto (Unsp spec) [#/Vol] 1.85 10*3/uL 0.83-4.51 [facility] Basophil percentageOrdered B y: Michelle Rios on 08-19-2023 Basophils/100 WBC (Bld) 1.5 % 0-1 [facility] Bilirubin [Mass/Vol] 0.40 mg/dL 0.20-1.00 [facility] Comment on above: For patients on eltr ombopag therapy, use of Dimension [place] TBIL is not recommended. Chloride [Moles/Vol] 102 mmol/L 98-107 [facility] Eosinophils/100 WBC (Bld) 2.2 % 0-5 [facility] Glucose [Mass/Vol] 122 mg/dL 74-106 [facility] Comment on above: Fasting Glucose resu lt from 100 to 125 mg/dL suggests IMPAIRED HOMEOSTASIS per A.D.A. criteria. Neutrophils (Bld) [#/Vol] 3.3 10*3/uL 2.0-7.7 [facility] Neutrophils/100 WBC (Bld) 55.9 % 47-70 [facility] Potassium [Moles/Vol] 4.0 mmol/L 3.5-5.1 [facility] Protein [Mass/Vol] 8.0 g/dL 6.4-8.2 [facility] Sodium [Moles/Vol] 135 mmol/L 136-145 [facility] WBC (Bld) [#/Vol] 5.9 10*3/uL 4.4-11.0 [facility] Blood erythrocytes count (nu mber/volume)Ordered By: Michelle Rios on 08-19-2023 RBC (Bld) [#/Vol] 5.27 10*6/uL 4.2-5.4 [facility] Blood hemoglobin measurement (mass/volume)Ordered By: Michelle Rios on 08-19-2023 Hemoglobin (Bld) [Mass/Vol] 16.6 g/dL 12.0-15.0 [facility] Blood lymphocytes/100 leukoc ytesOrdered By: Michelle Rios on 08-19-2023 Lymphocytes/100 WBC (Bld) 31.4 % 19-41 [facility] Blood monocytes/100 leukocyt esOrdered By: Michelle Rios on 08-19-2023 Monocytes/100 WBC (Bld) 8.7 % 0-10 [facility] Blood platelet mean volumeOr dered By: Michelle Rios on 08-19-2023 Platelet mean volume (Bld) [Entitic vol] 9.6 fL 6.2-12.0 [facility] Determination of erythrocyte mean corpuscular volume (MCV)Ordered By: Michelle Rios on 08-19-2023 MCV (RBC) [Entitic vol] 92.4 fL 81-99 [facility] Hematocrit Auto (Bld) [Volum e fraction]Ordered By: Michelle Rios on 08-19-2023 Hematocrit (Bld) [Volume fraction] 48.7 % 37-47 [facility] - Chemistry and C hemistry - challengeOrdered By: Michelle Rios on 08-19-2023 ALP [Catalytic activity/Vol] 75 U/L 45-117 [facility] ALT [Catalytic activity/Vol] 26 U/L 13-56 [facility] CO2 [Moles/Vol] 28.0 mmol/L 21.0-32.0 [facility] Globulin (S) [Mass/Vol] 3.6 g/dL 2.2-4.2 [facility] Lipase [Catalytic activity/Vol] 35 U/L - [facility] Comment on above: Please note:LIPASE r evised reference range effective 23. New Lipase methodology. Expected to produce lower values than the previous assay method. NEW Reference Range: 13 - 75 U/L Urea nitrogen/Creatinine [Mass ratio] 7.4 mg/mg 10-20 [facility] - Hematology and Cell countsOrdered By: Michelle Rios on 08-19-2023 Erythrocyte distribution width (RBC) [Entitic vol] 46.2 fL 35.1-43.9 [facility] Erythrocyte distribution width (RBC) [Ratio] 13.5 % 11.6-14.6 [facility] Immature granulocytes/100 WBC (Bld) 0.300 % 0.0-0.9 [facility] Comment on above: IG% - Immature Granu locytes (promyelocytes, myelocytes and metamyelocytes) > 1% indicates that a LEFT SHIFT is Present. MCH (RBC) [Entitic mass] 31.5 pg 27.0-32.0 [facility] Nucleated RBC/100 WBC (Bld) [Ratio] 0 % 0-5 [facility] MCHC Auto (RBC) [Mass/Vol]Or dered By: Michelle Rios on 08-19-2023 MCHC (RBC) [Mass/Vol] 34.1 g/dL 32-36 [facility] No Panel InformationOrdered By: Michelle Rios on 08-19-2023 Estimated Creatinine Clearance Calc 76.98 ml/min [facility] Estimated GFR (MDRD) Amer 115 mL/min >60 [facility] Comment on above: GFR Calc Estimated GFR (MDRD) Non-Af Amer 95 mL/min >60 [facility] Comment on above: Non- GFR Calc Platelets bldOrdered By: Christie Rios on 08-19-2023 Platelets (Bld) [#/Vol] 303 10*3/uL 150-450 [facility] Serum or plasma albumin emilee urement (mass/volume)Ordered By: Michelle Rios on 08-19-2023 Albumin [Mass/Vol] 4.4 g/dL 3.2-5.0 [facility] Serum or plasma albumin/glob ulin mass ratioOrdered By: Michelle Rios on 08-19-2023 Albumin/Globulin [Mass ratio] 1.2 {ratio} 0.9-2.4 [facility] Serum or plasma calcium emilee urement (mass/volume)Ordered By: Michelle Rios on 08-19-2023 Calcium [Mass/Vol] 9.8 mg/dL 8.5-10.1 [facility] Serum or plasma creatinine m easurement (mass/volume)Ordered By: Michelle Rios on 08-19-2023 Creatinine [Mass/Vol] 0.68 mg/dL 0.55-1.02 [facility] Comment on above: The validity of the calculated GFR & GFRAA in patients over 70 years has not been determined. Clinical correlation is essential. Serum or plasma urea nitroge n measurement (mass/volume)Ordered By: Michelle Rios on 08-19-2023 Urea nitrogen [Mass/Vol] 5 mg/dL 7-18 [facility] Thin prep Papanicolaou smear with manual screeningOrdered By: Michelle Rios on 08-19-2023 Thin prep Papanicolaou smear with manual screening 14 U/L 15-37 [facility] Thin prep Papanicolaou smear with manual screening 5 5-15 [facility] Absolute lymphocyte countOrd ered By: Yeimi Chaudhary on 07-27-2023 Lymphocytes Auto (Unsp spec) [#/Vol] 1.73 10*3/uL 0.83-4.51 [facility] Basophil percentageOrdered B y: Yeimi Chaudhary on 07-27-2023 Basophils/100 WBC (Bld) 1.1 % 0-1 [facility] Bilirubin [Mass/Vol] 0.40 mg/dL 0.20-1.00 [facility] Comment on above: For patients on eltr ombopag therapy, use of Dimension [place] TBIL is not recommended. Chloride [Moles/Vol] 106 mmol/L 98-107 [facility] Eosinophils/100 WBC (Bld) 3.1 % 0-5 [facility] Glucose [Mass/Vol] 137 mg/dL 74-106 [facility] Comment on above: Fasting Glucose resu lt greater than or equal to 126 mg/dL suggests DIABETES MELLITUS per A.D.A. criteria. Neutrophils (Bld) [#/Vol] 3.0 10*3/uL 2.0-7.7 [facility] Neutrophils/100 WBC (Bld) 54.7 % 47-70 [facility] Potassium [Moles/Vol] 3.8 mmol/L 3.5-5.1 [facility] Protein [Mass/Vol] 7.7 g/dL 6.4-8.2 [facility] Sodium [Moles/Vol] 137 mmol/L 136-145 [facility] WBC (Bld) [#/Vol] 5.5 10*3/uL 4.4-11.0 [facility] Blood erythrocytes count (nu mber/volume)Ordered By: Yeimi Chaudhary on 07-27-2023 RBC (Bld) [#/Vol] 4.89 10*6/uL 4.2-5.4 [facility] Blood hemoglobin measurement (mass/volume)Ordered By: Yeimi Chaudhary on 07-27-2023 Hemoglobin (Bld) [Mass/Vol] 15.5 g/dL 12.0-15.0 [facility] Blood lymphocytes/100 leukoc ytesOrdered By: Yeimi Chaudhary on 07-27-2023 Lymphocytes/100 WBC (Bld) 31.7 % 19-41 [facility] Blood monocytes/100 leukocyt esOrdered By: Yeimi Chaudhary on 07-27-2023 Monocytes/100 WBC (Bld) 9.2 % 0-10 [facility] Blood platelet mean volumeOr dered By: Yeimi Chaudhary on 07-27-2023 Platelet mean volume (Bld) [Entitic vol] 9.7 fL 6.2-12.0 [facility] Determination of erythrocyte mean corpuscular volume (MCV)Ordered By: Yeimi Chaudhary on 07-27-2023 MCV (RBC) [Entitic vol] 94.7 fL 81-99 [facility] Erythrocyte sedimentation ra teOrdered By: Yeimi Chaudhary on 07-27-2023 ESR (Bld) [Velocity] 4 mm/h 0-30 [facility] Hematocrit Auto (Bld) [Volum e fraction]Ordered By: Yeimi Chaudhary on 07-27-2023 Hematocrit (Bld) [Volume fraction] 46.3 % 37-47 [facility] Laboratory - Chemistry and C hemistry - challengeOrdered By: Yeimi Chaudhary on 07-27-2023 ALP [Catalytic activity/Vol] 78 U/L 45-117 [facility] ALT [Catalytic activity/Vol] 29 U/L 13-56 [facility] CO2 [Moles/Vol] 28.0 mmol/L 21.0-32.0 [facility] Globulin (S) [Mass/Vol] 3.6 g/dL 2.2-4.2 [facility] Urea nitrogen/Creatinine [Mass ratio] 11.2 mg/mg 10-20 [facility] Laboratory - Hematology and Cell countsOrdered By: Yeimi Chaudhary on 07-27-2023 Erythrocyte distribution width (RBC) [Entitic vol] 48.4 fL 35.1-43.9 [facility] Erythrocyte distribution width (RBC) [Ratio] 13.8 % 11.6-14.6 [facility] Immature granulocytes/100 WBC (Bld) 0.200 % 0.0-0.9 [facility] Comment on above: IG% - Immature Granu locytes (promyelocytes, myelocytes and metamyelocytes) > 1% indicates that a LEFT SHIFT is Present. MCH (RBC) [Entitic mass] 31.7 pg 27.0-32.0 [facility] Nucleated RBC/100 WBC (Bld) [Ratio] 0 % 0-5 [facility] MCHC Auto (RBC) [Mass/Vol]Or dered By: Yeimi Chaudhary on 07-27-2023 MCHC (RBC) [Mass/Vol] 33.5 g/dL 32-36 [facility] No Panel InformationOrdered By: Yeimi Chaudhary on 07-27-2023 Anti-Nuclear Antibody Screen Negative Negative [facility] Comment on above: Performed at: [facility] [address] Director: Aravind Gardner PhD, Phone: [phone] Estimated GFR (MDRD) Amer 95 mL/min >60 [facility] Comment on above: GFR Calc Estimated GFR (MDRD) Non-Af Amer 79 mL/min >60 [facility] Comment on above: Non- GFR Calc Platelets bldOrdered By: Elizabeth Chaudhary on 07-27-2023 Platelets (Bld) [#/Vol] 329 10*3/uL 150-450 [facility] Serum or plasma C reactive p rotein measurement (mass/volume)Ordered By: Yeimi Chaudhary on 07-27-2023 CRP [Mass/Vol] mg/L 0.0-3.0 [facility] Comment on above: C-Reactive Protein ( CRP) provides useful information for thediagnosis, therapy and monitoring of inflammatory processesand associated diseases. For the evaluation of Relative Riskfor Cardiovascular Disease, a High Sensitivity CRP (HSCRP)should be ordered. Serum or plasma albumin emilee urement (mass/volume)Ordered By: Yeimi Chaudhary on 07-27-2023 Albumin [Mass/Vol] 4.1 g/dL 3.2-5.0 [facility] Serum or plasma albumin/glob ulin mass ratioOrdered By: Yeimi Chaudhary on 07-27-2023 Albumin/Globulin [Mass ratio] 1.1 {ratio} 0.9-2.4 [facility] Serum or plasma calcium emilee urement (mass/volume)Ordered By: Yeimi Chaudhary on 07-27-2023 Calcium [Mass/Vol] 9.3 mg/dL 8.5-10.1 [facility] Serum or plasma creatinine m easurement (mass/volume)Ordered By: Yeimi Chaudhary on 07-27-2023 Creatinine [Mass/Vol] 0.80 mg/dL 0.55-1.02 [facility] Comment on above: The validity of the calculated GFR & GFRAA in patients over 70 years has not been determined. Clinical correlation is essential. Serum or plasma urea nitroge n measurement (mass/volume)Ordered By: Yeimi Chaudhary on 07-27-2023 Urea nitrogen [Mass/Vol] 9 mg/dL 7-18 [facility] Serum rheumatoid factor dete ctionOrdered By: Yeimi Chaudhary on 07-27-2023 Rheumatoid factor Ql (S) < 10.0 IU/mL <15 [facility] Thin prep Papanicolaou smear with manual screeningOrdered By: Yeimi Chaudhary on 07-27-2023 Thin prep Papanicolaou smear with manual screening 19 U/L 15-37 [facility] Thin prep Papanicolaou smear with manual screening 3 5-15 [facility] Serum or plasma cortisol blair surement (mass/volume)on 05-04-2023 Cortisol [Mass/Vol] 11.80 ug/dL 3.44-22.45 [facility] Comment on above: Adult (AM) 5.27 - 22 .45 ug/dL Adult (PM) 3.44 - 16.76 ug/dLPlease note revised CORTISOL reference range effective 2020. Basophil percentageOrdered B y: Yeimi Chaudhary on 04-04-2023 Basophil percentage 3.7 mg/dL 2.5-4.9 [facility] Bilirubin [Mass/Vol] 0.50 mg/dL 0.20-1.00 [facility] Comment on above: For patients on eltr ombopag therapy, use of Dimension [place] TBIL is not recommended. Chloride [Moles/Vol] 106 mmol/L 98-107 [facility] Cholesterol [Mass/Vol] 195 mg/dL <200 [facility] Comment on above: <200 mg/dL Desirable 200-240 mg/dL Borderline >240 mg/dL High Risk Glucose [Mass/Vol] 98 mg/dL 74-106 [facility] Potassium [Moles/Vol] 4.2 mmol/L 3.5-5.1 [facility] Protein [Mass/Vol] 7.5 g/dL 6.4-8.2 [facility] Sodium [Moles/Vol] 138 mmol/L 136-145 [facility] Triglyceride [Mass/Vol] 58 mg/dL <199 [facility] Comment on above: The drugs N-Acetylcy steine and Metamizole may falsely depress this assay.Serum Triglycerides Reference Interval Normal <150 mg/dL Borderline high 150 - 199 mg/dL High 200 - 499 mg/dL Very High > or = 500 mg/dL WBC (Bld) [#/Vol] 6.4 10*3/uL 4.4-11.0 [facility] Blood erythrocytes count (nu mber/volume)Ordered By: Yeimi Chaudhary on 04-04-2023 RBC (Bld) [#/Vol] 4.75 10*6/uL 4.2-5.4 [facility] Blood hemoglobin measurement (mass/volume)Ordered By: Yeimi Chaudhary on 04-04-2023 Hemoglobin (Bld) [Mass/Vol] 14.9 g/dL 12.0-15.0 [facility] Blood platelet mean volumeOr dered By: Yeimi Chaudhary on 04-04-2023 Platelet mean volume (Bld) [Entitic vol] 9.7 fL 6.2-12.0 [facility] Determination of erythrocyte mean corpuscular volume (MCV)Ordered By: Yeimi Chaudhary on 04-04-2023 MCV (RBC) [Entitic vol] 92.6 fL 81-99 [facility] Hematocrit Auto (Bld) [Volum e fraction]Ordered By: Yeimi Chaudhary on 04-04-2023 Hematocrit (Bld) [Volume fraction] 44.0 % 37-47 [facility] Laboratory - Chemistry and C hemistry - challengeOrdered By: Yeimi Chaudhary on 04-04-2023 ALP [Catalytic activity/Vol] 76 U/L 45-117 [facility] ALT [Catalytic activity/Vol] 26 U/L 13-56 [facility] CO2 [Moles/Vol] 23.0 mmol/L 21.0-32.0 [facility] Free T4 [Mass/Vol] 0.92 ng/dL 0.76-1.46 [facility] Globulin (S) [Mass/Vol] 3.4 g/dL 2.2-4.2 [facility] Lipase [Catalytic activity/Vol] 28 U/L 13-75 [facility] Comment on above: Please note:LIPASE r evised reference range effective 23. New Lipase methodology. Expected to produce lower values than the previous assay method. NEW Reference Range: 13 - 75 U/L Magnesium [Mass/Vol] 2.3 mg/dL 1.6-2.6 [facility] Urea nitrogen/Creatinine [Mass ratio] 13.7 mg/mg 10-20 [facility] Laboratory - Hematology and Cell countsOrdered By: Yeimi Chaudhary on 04-04-2023 Erythrocyte distribution width (RBC) [Entitic vol] 46.9 fL 35.1-43.9 [facility] Erythrocyte distribution width (RBC) [Ratio] 13.6 % 11.6-14.6 [facility] MCH (RBC) [Entitic mass] 31.4 pg 27.0-32.0 [facility] MCHC Auto (RBC) [Mass/Vol]Or dered By: Yeimi Chaudhary on 04-04-2023 MCHC (RBC) [Mass/Vol] 33.9 g/dL 32-36 [facility] No Panel InformationOrdered By: Yeimi Chaudhary on 04-04-2023 Estimated GFR (MDRD) Amer 120 mL/min >60 [facility] Comment on above: GFR Calc Estimated GFR (MDRD) Non-Af Amer 99 mL/min >60 [facility] Comment on above: Non- GFR Calc Thyroid Stimulating Hormone (TSH) 1.18 uIU/mL 0.358-3.74 [facility] No Panel InformationOrdered By: Samy Saravia on 04-04-2023 Immunoglobulin E 17 IU/mL 6-495 [facility] Comment on above: Performed at: [facility] [address] [id number] Director: Aravind Gardner PhD, Phone: [phone] at: - [facility] [id number] [place], [place] [id number] Director: Pablo Fletcher MD, Phone: [phone] Platelets bldOrdered By: Elizabeth Chaudhary on 04-04-2023 Platelets (Bld) [#/Vol] 283 10*3/uL 150-450 [facility] Serum or plasma IgA measurem ent (mass/volume)Ordered By: Samy Saravia on 04-04-2023 IgA [Mass/Vol] 175 mg/dL 87-352 [facility] Serum or plasma IgG measurem ent (mass/volume)Ordered By: Samy Saravia on 04-04-2023 IgG [Mass/Vol] 907 mg/dL 586-1602 [facility] Serum or plasma IgM measurem ent (mass/volume)Ordered By: Samy Saravia on 04-04-2023 IgM [Mass/Vol] 38 mg/dL 26-217 [facility] Serum or plasma albumin emilee urement (mass/volume)Ordered By: Yeimi Chaudhary on 04-04-2023 Albumin [Mass/Vol] 4.1 g/dL 3.2-5.0 [facility] Serum or plasma albumin/glob ulin mass ratioOrdered By: Yeimi Chaudhary on 04-04-2023 Albumin/Globulin [Mass ratio] 1.2 {ratio} 0.9-2.4 [facility] Serum or plasma calcium emilee urement (mass/volume)Ordered By: Yeimi Chaudhary on 04-04-2023 Calcium [Mass/Vol] 9.4 mg/dL 8.5-10.1 [facility] Serum or plasma cholesterol in HDL measurement (mass/volume)Ordered By: Yeimi Chaudhary on 04-04-2023 Cholesterol in HDL [Mass/Vol] 72 mg/dL >40 [facility] Comment on above: The drugs N-Acetylcy steine and Metamizole may falsely depress this assay. Reference Range HDL <40 mg/dL Low HDL Cholesterol HDL >or= 60 mg/dL High HDL Cholesterol Serum or plasma cholesterol in VLDL measurement (mass/volume)Ordered By: Yeimi Chaudhary on 04-04-2023 Cholesterol in VLDL [Mass/Vol] 12 mg/dL 5-40 [facility] Serum or plasma creatinine m easurement (mass/volume)Ordered By: Yeimi Chaudhary on 04-04-2023 Creatinine [Mass/Vol] 0.66 mg/dL 0.55-1.02 [facility] Comment on above: The validity of the calculated GFR & GFRAA in patients over 70 years has not been determined. Clinical correlation is essential. Serum or plasma folate measu rement (mass/volume)Ordered By: Yeimi Chaudhary on 04-04-2023 Folate [Mass/Vol] 11.70 ng/mL 3.1-55.4 [facility] Serum or plasma low density lipoprotein (LDL) cholesterol measurement (mass/volume)Ordered By: Yeimi Chaudhary on 04-04-2023 Cholesterol in LDL [Mass/Vol] 111 mg/dL 0-130 [facility] Serum or plasma urea nitroge n measurement (mass/volume)Ordered By: Yeimi Chaudhary on 04-04-2023 Urea nitrogen [Mass/Vol] 9 mg/dL 7-18 [facility] Thin prep Papanicolaou smear with manual screeningOrdered By: Yeimi Chaudhary on 04-04-2023 Thin prep Papanicolaou smear with manual screening 22 U/L 15-37 [facility] Thin prep Papanicolaou smear with manual screening 9 5-15 [facility] Thin prep Papanicolaou smear with manual screeningon 07-06-2022 Thin prep Papanicolaou smear with manual screening 239 U/L 84-246 [facility] Work Phone: ESR Westergren method (Bld) [Velocity]on 06-07-2022 ESR (Bld) [Velocity] 2 mm/h 0 - 20 mm[facility], REFLEX MICROSCOP ICon 06-07-2022 Bilirubin Ql (U) Negative Negative [facility] Clarity (Unsp spec) Clear Clear Basilio [facility] Color (U) Light Yellow Yellow [facility] Glucose Test strip (U) [Mass/Vol] Negative Negative [facility] Hemoglobin Ql (U) Negative Negative [facility] Ketones Ql (U) Negative Negative [facility] Leukocyte esterase Test strip Ql (U) Negative Negative [facility] Nitrite Ql (U) Negative Negative [facility] pH (U) 8.0 [pH] 5.0 - 8.0 [facility] Protein (U) [Mass/Vol] Negative Negative [facility] Specific gravity (U) [Rel density] 1.009 1.005 - 1.030 [facility] Urobilinogen Ql (U) Negative Negative [facility] Glucose Glucometer (BldC) [M ass/Vol]on 03-21-2022 Glucose [Mass/Vol] 83 mg/dL 74-106 [facility] Work Phone: Comment on above: MANAGEMENT OF PATIEN T CARE PER NURSING PROTOCOL No Panel Informationon 02-25 [facility] No Panel Informationon 01-18 Miscellaneous Test See comment [facility] Work Phone: Comment on above: TEST RESULT LIMITSPa ncreatic Elastase, Fecal 285 ug Elast./g >200 Severe Pancreatic Insufficiency: <100 Moderate Pancreatic Insufficiency: 100 - 200 Normal: >200 TESTING PERFORMED AT [facility]. ORIGINAL REPORT ON FILE IN LAB CONTAINS ADDITIONAL TEST SITE INFORMATION. Stool Neutral Fats Normal [facility] Work Phone: Comment on above: Normal (<60 Droplets /HPF) Qualitative fecal fat or lip idson 01-18-2022 Fat Ql (Stl) Normal [facility] Work Phone: Comment on above: Normal (<100 Droplet s/HPF)Performed at: [address] [id number] Director: Aravind Gardner PhD, Phone: [phone] Absolute lymphocyte counton 01-17-2022 Lymphocytes Auto (Unsp spec) [#/Vol] 1.53 10*3/uL 0.83-4.51 [facility] Work Phone: Basophil percentageon 2021 Amylase [Catalytic activity/Vol] 51 U/L 25-115 [facility] Work Phone: Basophils/100 WBC (Bld) 1.1 % 0-1 [facility] Work Phone: Bilirubin [Mass/Vol] 0.60 mg/dL 0.20-1.00 [facility] Work Phone: Comment on above: For patients on eltr ombopag therapy, use of Dimension [place] TBIL is not recommended. Chloride [Moles/Vol] 105 mmol/L 98-107 [facility] Work Phone: Eosinophils/100 WBC (Bld) 1.5 % 0-5 [facility] Work Phone: Glucose [Mass/Vol] 104 mg/dL 74-106 [facility] Work Phone: Comment on above: Fasting Glucose resu lt from 100 to 125 mg/dL suggests IMPAIRED HOMEOSTASIS per A.D.A. criteria. Neutrophils (Bld) [#/Vol] 4.1 10*3/uL 2.0-7.7 [facility] Work Phone: Neutrophils/100 WBC (Bld) 65.3 % 47-70 [facility] Work Phone: Potassium [Moles/Vol] 4.1 mmol/L 3.5-5.1 [facility] Work Phone: Protein [Mass/Vol] 8.1 g/dL 6.4-8.2 [facility] Work Phone: Sodium [Moles/Vol] 138 mmol/L 136-145 [facility] Work Phone: WBC (Bld) [#/Vol] 6.2 10*3/uL 4.4-11.0 [facility] Work Phone: [phone] Blood erythrocytes count (nu mber/volume)on 01-17-2022 RBC (Bld) [#/Vol] 5.09 10*6/uL 4.2-5.4 [facility] Work Phone: [phone] Blood hemoglobin measurement (mass/volume)on 01-17-2022 Hemoglobin (Bld) [Mass/Vol] 15.6 g/dL 12.0-15.0 [facility] Work Phone: Blood lymphocytes/100 leukoc yteson 01-17-2022 Lymphocytes/100 WBC (Bld) 24.7 % 19-41 [facility] Work Phone: Blood monocytes/100 leukocyt eson 01-17-2022 Monocytes/100 WBC (Bld) 7.1 % 0-10 [facility] Work Phone: [phone] Blood platelet mean volumeon 01-17-2022 Platelet mean volume (Bld) [Entitic vol] 10.3 fL 6.2-12.0 [facility] Work Phone: [phone] Determination of erythrocyte mean corpuscular volume (MCV)on 01-17-2022 MCV (RBC) [Entitic vol] 90.6 fL 81-99 [facility] Work Phone: Erythrocyte sedimentation ra shobha 01-17-2022 ESR (Bld) [Velocity] 1 mm/h 0-30 [facility] Phone: [phone] Hematocrit Auto (Bld) [Volum e fraction]on 01-17-2022 Hematocrit (Bld) [Volume fraction] 46.1 % 37-47 [facility] Work Phone: [phone] Laboratory - Chemistry and C hemistry - challengeon 01-17-2022 ALP [Catalytic activity/Vol] 72 U/L 45-117 [facility] Work Phone: ALT [Catalytic activity/Vol] 28 U/L 13-56 [facility] Work Phone: CO2 [Moles/Vol] 29.0 mmol/L 21.0-32.0 [facility] Work Phone: Globulin (S) [Mass/Vol] 3.6 g/dL 2.2-4.2 [facility] Work Phone: Urea nitrogen/Creatinine [Mass ratio] 7.4 mg/mg 10-20 [facility] Work Phone: Laboratory - Hematology and Cell countson 01-17-2022 Erythrocyte distribution width (RBC) [Entitic vol] 40.8 fL 35.1-43.9 [facility] Work Phone: Erythrocyte distribution width (RBC) [Ratio] 12.3 % 11.6-14.6 [facility] Work Phone: Immature granulocytes/100 WBC (Bld) 0.300 % 0.0-0.9 [facility] Work Phone: Comment on above: IG% - Immature Granu locytes (promyelocytes, myelocytes and metamyelocytes) > 1% indicates that a LEFT SHIFT is Present. MCH (RBC) [Entitic mass] 30.6 pg 27.0-32.0 [facility] Work Phone: Nucleated RBC/100 WBC (Bld) [Ratio] 0 % 0-5 [facility] Work Phone: MCHC Auto (RBC) [Mass/Vol]on 01-17-2022 MCHC (RBC) [Mass/Vol] 33.8 g/dL 32-36 [facility] Work Phone: No Panel Informationon 01-17 CA 19-9 Antigen Serial Monitoring See comment [facility] Work Phone: Comment on above: Scanned image report available in EMR Estimated GFR (MDRD) Amer 117 mL/min >60 [facility] Work Phone: Comment on above: GFR Calc Estimated GFR (MDRD) Non-Af Amer 97 mL/min >60 [facility] Work Phone: Comment on above: Non- GFR Calc Platelets bldon 01-17-2022 Platelets (Bld) [#/Vol] 331 10*3/uL 150-450 [facility] Work Phone: Serum or plasma C reactive p rotein measurement (mass/volume)on 01-17-2022 CRP [Mass/Vol] mg/L 0.0-3.0 [facility] Work Phone: Comment on above: C-Reactive Protein ( CRP) provides useful information for thediagnosis, therapy and monitoring of inflammatory processesand associated diseases. For the evaluation of Relative Riskfor Cardiovascular Disease, a High Sensitivity CRP (HSCRP)should be ordered. Serum or plasma albumin emilee urement (mass/volume)on 01-17-2022 Albumin [Mass/Vol] 4.5 g/dL 3.2-5.0 [facility] Work Phone: Serum or plasma albumin/glob ulin mass ratioon 01-17-2022 Albumin/Globulin [Mass ratio] 1.2 {ratio} 0.9-2.4 [facility] Work Phone: Serum or plasma calcium emilee urement (mass/volume)on 01-17-2022 Calcium [Mass/Vol] 9.5 mg/dL 8.5-10.1 [facility] Work Phone: Serum or plasma creatinine m easurement (mass/volume)on 01-17-2022 Creatinine [Mass/Vol] 0.67 mg/dL 0.55-1.02 [facility] Work Phone: Comment on above: The validity of the calculated GFR & GFRAA in patients over 70 years has not been determined. Clinical correlation is essential. Serum or plasma urea nitroge n measurement (mass/volume)on 01-17-2022 Urea nitrogen [Mass/Vol] 5 mg/dL 7-18 [facility] Work Phone: Thin prep Papanicolaou smear with manual screeningon 01-17-2022 Thin prep Papanicolaou smear with manual screening 17 U/L 15-37 [facility] Work Phone: Thin prep Papanicolaou smear with manual screening 4 5-15 [facility] Work Phone: Absolute lymphocyte counton 11-26-2021 Lymphocytes Auto (Unsp spec) [#/Vol] 1.55 10*3/uL 0.83-4.51 [facility] Work Phone: Basophil percentageon 2021 Basophils/100 WBC (Bld) 0.9 % 0-1 [facility] Work Phone: Bilirubin [Mass/Vol] 0.70 mg/dL 0.20-1.00 [facility] Work Phone: Comment on above: For patients on eltr ombopag therapy, use of Dimension [place] TBIL is not recommended. Chloride [Moles/Vol] 103 mmol/L 98-107 [facility] Work Phone: [phone] Eosinophils/100 WBC (Bld) 2.0 % 0-5 [facility] Work Phone: [phone] Glucose [Mass/Vol] 101 mg/dL 74-106 [facility] Work Phone: [phone] Comment on above: Fasting Glucose resu lt from 100 to 125 mg/dL suggests IMPAIRED HOMEOSTASIS per A.D.A. criteria. Neutrophils (Bld) [#/Vol] 5.5 10*3/uL 2.0-7.7 [facility] Work Phone: Neutrophils/100 WBC (Bld) 68.5 % 47-70 [facility] Work Phone: Potassium [Moles/Vol] 4.1 mmol/L 3.5-5.1 [facility] Work Phone: Protein [Mass/Vol] 7.9 g/dL 6.4-8.2 [facility] Work Phone: Sodium [Moles/Vol] 133 mmol/L 136-145 [facility] Work Phone: WBC (Bld) [#/Vol] 8.0 10*3/uL 4.4-11.0 [facility] Work Phone: [phone] Blood erythrocytes count (nu mber/volume)on 11-26-2021 RBC (Bld) [#/Vol] 5.08 10*6/uL 4.2-5.4 [facility] Work Phone: Blood hemoglobin measurement (mass/volume)on 11-26-2021 Hemoglobin (Bld) [Mass/Vol] 15.9 g/dL 12.0-15.0 [facility] Work Phone: Blood lymphocytes/100 leukoc yteson 11-26-2021 Lymphocytes/100 WBC (Bld) 19.5 % 19-41 [facility] Work Phone: Blood monocytes/100 leukocyt eson 11-26-2021 Monocytes/100 WBC (Bld) 8.8 % 0-10 [facility] Work Phone: [phone] Blood platelet mean volumeon 11-26-2021 Platelet mean volume (Bld) [Entitic vol] 9.8 fL 6.2-12.0 [facility] Work Phone: Determination of erythrocyte mean corpuscular volume (MCV)on 11-26-2021 MCV (RBC) [Entitic vol] 92.7 fL 81-99 [facility] Work Phone: Hematocrit Auto (Bld) [Volum e fraction]on 11-26-2021 Hematocrit (Bld) [Volume fraction] 47.1 % 37-47 [facility] Work Phone: Laboratory - Chemistry and C hemistry - challengeon 11-26-2021 ALP [Catalytic activity/Vol] 68 U/L 45-117 [facility] Work Phone: [phone] ALT [Catalytic activity/Vol] 30 U/L 13-56 [facility] Work Phone: [phone] CO2 [Moles/Vol] 27.0 mmol/L 21.0-32.0 [facility] Work Phone: [phone] Globulin (S) [Mass/Vol] 3.7 g/dL 2.2-4.2 [facility] Work Phone: [phone] Lipase [Catalytic activity/Vol] 89 U/L 73-393 [facility] Work Phone: Urea nitrogen/Creatinine [Mass ratio] 13.2 mg/mg 10-20 [facility] Work Phone: Laboratory - Hematology and Cell countson 11-26-2021 Erythrocyte distribution width (RBC) [Entitic vol] 44.2 fL 35.1-43.9 [facility] Work Phone: Erythrocyte distribution width (RBC) [Ratio] 12.9 % 11.6-14.6 [facility] Work Phone: Immature granulocytes/100 WBC (Bld) 0.300 % 0.0-0.9 [facility] Work Phone: Comment on above: IG% - Immature Granu locytes (promyelocytes, myelocytes and metamyelocytes) > 1% indicates that a LEFT SHIFT is Present. MCH (RBC) [Entitic mass] 31.3 pg 27.0-32.0 [facility] Work Phone: Nucleated RBC/100 WBC (Bld) [Ratio] 0 % 0-5 [facility] Work Phone: MCHC Auto (RBC) [Mass/Vol]on 11-26-2021 MCHC (RBC) [Mass/Vol] 33.8 g/dL 32-36 [facility] Work Phone: No Panel Informationon 11-26 Estimated GFR (MDRD) Amer 132 mL/min >60 [facility] Work Phone: Comment on above: GFR Calc Estimated GFR (MDRD) Non-Af Amer 109 mL/min >60 [facility] Work Phone: Comment on above: Non- GFR Calc Thyroid Stimulating Hormone (TSH) 1.59 uIU/mL 0.358-3.74 [facility] Work Phone: Platelets bldon 11-26-2021 Platelets (Bld) [#/Vol] 330 10*3/uL 150-450 [facility] Work Phone: Serum or plasma albumin emilee urement (mass/volume)on 11-26-2021 Albumin [Mass/Vol] 4.2 g/dL 3.2-5.0 [facility] Work Phone: Serum or plasma albumin/glob ulin mass ratioon 11-26-2021 Albumin/Globulin [Mass ratio] 1.1 {ratio} 0.9-2.4 [facility] Work Phone: Serum or plasma calcium emilee urement (mass/volume)on 11-26-2021 Calcium [Mass/Vol] 9.7 mg/dL 8.5-10.1 [facility] Work Phone: Serum or plasma creatinine m easurement (mass/volume)on 11-26-2021 Creatinine [Mass/Vol] 0.61 mg/dL 0.55-1.02 [facility] Work Phone: Comment on above: The validity of the calculated GFR & GFRAA in patients over 70 years has not been determined. Clinical correlation is essential. Serum or plasma urea nitroge n measurement (mass/volume)on 11-26-2021 Urea nitrogen [Mass/Vol] 8 mg/dL 7-18 [facility] Work Phone: Thin prep Papanicolaou smear with manual screeningon 11-26-2021 Thin prep Papanicolaou smear with manual screening 18 U/L 15-37 [facility] Work Phone: Thin prep Papanicolaou smear with manual screening 3 5-15 [facility] Work Phone: HPV w/Genotypeon 10-04-2019 HPV HighRisk Other Normal [facility] Comment on above: Result Comment: Nega tive for HPV DNA high risk types: 31,33,35,39,45,51,52,56,58,59,66,68 by This test was developed and its performance characteristics determined by [facility] [place] ([facility]). It has not been cleared or approved by the FDA. [facility] is regulated under CLIA as qualified to perform high-complexity testing. This test is used for clinical purposes. It should not be regarded as investigational or for research. PCR. This test was developed and its performance characteristics determined by [facility] [place] ([facility]). It has not been cleared or approved by the FDA. -[facility] is regulated under CLIA as qualified to perform high-complexity testing. This test is used for clinical purposes. It should not be regarded as investigational or for research. Performed By: #### H PVHRR #### [facility] [address] [address] HPV HighRisk Type [address] [facility] Reference Lab Comment on above: Performed By: #### H PVHRR #### [facility] [address] [place] [address] HPV HighRisk Type [address] [facility] Reference Lab Comment on above: Performed By: #### H PVHRR #### [facility] [address] [place] [address] CYTOLOGYon 09-30-2019 CYTOLOGY ADDITIONAL PROCEDURES PRESENT Specimen #: [id number] Submitting Physician: HODAN MCCARTHY SPECIMEN SUBMITTED A: [...] developed and its performance characteristics determined by [facility] [place] ([facility]). It has not been cleared or approved by the FDA. [facility] is regulated under CLIA as qualified to perform high-complexity testing. This test is used for clinical purposes. It should not be regarded as investigational or for research. CLINICAL DATA HPV Testing: Automatic HPV typing (HPV) Date of Last Menstrual Period: 08/27/19 Clinical History: ROUTINE STAINS A: CERVICAL, SCREENING, FLUID THIN [employer] Markel Bullock M.D., Bus Repair Supervisor Date of Report: 10/04/2019 Date of Procedure: 09/30/2019 Date of Receipt: 10/03/2019 Submitted by: HODAN MCCARTHY Location: Diagnostic interpretation performed at [facility], [address] [place] [address]. CLIA Number: [id number] The Pap Smear is a screening test for cervical cancer. False negative results occur with all screening tests, emphasizing the need for rescreening at recommended intervals, and clinical correlation. Normal [facility] Reference Lab Comment on above: Performed By: #### C #### See report for performing lab information. Vital Signs Date Time Vital Sign Value Performing Clinician Facility 05-12-2025 10:22-0400 Body height 165.1 cm Mindy PETTIT Work Phone: [phone] [place] [address] 05-12-2025 10:22-0400 Body mass index (BMI) [Ratio] 21.8 kg/m2 Zebulun Beam GEAR TECHNICIAN-C Work Phone: 1(856)088-709276 [place] [address] 05-12-2025 10:22-0400 Body temperature 97.6 [degF] Zebulun Beam GEAR TECHNICIAN-C Work Phone: 1(110)470-394076 [place] [address] 05-12-2025 10:22-0400 Body weight 59.59 kg Zebulun Beam GEAR TECHNICIAN-C Work Phone: 1(424)795-184576 [place] [address] 05-12-2025 10:22-0400 Diastolic blood pressure 84 mm[Hg] Zebulun Beam GEAR TECHNICIAN-C Work Phone: 2(644)969-841476 [place] [address] 05-12-2025 10:22-0400 Heart rate 66 /min Zebulun Beam GEAR TECHNICIAN-C Work Phone: 6(777)[phone] [address] 05-12-2025 10:22-0400 Respiratory rate 16 /min Zebulun Beam GEAR TECHNICIAN-C Work Phone: 8(495)200-137976 [place] [address] 05-12-2025 10:22-0400 SaO2% (BldA) [Mass fraction] 98 % Zebulun Beam GEAR TECHNICIAN-C Work Phone: 8(654)530-570776 [place] [address] 05-12-2025 10:22-0400 Systolic blood pressure 125 mm[Hg] Zebulun Beam GEAR TECHNICIAN-C Work Phone: 5(090)823-754276 [place] [address] 11-30-2024 12:49-0500 Body temperature 98.29 [degF] Michelle Navarro DO Work Phone: [facility] 11-30-2024 12:49-0500 Diastolic blood pressure 83 mm[Hg] Michelle Navarro DO Work Phone: [facility] 11-30-2024 12:49-0500 Heart rate 76 /min Michelle Navarro DO Work Phone: [facility] 11-30-2024 12:49-0500 Respiratory rate 17 /min Michelle Navarro DO Work Phone: [facility] 11-30-2024 12:49-0500 SaO2% (BldA) [Mass fraction] 100 % Michelle Navarro DO Work Phone: [facility] 11-30-2024 12:49-0500 Systolic blood pressure 139 mm[Hg] Michelle Navarro DO Work Phone: [facility] 04-03-2024 16:09-0400 Body mass index (BMI) [Ratio] 18.35 kg/m2 Veronique Palma MD Work Phone: [facility] 04-03-2024 16:09-0400 Body temperature 98.1 [degF] Veronique Palma MD Work Phone: [facility] 04-03-2024 16:09-0400 Body weight 50.8 kg Veronique Palma MD Work Phone: [facility] 08-19-2023 13:26-0400 Body height 165.1 cm [facility] Work Phone: [phone])[phone] [address] 08-19-2023 13:26-0400 Body mass index (BMI) [Ratio] 19.1 kg/m2 [facility] Work Phone: 8(823)953-921294 [place] [address] 08-19-2023 13:26-0400 Body temperature 97.3 [degF] [facility] Work Phone: 1(138)699-452094 [place] [address] 08-19-2023 13:26-0400 Body weight 52.16 kg [facility] Work Phone: 2(834)238-396826 [address] 08-19-2023 13:26-0400 Diastolic blood pressure 107 mm[Hg] [facility] Work Phone: 7(016)975-695976 [place] [address] 08-19-2023 13:26-0400 Heart rate 90 /min [facility] Work Phone: 6(888)605-920776 [place] [address] 08-19-2023 13:26-0400 Respiratory rate 16 /min [facility] Work Phone: 6([phone])[phone] [address] 08-19-2023 13:26-0400 SaO2% (BldA) [Mass fraction] 99 % [facility] Work Phone: [facility] 08-19-2023 13:26-0400 Systolic blood pressure 171 mm[Hg] [facility] Work Phone: [facility] 07-06-2022 10:08-0400 Body height 165.1 cm [facility] Work Phone: [facility] Work Phone: 07-06-2022 10:08-0400 Body mass index (BMI) [Ratio] 22.9 kg/m2 [facility] Work Phone: [facility] Work Phone: 07-06-2022 10:08-0400 Body weight 62.59 kg [facility] Work Phone: [facility] Work Phone: 07-06-2022 10:08-0400 Diastolic blood pressure 64 mm[Hg] [facility] Work Phone: [facility] Work Phone: 07-06-2022 10:08-0400 Heart rate 60 /min [facility] Work Phone: [facility] Work Phone: 07-06-2022 10:08-0400 SaO2% (BldA) [Mass fraction] 97 % [facility] Work Phone: [facility] Work Phone: 07-06-2022 10:08-0400 Systolic blood pressure 102 mm[Hg] [facility] Work Phone: [facility] Work Phone: 06-07-2022 12:44-0400 Body height 166.4 cm Veronique Palma MD Work Phone: [facility] 06-07-2022 12:44-0400 Body temperature 98.29 [degF] Veronique Palma MD Work Phone: [facility] 06-07-2022 12:44-0400 Body weight 53.07 kg Veronique Palma MD Work Phone: [facility] 06-07-2022 12:44-0400 Diastolic blood pressure 49 mm[Hg] Veronique Palma MD Work Phone: [facility] 06-07-2022 12:44-0400 Heart rate 67 /min Veronique Palma MD Work Phone: [facility] 06-07-2022 12:44-0400 Systolic blood pressure 92 mm[Hg] Veronique Palma MD Work Phone: [facility] 03-21-2022 09:46-0400 Body temperature 97.8 [degF] [facility] Work Phone: [facility] Work Phone: 03-21-2022 09:46-0400 Diastolic blood pressure 65 mm[Hg] [facility] Work Phone: [facility] Work Phone: 03-21-2022 09:46-0400 Heart rate 79 /min [facility] Work Phone: [facility] Work Phone: 03-21-2022 09:46-0400 Respiratory rate 16 /min [facility] Work Phone: [facility] Work Phone: 03-21-2022 09:46-0400 SaO2% (BldA) [Mass fraction] 100 % [facility] Work Phone: [facility] Work Phone: 03-21-2022 09:46-0400 Systolic blood pressure 103 mm[Hg] [facility] Work Phone: [facility] Work Phone: 03-21-2022 08:17-0400 Body height 165.1 cm [facility] Work Phone: [facility] Work Phone: 03-21-2022 08:17-0400 Body mass index (BMI) [Ratio] 19.1 kg/m2 [facility] Work Phone: [facility] Work Phone: 03-21-2022 08:17-0400 Body weight 52 kg [facility] Work Phone: [facility] Work Phone: 02-07-2022 09:17-0400 Body height 165.1 cm [facility] Work Phone: [facility] Work Phone: 02-07-2022 09:17-0400 Body mass index (BMI) [Ratio] 20.5 kg/m2 [facility] Work Phone: [facility] Work Phone: 02-07-2022 09:17-0400 Body weight 55.79 kg [facility] Work Phone: [facility] Work Phone: 02-07-2022 09:17-0400 Diastolic blood pressure 76 mm[Hg] [facility] Work Phone: [facility] Work Phone: 02-07-2022 09:17-0400 Heart rate 71 /min [facility] Work Phone: [facility] Work Phone: 02-07-2022 09:17-0400 SaO2% (BldA) [Mass fraction] 98 % [facility] Work Phone: [facility] Work Phone: 02-07-2022 09:17-0400 Systolic blood pressure 117 mm[Hg] [facility] Work Phone: [facility] Work Phone: 01-17-2022 07:38-0500 Body mass index (BMI) [Ratio] 19.8 kg/m2 [facility] Work Phone: [facility] Work Phone: 01-17-2022 07:38-0500 Body weight 53.97 kg [facility] Work Phone: [facility] Work Phone: Encounters Encounter Date Encounter Type Care Provider Facility Start: 06-03-2025 ambulatory Zebulun Beam VSC Facili ty:[facility] Start: 05-12-2025 End: 05-12-2025 Patient encounter procedure Xochilt Everton GEAR TECHNICIAN-C -[facility] Work Phone: Start: 05-12-2025 End: 05-12-2025 ambulatory Zebulun Beam GEAR TECHNICIAN-C Work Phone: -[facility] Start: 05-12-2025 End: 05-12-2025 ambulatory Zebulun Beam VSC Facility:[facility] Start: 04-30-2025 End: 05-01-2025 Telephone encounter Ralf Dunbar MD Work Phone: Neurology Start: 02-27-2025 End: 02-27-2025 ambulatory Zebulun Beam GEAR TECHNICIAN-C Work Phone: [facility] Work Phone: Start: 02-27-2025 End: 02-27-2025 Patient encounter procedure Zebulun Beam GEAR TECHNICIAN-C -Norberto Ginette Birgit Start: 02-27-2025 End: 02-27-2025 ambulatory Zebulun Beam VSC Facility:[facility] Start: 01-29-2025 End: 01-29-2025 ambulatory EVERTON GAMBLE DO Facility:A Start: 01-21-2025 End: 01-21-2025 ambulatory EVERTON GAMBLE DO Facility:A Start: 01-06-2025 End: 01-06-2025 ambulatory EVERTON GAMBLE DO Facility:A Start: 12-25-2024 End: 12-25-2024 ambulatory EVERTON GAMBLE DO Facility:A Start: 12-11-2024 End: 12-11-2024 ambulatory EVERTON GAMBLE DO Facility:A Start: 12-02-2024 End: 12-02-2024 Telephone encounter Hermilo Arias APRN.STATIONARY ENGINEER APPRENTICE Work Phone: [facility] [place] Start: 11-30-2024 ambulatory MICHELLE NAVARRO Facility: [id number] Start: 11-30-2024 End: 11-30-2024 Subsequent hospital visit by physician Kendra [facility] [place] Work Phone: [facility] Comment on above: Fall (on) (from) oth er stairs and steps, initial encounter [W10.8XXA] Start: 11-30-2024 End: 11-30-2024 Patient encounter procedure Michelle Navarro DO Work Phone: [facility] Comment on above: Closed nondisplaced fracture of scaphoid of left wrist, unspecified portion of scaphoid, initial encounter (Primary Dx); Fall (on) (from) other stairs and steps, initial encounter Start: 11-30-2024 End: 11-30-2024 ambulatory SELF Facility:[id number] Start: 06-05-2024 End: 06-05-2024 ambulatory [facility] Facility:[facility] Start: 05-30-2024 End: 05-30-2024 [facility] Facility:[facility] Start: 04-17-2024 Patient encounter procedure [facility] Provider [facility] Department Start: 04-17-2024 Telephone encounter Veronique purdy MD Work Phone: Rheumatology Comment on above: Records Start: 04-03-2024 End: 04-03-2024 Office outpatient visit 40 minutes Veronique Palma MD Work Phone: Rheumatology Comment on above: Polyarthralgia (Prim hodan Dx); Sicca, unspecified type (HCC) Start: 11-09-2023 End: 11-09-2023 ambulatory [facility] Work Phone: [facility] Work Phone: Start: 11-09-2023 End: 11-09-2023 Patient encounter procedure [facility] Work Phone: [facility]-Nuclear Medicine, [facility] Work Phone: Start: 10-17-2023 End: 10-17-2023 ambulatory [facility] Work Phone: [facility] Work Phone: Start: 10-17-2023 End: 10-17-2023 Patient encounter procedure [facility] Work Phone: [facility]-Ultrasound, [facility] Work Phone: Start: 10-06-2023 End: 10-06-2023 ambulatory [facility] Work Phone: [facility] Work Phone: Start: 10-06-2023 End: 10-06-2023 Patient encounter procedure [facility] Work Phone: [facility]-Ultrasound, [facility] Work Phone: Start: 10-03-2023 End: 10-03-2023 ambulatory [facility] Work Phone: [facility] Work Phone: Start: 10-03-2023 End: 10-03-2023 Patient encounter procedure [facility] Work Phone: [facility] Work Phone: Start: 08-19-2023 End: 08-19-2023 Emergency department patient visit [facility] Work Phone: [facility]-Emergency Department Work Phone: Start: 07-27-2023 End: 07-27-2023 ambulatory [facility] Work Phone: Start: 07-27-2023 End: 07-27-2023 Patient encounter procedure [facility]-Laboratory Work Phone: Start: 05-04-2023 End: 05-04-2023 ambulatory [facility] Work Phone: Start: 05-04-2023 End: 05-04-2023 Patient encounter procedure [facility]-Laboratory Start: 04-04-2023 End: 04-04-2023 ambulatory [facility] Work Phone: Start: 04-04-2023 End: 04-04-2023 Patient encounter procedure [facility]-Laboratory Start: 01-06-2023 End: 01-06-2023 Patient encounter procedure [facility] Comment on above: Laceration without f oreign body of right middle finger without damage to nail, initial encounter (Primary Dx); Laceration without foreign body of right ring finger without damage to nail, initial encounter Start: 01-04-2023 End: 01-04-2023 Patient encounter procedure [facility] Comment on above: Laceration without f oreign [...] call scheduling.) Start: 07-08-2022 End: 07-08-2022 ambulatory [facility] Work Phone: [facility] Work Phone: Start: 07-08-2022 End: 07-08-2022 Patient encounter procedure [facility] Work Phone: [facility]-Laboratory, Specimen Start: 07-06-2022 End: 07-06-2022 ambulatory [facility] Work Phone: [facility] Work Phone: Start: 07-06-2022 End: 07-06-2022 Patient encounter procedure [facility] Work Phone: [facility] Start: 06-10-2022 Telephone encounter Hue George [...] Start: 04-04-2022 End: 04-04-2022 Patient encounter procedure [facility] Work Phone: [facility] Start: 03-21-2022 Non-patient / Non-visit [facility] Work Phone: [facility] Start: 03-21-2022 End: 03-21-2022 Admission to same day surgery center [facility] Work Phone: [facility]-Endoscopy Start: 03-11-2022 [facility] [place] Comment on above: Smoking Cessation Start: 02-25-2022 End: 02-25-2022 Subsequent hospital visit by physician Nathalie Mcknight (I-Stat/3t) Work Phone: Radiology Comment on above: 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] Start: 02-07-2022 End: 02-07-2022 Patient encounter procedure [facility] Work Phone: [facility] Start: 02-04-2022 End: 02-04-2022 Patient encounter procedure [facility] Work Phone: [facility] Start: 01-18-2022 End: 01-18-2022 Patient encounter procedure [facility] Work Phone: [facility]-Laboratory, Specimen Start: 01-17-2022 End: 01-17-2022 Patient encounter procedure [facility] Work Phone: [facility]-Laboratory Start: 01-17-2022 End: 01-17-2022 Patient encounter procedure [facility] Work Phone: [facility] Start: 12-21-2021 End: 12-21-2021 Patient encounter procedure [facility] Work Phone: [facility]-Cat Scan, [facility] Start: 11-26-2021 End: 11-26-2021 Patient encounter procedure [facility] Work Phone: [facility]-Laboratory Procedures Date Procedure Procedure Detail Performing Clinician Start: 11-09-2023 Radionuclide imaging of liver and/or biliary tract using radioactive isotope [facility] Work Phone: Start: 10-17-2023 Computed tomography of abdomen and pelvis with contrast [facility] Work Phone: Start: 10-06-2023 Ultrasonography of abdomen [facility] Work Phone: Start: 08-19-2023 Plain X-ray abdomen [facility] Work Phone: Start: 06-07-2022 Urnls dip stick/tablet rgnt auto w/o microscopy Bulk Order Provider Start: 03-21-2022 End: 03-21-2022 Viral antigen assay [facility] Work Phone: Start: 03-21-2022 Colonoscopy [facility] Work Phone: Start: 02-25-2022 Mri brain brain stem w/o w/contrast material Shruthi Elizabeth MD Work Phone: Start: 02-04-2022 Magnetic resonance cholangiopancreatography [facility] Work Phone: Start: 12-21-2021 CT of abdomen and pelvis without contrast [facility] Work Phone: Start: 11-26-2021 Diagnostic radiography of abdomen [facility] Work Phone: Start: 01-15-2021 Ecg routine ecg w/least 12 lds i&r only Start: 05-18-2016 Adult depression screening assessment Mri (I-Stat/3t) Work Phone: Start: 05-20-2015 Colonoscopy Mri (I-Stat/3t) Work Phone: H/O: tubal ligation Hx of tubal ligation [facility] Work Phone: Viral antigen assay [facility] [facility] Work Phone: Plan of Treatment Date Care Activity Detail Author Start: 12-25-2032 Urine microalbumin profile [facility] Start: 02-13-2029 Screening for malign ant neoplasm of cervix [facility] Start: 07-14-2025 Influenza vaccination Influenz a Vaccine (Season Ended) [facility] Start: 07-02-2025 End: 07-02-2025 Patient encounter procedure 07/02/2025 9:00 AM EDT Office Visit Neurology [address] [address] Jackie Darby MD [address] [place], [place] [id number] Memory impairment-R41.3 Neurology Comment on above: Memory impairment-R4 1.3 Start: 05-12-[address] [facility] Start: 07-14-2024 Covid-19 Vaccine ( season) Covid-19 Vaccine ( season) [facility] Start: 07-14-2024 Influenza vaccination [facility] Start: 04-03-2024 End: 07-03-2024 C reactive protein [Mass/volume] in Serum or Plasma C-REACTIVE PROTEIN Lab Routine Polyarthralgia Sicca, unspecified type (HCC) Expected: 04/03/2024, Expires: 07/03/2024 [facility] Comment on above: Expected: 04/03/2024 , Expires: 07/03/2024 Start: 04-03-2024 End: 07-03-2024 CBC W Auto Differential panel - Blood COMPLETE BLOOD COUNT AND DIFFERENTIAL Lab Routine Polyarthralgia Sicca, unspecified type (HCC) Expected: 04/03/2024, Expires: 07/03/2024 [facility] Work Phone: Comment on above: Expected: 04/03/2024 , Expires: 07/03/2024 Start: 04-03-2024 End: 07-03-2024 Complement C3 [Mass/volume] in Serum or Plasma C3 COMPLEMENT Lab Routine Polyarthralgia Sicca, unspecified type (HCC) Expected: 04/03/2024, Expires: 07/03/2024 [facility] Comment on above: Expected: 04/03/2024 , Expires: 07/03/2024 Start: 04-03-2024 End: 07-03-2024 Complement C4 [Mass/volume] in Serum or Plasma C4 COMPLEMENT Lab Routine Polyarthralgia Sicca, unspecified type (HCC) Expected: 04/03/2024, Expires: 07/03/2024 [facility] Comment on above: Expected: 04/03/2024 , Expires: 07/03/2024 Start: 04-03-2024 End: 07-03-2024 Comprehensive metabolic 2000 panel - Serum or Plasma COMPREHENSIVE METABOLIC PANEL Lab Routine Polyarthralgia Sicca, unspecified type (HCC) Expected: 04/03/2024, Expires: 07/03/2024 [facility] Comment on above: Expected: 04/03/2024 , Expires: 07/03/2024 Start: 04-03-2024 End: 07-03-2024 Erythrocyte sedimentation rate SEDIMENTATION RATE, WESTERGREN Lab Routine Polyarthralgia Sicca, unspecified type (HCC) Expected: 04/03/2024, Expires: 07/03/2024 [facility] Comment on above: Expected: 04/03/2024 , Expires: 07/03/2024 Start: 04-03-2024 End: 07-03-2024 Urinalysis complete panel - Urine URINALYSIS, WITH MICROSCOPIC Lab Routine Polyarthralgia Sicca, unspecified type (HCC) Expected: 04/03/2024, Expires: 07/03/2024 [facility] Comment on above: Expected: 04/03/2024 , Expires: 07/03/2024 Start: 11-13-2023 Behavioral Health Screening Behavioral Health Screening [facility] Start: 10-03-[address] [facility] Start: 08-19-[address] [facility] Start: 07-14-2023 Covid-19 Vaccine ( season) Covid-19 Vaccine ( season) [facility] Start: 07-14-2023 Influenza vaccination INFLUENZA (Sea son Ended) [facility] Start: 11-13-2022 DEPRESSION ASSESSMENT DEPRESSION ASS [facility] Start: 07-14-2022 Influenza vaccination C [facility] Start: 07-08-2022 Elastase, pancreatic (el-1), fecal; quantitative [facility] Work Phone: Start: 07-08-2022 Fat [Presence] in Stool [facility] Work Phone: Start: 06-07-2022 End: 08-07-2022 C reactive protein [Mass/volume] in Serum or Plasma [facility] Work Phone: Comment on above: Expected: 06/07/2022 , Expires: 08/07/2022 Start: 03-21-2022 Colonoscopy w/biopsy single/multiple COLONOSCOPY AND BIOPSY [facility] Work Phone: Start: 03-21-2022 Colsc flx w/rmvl of tumor polyp lesion snare tq COLONOSCOPY W/LESION REMOVAL [facility] Work Phone: Start: 03-21-2022 Egd transoral biopsy single/multiple EGD BIOPSY SINGLE/MULTIPLE [facility] Work Phone: Start: 03-21-2022 Patient discharge [facility] Work Phone: Start: 11-13-2021 [facility] Start: 05-20-2018 Colonoscopy COLONOSCOPY [facility] Start: 05-20-2018 COLORECTAL CANCER SCREENING COLORECTAL CANCER SCREENING [facility] Start: 05-20-2018 Screening for malign ant neoplasm of colon [facility] Start: 03-09-2018 DIABETES SCREEN [facility] Start: 03-09-2018 Diabetes Screening Diabetes Screenin g [facility] Start: 2017 Influenza vaccination LUNG CANCER SC TOMASZNING [facility] Start: 2017 Screening for malign ant neoplasm of lung Lung Cancer Screening [facility] Start: 2017 SHINGRIX VACCINE (1 of 2) THACKER GRIX VACCINE (1 of 2) [facility] Start: 05-18-2017 Adult depression screening assessment DEPRESSION SCREENING [facility] Start: 2012 COLOGUARD (FIT-DNA) COLOGUARD (FIT-D NA) [facility] Start: [address] COLONOGRAPHY [facility] Start: 2012 FECAL OCCULT BLOOD FECAL OCCULT BLOO D [facility] Start: 2012 Lipid panel Lipid Screening [facility] Start: 2012 LIPID SCREEN LIPID SCREEN [facility] Start: 2012 Screening for malign ant neoplasm of colon [facility] Start: 2012 SIGMOIDOSCOPY SIGMOIDOSCOPY [facility] Start: 2007 Mammography MAMMOGRAM [facility] Start: 2007 Screening for malign ant neoplasm of breast Mammogram Screening [facility] Start: 1997 HPV TESTING HPV TESTING [facility] Start: 1988 PAP TESTING PAP TESTING [facility] Start: 1986 Hepatitis B Vaccine (1 of 3 - 19+ 3-dose series) Hepatitis B Vaccine (1 of 3 - 19+ 3-dose series) [facility] Start: 1986 Pneumococcal Vaccine : 50+ (1 of 2 - PCV) Pneumococcal Vaccine: 50+ (1 of 2 - PCV) [facility] Start: 1986 Urine microalbumin profile DTAP,TDAP,TD (1 - Tdap) [facility] Start: 1985 Depression Screening Depression Scre ening [facility] Start: 1985 HEPATITIS C SCREENING HEPATITIS C [facility] Start: 1985 Hepatitis C screening Hepatitis C [facility] Start: 1985 HIV SCREENING HIV SCREENING [facility] Start: 1985 HIV screening HIV Screening [facility] Start: 1973 PNEUMOCOCCAL (1 - PCV) PNEUMOCOCCAL (1 - PCV) [facility] Start: 1973 Pneumococcal vaccination Pneum ococcal Vaccine (1 of 2 - PCV) [facility] Start: 1972 COVID-19 VACCINE (1) Cl [facility] Start: 04-16-1968 COVID-19 VACCINE (#1) COVID-19 VACCI NE (#1) [facility] Start: 1967 HEPATITIS B (1 of 3 - 3-dose series) HEPATITIS B (1 of 3 - 3-dose series) [facility] CBC W Auto Different ial panel - Blood [facility] CT Abdomen and Pelvi s W contrast IV [facility] CT Abdomen and Pelvi s W contrast IV [facility] Fat [Mass/mass] in Stool [facility] Work Phone: Fat.neutral [Presenc e] in Stool [facility] Work Phone: Hepatic function panel [facility] Immunoglobulin measurement [facility] Work Phone: Patient Education Abdominal Pain [facility] Work Phone: Patient referral [facility] Work Phone: Prothrombin time [facility] Radionuclide imaging of liver and/or biliary tract using radioactive isotope [facility] Triacylglycerol lipa se measurement [facility] End: 07-07-2023 US SOFT TISSUE PELVIS US SOFT TISSUE PELVIS Radiology Routine Polyarthralgia Malaise and fatigue Skin rash Lymphadenopathy 1 Occurrences starting 06/07/2022 until 07/07/2023 [facility] Work Phone: Comment on above: 1 Occurrences starti ng 06/07/2022 until 07/07/2023 End: 07-07-2023 XR ANKLE GENERAL 3V AP/LAT/OBL LEFT XR ANKLE GENERAL 3V AP/LAT/OBL LEFT Radiology Routine Polyarthralgia Malaise and fatigue Skin rash 1 Occurrences starting 06/07/2022 until 07/07/2023 [facility] Work Phone: Comment on above: 1 Occurrences starti ng 06/07/2022 until 07/07/2023 End: 07-07-2023 XR ANKLE GENERAL 3V AP/LAT/OBL RIGHT XR ANKLE GENERAL 3V AP/LAT/OBL RIGHT Radiology Routine Polyarthralgia Malaise and fatigue Skin rash 1 Occurrences starting 06/07/2022 until 07/07/2023 [facility] Work Phone: Comment on above: 1 Occurrences starti ng 06/07/2022 until 07/07/2023 End: 12-30-2025 XR Elbow - left AP and Lateral and oblique XR ELBOW SPECIAL VIEWS AP/LAT/OTHER LEFT Radiology Routine Fall (on) (from) other stairs and steps, initial encounter 1 Occurrences starting 11/30/2024 until 12/30/2025 [facility] Comment on above: 1 Occurrences starti mayda 11/30/2024 until 12/30/2025 XR Elbow - left AP a nd Lateral and oblique XR ELBOW SPECIAL VIEWS AP/LAT/OTHER LEFT Radiology Routine Fall (on) (from) other stairs and steps, initial encounter 11/30/2024 2:46 PM [facility] End: 07-07-2023 XR FOOT GENERAL 3V AP/LAT/OBL BILATERAL XR FOOT GENERAL 3V AP/LAT/OBL BILATERAL Radiology Routine Polyarthralgia Malaise and fatigue Skin rash 1 Occurrences starting 06/07/2022 until 07/07/2023 [facility] Work Phone: Comment on above: 1 Occurrences [place] 06/07/2022 until 07/07/2023 End: 12-30-2025 XR Hand - left PA and Lateral and Oblique XR HAND GENERAL 3V PA/LAT/OBL LEFT Radiology Routine Fall (on) (from) other stairs and steps, initial encounter 1 Occurrences starting 11/30/2024 until 12/30/2025 [facility] Work Phone: Comment on above: 1 Occurrences [place] 11/30/2024 until 12/30/2025 XR Hand - left PA an d Lateral and Oblique XR HAND GENERAL 3V PA/LAT/OBL LEFT Radiology Routine Fall (on) (from) other stairs and steps, initial encounter 11/30/2024 2:46 PM [facility] End: 07-07-2023 XR HAND GENERAL 3V PA/LAT/OBL BILATERAL XR HAND GENERAL 3V PA/LAT/OBL BILATERAL Radiology Routine Polyarthralgia Malaise and fatigue Skin rash 1 Occurrences starting 06/07/2022 until 07/07/2023 [facility] Work Phone: Comment on above: 1 Occurrences [place] 06/07/2022 until 07/07/2023 End: 12-30-2025 XR Wrist - left 4 Views XR WRIST INJURY 4V PA/LAT/OBL/SCAPH LEFT Radiology Routine Fall (on) (from) other stairs and steps, initial encounter 1 Occurrences starting 11/30/2024 until 12/30/2025 [facility] Comment on above: 1 Occurrences starti ng 11/30/2024 until 12/30/2025 XR Wrist - left 4 Views XR WRIST INJURY 4V PA/LAT/OBL/SCAPH LEFT Radiology Routine Fall (on) (from) other stairs and steps, initial encounter 11/30/2024 2:46 PM EST [facility] Immun[facility] Immunization Date Immunization Notes Care Provider Urbano archuleta 12-25-2022 tetanus toxoid, redu radha diphtheria toxoid, and acellular pertussis vaccine, adsorbed Cc Dailey [facility] Payers Date Payer Category Payer Self-pay [id number] 2022 Unknown [facility] [id number] 2022-Present [phone] [address] [place] [address] [facility] [id number] 2014 Unknown [id number] 2014 Unknown [id number] 2014 Medicaid [employer] [id number] 2014-Present [phone] [address] [place] [address] Medicaid [id number] 2014 Medicaid [id number] 1967 Unknown [id number] 1967 Unknown [id number] 1967 Unknown [id number] 1967 Unknown [id number] 1967 Unknown [id number] Unknown [id number] Unknown [id number] Unknown [id number] Unknown [id number] Unknown [id number] Unknown [id number] Social History Date Type Detail Facility Start: 02-07-2022 End: 10-03-2023 Tobacco smoking status [facility] Unknown if ever smoked [facility] Start: 04-04-[address] [facility] Start: 1965 Sex Assigned At Female W [facility] Start: 03-09-2022 End: 10-03-2023 Tobacco smoking status SDIS Smokes tobacco daily [facility] Start: 11-13-1979 History of tobacco use Cigarette Smo ker [facility] Start: 01-11-2022 Alcohol intake Current drinke r of alcohol (finding) [facility] Start: 1965 Sex Assigned At Not on file C [facility] Start: 02-15-2022 End: 06-07-2022 Exposure to SARS-CoV-2 (event) Not sure [facility] Start: 03-09-2022 End: 11-30-2024 Alcohol intake Ex-drinker (finding) [facility] Start: 03-09-2022 History SDOH Alcohol Comment 4-10 glasses per week; stopped 1-2 months [facility] Start: 03-09-2022 End: 11-25-2022 Cigarettes smoked current (pack per day) - Reported 1.5 [facility] Start: 03-09-2022 End: 11-30-2024 Tobacco use and exposure Smokeless tobacco non-user [facility] Work Phone: Start: 11-25-2022 End: 12-25-2022 Tobacco use panel [facility] National Score (1-10 0), lower number is lower risk 74 [facility] Start: 03-04-2025 Sex Female (finding) [place] [facility] Goals Date Patient Goal Desired Activity /State Functional Status Date Assessment Result Facility 06-18-2015 Are you deaf, or do you have serious difficulty hearing No 06/18/2015 8:02 AM Leesa Hood Ma [facility] 06-18-2015 Are you blind, or do you have serious difficulty seeing, even when wearing glasses No 06/18/2015 8:02 AM Leesa Hood Ma [facility] 06-18-2015 Do you have serious difficulty walking or climbing stairs No 06/18/2015 8:02 AM Leesa Hood Ma [facility] 06-18-2015 Do you have difficul ty dressing or bathing No 06/18/2015 8:02 AM Leesa Hood Ma [facility] 06-18-2015 Because of a physica l, mental, or emotional condition, do you have difficulty doing errands alone such as visiting a physician's office or shopping No 06/18/2015 8:02 AM Leesa Hood Ma [facility] Mental Status Date Assessment Result Facility 03-21-2022 Cognitive function Voice/Name [facility] Work Phone: 06-18-2015 Because of a physica l, mental, or emotional condition, do you have serious difficulty concentrating, remembering, or making decisions No 06/18/2015 8:02 AM Leesa Hood Ma [facility] Clinical Notes 02-25-2022 to 05-12-2025 Note Date & Type Note Facility 05-12-2025 Evaluation note Diagnosis Onset Date Resolution Abdominal pain acute May 12, 2025 9:54am Bloating acute May 12 9:54am Diarrhea acute May 12 9:54am Nausea acute May 12 9:54am Weight gain acute May 12 9:54am [facility] Work Phone: [phone]) 676-844006-19-2025 Telephone encounter Note* Telephone Encounter - Gia Senior - 05/01/2025 10:23 AM EDT Patient returned call and is scheduled for 07/02/[address] [place] [address] Darby. [facility]06-19-2025 Miscellaneous Notes* Telephone Encounter - Gia Senior - 05/01/2025 10:23 AM EDT Patient returned call and is scheduled for 07/02/[address] [place] [address] Darby. * Telephone Encounter - [...] scheduling. Ld Lepe MA documented in this encounterKing[facility] [place] Telephone encounter Note * Telephone Encounter - Gia Senior - 05/01/2025 9:[address] attempt unable to leave a message to return call to Neurology to arrange appointment from outside referral records in scan docs. [facility]06-18-2025 Telephone encounter Note* Telephone Encounter - Ld Lepe MA - 04/30/2025 4:46 PM EDT Scan on 04/30/2025 7:52 AM by Provider, Bang, AMANDA: Neurology Referral 04/30/25 Neurology referral received from Tobi Horner CNP (Ginette Starks provider). Reason: Memory impairment-R41.3 Please assist with scheduling. Ld Lepe MA [facility]01-18-2025 History of Present illness Narrative* Javier Rebollar [...] PATIENT PRESENTS WITH AN IMPLANTABLE OR ATTACHED SUSPENDER CUTTER: No RADIOLOGY DEPARTMENT: General X-ray: Exam(s) Completed: Upper Extremity X- Ray(s): Elbow, left , Wrist, left , and Hand, left PERIPHERAL IV DATA: Not applicable SIGNED BY: RT Alexis(R) November 30, 2024 4:17 PM documented in this encounterKing[facility] [place]-2025 NoteHNO ID: [id number] Author: JAVIER REBLOLAR RT(R) Service: ? Author Type: Technologist Type: [...] PATIENT PRESENTS WITH AN IMPLANTABLE OR ATTACHED SUSPENDER CUTTER: No RADIOLOGY DEPARTMENT: General X-ray: Exam(s) Completed: Upper Extremity X-Ray(s): Elbow, left , Wrist, left , and Hand, left PERIPHERAL IV DATA: Not applicable SIGNED BY: RT Alexis(Ronda) November 30, 2024 4:17 [facility] NoteHNO ID: [id number] Author: MICHELLE NAVARRO, DO Service: ? Author [...] to take the slin (more content not included)...[facility]01-18-2025 History of Present illness Narrative* Michelle Navarro, [...] time. Emily Osuna LPN documented in this encounterKing[facility] [place]25 NoteHNO ID: [id number] Author: EMILY OSUNA LPN Service: ? Author Type: LICENSED NURSE Type: Progress Notes Filed: 11/30/2024 14:41 Note Text: Patient declined depression screening at this time. Emily Osuna [facility]06-05-2024 Telephone encounter Note* Telephone Encounter - Joel Palma MA - 04/17/2024 5:32 PM EDT Outside Medical Records: Records from Yeimi Chaudhary NP received Scanned into [facility] under Scanned Docs Tab Message Forwarded to Dr Palma Please review Joel Palma MA [facility]06-05-2024 Miscellaneous Notes* Telephone Encounter - Joel Palma MA - 04/17/2024 5:32 PM EDT Outside Medical Records: Records from Yeimi Chaudhary NP received Scanned into [facility] under Scanned Docs Tab Message Forwarded to Dr Palma Please review Joel Palma MA documented in this encounterKing[facility] [place] History of Present illness Narrative* Veronique Palma MD - 04/12/2024 1:52 PM EDT Images from the original note were not included. Rheumatology Outpatient Clinic Follow Up Visit Date of Service: 04/03/2024 Patient: Shayna Lyons Medical Record: [id number] Primary Care Physician: Nereida Davis CNP Last [...] been ongoing. Has been told by herman edging machine catcher touse sam and sam baby shampoo, when [...] 11.5 - 15.5 g/dL 12.7 14.7 Hemoglobin, [place] 12.0 - 16.0 g/dL 13.5 Hematocrit 36.0 [...] Potassium 3.5 - 5.0 mmol/L 4.6 Potassium, [place] 3.5 - 5.1 mmol/L 3.8 Chloride 98 - 110 mmol/L 106 Chloride, [place] 98 - 107 mmol/L 102 CO2 23 - 32 mmol/L 21 CO2, [place] 21.0 - 32.0 mmol/L 28.0 Glucose 65 - 100 mg/dL 78 Glucose, Saira 70 - 99 mg/dL 85 BUN 8 - 25 mg/dL 8 BUN, [place] 7 - 18 mg/dL 10 Creatinine 0.70 - 1.40 mg/dL 0.64 Creatinine, Sair[place] 0.6 - 1.0 mg/dL 0.8 Calcium, [place] 8.5 - 10.1 mg/dL 9.1 Calcium 8.5 - 10.5 mg/dL 8.9 AST 7 - 40 U/L 21 AST, [place] 15 - 37 U/L 17 ALT 0 [...] AI <0.2 Sm Antibody Negative Negative Ribosomal HUMAN RESOURCES SUPPORT SPECIALIST Ab <1.0 AI <0.2 Ribosomal HUMAN RESOURCES SUPPORT SPECIALIST Qualitative Negative Negative Chromatin Ab <1.0 AI <0.2 Chromatin Ab Qual Negative Negative SSA Antibody Qual Negative Negative Anti-SSA <1.0 AI <0.2 Anti-SSB AI <0.2 HUMAN RESOURCES SUPPORT SPECIALIST Antibody QUAL Negative Negative Scleroderma Ab Qual [...] she was told by Dr. Pérez her postdoctoral research associate that her blood work/notes from her maintenance superintendent in 2013 showed concer ns for Sjogren's [...] which included preparing to see the patient, [id number] patient care, completing clinical documentation, obtaining and/or reviewing separately obtained history, performing a medically appropriate examination, counseling and educating the pat ient/family/caregiver, ordering medications, tests, or procedures, communicating with other HCPs (not separately reported), and independently interpreting results (not separately reported). documented in this encounterKing'[facility] [place] Nurse Note* Joel Palma MA - 04/03/2024 7:18 PM EDT Did not check BP due to pt was talking for long period of time regarding not related to her purposeof the visit today with Dr Palma. Run out of time of rooming. Joel Palma MA [facility]05-22-2024 Nurse Note* Joel Palma MA - 04/03/2024 [...] ofemergency. Joel Palma MA documented in this encounterKing'S [facility] [place] Nurse Note* Joel Palma MA - 04/03/2024 [...] 911 in case ofemergency. Joel Palma MA [facility]07-29-2022 Miscellaneous Notes* Telephone Encounter - Hue George, PhD - 06/10/2022 11:32 AM EDT Spoke with patient to review results of neuropsychological testing and address questions. documented in this encounterKing'S [facility] [place] History of Present illness Narrative* Markie Matson MD - 06/07/2022 2:17 PM EDT [facility] RECONSTRUCTIVE SURGERY PATIENT HISTORY AND PHYSICAL EXAM PATIENT INFO: Shayna Lyons is a 56 year old female. REFERRING M.D.: Aaron Mackenzie [address] [facility] [address] Mackenzie for an [...] Level: 4 - Moderate documented in this encounterKing'S [facility] [place] History of Present illness Narrative* Veronique Palma MD - 06/07/2022 1:00 PM EDT Images from the original note were not included. Rheumatology Outpatient Clinic Date of Service: 06/07/2022 Patient: Shayna Lyons Medical Record: [id number] Primary Care Physician: Nereida Davis CNP Last Rheumatology visit: None at [facility] Referring Provider: Aaron Mackenzie [id number] [facility] [id number] Umanzor for an [...] and was sleeping for prolonged periods. Dr aMnjit at [facility] in [place], ? Inguinal adenopathy -underwent biopsy and results are pending From her PTSD standpoint, she has tried to follow with a psychiatrist twice-has taken cymbalta in the past, did not want to take it further, started experimenting with her meds [place] high dose of Vitamin D3 helped with [...] W/CONFIRMATION <30 IU/mL - - <12 - HUMAN RESOURCES SUPPORT SPECIALIST ANTIBODY QUAL Negative - - Negative - SSA ANTIBODY QUAL Negative - - Negative - JOAQUINA 1 ANTIBODY <1.0 AI - - <0.2 - JOAQUINA 1 ANTIBODY QUAL Negative - - Negative - RIBOSOMAL HUMAN RESOURCES SUPPORT SPECIALIST AB <1.0 AI - - <0.2 - RIBOSOMAL HUMAN RESOURCES SUPPORT SPECIALIST QUAL Negative - - Negative - ANTI-SSA [...] which included preparing to see the patient, [id number]-[id number] patient care, completing clinical documentation, obtaining and/or reviewing separately obtained history, performing a medically appropriate examination, counseling and educating the pat ient/family/caregiver, ordering medications, tests, or procedures and communicating with other HCPs(not separately reported). Veronique Palma MD Rheumatology Date: June 06, 2022 Time: 4:34 PM documented in [facility] encounter[facility] [place] History of Present illness Narrative* Hue George, PhD - 06/07/2022 11:10 AM EDT [facility] Department of Neurology Section of Neuropsychology Neuropsychological [...] with cognitive lapses. 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 [facility] [place] offers several options for medication and behavioral treatments through the [facility]. To make an appointment, call [phone]. Brief psychotherapy through [facility] s social work team is also available ([phone]). Their primary care physician or insurance company can also be contacted for a list of available providers. Additionally, the following website can be used to find a provider: [email or web address]. Potential providers can be searched based on presenting concerns, accepted insurance, area of residence, etc. Simon haywood, Psychology graduate training programs often offer counseling services on a sliding scale fee.The patient can contact [facility] at [phone]. 3. Compensatory strategies for everyday cognitive lapses: Establish a structured and predictable daily routine. Use a day marketing planner or electronic organizer to help monitor [...] Ph.D. Staff Neuropsychologist Time testing and scoring (secretary of state): 3 hours Time completing additional tests, analyzing, interpreting and incorporating other available medicalinformation, clinical data review, and report writing (by neuropsychologist): 3 hours Tests Administered: Gomez Anxiety Inventory Gomez Depression Inventory [place] Naming Test Brief Visuospatial Memory Test-Revised [place] Verbal Learning Test-II Bridget Continuous Performance Test-3 Controlled Oral Word Association Test Fatigue Severity Scale Chiu Verbal Learning Test Judgment of Line Orientation Kyle Complex Figure Symbol Digit Modalities Test Weiner Making Test VSVT WAIS-IV subtests: Digit Span, Letter-Number Sequencing, Matrix Reasoning, Similarities [place] Card Sorting Test WMS-IV Logical Memory WRAT-IV Reading documented in this encounterKing[facility] [place]-29-[facility] Miscellaneous Notes* [facility] 11[facility]11 AM EDT Smoking Cessation Navigation Outcome of contact: Left Message Comments: A voicemail has been left for this patient regarding Tobacco Cessation support options. If this patient has any further questions they can email us at or call us at [phone]. [employer]alth Paid Search Marketing Strategist/Smoking Cessation Navigator[facility] documented in this encounterKing[facility] [place] History of Present illness Narrative* RT Donald(R) [...] 2022 TIME: 3:47 PM documented in this encounterKing[facility]* Diagnosis Onset Date Resolution Status Abdominal pain acute Constipation acute Mesenteric lymphadenopathy a cute Nausea acute Pancreatic calcification acu te Abdominal pain acute Constipation acute Diarrhea acute Mesenteric lymphadenopathy a cute Nausea acute Pancreatic calcification acu te Vomiting acute [facility] Work Phone: Evaluation note* Diagnosis Demyelinating disease of central nervous system (HCC) Demyelinating disease of central nervous system, unspecified documented in this encounter [facility]* Diagnosis Demyelinating disease of central nervous system (HCC) Demyelinating disease of central nervous system, unspecified [facility] Diagnosis Urinary frequency- Primary Urge incontinence of urine Urge incontinence [facility]* Diagnosis Polyarthralgia- Primary Pain in joint, multiple sites Malaise and fatigue Other malaise and fatigue Skin rash Rash and other nonspecific skin eruption Myalgia Mylagia and myositis, unspecified Lymphadenopathy Enlargement of lymph nodes [facility]* Diagnosis Screening for genitourinary condition Screening for other and unspecified genitourinary condition documented in this encounter [facility] note* Diagnosis Cognitive complaints with normal neuropsychological exam- Primary Other signs and symptoms involving cognition Abdominal pain, acute, right lower quadrant Abdominal pain, right lower quadrant Depression, unspecified depression type [facility]* Diagnosis Onset Date Resolution Status Acid reflux acute Constipation acute Diarrhea acute Mesenteric lymphadenopathy a cute Pancreatic calcification acu te Tubular adenoma of colon acu te Constipation acute Mesenteric lymphadenitis acu te Pancreatic calcification acu te [facility] Work Phone: Evaluation note* Diagnosis Laceration without foreign body of right middle finger without damage to nail, initial encounter- Primary Laceration without foreign body of right ring finger without damage to nail, initial encounter documented in this encounter [facility] noteNo assessment information [facility]WMer[facility] Work Phone: Evaluation note* Diagnosis Onset Date Resolution Status Acid reflux acute Diarrhea acute Mesenteric lymphadenopathy a cute Tubular adenoma of colon acu te Constipation chronic Pancreatic calcification chr onic [facility] Work Phone: Evaluation note* Diagnosis Polyarthralgia- Primary Pain in joint, multiple sites Sicca, unspecified type (HCC) [facility]* Diagnosis Closed nondisplaced fracture of scaphoid of left wrist, unspecified portion of scaphoid, initial encounter- Primary Fall (on) (from) other stairs and steps, initial encounter [facility]* Diagnosis Fall (on) (from) other stairs and steps, initial encounter documented in this encounter [facility] note* Diagnosis Onset Date Resolution Status Admit Date Abdominal pain acute May 12, 2025 9:54am Bloating acute May 12 9:54am Diarrhea acute May 12 9:54am Nausea acute May 12 9:54am Weight gain acute May 12 9:54am [facility] [employer] Work Phone: Reason for referral (narrative)* Diagnostic Procedure Only (Routine) - Pending Review Specialty Diagnoses / Procedures Referred By Contac t Referred To Contact US IMAGING Diagnoses Polyarthralgia Malaise and fatigue Skin rash Lymphadenopathy Procedures US SOFT TISSUE PELVIS US PELVIC NONOBSTETRIC IMAGE DCMTN LIMITED/F/U Veronique Palma MD [address] [place] [address] Us Imaging Referral ID Status Reason Start Date Expiration Date Visits Requested Visits Authorized [id number] Pending Review Auto-Generat ed Referral 06/07/2022 07/07/2023 1 1 * Diagnostic Procedure Only (Routine) - Pending Review Specialty Diagnoses / Procedures Referred By Contac t Referred To Contact XR IMAGING Diagnoses Polyarthralgia Malaise and fatigue Skin rash Procedures XR ANKLE GENERAL 3V AP/LAT/OBL RIGHT RADEX ANKLE COMPLETE MINIMUM 3 VIEWS Veronique Palma MD [address] [place] [address] Xr Imaging Referral ID Status Reason Start Date Expiration Date Visits Requested Visits Authorized [id number] Pending Review Auto-Generat ed Referral 06/07/2022 07/07/2023 1 1 * Diagnostic Procedure Only (Routine) - Pending Review Specialty Diagnoses / Procedures Referred By Contac t Referred To Contact XR IMAGING Diagnoses Polyarthralgia Malaise and fatigue Skin rash Procedures XR ANKLE GENERAL 3V AP/LAT/OBL LEFT RADEX ANKLE COMPLETE MINIMUM 3 VIEWS Veronique Palma MD [address] [place] [address] Xr Imaging Referral ID Status Reason Start Date Expiration Date Visits Requested Visits Authorized [id number] Pending Review Auto-Generat ed Referral 06/07/2022 07/07/2023 1 1 * Diagnostic Procedure Only (Routine) - Pending Review Specialty Diagnoses / Procedures Referred By Contac t Referred To Contact XR IMAGING Diagnoses Polyarthralgia Malaise and fatigue Skin rash Procedures XR FOOT GENERAL 3V AP/LAT/OBL BILATERAL RADEX FOOT COMPLETE MINIMUM 3 VIEWS Veronique Palma MD [address] [place] [address] Xr Imaging Referral ID Status Reason Start Date Expiration Date Visits Requested Visits Authorized [id number] Pending Review Auto-Generat ed Referral 06/07/2022 07/07/2023 1 1 * Diagnostic Procedure Only (Routine) - Pending Review Specialty Diagnoses / Procedures Referred By Contac t Referred To Contact XR IMAGING Diagnoses Polyarthralgia Malaise and fatigue Skin rash Procedures XR HAND GENERAL 3V PA/LAT/OBL BILATERAL RADEX HAND MINIMUM 3 VIEWS Veronique Palma MD [address] [place] [address] Xr Imaging Referral ID Status Reason Start Date Expiration Date Visits Requested Visits Authorized [id number] Pending Review Auto-Generat ed Referral 06/07/2022 07/07/2023 1 1 * Consult, Test, Treat (Routine) - Authorized Specialty Diagnoses / Procedures Referred By Contac t Referred To Contact Dermatology Diagnoses Skin rash Procedures CONSULT TO DERMATOLOGY OFFICE/OUTPATIENT [facility] 60-74 MINUTES Veronique Palma MD [address] [place] [address] Referral ID Status Reason Start Date Expiration Date Visits Requested Visits Authorized [id number] Authorized PCP Requested Referral 06/07/2022 06/07/2023 1 1 [facility])* Diagnostic Procedure Only (Routine) - Closed Specialty Diagnoses / Procedures Referred By Contac t Referred To Contact XR IMAGING Diagnoses Fall (on) (from) other stairs and steps, initial encounter Procedures XR ELBOW SPECIAL VIEWS AP/LAT/OTHER LEFT RADEX ELBOW COMPLETE MINIMUM 3 VIEWS Michelle Navarro DO [address] [place] [address] [place] [address] Referral ID Status Reason Start Date Expiration Date V isits Requested Visits Authorized [id number] Closed Auto-Generate d Referral 11/30/2024 12/30/2025 1 1 * Diagnostic Procedure Only (Routine) - Closed Specialty Diagnoses / Procedures Referred By Contac t Referred To Contact XR IMAGING Diagnoses Fall (on) (from) other stairs and steps, initial encounter Procedures XR WRIST INJURY 4V PA/LAT/OBL/SCAPH LEFT RADEX WRIST COMPLETE MINIMUM 3 VIEWS Michelle Navarro DO [address] [place] [address] [place] [address] Referral ID Status Reason Start Date Expiration Date V isits Requested Visits Authorized [id number] Closed Auto-Generate d Referral 11/30/2024 12/30/2025 1 1 * Diagnostic Procedure Only (Routine) - Closed Specialty Diagnoses / Procedures Referred By Contac t Referred To Contact XR IMAGING Diagnoses Fall (on) (from) other stairs and steps, initial encounter Procedures XR HAND GENERAL 3V PA/LAT/OBL LEFT RADEX HAND MINIMUM 3 VIEWS Michelle Navarro DO [address] [place] [address] [place] [address] Referral ID Status Reason Start Date Expiration Date V isits Requested Visits Authorized [id number] Closed Auto-Generate d Referral 11/30/2024 12/30/2025 1 1 [facility] for referral (narrative)No reason for referral information availableWMer[facility] Work Phone: Reason for visit Narrative* Diagnostic Procedure Only (Routine) - Closed Specialty Diagnoses / Procedures Referred By Contac t Referred To Contact XR IMAGING Diagnoses Fall (on) (from) other stairs and steps, initial encounter Procedures XR ELBOW SPECIAL VIEWS AP/LAT/OTHER LEFT RADEX ELBOW COMPLETE MINIMUM 3 VIEWS Michelle Navarro, [address] [place] [address] [place] [address] Referral ID Status Reason Start Date Expiration Date V isits Requested Visits Authorized [id number] Closed Auto-Generate d Referral 11/30/2024 12/30/2025 1 1 [facility] Summary Purpose Family History No Family History [...] No February 08, 2021 11:46am Power of Trainman No February 08 21 11:46am Advance Directive Response Recorded Date/ Time Living Will No March 16, 2022 2: 53pm Power of Trainman No March 16, 2022 2:53pm Advance Directive Response Recorded Date/ Time Living Will No August 19 3 1:36pm Power of Trainman No August 19, 023 1:36pm Chief Complaint [...] STEM W/O W/CONTRAST MATERIAL Aaron Mackenzie MD [address] [id number] Mr Imaging Referral ID Status Reason Start Date Expiration Date Visits Requested Visits Authorized [id number] Waiting for Online Response Auto-Generat ed Referral 01/11/2022 02/10/2023 1 1 Specialty Diagnoses / Procedures Referred By Semaj montague Referred To Contact MR IMAGING Diagnoses Demyelinating disease of central nervous system (HCC) Procedures MRI THORACIC SPINE WO/W IVCON MRI SPINAL CANAL THORACIC W/O & W/CONTR Aaron Gordon MD [address] [place] [address] Mr Imaging Referral ID Status Reason Start Date Expiration Date V isits Requested Visits Authorized [id number] Closed Auto-Generate d Referral 02/10/2022 04/11/2022 1 1 Specialty Diagnoses / Procedures Referred By Semaj montague Referred To Contact MR IMAGING Diagnoses Demyelinating disease of central nervous system (HCC) Procedures MRI CERVICAL SPINE WO/W IVCON MRI SPINAL CANAL CERVICAL W/O & W/CONTR ANTOINEL Aaron Mackenzie MD [address] [place] [address] Mr Imaging Referral ID Status Reason Start Date Expiration Date Visits Requested Visits Authorized [id number] Waiting for Online Response Auto-Generat ed Referral 01/11/2022 02/10/2023 1 1 Specialty Diagnoses / Procedures Referred By Semaj montague Referred To Contact Markie Matson MD [address] [place] [address] Referral ID Status Reason Start Date Expiration Date Visits Re quested Visits Authorized [id number] Closed 1 1 Additional Source Comments INFORMATION SOURCE (unrecogn ized section and content) DATE CREATED AUTHOR 10/04/2019 [facility] DATE CREATED AUTHOR AUTHOR'S ORGANIZ ATION [facility]/31/2021 [facility] DATE CREATED AUTHOR AUTHOR'S ORGANIZ ATION 12/02/2024 [facility] DATE CREATED AUTHOR AUTHOR'S ORGANIZ ATION 01/31/2025 [facility] DATE CREATED AUTHOR AUTHOR'S ORGANIZ ATION 05/04/2025 [facility] DATE CREATED AUTHOR AUTHOR'S ORGANIZ ATION 05/21/2025 [facility] Goals (unrecognized section and content) Goals may [...] or prosecute any alcohol or drug abuse patient.[facility] OhioIn the event this information is protected by the Federal Confidentiality of Alcohol and Drug Abuse Patient Records regulations: The Federal rules restrict any use of the information to criminally investigate or prosecute any alcohol or drug abuse patient.[facility] OhioIn the event this information is protected by the Federal Confidentiality of Alcohol and Drug Abuse Patient Records regulations: The Federal rules restrict any use of the information to criminally investigate or prosecute any alcohol or drug abuse patient.[facility] OhioIn the event this information is protected by the Federal Confidentiality of Alcohol and Drug Abuse Patient Records regulations: The Federal rules restrict any use of the information to criminally investigate or prosecute any alcohol or drug abuse patient.[facility] OhioIn the event this information is protected by the Federal Confidentiality of Alcohol and Drug Abuse Patient Records regulations: The Federal rules restrict any use of the information to criminally investigate or prosecute any alcohol or drug abuse patient.[facility] OhioIn the event this information is protected by the Federal Confidentiality of Alcohol and Drug Abuse Patient Records regulations: The Federal rules restrict any use of the information to criminally investigate or prosecute any alcohol or drug abuse patient.[facility] OhioIn the event this information is protected by the Federal Confidentiality of Alcohol and Drug Abuse Patient Records regulations: The Federal rules restrict any use of the information to criminally investigate or prosecute any alcohol or drug abuse patient.[facility] OhioIn the event this information is protected by the Federal Confidentiality of Alcohol and Drug Abuse Patient Records regulations: The Federal rules restrict any use of the information to criminally investigate or prosecute any alcohol or drug abuse patient.[facility] OhioIn the event this information is protected by the Federal Confidentiality of Alcohol and Drug Abuse Patient Records regulations: The Federal rules restrict any use of the information to criminally investigate or prosecute any alcohol or drug abuse patient.[facility] OhioIn the event this information is protected by the Federal Confidentiality of Alcohol and Drug Abuse Patient Records regulations: The Federal rules restrict any use of the information to criminally investigate or prosecute any alcohol or drug abuse patient.[facility] OhioIn the event this information is protected by the Federal Confidentiality of Alcohol and Drug Abuse Patient Records regulations: The Federal rules restrict any use of the information to criminally investigate or prosecute any alcohol or drug abuse patient.[facility] OhioIn the event this information is protected by the Federal Confidentiality of Alcohol and Drug Abuse Patient Records regulations: The Federal rules restrict any use of the information to criminally investigate or prosecute any alcohol or drug abuse patient.[facility] OhioIn the event this information is protected by the Federal Confidentiality of Alcohol and Drug Abuse Patient Records regulations: The Federal rules restrict any use of the information to criminally investigate or prosecute any alcohol or drug abuse patient.[facility] OhioIn the event this information is protected by the Federal Confidentiality of Alcohol and Drug Abuse Patient Records regulations: The Federal rules restrict any use of the information to criminally investigate or prosecute any alcohol or drug abuse patient.[facility] OhioIn the event this information is protected by the Federal Confidentiality of Alcohol and Drug Abuse Patient Records regulations: The Federal rules restrict any use of the information to criminally investigate or prosecute any alcohol or drug abuse patient.[facility] OhioIn the event this information is protected by the Federal Confidentiality of Alcohol and Drug Abuse Patient Records regulations: The Federal rules restrict any use of the information to criminally investigate or prosecute any alcohol or drug abuse patient.[facility] OhioIn the event this information is protected by the Federal Confidentiality of Alcohol and Drug Abuse Patient Records regulations: The Federal rules restrict any use of the information to criminally investigate or prosecute any alcohol or drug abuse patient.[facility] OhioIn the event this information is protected by the Federal Confidentiality of Alcohol and Drug Abuse Patient Records regulations: The Federal rules restrict any use of the information to criminally investigate or prosecute any alcohol or drug abuse patient.[facility] OhioIn the event this information is protected by the Federal Confidentiality of Alcohol and Drug Abuse Patient Records regulations: The Federal rules restrict any use of the information to criminally investigate or prosecute any alcohol or drug abuse patient.[facility] OhioIn the event this information is protected by the Federal Confidentiality of Alcohol and Drug Abuse Patient Records regulations: The Federal rules restrict any use of the information to criminally investigate or prosecute any alcohol or drug abuse patient.[facility] OhioIn the event this information is protected by the Federal Confidentiality of Alcohol and Drug Abuse Patient Records regulations: The Federal rules restrict any use of the information to criminally investigate or prosecute any alcohol or drug abuse patient.[facility] Reason for Visit (unrecogniz ed section and content) Reason Comments Radiology MRI Specialty Diagnoses / Procedures Referred By Contac t Referred To Contact MR IMAGING Diagnoses Demyelinating disease of central nervous system (HCC) Procedures MRI BRAIN WO/W IVCON MRI BRAIN BRAIN STEM W/O W/CONTRAST MATERIAL Aaron Mackenzie MD [address] [place] [address] Mr Imaging Referral ID Status Reason Start Date Expiration Date Visits Requested Visits Authorized [id number] Waiting for Online Response Auto-Generat ed Referral 01/11/2022 02/10/2023 1 1 Specialty Diagnoses / Procedures Referred By Contac t Referred To Contact MR IMAGING Diagnoses Demyelinating disease of central nervous system (HCC) Procedures MRI THORACIC SPINE WO/W IVCON MRI SPINAL CANAL THORACIC W/O & W/CONTR Aaron Gordon MD [address] [place] [address] Mr Imaging Referral ID Status Reason Start Date Expiration Date V isits Requested Visits Authorized [id number] Closed Auto-Generate d Referral 02/10/2022 04/11/2022 1 1 Specialty Diagnoses / Procedures Referred By Contac t Referred To Contact MR IMAGING Diagnoses Demyelinating disease of central nervous system (HCC) Procedures MRI CERVICAL SPINE WO/W IVCON MRI SPINAL CANAL CERVICAL W/O & W/CONTR Aaron Gordon MD [address] [place] [address] Mr Imaging Referral ID Status Reason Start Date Expiration Date Visits Requested Visits Authorized [id number] Waiting for Online Response Auto-Generat ed Referral 01/11/2022 02/10/2023 1 1 Reason Comments Smoking Cessation Reason Comments Consult Specialty Diagnoses / Procedures Referred By Contac t Referred To Contact Urology Diagnoses Urge incontinence of urine Overflow incontinence of urine Procedures CONSULT TO UROLOGY OFFICE/OUTPATIENT [facility] 60-74 MINUTES Aaron Mackenzie MD [address] [place] [address] Referral ID Status Reason Start Date Expiration Date V isits Requested Visits Authorized [id number] Closed PCP Requested Referral 03/09/2022 03/09/2023 1 1 Specialty Diagnoses / Procedures Referred By Contac t Referred To Contact Rheumatology Diagnoses Polyarthralgia Malaise and fatigue Skin rash Myalgia Procedures CONSULT TO RHEUM/IMMUN DISEASE OFFICE/OUTPATIENT [facility] 60-74 MINUTES Aaron Mackenzie MD [address] [place] [address] Referral ID Status Reason Start Date Expiration Date V isits Requested Visits Authorized [id number] Closed PCP Requested Referral 03/09/2022 03/09/2023 1 1 Reason Comments Results Reason Comments [facility]ointment [facility] appt w/Dr. Mackenzie(Provider Unavailable) Lvm for [...] Care Teams (unrecognized sec tion and content) Legal Services Professional Relationship Specialty Start Date End Date Nereida Davis CNP [address] [place], [place] [address] PCP - General Internal Medicine 12/28/21 Legal Services Professional Relationship Specialty Start Date End Date Nereida Davis CNP [address] [place] [address] PCP - General Internal Medicine 12/28/21 Legal Services Professional Relationship Specialty Start Date End Date Nereida Davis CNP [address] [place] [address], [place] [address] PCP - General Internal Medicine 12/28/21 Legal Services Professional Relationship Specialty Start Date End Date Nereida Davis CNP [address] [place] [address], [place] [address] PCP - General Internal Medicine 12/28/21 Legal Services Professional Relationship Specialty Start Date End Date Nereida Davis CNP [address] [place] [address], [place] [address] PCP - General Internal Medicine 12/28/21 Legal Services Professional Relationship Specialty Start Date End Date Nereida Davis CNP [address] [place] [address], [place] [address] PCP - General Internal Medicine 12/28/21 Legal Services Professional Relationship Specialty Start Date End Date Nereida Davis CNP [address] [place] [address], [place] [address] PCP - General Internal Medicine 12/28/21 Legal Services Professional Relationship Specialty Start Date End Date Nereida Davis CNP [address] [place] [address], [place] [address] PCP - General Internal Medicine 12/28/21 Legal Services Professional Relationship Specialty Start Date End Date Nereida Davis CNP [address] [place] [address], [place] [address] PCP - General Internal Medicine 12/28/21 Legal Services Professional Relationship Specialty Start Date End Date Nereida Davis CNP [address] [place] [address], [place] [address] PCP - General Internal Medicine 12/28/21 Team Status: Active Member Role Status Dates [facility] Family Provider Active [facility] Primary Care Provider A ctive Team Status: Inactive Member Role Status Dates [facility] Primary Care Provider A ctive Yeimi Chaudhary GEAR TECHNICIAN, GEAR TECHNICIAN-C Attending Provider, Referrin g Provider Active Team Status: Inactive Member Role Status Dates [facility] Primary Care Provider A ctive AKI LIMA Attending Provider, Referring Provider Ac tive Team Status: Inactive Member Role Status Dates [facility] Primary Care Provider, Referring Provider Active Dr. Samy Saravia , Attending Provider Active Team Status: Inactive Member Role Status Dates [facility] Primary Care Provider A ctive Mejia Leblanc MD Attending Provider, Emergency Provid er Active Team Status: Active Member Role Status Dates [facility] Primary Care Provider A ctive Dr. Samy Saravia , Attending Provider, Referring Provider Active Team Status: Inactive Member Role Status Dates [facility] Primary Care Provider A ctive Dr. Samy Saravia , Attending Provider Active Team Status: Inactive Member Role Status Dates [facility] Primary Care Provider A ctive Dr. Samy Saravia , Attending Provider, Referring Provider Active Legal Services Professional Relationship Specialty Start Date End Date Nereida Davis CNP [address] [place] [address] PCP - General Internal Medicine 12/28/21 Yeimi Chaudhary NP [address] [place] [address] Referring Family Medicine 10/11/23 Legal Services Professional Relationship Specialty Start Date End Date Nereida Davis CNP [address] [place] [address] PCP - General Internal Medicine 12/28/21 Yeimi Chaudhary NP [address] [place] [address] Referring Family Medicine 10/11/23 Legal Services Professional Relationship Specialty Start Date End Date Nereida Davis CNP [address] [place] [address] PCP - General Internal Medicine 12/28/21 Yeimi Chaudhary NP [address] [place] [address] Referring Family Medicine 10/11/23 Legal Services Professional Relationship Specialty Start Date End Date Nereida Davis CNP [address] [place] [address] PCP - General Internal Medicine 12/28/21 Yeimi Chaudhary NP [address] [place] [address] Referring Family Medicine 10/11/23 Legal Services Professional Relationship Specialty Start Date End Date Nereida Davis CNP [address] [place] [address] PCP - General Internal Medicine 12/28/21 Yeimi Chaudhary NP [address] [place] [address] Referring Family Medicine 10/11/23 Legal Services Professional Relationship Specialty Start Date End Date Nereida Davis CNP [address] [place] [address] PCP - General Internal Medicine 12/28/21 Yeimi Chaudhary NP [address] [facility] [place] [address] Referring Family Medicine 10/11/23 Team Status: Active Member Role Status Dates [facility] Family Provider Active Zebulun Beam VSC, GEAR TECHNICIAN-C Primary Care Provider Active Team Status: Inactive Member Role Status Dates Stevenludolores Beam VSC, GEAR TECHNICIAN-C Primary Care Provider Active Start: February 27, 2025 End: February 27, 2025 Zebulun Beam VSC, GEAR TECHNICIAN-C Attending Provider Active Start: February 27, 2025 End: February 27, 2025 Legal Services Professional Relationship Specialty Start Date End Date Nereida Davis, LINDA [address] [place] [address] PCP - General Internal Medicine 12/28/21 Yeimi Chaudhary NP [address] [place] [address] Referring Family Medicine 10/11/23 Team Status: Active Member Role/Relationship Status Dates [facility] Family Provider Active Zebulun Beam VSC, GEAR TECHNICIAN-C Primary Care Provider Active Team Status: Inactive Member Role/Relationship Status Dates Zebulun Beam VSC, GEAR TECHNICIAN-C Primary Care Provider Active Start: February 27, 2025 End: February 27, 2025 Zebulun Beam VSC, GEAR TECHNICIAN-C Attending Provider Active Start: February 27, 2025 End: February 27, 2025 Team Status: Inactive Member Role/Relationship Status Dates Zebulun Beam VSC, GEAR TECHNICIAN-C Primary Care Provider Active Start: May 12, 2025 End: May 12, 2025 Zebulun Beam VSC, GEAR TECHNICIAN-C Referring Provider Active Start: May 12, 2025 End: May 12, 2025 Xochilt Toscano NP-C Attending Provider Active Start: May 12, 2025 End: May 12, 2025 Team Status: Active Member Role/Relationship Status Dates Zebulun Beam VSC, GEAR TECHNICIAN-C Primary Care Provider Active Team Status: Inactive Member Role/Relationship Status Dates Zebulun Beam VSC, GEAR TECHNICIAN-C Primary Care Provider Active Start: May 12, [...] BE BASED ON THE PRIMARY CLINICAL RECORDS. [facility] [employer] [facility]. provides no warranty or guarantee of the accuracy or completeness of information in this document.
== END | disposition home or self-care (01) ==
LOC: CT 12:35
PROVIDERS: Referring Provider Nurse Practitioner Acute Care; Visit Provider Nurse Practitioner Acute Care
DX: K59.1 Functional diarrhea (principal); R11.0 Nausea; R10.9 Unspecified abdominal pain; R63.5 Abnormal weight gain; R14.0 Abdominal distension (gaseous)
CPT/HCPCS: 74177; Q9967

== ENCOUNTER → 2025-05-29 | Outpatient (CLI) | payer MEDICAID, SELFPAY ==
[2025-05-29 13:46] LABS: Hepatitis B Surface Antigen Nonreactive (Nonreactive); Hepatitis C Antibody Nonreactive (Nonreactive)
== END | disposition home or self-care (01) ==
LOC: LAB 12:20
PROVIDERS: Referring Provider Nurse Practitioner Acute Care; Visit Provider Nurse Practitioner Acute Care
DX: K76.0 Fatty (change of) liver, not elsewhere classified (principal)
CPT/HCPCS: 36415; 86704; 86706; 86708; 86803; 87340

== ENCOUNTER → 2025-06-07 | Outpatient (CLI) | payer MEDICAID, SELFPAY ==
--- NOTE | 2025-06-07 08:53 | US_ITS ---
PROCEDURE: ABD LIMITED W/ ELASTOGRAPHY REASON FOR EXAM: FATTY LIVER COMPARISON: Prior study dated October 06, 2023. TECHNIQUE: Right upper quadrant abdominal ultrasound. [employer] ElastQ Imaging shear wave elastography for non-invasive assessment of liver tissue stiffness. [employer] EPIQ Elite. FINDINGS: LIVER: Size: Unremarkable Length: 16.1 cm Echotexture: Diffusely echogenic suggesting fatty infiltration Contour: Normal Lesions: None identified Elastography: EQI Med: 5.8 kPa EQI Med Jomar: 1.38 m/s IQR/Med: 22.5 %* GALLBLADDER: Normal COMMON BILE DUCT: Normal measuring 4.5 mm . PANCREAS: Normal Visualized portions of the right kidney are unremarkable. No right upper quadrant ascites. The spleen is not enlarged. The spleen measures 8.5 cm 3.5 cm x 3.1 cm. US/ABD Limited w/ Elastography IMPRESSION: NO TO MILD HEPATIC FIBROSIS Reference Values: SRU <1.37 m/s (5.7kPa): No to mild fibrosis 1.37 m/s - 2.2 m/s: Moderate to severe fibrosis >2.2 m/s (15kPa): Significant fibrosis / cirrhosis METAVIR Score F2 or higher: 1.34 m/s (5.7kPa) F3 or higher: 1.55 m/s (7.3kPa) F4: 1.80 m/s (10kPa) * If the IQR/Med is >30%, the variance in the measurements is a large and the a ccuracy of the measurement may be in question. Reading Location: [place]
--- OUTSIDE RECORDS SUMMARY | 2025-06-07 09:06 | XMS RPT_ITS | CCD ---
Author Organization [facility] Care Team Providers Care Reception Clerk Name Role Phone [facility], [facility] Primary Care Pro vider [facility], [facility] Referring Provid er Maggy BREAD STACKER, BREAD STACKER-Bry Gandhi Attending Provider Nereida Davis CNP Primary Care Provider FriendDr. Pablo Attending Provider [phone] FriendDr. Pablo Other Provider [phone] HODAN Davis Other Provider [phone] [place] [address], [facility] Pro vider [facility], [facility] Referring Provid er Maggy LEYVA NP-Bry Gandhi Attending Provider [phone] Nereida Davis CNP Primary Care Provider Nereida Davis CNP Primary Care Provider [facility], [place] Birgit Primary Care Pro vider [facility], [place] Startzalicia Referring Provid er FriendDr. Pablo Attending Provider [phone] Nereida Davis CNP Primary Care Provider Jet [...] able PHYSICIAN, NONE Primary Care Unavailable Beam BREAD STACKER-C, Zebulun Primary Care Provider Beam BREAD STACKER-C, Zebulun Attending Provider Beam BREAD STACKER-C, Zebulun Referring Provider Everton BREAD STACKER-C, Xochilt Attending Provider Everton BREAD STACKER-C, Xochilt Referring Provider Beam VSC, Zebulun Primary Care Unavailable Beam VSC, Zebulun Referring Unavailable Everton Xochilt Attending Unavailable Beam VSC, Zebulun Primary Care Unavailable EvertonMarvaXochilt Attending Unavailable Everton Xochilt Referring Unavailable Beam VSC, Zebulun Primary Care Unavailable EvertonMarvaXochilt Attending Unavailable Everton, Xochilt Referring Unavailable Beam VSC, Zebulun Primary Care Unavailable Everton Xochilt Referring Unavailable Everton Xochilt Attending Unavailable Beam VSC, Zebulun Primary Care Unavailable Beam VSC, Zebulun Attending Unavailable Beam VSC, Zebulun Primary Care Unavailable Everton Xochilt Referring Unavailable Everton Xochilt Attending Unavailable Allergies Allergy Classification Reported Allergen(s) Allergy Type Date of Onset Reaction(s) Facility (20 sources) Morphine; Translations: [MORPHINE] Drug Allergy 02-23-2010 Itching [facility] (20 sources) Scopolamine; Translations: [SCOPOLAMINE] Drug Allergy 05-18-2016 Intolerance [facility] Work Phone: (1 source) Morphine Drug Allergy 05-12-2025 [facility] Repository Medications Current Medications Medication Drug Class(es) Dates Sig (Normalized) Sig (Original) Albuterol Sulfate (15 sources) beta2-Adrenergic Agonist Start: 03-16-2022 Albuterol Sulfate [...] 2022 11:00pm cholecalciferol 0.125 mg oral capsule (16 sources) Vitamin D Start: 01-17-2022 take 1 [...] DULoxetine 20 mg delayed release oral capsule (13 sources) Serotonin and Norepinephrine Reuptake Inhibitor Start: [...] on above: Take 1 capsule by mo uth once daily. Take 20 mg by mouth once daily. Folic Acid (4 sources) FOLIC ACID ORAL Take by mouth once daily. Active linaclotide 0.29 mg oral capsule (4 sources) Guanylate Cyclase-C Agonist Start: 5 take [...] Active Start: 01-17-2022 take 1 tablet by [facility] once daily Metoprolol Succinate 50 mg tablet [...] daily. Active take 1 tablet by renuka th once daily multivit-min/iron/folic/lutein (CENTRUM SILVER WOMEN ORAL) Take 1 tablet by mouth once daily. 0 Active Comment on above: Take 1 tablet by renuka th once daily. Multivitamin Capsule (5 sources) Start: 03-16-2022 Multivitamin Capsule Active 1 NMA PO DAILY March 16, 2022 12:00am Multivitamin preparation (10 sources) Start: 03-16-2022 take 1 capsule by mouth once daily Multivitamin Active 1 CAP PO DAILY March 16, 2022 2:51pm Start: 03-16-2022 take 1 capsule by mo ut once daily Multivitamin Active 1 CAP PO DAILY March 15, 2022 11:00pm Start: 03-16-2022 take 1 capsule by mo nyh once daily Multivitamin Active 1 CAP PO DAILY March 16, 2022 12:00am omeprazole 20 mg delayed release oral capsule (9 sources) Proton Pump Inhibitor Start: 05-12-2025 take [...] on above: Take 1 capsule by mo [facility] once daily. salbutamol (VENTOLIN HFA) 100 mcg/actuation [...] Comment on above: [facility] daily as needed for Anxiety. amylase [id number] unt / lipase 31096 unt / protease [id number] unt delayed release oral capsule (20 sources) Start: 07-14-2022 End: 05-12-2025 take 1 capsule by mouth three times daily at mealtime Lwoeri-Lcxeqzag-Pi ylase (Creon) 36,000-114,000- 180,000 unit capsule,delayed release(DR/EC) [...] on above: Take 1 capsule by mo [facility] before meals and at bedtime. metroNIDAZOLE 500 mg oral tablet (5 sources) Nitroimidazole Antimicrobial Start: 08-23-2019 End: 06-07-2022 take 1 tablet by mouth twice daily metroNIDAZOLE (FLAGYL) 500 mg tablet Take 1 tablet by mouth twice daily. 14 tablet 0 08/23/2019 06/07/2022 Discontinued Comment on above: Take 1 tablet by renuka twice daily. naproxen 500 mg oral tablet (16 sources) Nonsteroidal Anti-inflammatory Drug Start: 05-05-2019 End: 06-04-2021 take 1 tablet by mouth twice daily Naproxen 500 MG tablet Discontinued 500 mg PO TWICE A DAY May 05, 2019 12:00am June 04, 2021 1:02pm ondansetron 4 mg disintegrating oral tablet (16 sources) Serotonin-3 Receptor Antagonist Start: 11-13-2018 End: [...] once daily. simethicone 125 mg oral capsule (9 sources) Start: 08-19-2023 End: 05-12-2025 take 1 [...] Take 1 tablet by renuka once daily. Problems Active Problems Problem Classification Problem Date Documented Da te Episodic/Chronic Abdominal pain (20 sources) Abdominal pain; Translations: [Unspecified abdominal pain] Onset: 5 Episodic Anxiety disorders (20 sources) Anxiety; Translations: [Anxiety disorder, unspecified] Onset: 6 11-09-2021 Chronic Asthma (16 sources) Asthma; Translations: [Unspecified asthma, uncomplicated] 03-16-2022 Chronic Comment on above: PRN INHALER Conditions associated with dizziness or vertigo (16 sources) Lightheadedness; Translations: [Dizziness and giddiness] 12-13-2015 Episodic E Codes: Adverse effects of medical drugs (16 sources) Adverse reaction to drug; Translations: [Adverse effect of unspecified drugs, medicaments and biological substances, initial encounter] 12-13-2015 Episodic E Codes: Fall (3 sources) Accidental fall ; Translations: [Fall (on) (from) other stairs and steps, initial encounter] Onset: 5 11-30-2024 Episodic Esophageal disorders (20 sources) Gastroesophageal reflux disease; Translations: [Gastro-esophageal reflux disease without esophagitis] Onset: 5 05-04-2015 Chronic Essential hypertension (16 sources) Hypertensive disorder; Translations: [Essential (primary) hypertension] 03-16-2022 Chronic Comment on above: CONTROLLED WITH MEDS Fracture of upper limb (2 sources) Closed fracture of scaphoid bone of wrist; Translations: [Unspecified fracture of navicular [scaphoid] bone of left wrist, initial encounter for closed fracture] Onset: 5 11-30-2024 Episodic Gastrointestinal hemorrhage (16 sources) Feces color: tarry; Translations: [Melena] 03-18-2019 [...] fatigue] Onset: 0 02-23-2010 Episodic Mood disorders (17 sources) Depressive disorder; Translations: [Depression] Chronic Nausea and vomiting (20 sources) Nausea; Translations: [Nausea] Onset: Episodic Open wounds of extremities (4 sources) Laceration of right middle finger; Translations: [Laceration without foreign body of right middle finger without damage to nail, initial encounter] Episodic Osteoarthritis (16 sources) Arthritis; Translations: [Unspecified osteoarthritis, unspecified site] 03-18-2019 Chronic Other and unspecified benign neoplasm (14 sources) Tubular adenoma of colon; Translations: [Benign neoplasm of colon, unspecified] 04-04-2022 Episodic Other and unspecified benign neoplasm (6 sources) Benign neoplasm of colon, unspecified; Translations: [Benign neoplasm of colon] Episodic Other connective tissue disease (1 source) Muscle pain; Translations: [Myalgia, unspecified site] Episodic Other gastrointestinal disorders (16 sources) Dysphagia; Translations: [Dysphagia, unspecified] 03-18-2019 Episodic Other gastrointestinal disorders (20 sources) Diarrhea; Translations: [Diarrhea, unspecified] 02-07-2022 Episodic Other gastrointestinal disorders (16 sources) Constipation; Translations: [Constipation, unspecified] 03-18-2019 Episodic [...] bowel habit] 04-14-2015 Episodic Other gastrointestinal disorders (1 source) Functional diarrhea; Translations: [Functional diarrhea] Onset: 5 Episodic Other gastrointestinal disorders (1 source) Abdominal distension (gaseous); Translations: [Abdominal distension (gaseous)] Onset: 5 Episodic Other liver diseases (2 sources) Steatosis of liver; Translations: [Fatty (change of) liver, not elsewhere classified] 05-28-2025 Chronic Other liver diseases (2 sources) Fatty (change of) liver, not elsewhere classified; Translations: [Fatty (change of) liver, not elsewhere classified] Onset: 5 Chronic Other lower respiratory disease (16 sources) Dyspnea; Translations: [Shortness of breath] 03-16-2022 Episodic Comment on above: WITH [address] AIRS Other nervous system disorders (16 sources) Lesion of brain; Translations: [Disorder of brain, unspecified] 03-16-2022 Chronic Comment on above: FOLLOWS IWTH NEUROLO GIST Other nervous system disorders (3 sources) Demyelinating disease of central nervous system; Translations: [Demyelinating disease of central nervous system, unspecified] Chronic Other non-traumatic joint disorders (2 sources) Multiple joint pain; Translations: [Pain in unspecified joint] Episodic Other nutritional; endocrine; and metabolic disorders (8 sources) Weight increased; Translations: [Abnormal weight gain] 05-12-2025 Episodic Other nutritional; endocrine; and metabolic disorders (1 source) Abnormal weight gain; Translations: [Abnormal weight gain] [...] diseases of pancreas] Episodic Residual codes; unclassified (16 sources) History of colonoscopy; Translations: [Other specified postprocedural states] 03-18-2019 Episodic Residual codes; unclassified (1 source) Unspecified symptoms and signs involving cognitive functions and awareness; Translations: [Other signs and symptoms involving cognition] Episodic Spondylosis; intervertebral disc disorders; other back problems (16 sources) Back problem; Translations: [Dorsopathy, unspecified] 03-16-2022 Episodic Comment on above: CHIROPRACTOR Systemic lupus erythematosus and connective tissue disorders (1 source) Sicca syndrome, unspecified; Translations: [Sicca syndrome] 04-03-2024 Chronic Thyroid disorders (16 sources) Disorder of thyroid gland; Translations: [Disorder [...] Name Value Interpretation Reference Range Facility [id number] 06-03-2025 [facility]. COMMENT Normal . [facility] Comment on above: Order Comment: [id number] 9ELF SERUM RF Result Comment: Test Ordered: [id number] Enhanced Liver Fibrosis (ELF) ELF(TM) Score 9.01 BN Reference Range: <9.80 ELF(TM) Score Interpretation: Risk cut-offs to assess the likelihood of progression to cirrhosis and liver-related clinical events within 3.9 years following baseline ELF score (IQR: 14.0-22.4 months)*: Lower risk < 9.80 Mid risk 9.80 - 11.29 Higher risk >11.29 Note: The ELF(TM) Score is a unitless numerical value. *Michael SA, Robson VW, Okfelisa T, et al. Selonsertib for patients with bridging fibrosis or compensated cirrhosis due to BARROW: Results from randomized phase III STELLAR trials. J Hepatol. 2020 May;73(1):26-39. Performed at: [facility] [address] [id number] Monogram Technician: Pablo Fletcher MD, Phone: [phone] Performed at: - [facility] [id number] Monogram Technician: Aravind Gardner PhD, Phone: [phone] Performed By: #### L 501.9030, L100.2270, L576.3503, L501.6611, L500.7954 #### [facility] [address] [place], [place], [id number] Hepatitis A AB, Totalon 07- HEPATITIS A,TOT Negative Normal Negative [facility] Comment on above: Result Comment: Comm ent: The HAV total antibody assay detects both IgG and IgM but does not differentiate between them. A negative result suggests susceptibility to infection. A positive result could be due to vaccination, previously resolved infection or active infection. Testing for HAV IgM should be performed if active HAV infection is suspected. [facility] offers profiles that will automatically reflex positive HAV total antibody results to IgM (e.g., panel #[id number] HAV Antibody w/ Rfx). Performed at: [address] [id number] Monogram Technician: Aravind Gardner PhD, Phone: [phone] Performed By: #### L 501.2450, L100.0100, L501.9520, L501.2400, L500.4050 #### [facility] [address] [facility] [place], [place], [id number] Hepatitis B Core Ab Totalon 05-31-2025 HEP B CORE,TOT Negative Normal Negative [facility] Comment on above: Performed By: #### L 501.2450, L100.0100, L501.9520, L501.2400, L500.4050 #### [facility] [address] [place], [place], [id number] Hepatitis B Surface Antibody on 05-29-2025 HEP B Surf Ab Non-Reactive Normal [facility] Comment on above: Result Comment: <8.5 mIU/mL: Non-Reactive 8.5<= x <11.5 mIU/mL: Indeterminate >=11.5 mIU/mL: Reactive Non Reactive: Inconsistent with immunity less than <10 mIU/mL Reactive: Consistent with immunity greater than or equal to 10 mIU/mL Performed By: #### L 501.2450, L100.0100, L501.9520, L501.2400, L500.4050 #### [facility] [address] [place], [place], [id number] Hepatitis C Antibodyon 05-29 Hepatitis C Ab Non-Reactive Normal Nonreactive [facility] Comment on above: Result Comment: Reac tive: Presumptive evidence of antibodies to HCV. Follow CDC recommendations for supplemental testing. Non-Reactive: Antibodies to HCV were not detected; does not exclude the possibility of exposure to HCV Reactive Results are presumptive evidence of antibodies to HCV. Follow CDC recommendations for supplemental testing. Order confirmation testing: HCV Quant by PCR testing - HCVPCR #[id number] Non Reactive: < 0.8 Equivocal: >/= 0.8 to < 1.0 Reactive: >/= 1.0 The [facility] requires that a reactive/equivocal HCV antibody result be sent out for confirmation. HCV Quant by PCR testing. Performed By: #### L 501.2450, L100.0100, L501.9520, L501.2400, L500.4050 #### [facility] [address] [place], [place], [address] L3890.6102on 05-29-2025 HEP B Surf Ag Non-Reactive Normal Nonreactive [facility] Comment on above: Result Comment: Reac tive: Presumptive evidence of HBV. Repeatedly reactive samples must be confirmed using a neutralization test (Elecsys HBsAg Confirmatory Test) Non-Reactive: HBsAg not detected; does not exclude the possibility of exposure to HBV Performed By: #### L 501.2450, L100.0100, L501.9520, L501.2400, L500.4050 #### [facility] [address] [facility] [place], [place], [address] Laboratory - Microbiology an d Antimicrobial susceptibilityOrdered By: Xochilt Toscano on 05-29-2025 HBV surface Ag Ql (S) Non-Reactive Nonreactive [facility] Comment on above: Reactive: Presumptiv e evidence of HBV. Repeatedly reactive samples must be confirmed using a neutralization test (Elecsys HBsAg Confirmatory Test)Non-Reactive: HBsAg not detected; does not exclude the possibility of exposure to HBV Serum hepatitis B virus core antibody detectionOrdered By: Xochilt Toscano on 05-29-2025 HBV core Ab Ql (S) Negative Negative [facility] Serum hepatitis B virus surf abhijeet antibody detectionOrdered By: Xochilt Toscano on 05-29-2025 HBV surface Ab Ql (S) Non-Reactive [facility] Comment on above: <8.5 mIU/mL: Non-[place] ctive8.5<= x <11.5 mIU/mL: Indeterminate>=11.5 mIU/mL: Reactive Non Reactive: Inconsistent with immunity less than <10 mIU/mL Reactive: Consistent with immunity greater than or equal to 10 mIU/mL Abdomen/Pelvis WITH Contrast on 05-28-2025 Abdomen/Pelvis WITH Contrast [facility] [address] [place], [place] [address] Abdomen/Pelvis WITH Contrast MR#: [id number] Acct: [id number] Name: SHAYNA LYONS Rep #: [id number] : 1965 F 59 From: Leeroy gooden MD PCP: Mindy Horner BREAD STACKER-C Status: REG CLI Study: Abdomen/Pelvis WITH Contrast Date of Exam: Exam# [id number] Ordering Dr: Xochilt Toscano BREAD STACKER- C PROCEDURE: ABDOMEN/PELVIS WITH CONTRAST 05/28/2025 REASON FOR EXAM: ABDOMINAL PAIN History of chronic pancreatitis. TECHNIQUE: ABDOMEN/PELVIS WITH CONTRAST Coronal and Sagittal reconstruction series were provided. CONTRAST: Isovue-300 VOLUME: 88 mL One or more dose reduction techniques were used (e.g., Automated exposure control, adjustment of the mA and/or kV according to patient size, use of iterative reconstruction technique. RADIATION DOSE SUMMARY: CTDlvol: 12.2 mGy DLP: 537.57 mGycm COMPARISON: Prior study dated October 17, 2023. FINDINGS: Lung bases: Lung bases are clear. No significant coronary artery calcification is seen. Liver: Diffuse fatty infiltration. Mild hepatomegaly. Gallbladder: Unremarkable Spleen: Normal size. Pancreas: Punctate calcifications seen in the head of the pancreas. In keeping with chronic pancreatitis. Adrenals: Unremarkable Kidneys: Tiny nonobstructive left intrarenal calculus in the lower pole. Mild overlying cortical thickening in the inferior pole of the left kidney. Bladder: Unremarkable Reproductive Organs: Normal uterine size and contour. Ovaries are unremarkable. Bowel: Unremarkable Appendix: Unremarkable Lymph nodes: Unremarkable. Vasculature: The abdominal aorta and IVC are normal. Peritoneum / Retroperitoneum: Unremarkable Bones: Minimal degenerative changes. CT/Abdomen/Pelvis WITH Contrast IMPRESSION: Fatty infiltration of the liver. Mild hepatomegaly. Punctate calcifications seen in the head of the pancreas. Reading Location: [place] [address] CC: HODAN Toscano; Stevendolores [facility] HODAN [facility] Chaplain: Signed Normal [facility] L3410.9992on [facility] COM[facility] Normal . [facility] Comment on above: Order Comment: [id number] 4 PeTH LAV WB RMT Result Comment: Test Ordered: [id number] Phosphatidylethanol (PEth) PHOSPHATIDYLETHANOL Positive [A ] MX Reference Range: . Phosphatidylethanol (PEth) 1262 ng/mL MX Reference Range: . Analyzed compound: PEth 16:0/18:1. 2-pjikjhqdr-5-uwsarr-vw-wgjxuhr-3-phosphoethanol. Analysis performed by Liquid Chromatography with Tandem [...] Abuse and Mental Health Services Administration (2012). "The Role of Biomarkers in the Treatment of Alcohol Use Disorders", 2012 Revision. Advisory, Volume 11, Issue 2. This test was developed and its performance characteristics determined by viseto. It has not been cleared or approved by the Food and Drug Administration. Performed at: [facility] [employer] [address] [place] [id number] Monogram Technician: Kinsey Rivera [facility], Phone: [phone] Performed at: [facility] [address] [id number] Monogram Technician: Aravind Gardner PhD, Phone: [phone] Performed By: #### L 300.3900, L100.0100, L3410.4072, L501.2450, L500.3400 #### [facility] [place], [address] Absolute lymphocyte countOrd ered By: Xochilt Toscano on 05-12-2025 Lymphocytes Auto (Unsp spec) [#/Vol] 1.33 10*3/uL 0.83-4.51 [facility] Absolute neutrophil countOrd ered By: Xochilt Toscano on 05-12-2025 Neutrophils (Bld) [#/Vol] 4.2 10*3/uL 2.0-7.7 [facility] Automated lymphocyte count a s percentage of total leukocytesOrdered By: Xochilt Toscano on 05-12-2025 Lymphocytes/100 WBC Auto (Unsp spec) 22.1 % 19-41 [facility] Basophil percentageOrdered B y: Xochilt Toscano on 05-12-2025 Basophils/100 WBC (Bld) 1.2 % High 0-1 [facility] Bilirubin directOrdered By: Xochilt Toscano on 05-12-2025 Bilirubin.direct [Mass/Vol] 0.17 mg/dL 0.00-0.30 [facility] Bilirubin, totalOrdered By: Xochilt Toscano on 05-12-2025 Bilirubin [Mass/Vol] 0.43 mg/dL 0.00-1.30 [facility] CBC W/Diff, Automatedon 04-15 Absolute Lymph 1.33 X10 3/uL Normal 0.83-4.51 [facility] Comment on above: Performed By: #### L 300.3900, L100.0100, L3410.9992, L501.2450, L500.3400 #### [facility] [address] [place], [address] Absolute Neut 4.2 X10 3/uL Normal 2.0-7.7 [facility] Comment on above: Performed By: #### L 300.3900, L100.0100, L3410.9992, L501.2450, L500.3400 #### [facility] [address] [place], [address] Basophils/100 WBC (Bld) 1.2 % High 0-1 [facility] Comment on above: Performed By: #### L 300.3900, L100.0100, L3410.9992, L501.2450, L500.3400 #### [facility] [address] [place], [address] Eosinophils/100 WBC (Bld) 1.3 % Normal 0-5 [facility] Comment on above: Performed By: #### L 300.3900, L100.0100, L3410.9992, L501.2450, L500.3400 #### [facility] [address] [place], [address] Erythrocyte distribution width (RBC) [Ratio] 13.2 % Normal 11.6-14.6 [facility] Comment on above: Performed By: #### L 300.3900, L100.0100, L3410.9992, L501.2450, L500.3400 #### [facility] [address] [place], [address] Hematocrit (Bld) [Volume fraction] 43.5 % Normal 37-47 [facility] Comment on above: Performed By: #### L 300.3900, L100.0100, L3410.9992, L501.2450, L500.3400 #### [facility] [address] [place], [address] Hemoglobin (Bld) [Mass/Vol] 15.1 g/dL High 12.0-15.0 [facility] Comment on above: Performed By: #### L 300.3900, L100.0100, L3410.9992, L501.2450, L500.3400 #### [facility] [address] [place], [address] IG% 0.300 Normal 0.0-0.9 [facility] Comment on above: Result Comment: IG% - Immature Granulocytes (promyelocytes, myelocytes and metamyelocytes) > 1% indicates that a LEFT SHIFT is Present. Performed By: #### L 300.3900, L100.0100, L3410.9992, L501.2450, L500.3400 #### [facility] [address] [place], [address] Lymphocytes/100 WBC (Bld) 22.1 % Normal 19-41 [facility] Comment on above: Performed By: #### L 300.3900, L100.0100, L3410.9992, L501.2450, L500.3400 #### [facility] [address] [place], [address] MCH (RBC) [Entitic mass] 33.7 pg High 27.0-32.0 [facility] Comment on above: Performed By: #### L 300.3900, L100.0100, L3410.9992, L501.2450, L500.3400 #### [facility] [address] [place], [address] MCHC (RBC) [Mass/Vol] 34.7 g/dL Normal 32-36 [facility] Comment on above: Performed By: #### L 300.3900, L100.0100, L3410.9992, L501.2450, L500.3400 #### [facility] [address] [place], [address] MCV (RBC) [Entitic vol] 97.1 fL Normal 81-99 [facility] Comment on above: Performed By: #### L 300.3900, L100.0100, L3410.9992, L501.2450, L500.3400 #### [facility] [address] [place], [address] Monocytes/100 WBC (Bld) 5.8 % Normal 0-10 [facility] Comment on above: Performed By: #### L 300.3900, L100.0100, L3410.9992, L501.2450, L500.3400 #### [facility] [address] [place], [address] Neutrophils/100 WBC (Bld) 69.3 % Normal 47-70 [facility] [facility] Comment on above: Performed By: #### L 300.3900, L100.0100, L3410.9992, L501.2450, L500.3400 #### [facility] [address] [place], [address] Nucleated RBC (Bld) [#/Vol] 0 10*3/uL Normal 0-5 [facility] Comment on above: Performed By: #### L 300.3900, L100.0100, L3410.9992, L501.2450, L500.3400 #### [facility] [address] [place], [address] Platelet mean volume (Bld) [Entitic vol] 10.5 fL Normal 6.2-12.0 [facility] Comment on above: Performed By: #### L 300.3900, L100.0100, L3410.9992, L501.2450, L500.3400 #### [facility] [address] [place], [address] Platelets (Bld) [#/Vol] 310 10*3/uL Normal 150-450 [facility] Comment on above: Performed By: #### L 300.3900, L100.0100, L3410.9992, L501.2450, L500.3400 #### [facility] [address] [place], [address] RBC (Bld) [#/Vol] 4.48 10*6/uL Normal 4.2-5.4 [facility] Comment on above: Performed By: #### L 300.3900, L100.0100, L3410.9992, L501.2450, L500.3400 #### [facility] [address] [place], [address] RDW SD 47.6 fl High 35.1-43.9 [facility] Comment on above: Performed By: #### L 300.3900, L100.0100, L3410.9992, L501.2450, L500.3400 #### [facility] [address] [place], [address] WBC (Bld) [#/Vol] 6.0 10*3/uL Normal 4.4-11.0 [facility] Comment on above: Performed By: #### L 300.3900, L100.0100, L3410.9992, L501.2450, L500.3400 #### [facility] [address] [place], [address] Eosinophil percentageOrdered By: Xochilt Toscano on 05-12-2025 Eosinophils/100 WBC (Bld) 1.3 % 0-5 [facility] Erythrocyte distribution wid th ratioOrdered By: Xochilt Toscano on 05-12-2025 Erythrocyte distribution width (RBC) [Ratio] 13.2 % 11.6-14.6 [facility] Erythrocyte distribution wid th standard deviationOrdered By: Xochilt Toscano on 05-12-2025 Erythrocyte distribution width (RBC) [Ratio] 47.6 fl High 35.1-43.9 [facility] Gastroenterology Visit Repor ton 05-12-2025 Gastroenterology Visit Report [facility] [address] [place] [address] OFFICE VISIT Date of Service: 05/12/25 MR#: [id number] Acct: [id number] Name: SHAYNA LYONS Rep #: [id number] : 1965 Provider: HODAN soto Age/Sex: 59/F Location: [facility] Status: Signed Intake Vital Signs 08/19/23 13:26 [...] incontinence of bowel and bladder as well. [facility] Medical History Abdominal pain Acid reflux Alcohol [...] Acute Plan: She is to see a cleaner furniture. I think her mesenteric lymphadenopathy was possibly [...] (more content not included)... Normal [facility] Hematocrit Auto (Bld) [Volum e fraction]Ordered By: Xochilt Toscano on 05-12-2025 Hematocrit (Bld) [Volume fraction] 43.5 % 37-47 [facility] Hemoglobin measurementOrdere d By: Xochilt Toscano on 05-12-2025 Hemoglobin (Bld) [Mass/Vol] 15.1 g/dL High 12.0-15.0 [facility] Immature granulocytes/100 WB C Auto (Bld)Ordered By: Xochilt Toscano on 05-12-2025 Immature granulocytes/100 WBC (Bld) 0.300 % 0.0-0.9 [facility] Comment on above: IG% - Immature Granu locytes (promyelocytes, myelocytes and metamyelocytes) > 1% indicates that a LEFT SHIFT is Present. International normalized rat io (INR) calculationOrdered By: Xochilt Toscano on 05-12-2025 INR Coag (Bld) [Relative time] 0.9 {INR} [facility] - Chemistry and C hemistry - challengeOrdered By: Xochilt Toscano on 05-12-2025 AST [Catalytic activity/Vol] 33 U/L High <32 [facility] Lipaseon 05-12-2025 Lipase [Catalytic activity/Vol] 144 U/L High 13-75 [facility] Comment on above: Result Comment: Rachid multani note: LIPASE revised reference range effective 23. New Lipase methodology. Expected to produce lower values than the previous assay method. NEW Reference Range: 13 - 75 U/L Performed By: #### L 300.3900, L100.0100, L3410.9992, L501.2450, L500.3400 #### [facility] [address] [place], [place], [id number] Lipase measurementOrdered By : Xochilt Toscano on 05-12-2025 Lipase [Catalytic activity/Vol] 144 U/L High 13-75 [facility] Comment on above: Please note:LIPASE r evised reference range effective 23. New Lipase methodology. Expected to produce lower values than the previous assay method. NEW Reference Range: 13 - 75 U/L Liver Profileon 05-12-2025 Albumin [Mass/Vol] 4.7 g/dL Normal 3.5-5.0 [facility] Comment on above: Performed By: #### L 300.3900, L100.0100, L3410.9992, L501.2450, L500.3400 #### [facility] [address] [place], [address] ALK PHOS 93 U/L Normal 35-104 [facility] Comment on above: Performed By: #### L 300.3900, L100.0100, L3410.9992, L501.2450, L500.3400 #### [facility] [address] [place], [address] ALT [Catalytic activity/Vol] 30 U/L Normal <=34 [facility] Comment on above: Performed By: #### L 300.3900, L100.0100, L3410.9992, L501.2450, L500.3400 #### [facility] [address] [place], [address] AST [Catalytic activity/Vol] 33 U/L High <=31 [facility] Comment on above: Performed By: #### L 300.3900, L100.0100, L3410.9992, L501.2450, L500.3400 #### [facility] [address] [place], [address] Bilirubin [Mass/Vol] 0.43 mg/dL Normal 0.00-1.30 [facility] Comment on above: Performed By: #### L 300.3900, L100.0100, L3410.9992, L501.2450, L500.3400 #### [facility] [address] [place], [address] Bilirubin.direct [Mass/Vol] 0.17 mg/dL Normal 0.00-0.30 [facility] Comment on above: Performed By: #### L 300.3900, L100.0100, L3410.9992, L501.2450, L500.3400 #### [facility] [address] [place], [address] Globulin (S) [Mass/Vol] 3.2 g/dL Normal 2.2-4.2 [facility] Comment on above: Performed By: #### L 300.3900, L100.0100, L3410.9992, L501.2450, L500.3400 #### [facility] [address] [place], [address] T PROT 7.9 g/dL Normal 5.9-8.4 [facility] Comment on above: Performed By: #### L 300.3900, L100.0100, L3410.9992, L501.2450, L500.3400 #### [facility] [address] [place], [address] MCV (mean corpuscular volume ) determinationOrdered By: Xochilt Toscano on 05-12-2025 MCV (RBC) [Entitic vol] 97.1 fL 81-99 [facility] Mean corpuscular hemoglobin (MCH) determinationOrdered By: Xochilt Toscano on 05-12-2025 MCH (RBC) [Entitic mass] 33.7 pg High 27.0-32.0 [facility] Mean corpuscular hemoglobin concentration (MCHC) determinationOrdered By: Xochilt Toscano on 05-12-2025 MCHC (RBC) [Mass/Vol] 34.7 g/dL 32-36 [facility] Mean platelet volume determi nationOrdered By: Xochilt Toscano on 05-12-2025 Platelet mean volume (Bld) [Entitic vol] 10.5 fL 6.2-12.0 [facility] Monocyte percentageOrdered B y: Xochilt Toscano on 05-12-2025 Monocytes/100 WBC (Bld) 5.8 % 0-10 [facility] Neutrophil percentageOrdered By: Xochilt Toscano on 05-12-2025 Neutrophils/100 WBC (Bld) 69.3 % 47-70 [facility] Nucleated red blood cell per centageOrdered By: Xochilt Toscano on 05-12-2025 Nucleated RBC/100 WBC (Bld) [Ratio] 0 % 0-5 [facility] Platelet countOrdered By: Zane Toscano on 05-12-2025 Platelets (Bld) [#/Vol] 310 10*3/uL 150-450 [facility] Prothrombin Time w/INRon INR Coag (PPP) [Relative time] 0.9 {INR} Normal [facility] Comment on above: Performed By: #### L 300.3900, L100.0100, L3410.9992, L501.2450, L500.3400 #### [facility] [address] [place], [address] PT Coag (PPP) [Time] 12.4 s Normal 11.7-14.9 [facility] Comment on above: Performed By: #### L 300.3900, L100.0100, L3410.9992, L501.2450, L500.3400 #### [facility] [address] [place], [address] Prothrombin timeOrdered By: Xochilt Toscano on 05-12-2025 PT Coag (PPP) [Time] 12.4 s 11.7-14.9 [facility] RBC Auto (Bld) [#/Vol]Ordere d By: Xochilt Toscano on 05-12-2025 RBC (Bld) [#/Vol] 4.48 10*6/uL 4.2-5.4 [facility] Serum globulin measurementOr dered By: Xochilt Toscano on 05-12-2025 Globulin (S) [Mass/Vol] 3.2 g/dL 2.2-4.2 [facility] Serum or plasma alanine nagel otransferase (ALT) measurementOrdered By: Xochilt Toscano on 05-12-2025 ALT [Catalytic activity/Vol] 30 U/L <35 [facility] Serum or plasma albumin emilee urement (mass/volume)Ordered By: Xochilt Toscano on 05-12-2025 Albumin [Mass/Vol] 4.7 g/dL 3.5-5.0 [facility] Serum or plasma alkaline rachel sphatase measurementOrdered By: Xochilt Toscano on 05-12-2025 ALP [Catalytic activity/Vol] 93 U/L 35-104 [facility] Total proteinOrdered By: Marva Toscano on 05-12-2025 Protein [Mass/Vol] 7.9 g/dL 5.9-8.4 [facility] White blood cell (WBC) count Ordered By: Xochilt Toscano on 05-12-2025 WBC (Bld) [#/Vol] 6.0 10*3/uL 4.4-11.0 [facility]20[facility] -------- SHAYNA LYONS ([id number]) 1965 F Date Time Provider Department 04/30/25 RALF DUNBAR JR During your visit today, we recorded the following information about you: Ld Lepe MA 04/30/2025 4:47 PM Signed Scan on 04/30/2025 7:52 AM by Provider, AMANDA Cuenca: Neurology Referral 04/30/25 Neurology referral received from [...] call and is scheduled for 07/02/[address] [place] [address] Darby. Allergies As of Date: [...] ORAL Take by mouth once daily. - multivit-min/iron/folic/ lutein (CENTRUM SILVER WOMEN ORAL) Take 1 tablet [...] Status:Closed by LD LEPE on 05/01/25 Normal [facility] Absolute lymphocyte countOrd ered By: Mindy Horner on 02-27-2025 Lymphocytes Auto (Unsp spec) [#/Vol] 1.35 10*3/uL 0.83-4.51 [facility] Absolute neutrophil countOrd ered By: Mindy Horner on 02-27-2025 Neutrophils (Bld) [#/Vol] 3.0 10*3/uL 2.0-7.7 [facility] Amylaseon 02-27-2025 GUILLERMO 90 U/L Normal 28-100 [facility] Comment on above: Performed By: #### L 501.2450, L100.0100, L501.9520, L501.2400, L500.4050 #### [facility] [address] [place], [address] Anion gap in Serum or Plasma Ordered By: Zebulun Beam on 02-27-2025 Anion gap [Moles/Vol] 15 mmol/L 5- [facility] Automated lymphocyte count a s percentage of total leukocytesOrdered By: Zebulun Beam on 02-27-2025 Lymphocytes/100 WBC Auto (Unsp spec) 28.0 % - [facility] BUN/creatinine ratioOrdered By: Zebulun Beam on 02-27-2025 Urea nitrogen/Creatinine [Mass ratio] 14.0 mg/mg 10- [facility] Basophil percentageOrdered B y: Zebulun Beam on 02-27-2025 Basophils/100 WBC (Bld) 1.7 % High 0-1 [facility] Bilirubin, totalOrdered By: Zebulun Beam on 02-27-2025 Bilirubin [Mass/Vol] 0.28 mg/dL 0.00-1.30 [facility] CBC W/Diff, Automatedon 02-11 Absolute Lymph 1.35 X10 3/uL Normal 0.83-4.51 [facility] Comment on above: Performed By: #### L 501.2450, L100.0100, L501.9520, L501.2400, L500.4050 #### [facility] [address] [place], [address] Absolute Neut 3.0 X10 3/uL Normal 2.0-7.7 [facility] Comment on above: Performed By: #### L 501.2450, L100.0100, L501.9520, L501.2400, L500.4050 #### [facility] [address] [place], [address] Basophils/100 WBC (Bld) 1.7 % High 0-1 [facility] Comment on above: Performed By: #### L 501.2450, L100.0100, L501.9520, L501.2400, L500.4050 #### [facility] [address] [place], [address] Eosinophils/100 WBC (Bld) 1.9 % Normal 0-5 [facility] Comment on above: Performed By: #### L 501.2450, L100.0100, L501.9520, L501.2400, L500.4050 #### [facility] [address] [place], [address] Erythrocyte distribution width (RBC) [Ratio] 12.5 % Normal 11.6-14.6 [facility] Comment on above: Performed By: #### L 501.2450, L100.0100, L501.9520, L501.2400, L500.4050 #### [facility] [address] [place], [address] Hematocrit (Bld) [Volume fraction] 42.4 % Normal 37-47 [facility] Comment on above: Performed By: #### L 501.2450, L100.0100, L501.9520, L501.2400, L500.4050 #### [facility] [address] [place], [address] Hemoglobin (Bld) [Mass/Vol] 14.8 g/dL Normal 12.0-15.0 [facility] Comment on above: Performed By: #### L 501.2450, L100.0100, L501.9520, L501.2400, L500.4050 #### [facility] [address] [place], [address] IG% 0.000 Normal 0.0-0.9 [facility] Comment on above: Result Comment: IG% - Immature Granulocytes (promyelocytes, myelocytes and metamyelocytes) > 1% indicates that a LEFT SHIFT is Present. Performed By: #### L 501.2450, L100.0100, L501.9520, L501.2400, L500.4050 #### [facility] [address] [place], [address] Lymphocytes/100 WBC (Bld) 28.0 % Normal 19-41 [facility] Comment on above: Performed By: #### L 501.2450, L100.0100, L501.9520, L501.2400, L500.4050 #### [facility] [address] [place], [address] MCH (RBC) [Entitic mass] 32.8 pg High 27.0-32.0 [facility] Comment on above: Performed By: #### L 501.2450, L100.0100, L501.9520, L501.2400, L500.4050 #### [facility] [address] [place], [address] MCHC (RBC) [Mass/Vol] 34.9 g/dL Normal 32-36 [facility] Comment on above: Performed By: #### L 501.2450, L100.0100, L501.9520, L501.2400, L500.4050 #### [facility] [address] [place], [address] MCV (RBC) [Entitic vol] 94.0 fL Normal 81-99 [facility] Comment on above: Performed By: #### L 501.2450, L100.0100, L501.9520, L501.2400, L500.4050 #### [facility] [address] [place], [address] Monocytes/100 WBC (Bld) 7.2 % Normal 0-10 [facility] Comment on above: Performed By: #### L 501.2450, L100.0100, L501.9520, L501.2400, L500.4050 #### [facility] [address] [place], [address] Neutrophils/100 WBC (Bld) 61.2 % Normal 47-70 [facility] Comment on above: Performed By: #### L 501.2450, L100.0100, L501.9520, L501.2400, L500.4050 #### [facility] [address] [place], [address] Nucleated RBC (Bld) [#/Vol] 0 10*3/uL Normal 0-5 [facility] Comment on above: Performed By: #### L 501.2450, L100.0100, L501.9520, L501.2400, L500.4050 #### [facility] [address] [place], [address] Platelet mean volume (Bld) [Entitic vol] 9.5 fL Normal 6.2-12.0 [facility] Comment on above: Performed By: #### L 501.2450, L100.0100, L501.9520, L501.2400, L500.4050 #### [facility] [address] [place], [address] Platelets (Bld) [#/Vol] 297 10*3/uL Normal 150-450 [facility] Comment on above: Performed By: #### L 501.2450, L100.0100, L501.9520, L501.2400, L500.4050 #### [facility] [address] [place], [address] RBC (Bld) [#/Vol] 4.51 10*6/uL Normal 4.2-5.4 [facility] Comment on above: Performed By: #### L 501.2450, L100.0100, L501.9520, L501.2400, L500.4050 #### [facility] [address] [place], [address] RDW SD 43.3 fl Normal 35.1-43.9 [facility] Comment on above: Performed By: #### L 501.2450, L100.0100, L501.9520, L501.2400, L500.4050 #### [facility] [address] [place], [address] WBC (Bld) [#/Vol] 4.8 10*3/uL Normal 4.4-11.0 [facility] Comment on above: Performed By: #### L 501.2450, L100.0100, L501.9520, L501.2400, L500.4050 #### [facility] [address] [place], [address] Carbon dioxide, total [Moles /volume] in Central venous bloodOrdered By: Mindy Horner on 02-27-2025 CO2 [Moles/Vol] 24.1 mmol/L 21.0-32.0 [facility] Chloride assayOrdered By: Grabiel Horner on 02-27-2025 Chloride [Moles/Vol] 102 mmol/L 98-108 [facility] Comprehensive Metabolic Prof ilon 02-27-2025 Albumin [Mass/Vol] 4.4 g/dL Normal 3.5-5.0 [facility] Comment on above: Performed By: #### L 501.2450, L100.0100, L501.9520, L501.2400, L500.4050 #### [facility] [address] [place], [address] Albumin/Globulin [Mass ratio] 1.5 {ratio} Normal 0.9-2.4 [facility] Comment on above: Performed By: #### L 501.2450, L100.0100, L501.9520, L501.2400, L500.4050 #### [facility] [address] [place], [address] ALK PHOS 91 U/L Normal 35-104 [facility] Comment on above: Performed By: #### L 501.2450, L100.0100, L501.9520, L501.2400, L500.4050 #### [facility] [address] [place], [address] ALT [Catalytic activity/Vol] 19 U/L Normal <=34 [facility] Comment on above: Performed By: #### L 501.2450, L100.0100, L501.9520, L501.2400, L500.4050 #### [facility] [address] [place], [address] AST [Catalytic activity/Vol] 29 U/L Normal <=31 [facility] Comment on above: Performed By: #### L 501.2450, L100.0100, L501.9520, L501.2400, L500.4050 #### [facility] [address] [place], [address] Bilirubin [Mass/Vol] 0.28 mg/dL Normal 0.00-1.30 [facility] Comment on above: Performed By: #### L 501.2450, L100.0100, L501.9520, L501.2400, L500.4050 #### [facility] [address] [place], [address] BUN/CRE 14.0 RATIO Normal 10-20 [facility] Comment on above: Performed By: #### L 501.2450, L100.0100, L501.9520, L501.2400, L500.4050 #### [facility] [address] [place], [address] Calcium [Mass/Vol] 9.4 mg/dL Normal 7.6-11.0 [facility] Comment on above: Performed By: #### L 501.2450, L100.0100, L501.9520, L501.2400, L500.4050 #### [facility] [address] [place], [address] Chloride [Moles/Vol] 102 mmol/L Normal 98-108 [facility] Comment on above: Performed By: #### L 501.2450, L100.0100, L501.9520, L501.2400, L500.4050 #### [facility] [address] [place], [address] CO2 [Moles/Vol] 24.1 mmol/L Normal 21.0-32.0 [facility] Comment on above: Performed By: #### L 501.2450, L100.0100, L501.9520, L501.2400, L500.4050 #### [facility] [address] [place], [address] Creatinine [Mass/Vol] 0.76 mg/dL Normal 0.70-1.20 [facility] Comment on above: Performed By: #### L 501.2450, L100.0100, L501.9520, L501.2400, L500.4050 #### [facility] [address] [place], [address] GAP 15 Normal 5-15 [facility] Comment on above: Performed By: #### L 501.2450, L100.0100, L501.9520, L501.2400, L500.4050 #### [facility] [address] [place], [address] GFR/1.73 sq M.predicted among non-blacks MDRD (S/P/Bld) [Vol rate/Area] 91 mL/min/{1.73_m2} Normal >60 [facility] Comment on above: Result Comment: mL/m in/1.73m2 CKD-EPI Creatinine Equation (2020) Performed By: #### L 501.2450, L100.0100, L501.9520, L501.2400, L500.4050 #### [facility] [address] [place], [address] Globulin (S) [Mass/Vol] 2.8 g/dL Normal 2.2-4.2 [facility] Comment on above: Performed By: #### L 501.2450, L100.0100, L501.9520, L501.2400, L500.4050 #### [facility] [address] [place], [address] Glucose [Mass/Vol] 88 mg/dL Normal 70-99 [facility] Comment on above: Performed By: #### L 501.2450, L100.0100, L501.9520, L501.2400, L500.4050 #### [facility] [address] [place], [address] Potassium [Moles/Vol] 4.2 mmol/L Normal 3.3-5.1 [facility] Comment on above: Performed By: #### L 501.2450, L100.0100, L501.9520, L501.2400, L500.4050 #### [facility] [address] [place], [address] Sodium [Moles/Vol] 140 mmol/L Normal 133-145 [facility] Comment on above: Performed By: #### L 501.2450, L100.0100, L501.9520, L501.2400, L500.4050 #### [facility] [address] [place], [address] T PROT 7.2 g/dL Normal 5.9-8.4 [facility] Comment on above: Performed By: #### L 501.2450, L100.0100, L501.9520, L501.2400, L500.4050 #### [facility] [address] [place], [address] Urea nitrogen [Mass/Vol] 11 mg/dL Normal 4-19 [facility] Comment on above: Performed By: #### L 501.2450, L100.0100, L501.9520, L501.2400, L500.4050 #### [facility] [address] [place], [address] Eosinophil percentageOrdered By: Stevenlun Beam on 02-27-2025 Eosinophils/100 WBC (Bld) 1.9 % 0-5 [facility] Erythrocyte distribution wid th (RBC) [Ratio][facility] 02-[facility] Erythrocyte distribution width (RBC) [Entitic vol] 43.3 fL 35.1-43.9 [facility] Erythrocyte distribution wid th ratioOrdered By: [facility] on 02-27-2025 Erythrocyte distribution width (RBC) [Ratio] 12.5 % 11.6-14.6 [facility] Erythrocyte distribution wid th standard deviationOrdered By: [facility] Beam on 02-27-2025 Erythrocyte distribution width (RBC) [Ratio] 43.3 fl 35.1-43.9 [facility] GFR/1.73 sq M.predicted gia g non-blacks MDRD (S/P/Bld) [Vol rate/Area]Ordered By: Mindy Horner on 02-27-2025 Estimated GFR (MDRD) Non-Af Amer 91 >60 [facility] Comment on above: mL/min/1.73m2 CKD-EP I Creatinine Equation (2020) Glomerular filtration rate ( GFR) estimation/1.73 sq m using serum, plasma, or whole bOrdered By: Mindy Horner on 02-27-2025 GFR/1.73 sq M.predicted among non-blacks MDRD (S/P/Bld) [Vol rate/Area] 91 mL/min/{1.73_m2} >60 [facility] Comment on above: mL/min/1.73m2 CKD-EP I Creatinine Equation (2020) Hematocrit Auto (Bld) [Volum e fraction]Ordered By: Zebulun Beam on 02-27-2025 Hematocrit (Bld) [Volume fraction] 42.4 % 37-47 [facility] Hemoglobin measurementOrdere d By: Zebulun Beam on 02-27-2025 Hemoglobin (Bld) [Mass/Vol] 14.8 g/dL 12.0-15.0 [facility] Immature granulocytes/100 WB C Auto (Bld)Ordered By: Zebulun Beam on 02-27-2025 Immature granulocytes/100 WBC (Bld) 0.000 % 0.0-0.9 [facility] Comment on above: IG% - Immature Granu locytes (promyelocytes, myelocytes and metamyelocytes) > 1% indicates that a LEFT SHIFT is Present. Laboratory - Chemistry and C hemistry - challengeOrdered By: Zebulun Beam on 02-27-2025 AST [Catalytic activity/Vol] 29 U/L <32 [facility] Lipaseon 02-27-2025 Lipase [Catalytic activity/Vol] 38 U/L Normal 13-75 [facility] Comment on above: Result Comment: Plea se note: LIPASE revised reference range effective 23. New Lipase methodology. Expected to produce lower values than the previous assay method. NEW Reference Range: 13 - 75 U/L Performed By: #### L 501.2450, L100.0100, L501.9520, L501.2400, L500.4050 #### [facility] [address] [place] [address], [id number] Lipase measurementOrdered By : bulun Beam on 02-27-2025 Lipase [Catalytic activity/Vol] 38 U/L 13-75 [facility] Comment on above: Please note:LIPASE r evised reference range effective 23. New Lipase methodology. Expected to produce lower values than the previous assay method. NEW Reference Range: 13 - 75 U/L Lymphocytes Auto (Unsp spec) [#/Vol]Ordered By: Zebulun Beam on 02-27-2025 Lymphocytes (Bld) [#/Vol] 1.35 10*3/uL 0.83-4.51 [facility] Lymphocytes/100 WBC Auto (Un sp spec)Ordered By: Zeann-marielun Beam on 02-27-2025 Lymphocytes/100 WBC (Bld) 28.0 % 19-41 [facility] MCV (mean corpuscular volume ) determinationOrdered By: Zebulun Beam on 02-27-2025 MCV (RBC) [Entitic vol] 94.0 fL 81-99 [facility] Mean corpuscular hemoglobin (MCH) determinationOrdered By: Zebulun Beam on 02-27-2025 MCH (RBC) [Entitic mass] 32.8 pg High 27.0-32.0 [facility] Mean corpuscular hemoglobin concentration (MCHC) determinationOrdered By: Zebulun Beam on 02-27-2025 MCHC (RBC) [Mass/Vol] 34.9 g/dL 32-36 [facility] Mean platelet volume determi nationOrdered By: Zebulun Beam on 02-27-2025 Platelet mean volume (Bld) [Entitic vol] 9.5 fL 6.2-12.0 [facility] Monocyte percentageOrdered B y: Zebulun Beam on 02-27-2025 Monocytes/100 WBC (Bld) 7.2 % 0-10 [facility] Neutrophil percentageOrdered By: Zebulun Beam on 02-27-2025 Neutrophils/100 WBC (Bld) 61.2 % 47-70 [facility] Nucleated red blood cell per centageOrdered By: Zebulun Beam on 02-27-2025 Nucleated RBC/100 WBC (Bld) [Ratio] 0 % 0-5 [facility] Platelet countOrdered By: Grabiel hessun Beam on 02-27-2025 Platelets (Bld) [#/Vol] 297 10*3/uL 150-450 [facility] Potassium (Unsp spec) [Mass/ Vol]Ordered By: Zeann-marielun Beam on 02-27-2025 Potassium [Moles/Vol] 4.2 mmol/L 3.3-5.1 [facility] Potassium measurement (mass/ volume)Ordered By: Zeann-marielun Beam on 02-27-2025 Potassium (Unsp spec) [Mass/Vol] 4.2 mmol/L 3.3-5.1 [facility] RBC Auto (Bld) [#/Vol]Ordere d By: Mindy Horner on 02-27-2025 RBC (Bld) [#/Vol] 4.51 10*6/uL 4.2-5.4 [facility] Serum creatinine measurement (mass/volume)Ordered By: Mindy Horner on 02-27-2025 Creatinine [Mass/Vol] 0.76 mg/dL 0.70-1.20 [facility] Serum globulin measurementOr dered By: Mindy Horner on 02-27-2025 Globulin (S) [Mass/Vol] 2.8 g/dL 2.2-4.2 [facility] Serum glucose measurement (m ass/volume)Ordered By: Mindy Horner on 02-27-2025 Glucose [Mass/Vol] 88 mg/dL 70-99 [facility] Serum or plasma alanine nagel otransferase (ALT) measurementOrdered By: Mindy Horner on 02-27-2025 ALT [Catalytic activity/Vol] 19 U/L <35 [facility] Serum or plasma albumin emilee urement (mass/volume)Ordered By: Mindy Horner on 02-27-2025 Albumin [Mass/Vol] 4.4 g/dL 3.5-5.0 [facility] Serum or plasma albumin/glob ulin mass ratioOrdered By: Mindy Horner 02-27-2025 Albumin/Globulin [Mass ratio] 1.5 {ratio} 0.9-2.4 [facility] Serum or plasma alkaline rachel sphatase measurementOrdered By: Mindy Horner on 02-27-2025 ALP [Catalytic activity/Vol] 91 U/L 35-104 [facility] Serum or plasma amylase emilee urement (enzymatic activity/volume)Ordered By: Mindy Horner on 02-27-2025 Amylase [Catalytic activity/Vol] 90 U/L 28-100 [facility] Serum or plasma calcium emilee urement (mass/volume)Ordered By: Mindy Horner on 02-27-2025 Calcium [Mass/Vol] 9.4 mg/dL 7.6-11.0 [facility] Serum or plasma urea nitroge n measurement (mass/volume)Ordered By: Stevenlun Beam on 02-27-2025 Urea nitrogen [Mass/Vol] 11 mg/dL 4-19 [facility] Sodium levelOrdered By: Grabielbu radha Beam on 02-27-2025 Sodium [Moles/Vol] 140 mmol/L 133-145 [facility] TSH DL <= 0.005 mIU/L QnOrde red By: Grabielbulun Beam on 02-27-2025 Thyroid Stimulating Hormone (TSH) 1.660 uIU/mL 0.300-4.200 [facility] TSH Qn 1.660 uIU/mL 0.300-4.200 [facility] Thyroid Stim Hormone (TSH)on 02-27-2025 TSH 1.660 uIU/mL Normal 0.300-4.200 [facility] Comment on above: Performed By: #### L 501.2450, L100.0100, L501.9520, L501.2400, L500.4050 #### [facility] [place], [address] Total proteinOrdered By: Kendall Horner on 02-27-2025 Protein [Mass/Vol] 7.2 g/dL 5.9-8.4 [facility] White blood cell (WBC) count Ordered By: Mindy Horner on 02-27-2025 WBC (Bld) [#/Vol] 4.8 10*3/uL 4.4-11.0 [facility] XR WRIST MINIMUM 3 VIEWS [...] Miguel Leyva MD Electronically signed By Juan Migule Leyva MD Dictated Date: 01/31/2025 2:28:24 PM Prelim Date: 01/31/2025 2:29:21 PM Sign Date: 01/31/2025 2:29:21 PM Ordering Provider: EVERTON GAMBLE [facility] MAIN CT WRIST W/O CONTRAST LEFTon 01-21-2025 [...] 01/21/2025 3:40:24 PM Ordering Provider: EVERTON GAMBLE [facility] MAIN XR WRIST MINIMUM 3 VIEWS [facility] 01-08-2025 XR WRIST MINIMUM 3 VIEWS LEFT [...] Sign Date: 01/08/2025 2:58:36 PM Ordering Provider: [facility] MAIN XR WRIST MINIMUM 3 VIEWS [facility] 12-27-2024 XR WRIST MINIMUM 3 VIEWS LEFT [...] Sign Date: 12/27/2024 8:18:43 AM Ordering Provider: EVERTON [facility] MAIN XR WRIST MINIMUM 3 VIEWS [facility] 12-12-2024 XR WRIST MINIMUM 3 VIEWS LEFT [...] Date: 12/12/2024 10:56:18 AM Ordering Provider: EVERTON GAMBLE [facility] MAIN LINDASusan 12-02-2024 CNPN Telephone ([facility]AS) -------- SHAYNA LYONS ([id number]) 1965 F Date Time Provider Department 12/02/24 HERMILO ARIAS JR MMAS During your visit today, we recorded the following information about you: Allergies As of Date: 12/02/2024 Noted Allergy Reaction MORPHINE 02/23/2010 9 - Itching SCOPOLAMINE 05/18/2016 5 - Intolerance Date Reviewed: 11/30/2024 Reviewed by: Michelle Navarro, - Fully Assessed Prescriptions as of 12/02/2024 [...] pain for up to 5 days. - multivit-min/iron/folic/ lutein (CENTRUM SILVER WOMEN ORAL) Take 1 tablet [...] for Encounter Date Provider Department Center 12/02/2024 [id number] JR, PAUL [facility] Encounter Status:Closed by HERMILO ARIAS on 12/02/24 [facility] CNOVon 11-30-2024 CNOV Office Visit ([facility]AS ) -------- SHAYNA LYONS ([id number]) 1965 F Date Time Provider Department 11/30/24 12:05 PM MICHELLE NAVARRO [facility] During your visit today, we recorded the following information about you: Temperature Pulse Respiration Blood pressure 98.3 degrees 76/minute 17/minute 139/83 Last Period 11/30/22 Emily Osuna LPN 11/30/2024 2:41 PM Signed Patient declined depression screening at this time. NELI Silva Lisa Dawn, DO 11/30/2024 2:41 PM Signed Shayna Lyons is a 59 year old [...] ACID ORAL Take by mouth once daily. multivit-min/iron/folic/ lutein (CENTRUM SILVER WOMEN ORAL) Take 1 tablet [...] will have (more content not included)... Normal [facility] XR ELBOW 3V AP/LAT/OTHER LTo n 11-30-2024 [...] contacted by the Imaging Support Navigator Team. [facility] Transcribe Date/Time: Dec 02 2024 6:44A Dictated by : ALYSON OG MD This examination was interpreted and the report reviewed and electronically signed by: ALYSON OG MD on Dec 02 2024 6:48AM EST [id number] [facility] XR HAND 3V PA/LAT/OBL LTon 0 11-30-2024 [...] contacted by the Imaging Support Navigator Team. Hospital Chaplain: [facility] Transcribe Date/Time: Dec 02 2024 6:44A Dictated by : ALYSON OG MD This examination was interpreted and the report reviewed and electronically signed by: ALYSON OG MD on Dec 02 2024 6:48AM EST [id number] [facility] XR WRIST 4V PA/LAT/OBL/SCAPH LTon 11-30-2024 XR [...] contacted by the Imaging Support Navigator Team. Hospital Chaplain: [facility] Transcribe Date/Time: Dec 02 2024 6:44A Dictated by : ALYSON OG MD This examination was interpreted and the report reviewed and electronically signed by: ALYSON OG MD on Dec 02 2024 6:48AM EST [id number] Normal [facility] Absolute lymphocyte countOrd ered By: Samy Saravia on 10-03-2023 Lymphocytes Auto (Unsp spec) [#/Vol] 1.54 10*3/uL 0.83-4.51 [facility] Albumin Elph [Mass/Vol]Order ed By: Samy Saravia on 10-03-2023 Albumin [Mass/Vol] 1.0 g/dL 2.9-4.4 [facility] Atypical perinuclear antineu trophil cytoplasmic antibodies measurementOrdered By: Samy Saravia on 10-03-2023 Neutrophil cytoplasmic Ab.perinuclear.atypical IF (S) [Titer] <1:20 titer Neg:<1:20 [facility] Comment on above: The atypical pANCA p attern has been observed in asignificant percentage of patients with ulcerative colitis,primary sclerosing cholangitis and autoimmune hepatitis. Basophil percentageOrdered B y: Samy Saravia on 10-03-2023 Amylase [Catalytic activity/Vol] 65 U/L 25-115 [facility] Basophil percentage < 0.2 AI 0.0-0.9 [facility] Basophils/100 WBC (Bld) 1.4 % 0-1 [facility] Bilirubin [Mass/Vol] 0.70 mg/dL 0.20-1.00 [facility] Comment on above: For patients on eltr ombopag therapy, use of Dimension [place] TBIL is not recommended. Chloride [Moles/Vol] 101 mmol/L 98-107 [facility] Eosinophils/100 WBC (Bld) 2.7 % 0-5 [facility] Glucose [Mass/Vol] 91 mg/dL 74-106 [facility] Neutrophils (Bld) [#/Vol] 2.9 10*3/uL 2.0-7.7 [facility] Neutrophils/100 WBC (Bld) 57.6 % 47-70 [facility] Potassium [Moles/Vol] 4.4 mmol/L 3.5-5.1 [facility] Protein [Mass/Vol] 8.1 g/dL 6.4-8.2 [facility] Sodium [Moles/Vol] 135 mmol/L 136-145 [facility] Triglyceride [Mass/Vol] 76 mg/dL <199 [facility] Comment on above: The drugs N-Acetylcy steine and Metamizole may falsely depress this assay.Serum Triglycerides Reference Interval Normal <150 mg/dL Borderline high 150 - 199 mg/dL High 200 - 499 mg/dL Very High > or = 500 mg/dL WBC (Bld) [#/Vol] 5.1 10*3/uL 4.4-11.0 [facility] Blood erythrocytes count (nu mber/volume)Ordered By: Samy Saravia on 10-03-2023 RBC (Bld) [#/Vol] 5.20 10*6/uL 4.2-5.4 [facility] Blood hemoglobin measurement (mass/volume)Ordered By: Samy Saravia on 10-03-2023 Hemoglobin (Bld) [Mass/Vol] 16.5 g/dL 12.0-15.0 [facility] Blood lymphocytes/100 leukoc ytesOrdered By: Samy Saravia on 10-03-2023 Lymphocytes/100 WBC (Bld) 30.1 % 19-41 [facility] Blood monocytes/100 leukocyt esOrdered By: Samy Saravia on 10-03-2023 Monocytes/100 WBC (Bld) 8.0 % 0-10 [facility] Blood platelet mean volumeOr dered By: Samy Saravia on 10-03-2023 Platelet mean volume (Bld) [Entitic vol] 9.5 fL 6.2-12.0 [facility] Determination of erythrocyte mean corpuscular volume (MCV)Ordered By: Samy Saravia on 10-03-2023 MCV (RBC) [Entitic vol] 93.3 fL 81-99 [facility] Erythrocyte sedimentation ra teOrdered By: Samy Saravia on 10-03-2023 ESR (Bld) [Velocity] 1 mm/h 0-30 [facility] Hematocrit Auto (Bld) [Volum e fraction]Ordered By: Samy Saravia on 10-03-2023 Hematocrit (Bld) [Volume fraction] 48.5 % 37-47 [facility] Interpretation of serum or p lasma protein pattern by immunofixation (narrative resultOrdered By: Samy Saravia on 10-03-2023 Protein Fractions Immunofixation Jorge [Interp] Not Observed g/dL Not Observed [facility] - Chemistry and C hemistry - challengeOrdered By: Samy Saravia on 10-03-2023 ALP [Catalytic activity/Vol] 89 U/L 45-117 [facility] ALT [Catalytic activity/Vol] 28 U/L 13-56 [facility] CO2 [Moles/Vol] 26.0 mmol/L 21.0-32.0 [facility] Lipase [Catalytic activity/Vol] 36 U/L 13-75 [facility] Comment on above: Please note:LIPASE r evised reference range effective 23. New Lipase methodology. Expected to produce lower values than the previous assay method. NEW Reference Range: 13 - 75 U/L Urea nitrogen/Creatinine [Mass ratio] 13.8 mg/mg 10-20 [facility] - Hematology and Cell countsOrdered By: Samy Saravia on 10-03-2023 Erythrocyte distribution width (RBC) [Entitic vol] 44.0 fL 35.1-43.9 [facility] Erythrocyte distribution width (RBC) [Ratio] 12.8 % 11.6-14.6 [facility] Immature granulocytes/100 WBC (Bld) 0.200 % 0.0-0.9 [facility] Comment on above: IG% - Immature Granu locytes (promyelocytes, myelocytes and metamyelocytes) > 1% indicates that a LEFT SHIFT is Present. MCH (RBC) [Entitic mass] 31.7 pg 27.0-32.0 [facility] Nucleated RBC/100 WBC (Bld) [Ratio] 0 % 0-[facility] [Mass/Vol]Or dered By: Samy Saravia on 10-03-2023 MCHC (RBC) [Mass/Vol] 34.0 g/dL 32-36 [facility] No Panel InformationOrdered By: Samy Saravia on 10-03-2023 Addendum Document Comment . [facility] Comment on above: Protein electrophore sis scan will follow via computer,mail, or resident buyer delivery. CA 19-9 Antigen < 2 U/mL 0-35 [facility] Comment on above: [employer] El ectrochemiluminescence Immunoassay(ECLIA)Values obtained with different assay methods or kits cannotbe used interchangeably. Results cannot be interpreted asabsolute evidence of the presence or absence of malignantdisease.Performed at: [facility] [id number] Director: Aravind Gardner PhD, Phone: [phone] [employer] B Antibody <0.2 AI 0.0-0.9 [facility] Endomysial IgA Antibody Negative Negative [facility] Estimated GFR (MDRD) Amer 121 mL/min >60 [facility] Comment on above: GFR Calc Estimated GFR (MDRD) Non-Af Amer 100 mL/min >60 [facility] Comment on above: Non- GFR Calc Immunoglobulin G4 43 mg/dL 2-96 [facility] Miscellaneous Test See comment [facility] Comment on above: Scanned image report available in EMR CLASSIFYING MACHINE OPERATOR Antibody <0.2 AI 0.0-0.9 [facility] Platelets bldOrdered By: Navi Saravia on 10-03-2023 Platelets (Bld) [#/Vol] 308 10*3/uL 150-450 [facility] Serum DNA double strand anti body assay (units/volume)Ordered By: Samy Saravia on 10-03-2023 DNA double strand Ab Qn (S) [IU]/mL 0-9 [facility] Comment on above: Negative <5 Equivoca l 5 - 9 Positive >9 Serum IgG subclass 1 measure ment (mass/volume)Ordered By: Samy Saravia on 10-03-2023 IgG subclass 1 (S) [Mass/Vol] 510 mg/dL 248-810 [facility] Serum IgG subclass 2 measure ment (mass/volume)Ordered By: Samy Saravia on 10-03-2023 IgG subclass 2 (S) [Mass/Vol] 286 mg/dL 130-555 [facility] Serum IgG subclass 3 measure ment (mass/volume)Ordered By: Samy Saravia on 10-03-2023 IgG subclass 3 (S) [Mass/Vol] 56 mg/dL 15-102 [facility] Serum Joaquina-1 antibody assay (u nits/volume)Ordered By: Samy Saravia on 10-03-2023 Joaquina-1 extractable nuclear Ab Qn (S) <0.2 AI 0.0-0.9 [facility] Serum Scl-70 extractable nuc lear antibody assay (units/volume)Ordered By: Samy Saravia on 10-03-2023 SCL-70 extractable nuclear Ab Qn (S) <0.2 AI 0.0-0.9 [facility] Serum Zaman extractable nucl ear antibody detectionOrdered By: Samy Saravia on 10-03-2023 Zaman extractable nuclear Ab Ql (S) <0.2 AI 0.0-0.9 [facility] Serum aweto-[id number] measu rement by electrophoresisOrdered By: Samy Saravia on 10-03-2023 Alpha 1 globulin Elph [Mass/Vol] 0.3 g/dL 0.0-0.4 [facility] Alpha 1 globulin Elph [Mass/Vol] 0.8 g/dL 0.4-1.0 [facility] Serum classic neutrophil cyt oplasmic antibody assay (units/volume)Ordered By: Samy Saravia on 10-03-2023 Neutrophil cytoplasmic Ab.classic Qn (S) <1:20 titer Neg:<1:20 [facility] Serum globulin measurement ( mass/volume)Ordered By: Samy Saravia on 10-03-2023 Globulin (S) [Mass/Vol] 6.6 g/dL 2.2-3.9 [facility] Serum or plasma C reactive p rotein measurement (mass/volume)Ordered By: Samy Saravia on 11-21-2023 CRP [Mass/Vol] mg/L 0.0-3.0 [facility] Comment on above: C-Reactive Protein ( CRP) provides useful information for thediagnosis, therapy and monitoring of inflammatory processesand associated diseases. For the evaluation of Relative Riskfor Cardiovascular Disease, a High Sensitivity CRP (HSCRP)should be ordered. Serum or plasma IgA measurem ent (mass/volume)Ordered By: Samy Saravia on 10-03-2023 IgA [Mass/Vol] 204 mg/dL 87-352 [facility] Serum or plasma IgG measurem ent (mass/volume)Ordered By: Samyeric Saravia on 10-03-2023 IgG [Mass/Vol] 908 mg/dL [phone] [facility] IgG [Mass/Vol] Not Reportable [facility] Serum or plasma IgM measurem ent (mass/volume)Ordered By: Samydolores Saravia on 10-03-2023 IgM [Mass/Vol] 44 mg/dL 26-217 [facility] Serum or plasma albumin emilee urement (mass/volume)Ordered By: Samyeric Saravia on 10-03-2023 Albumin [Mass/Vol] 4.6 g/dL 3.2-5.0 [facility] Serum or plasma albumin/glob ulin mass ratioOrdered By: Samydolores aSravia on 10-03-2023 Albumin/Globulin [Mass ratio] 1.3 {ratio} 0.9-2.4 [facility] Serum or plasma beta globuli n measurement by electrophoresis (mass/volume)Ordered By: Samydolores Saravia on 10-03-2023 Beta globulin Elph [Mass/Vol] 1.1 g/dL 0.7-1.3 [facility] Serum or plasma calcium emilee urement (mass/volume)Ordered By: Samydolores Saravia on 10-03-2023 Calcium [Mass/Vol] 9.9 mg/dL 8.5-10.1 [facility] Serum or plasma creatinine m easurement (mass/volume)Ordered By: Samyeric Saravia on 10-03-2023 Creatinine [Mass/Vol] 0.65 mg/dL 0.55-1.02 [facility] Comment on above: The validity of the calculated GFR & GFRAA in patients over 70 years has not been determined. Clinical correlation is essential. Serum or plasma gamma globul in measurement by electrophoresis (mass/volume)Ordered By: Samy Saravia on 10-03-2023 Gamma globulin Elph [Mass/Vol] 0.9 g/dL 0.4-1.8 [facility] Serum or plasma immunoelectr ophoresis interpretation (nominal result)Ordered By: Samy Saravia on 10-03-2023 Interpretation IEP [Interp] Comment . [facility] Comment on above: No monoclonality det ected. Serum or plasma urea nitroge n measurement (mass/volume)Ordered By: Samy Saravia on 10-03-2023 Urea nitrogen [Mass/Vol] 9 mg/dL 7-18 [facility] Serum perinuclear neutrophil cytoplasmic antibody titer by immunofluorescenceOrdered By: Samy Saravia on 10-03-2023 Neutrophil cytoplasmic Ab.perinuclear IF (S) [Titer] <1:20 titer Neg:<1:20 [facility] Comment on above: The presence of posi tive fluorescence exhibiting P-ANCA orC-ANCA patterns alone is not specific for the diagnosis ofWegener's Granulomatosis (WG) or microscopic polyangiitis.Decisions about treatment should not be based solely onANCA IFA results. The International ANCA Group Consensusrecommends follow up testing of positive sera with both IA-3 and MPO-ANCA enzyme immunoassays. As many as 5% serumsamples are positive only by EIA. Ref. AM J Clin Xeewbi7130;111:507-513. Serum tissue transglutaminas e IgA antibody assay (units/volume)Ordered By: Samy Saravia on 10-03-2023 tTG IgA Qn (S) <2 U/mL 0-3 [facility] Comment on above: Negative 0 - 3 [...] manual screening 23 U/L 15-37 [facility] Thin prep Papanicolaou smear with manual screening 8 5-15 [facility] Thin prep Papanicolaou smear with manual screening 0.2 0.7-1.7 [facility] Total protein bloodOrdered B y: Samy Saravia on 10-03-2023 Protein [Mass/Vol] 7.6 g/dL 6.0-8.5 [facility] Absolute lymphocyte countOrd ered By: Michelle Rios on 08-19-2023 Lymphocytes Auto (Unsp spec) [#/Vol] 1.85 10*3/uL 0.83-4.51 [facility] Basophil percentageOrdered B y: Michelle Rios on 08-19-2023 Basophils/100 WBC (Bld) 1.5 % 0-1 [facility] Bilirubin [Mass/Vol] 0.40 mg/dL 0.20-1.00 [facility] Comment on above: For patients on eltr ombopag therapy, use of Dimension [place] TBIL is not recommended. Chloride [Moles/Vol] 102 mmol/L 98-107 [facility] Eosinophils/100 WBC (Bld) 2.2 % 0-5 [facility] Glucose [Mass/Vol] 122 mg/dL 74-106 [facility] Comment on above: Fasting Glucose resu lt from 100 to 125 mg/dL suggests IMPAIRED HOMEOSTASIS per A.D.A. criteria. Neutrophils (Bld) [#/Vol] 3.3 10*3/uL 2.0-7.7 [facility] Neutrophils/100 WBC (Bld) 55.9 % 47-70 [facility] Potassium [Moles/Vol] 4.0 mmol/L 3.5-5.1 [facility] Protein [Mass/Vol] 8.0 g/dL 6.4-8.2 [facility] Sodium [Moles/Vol] 135 mmol/L 136-145 [facility] WBC (Bld) [#/Vol] 5.9 10*3/uL 4.4-11.0 [facility] Blood erythrocytes count (nu mber/volume)Ordered By: Michelle Rios on 08-19-2023 RBC (Bld) [#/Vol] 5.27 10*6/uL 4.2-5.4 [facility] Blood hemoglobin measurement (mass/volume)Ordered By: Michelle Rios on 08-19-2023 Hemoglobin (Bld) [Mass/Vol] 16.6 g/dL 12.0-15.0 [facility] Blood lymphocytes/100 leukoc ytesOrdered By: Michelle Rios on 08-19-2023 Lymphocytes/100 WBC (Bld) 31.4 % 19-41 [facility] Blood monocytes/100 leukocyt esOrdered By: Michelle Rios on 08-19-2023 Monocytes/100 WBC (Bld) 8.7 % 0-10 [facility] Blood platelet mean volumeOr dered By: Michelle Rios on 08-19-2023 Platelet mean volume (Bld) [Entitic vol] 9.6 fL 6.2-12.0 [facility] Determination of erythrocyte mean corpuscular volume (MCV)Ordered By: Michelle Rios on 08-19-2023 MCV (RBC) [Entitic vol] 92.4 fL 81-99 [facility] Hematocrit Auto (Bld) [Volum e fraction]Ordered By: Michelle Rios on 08-19-2023 Hematocrit (Bld) [Volume fraction] 48.7 % 37-47 [facility] - Chemistry and C hemistry - challengeOrdered By: Michelle Rios on 08-19-2023 ALP [Catalytic activity/Vol] 75 U/L 45-117 [facility] ALT [Catalytic activity/Vol] 26 U/L 13-56 [facility] CO2 [Moles/Vol] 28.0 mmol/L 21.0-32.0 [facility] Globulin (S) [Mass/Vol] 3.6 g/dL 2.2-4.2 [facility] Lipase [Catalytic activity/Vol] 35 U/L 13-75 [facility] Comment on above: Please note:LIPASE r evised reference range effective 23. New Lipase methodology. Expected to produce lower values than the previous assay method. NEW Reference Range: 13 - 75 U/L Urea nitrogen/Creatinine [Mass ratio] 7.4 mg/mg 10-20 [facility] - Hematology and Cell countsOrdered By: Michelle Rios on 08-19-2023 Erythrocyte distribution width (RBC) [Entitic vol] 46.2 fL 35.1-43.9 [facility] Erythrocyte distribution width (RBC) [Ratio] 13.5 % 11.6-14.6 [facility] Immature granulocytes/100 WBC (Bld) 0.300 % 0.0-0.9 [facility] Comment on above: IG% - Immature Granu locytes (promyelocytes, myelocytes and metamyelocytes) > 1% indicates that a LEFT SHIFT is Present. MCH (RBC) [Entitic mass] 31.5 pg 27.0-32.0 [facility] Nucleated RBC/100 WBC (Bld) [Ratio] 0 % 0-5 [facility] MCHC Auto (RBC) [Mass/Vol]Or dered By: Michelle Rios on 08-19-2023 MCHC (RBC) [Mass/Vol] 34.1 g/dL 32-36 [facility] No Panel InformationOrdered By: Michelle Rios on 08-19-2023 Estimated Creatinine Clearance Calc 76.98 ml/min [facility] Estimated GFR (MDRD) Amer 115 mL/min >60 [facility] Comment on above: GFR Calc Estimated GFR (MDRD) Non-Af Amer 95 mL/min >60 [facility] Comment on above: Non- GFR Calc Platelets bldOrdered By: Christie Rios on 08-19-2023 Platelets (Bld) [#/Vol] 303 10*3/uL 150-450 [facility] Serum or plasma albumin emilee urement (mass/volume)Ordered By: Michelle Rios on 08-19-2023 Albumin [Mass/Vol] 4.4 g/dL 3.2-5.0 [facility] Serum or plasma albumin/glob ulin mass ratioOrdered By: Michelle Rios on 08-19-2023 Albumin/Globulin [Mass ratio] 1.2 {ratio} 0.9-2.4 [facility] Serum or plasma calcium emilee urement (mass/volume)Ordered By: Michelle Rios on 08-19-2023 Calcium [Mass/Vol] 9.8 mg/dL 8.5-10.1 [facility] Serum or plasma creatinine m easurement (mass/volume)Ordered By: Michelle Rios on 08-19-2023 Creatinine [Mass/Vol] 0.68 mg/dL 0.55-1.02 [facility] Comment on above: The validity of the calculated GFR & GFRAA in patients over 70 years has not been determined. Clinical correlation is essential. Serum or plasma urea nitroge n measurement (mass/volume)Ordered By: Michelle Rios on 08-19-2023 Urea nitrogen [Mass/Vol] 5 mg/dL 7-18 [facility] Thin prep Papanicolaou smear with manual screeningOrdered By: Michelle Rios on 08-19-2023 Thin prep Papanicolaou smear with manual screening 14 U/L 15-37 [facility] Thin prep Papanicolaou smear with manual screening 5 5-15 [facility] Absolute lymphocyte countOrd ered By: Yeimi Chaudhary on 07-27-2023 Lymphocytes Auto (Unsp spec) [#/Vol] 1.73 10*3/uL 0.83-4.51 [facility] Basophil percentageOrdered B y: Yeimi Chaudhary on 07-27-2023 Basophils/100 WBC (Bld) 1.1 % 0-1 [facility] Bilirubin [Mass/Vol] 0.40 mg/dL 0.20-1.00 [facility] Comment on above: For patients on eltr ombopag therapy, use of Dimension [place] TBIL is not recommended. Chloride [Moles/Vol] 106 mmol/L 98-107 [facility] Eosinophils/100 WBC (Bld) 3.1 % 0-5 [facility] Glucose [Mass/Vol] 137 mg/dL 74-106 [facility] Comment on above: Fasting Glucose resu lt greater than or equal to 126 mg/dL suggests DIABETES MELLITUS per A.D.A. criteria. Neutrophils (Bld) [#/Vol] 3.0 10*3/uL 2.0-7.7 [facility] Neutrophils/100 WBC (Bld) 54.7 % 47-70 [facility] Potassium [Moles/Vol] 3.8 mmol/L 3.5-5.1 [facility] Protein [Mass/Vol] 7.7 g/dL 6.4-8.2 [facility] Sodium [Moles/Vol] 137 mmol/L 136-145 [facility] WBC (Bld) [#/Vol] 5.5 10*3/uL 4.4-11.0 [facility] Blood erythrocytes count (nu mber/volume)Ordered By: Yeimi Chaudhary on 07-27-2023 RBC (Bld) [#/Vol] 4.89 10*6/uL 4.2-5.4 [facility] Blood hemoglobin measurement (mass/volume)Ordered By: Yeimi Chaudhary on 07-27-2023 Hemoglobin (Bld) [Mass/Vol] 15.5 g/dL 12.0-15.0 [facility] Blood lymphocytes/100 leukoc ytesOrdered By: Yeimi Chaudhary on 07-27-2023 Lymphocytes/100 WBC (Bld) 31.7 % 19-41 [facility] Blood monocytes/100 leukocyt esOrdered By: Yeimi Chaudhary on 07-27-2023 Monocytes/100 WBC (Bld) 9.2 % 0-10 [facility] Blood platelet mean volumeOr dered By: Yeimi Chaudhary on 07-27-2023 Platelet mean volume (Bld) [Entitic vol] 9.7 fL 6.2-12.0 [facility] Determination of erythrocyte mean corpuscular volume (MCV)Ordered By: Yeimi Chaudhary on 07-27-2023 MCV (RBC) [Entitic vol] 94.7 fL 81-99 [facility] Erythrocyte sedimentation ra teOrdered By: Yeimi Chaudhary on 07-27-2023 ESR (Bld) [Velocity] 4 mm/h 0-30 [facility] Hematocrit Auto (Bld) [Volum e fraction]Ordered By: Yeimi Chaudhary on 07-27-2023 Hematocrit (Bld) [Volume fraction] 46.3 % 37-47 [facility] Laboratory - Chemistry and C hemistry - challengeOrdered By: Yeimi Chaudhary on 07-27-2023 ALP [Catalytic activity/Vol] 78 U/L 45-117 [facility] ALT [Catalytic activity/Vol] 29 U/L 13-56 [facility] CO2 [Moles/Vol] 28.0 mmol/L 21.0-32.0 [facility] Globulin (S) [Mass/Vol] 3.6 g/dL 2.2-4.2 [facility] Urea nitrogen/Creatinine [Mass ratio] 11.2 mg/mg 10-20 [facility] Laboratory - Hematology and Cell countsOrdered By: Yeimi Chaudhary on 07-27-2023 Erythrocyte distribution width (RBC) [Entitic vol] 48.4 fL 35.1-43.9 [facility] Erythrocyte distribution width (RBC) [Ratio] 13.8 % 11.6-14.6 [facility] Immature granulocytes/100 WBC (Bld) 0.200 % 0.0-0.9 [facility] Comment on above: IG% - Immature Granu locytes (promyelocytes, myelocytes and metamyelocytes) > 1% indicates that a LEFT SHIFT is Present. MCH (RBC) [Entitic mass] 31.7 pg 27.0-32.0 [facility] Nucleated RBC/100 WBC (Bld) [Ratio] 0 % 0-5 [facility] MCHC Auto (RBC) [Mass/Vol]Or dered By: Yeimi Chaudhary on 07-27-2023 MCHC (RBC) [Mass/Vol] 33.5 g/dL 32-36 [facility] No Panel InformationOrdered By: Yeimi Chaudhary on 07-27-2023 Anti-Nuclear Antibody Screen Negative Negative [facility] Comment on above: Performed at: - [address] [id number] Director: Aravind Gardner PhD, Phone: [phone] Estimated GFR (MDRD) Amer 95 mL/min >60 [facility] Comment on above: GFR Calc Estimated GFR (MDRD) Non-Af Amer 79 mL/min >60 [facility] Comment on above: Non- GFR Calc Platelets bldOrdered By: Elizabeth Chaudhary on 07-27-2023 Platelets (Bld) [#/Vol] 329 10*3/uL 150-450 [facility] Serum or plasma C reactive p rotein measurement (mass/volume)Ordered By: Yeimi Chaudhary on 07-27-2023 CRP [Mass/Vol] mg/L 0.0-3.0 [facility] Comment on above: C-Reactive Protein ( CRP) provides useful information for thediagnosis, therapy and monitoring of inflammatory processesand associated diseases. For the evaluation of Relative Riskfor Cardiovascular Disease, a High Sensitivity CRP (HSCRP)should be ordered. Serum or plasma albumin emilee urement (mass/volume)Ordered By: Yeimi Chaudhary on 07-27-2023 Albumin [Mass/Vol] 4.1 g/dL 3.2-5.0 [facility] Serum or plasma albumin/glob ulin mass ratioOrdered By: Yeimi Chaudhary on 07-27-2023 Albumin/Globulin [Mass ratio] 1.1 {ratio} 0.9-2.4 [facility] Serum or plasma calcium emilee urement (mass/volume)Ordered By: Yeimi Chaudhary on 07-27-2023 Calcium [Mass/Vol] 9.3 mg/dL 8.5-10.1 [facility] Serum or plasma creatinine m easurement (mass/volume)Ordered By: Yeimi Chaudhary on 07-27-2023 Creatinine [Mass/Vol] 0.80 mg/dL 0.55-1.02 [facility] Comment on above: The validity of the calculated GFR & GFRAA in patients over 70 years has not been determined. Clinical correlation is essential. Serum or plasma urea nitroge n measurement (mass/volume)Ordered By: Yeimi Chaudhary on 07-27-2023 Urea nitrogen [Mass/Vol] 9 mg/dL 7-18 [facility] Serum rheumatoid factor dete ctionOrdered By: Yeimi Chaudhary on 07-27-2023 Rheumatoid factor Ql (S) < 10.0 IU/mL <15 [facility] Thin prep Papanicolaou smear with manual screeningOrdered By: Yeimi Chaudhary on 07-27-2023 Thin prep Papanicolaou smear with manual screening 19 U/L 15-37 [facility] Thin prep Papanicolaou smear with manual screening 3 5-15 [facility] Serum or plasma cortisol blair surement (mass/volume)on 05-04-2023 Cortisol [Mass/Vol] 11.80 ug/dL 3.44-22.45 [facility] Comment on above: Adult (AM) 5.27 - 22 .45 ug/dL Adult (PM) 3.44 - 16.76 ug/dLPlease note revised CORTISOL reference range effective 2020. Basophil percentageOrdered B y: Yeimi Chaudhary on 04-04-2023 Basophil percentage 3.7 mg/dL 2.5-4.9 [facility] Bilirubin [Mass/Vol] 0.50 mg/dL 0.20-1.00 [facility] Comment on above: For patients on eltr ombopag therapy, use of Dimension [place] TBIL is not recommended. Chloride [Moles/Vol] 106 mmol/L 98-107 [facility] Cholesterol [Mass/Vol] 195 mg/dL <200 [facility] Comment on above: <200 mg/dL Desirable 200-240 mg/dL Borderline >240 mg/dL High Risk Glucose [Mass/Vol] 98 mg/dL 74-106 [facility] Potassium [Moles/Vol] 4.2 mmol/L 3.5-5.1 [facility] Protein [Mass/Vol] 7.5 g/dL 6.4-8.2 [facility] Sodium [Moles/Vol] 138 mmol/L 136-145 [facility] Triglyceride [Mass/Vol] 58 mg/dL <199 [facility] Comment on above: The drugs N-Acetylcy steine and Metamizole may falsely depress this assay.Serum Triglycerides Reference Interval Normal <150 mg/dL Borderline high 150 - 199 mg/dL High 200 - 499 mg/dL Very High > or = 500 mg/dL WBC (Bld) [#/Vol] 6.4 10*3/uL 4.4-11.0 [facility] Blood erythrocytes count (nu mber/volume)Ordered By: Yeimi Chaudhary on 04-04-2023 RBC (Bld) [#/Vol] 4.75 10*6/uL 4.2-5.4 [facility] Blood hemoglobin measurement (mass/volume)Ordered By: Yeimi Chaudhary on 04-04-2023 Hemoglobin (Bld) [Mass/Vol] 14.9 g/dL 12.0-15.0 [facility] Blood platelet mean volumeOr dered By: Yeimi Chaudhary on 04-04-2023 Platelet mean volume (Bld) [Entitic vol] 9.7 fL 6.2-12.0 [facility] Determination of erythrocyte mean corpuscular volume (MCV)Ordered By: Yeimi Chaudhary on 04-04-2023 MCV (RBC) [Entitic vol] 92.6 fL 81-99 [facility] Hematocrit Auto (Bld) [Volum e fraction]Ordered By: Yeimi Chaudhary on 04-04-2023 Hematocrit (Bld) [Volume fraction] 44.0 % 37-47 [facility] Laboratory - Chemistry and C hemistry - challengeOrdered By: Yeimi Chaudhary on 04-04-2023 ALP [Catalytic activity/Vol] 76 U/L 45-117 [facility] ALT [Catalytic activity/Vol] 26 U/L 13-56 [facility] CO2 [Moles/Vol] 23.0 mmol/L 21.0-32.0 [facility] Free T4 [Mass/Vol] 0.92 ng/dL 0.76-1.46 [facility] Globulin (S) [Mass/Vol] 3.4 g/dL 2.2-4.2 [facility] Lipase [Catalytic activity/Vol] 28 U/L 13-75 [facility] Comment on above: Please note:LIPASE r evised reference range effective 23. New Lipase methodology. Expected to produce lower values than the previous assay method. NEW Reference Range: 13 - 75 U/L Magnesium [Mass/Vol] 2.3 mg/dL 1.6-2.6 [facility] Urea nitrogen/Creatinine [Mass ratio] 13.7 mg/mg 10-20 [facility] Laboratory - Hematology and Cell countsOrdered By: Yeimi Chaudhary on 04-04-2023 Erythrocyte distribution width (RBC) [Entitic vol] 46.9 fL 35.1-43.9 [facility] Erythrocyte distribution width (RBC) [Ratio] 13.6 % 11.6-14.6 [facility] MCH (RBC) [Entitic mass] 31.4 pg 27.0-32.0 [facility] MCHC Auto (RBC) [Mass/Vol]Or dered By: Yeimi Chaudhary on 04-04-2023 MCHC (RBC) [Mass/Vol] 33.9 g/dL 32-36 [facility] No Panel InformationOrdered By: Yeimi Chaudhary on 04-04-2023 Estimated GFR (MDRD) Amer 120 mL/min >60 [facility] Comment on above: GFR Calc Estimated GFR (MDRD) Non-Af Amer 99 mL/min >60 [facility] Comment on above: Non- GFR Calc Thyroid Stimulating Hormone (TSH) 1.18 uIU/mL 0.358-3.74 [facility] No Panel InformationOrdered By: Samy Saravia on 04-04-2023 Immunoglobulin E 17 IU/mL 6-495 [facility] Comment on above: Performed at: [facility] [address] [id number] Director: Aravind Gardner PhD, Phone: [phone] at: - [facility] [id number] Director: Pablo Fletcher MD, Phone: [phone] Platelets bldOrdered By: Elizabeth Chaudhary on 04-04-2023 Platelets (Bld) [#/Vol] 283 10*3/uL 150-450 [facility] Serum or plasma IgA measurem ent (mass/volume)Ordered By: Samy Saravia on 04-04-2023 IgA [Mass/Vol] 175 mg/dL 87-352 [facility] Serum or plasma IgG measurem ent (mass/volume)Ordered By: Samy Saravia on 04-04-2023 IgG [Mass/Vol] 907 mg/dL 586-1602 [facility] Serum or plasma IgM measurem ent (mass/volume)Ordered By: Samy Saravia on 04-04-2023 IgM [Mass/Vol] 38 mg/dL 26-217 [facility] Serum or plasma albumin emilee urement (mass/volume)Ordered By: Yeimi Chaudhary on 04-04-2023 Albumin [Mass/Vol] 4.1 g/dL 3.2-5.0 [facility] Serum or plasma albumin/glob ulin mass ratioOrdered By: Yeimi Chaudhary on 04-04-2023 Albumin/Globulin [Mass ratio] 1.2 {ratio} 0.9-2.4 [facility] Serum or plasma calcium emilee urement (mass/volume)Ordered By: Yeimi Chaudhary on 04-04-2023 Calcium [Mass/Vol] 9.4 mg/dL 8.5-10.1 [facility] Serum or plasma cholesterol in HDL measurement (mass/volume)Ordered By: Yeimi Chaudhary on 04-04-2023 Cholesterol in HDL [Mass/Vol] 72 mg/dL >40 [facility] Comment on above: The drugs N-Acetylcy steine and Metamizole may falsely depress this assay. Reference Range HDL <40 mg/dL Low HDL Cholesterol HDL >or= 60 mg/dL High HDL Cholesterol Serum or plasma cholesterol in VLDL measurement (mass/volume)Ordered By: Yeimi Chaudhary on 04-04-2023 Cholesterol in VLDL [Mass/Vol] 12 mg/dL 5-40 [facility] Serum or plasma creatinine m easurement (mass/volume)Ordered By: Yeimi Chaudhary on 04-04-2023 Creatinine [Mass/Vol] 0.66 mg/dL 0.55-1.02 [facility] Comment on above: The validity of the calculated GFR & GFRAA in patients over 70 years has not been determined. Clinical correlation is essential. Serum or plasma folate measu rement (mass/volume)Ordered By: Yeimi Chaudhary on 04-04-2023 Folate [Mass/Vol] 11.70 ng/mL 3.1-55.4 [facility] Serum or plasma low density lipoprotein (LDL) cholesterol measurement (mass/volume)Ordered By: Yeimi Chaudhary on 04-04-2023 Cholesterol in LDL [Mass/Vol] 111 mg/dL 0-130 [facility] Serum or plasma urea nitroge n measurement (mass/volume)Ordered By: Yeimi Chaudhary on 04-04-2023 Urea nitrogen [Mass/Vol] 9 mg/dL 7-18 [facility] Thin prep Papanicolaou smear with manual screeningOrdered By: Yeimi Chaudhary on 04-04-2023 Thin prep Papanicolaou smear with manual screening 22 U/L 15-37 [facility] Thin prep Papanicolaou smear with manual screening 9 5-15 [facility] Thin prep Papanicolaou smear with manual screeningon 07-06-2022 Thin prep Papanicolaou smear with manual screening 239 U/L 84-246 [facility] Work Phone: ESR Westergren method (Bld) [Velocity]on 06-07-2022 ESR (Bld) [Velocity] 2 mm/h 0 - 20 mm/hr [facility] URINALYSIS, REFLEX MICROSCOP ICon 06-07-2022 Bilirubin Ql (U) Negative Negative [facility] Clarity (Unsp spec) Clear Clear [facility] Color (U) Light Yellow Yellow [facility] Glucose Test strip (U) [Mass/Vol] Negative Negative [facility] Hemoglobin Ql (U) Negative Negative [facility] Ketones Ql (U) Negative Negative [facility] Leukocyte esterase Test strip Ql (U) Negative Negative [facility] Nitrite Ql (U) Negative Negative [facility] pH (U) 8.0 [pH] 5.0 - 8.0 [facility] Protein (U) [Mass/Vol] Negative Negative [facility] Specific gravity (U) [Rel density] 1.009 1.005 - 1.030 [facility] Urobilinogen Ql (U) Negative Negative [facility] Glucose Glucometer (BldC) [M ass/Vol]on 03-21-2022 Glucose [Mass/Vol] 83 mg/dL 74-106 [facility] Work Phone: Comment on above: MANAGEMENT OF PATIEN T CARE PER NURSING PROTOCOL No Panel Informationon 02-25 [facility] No Panel Informationon 01-18 Miscellaneous Test See comment [facility] Work Phone: Comment on above: TEST RESULT LIMITSPa ncreatic Elastase, Fecal 285 ug Elast./g >200 Severe Pancreatic Insufficiency: <100 Moderate Pancreatic Insufficiency: 100 - 200 Normal: >200 TESTING PERFORMED AT [facility]. ORIGINAL REPORT ON FILE IN LAB CONTAINS ADDITIONAL TEST SITE INFORMATION. Stool Neutral Fats Normal [facility] Work Phone: Comment on above: Normal (<60 Droplets /HPF) Qualitative fecal fat or lip idson 01-18-2022 Fat Ql (Stl) Normal [facility] Work Phone: Comment on above: Normal (<100 Droplet s/HPF)Performed at: [address] [id number] Director: Aravind Gardner PhD, Phone: [phone] Absolute lymphocyte counton 01-17-2022 Lymphocytes Auto (Unsp spec) [#/Vol] 1.53 10*3/uL 0.83-4.51 [facility] Work Phone: Basophil percentageon 2021 Amylase [Catalytic activity/Vol] 51 U/L 25-115 [facility] Work Phone: Basophils/100 WBC (Bld) 1.1 % 0-1 [facility] Work Phone: Bilirubin [Mass/Vol] 0.60 mg/dL 0.20-1.00 [facility] Work Phone: Comment on above: For patients on eltr ombopag therapy, use of Dimension [place] TBIL is not recommended. Chloride [Moles/Vol] 105 mmol/L 98-107 [facility] Work Phone: Eosinophils/100 WBC (Bld) 1.5 % 0-5 [facility] Work Phone: Glucose [Mass/Vol] 104 mg/dL 74-106 [facility] Work Phone: Comment on above: Fasting Glucose resu lt from 100 to 125 mg/dL suggests IMPAIRED HOMEOSTASIS per A.D.A. criteria. Neutrophils (Bld) [#/Vol] 4.1 10*3/uL 2.0-7.7 [facility] Work Phone: [phone] Neutrophils/100 WBC (Bld) 65.3 % 47-70 [facility] Work Phone: Potassium [Moles/Vol] 4.1 mmol/L 3.5-5.1 [facility] Work Phone: Protein [Mass/Vol] 8.1 g/dL 6.4-8.2 [facility] Work Phone: Sodium [Moles/Vol] 138 mmol/L 136-145 [facility] Work Phone: WBC (Bld) [#/Vol] 6.2 10*3/uL 4.4-11.0 [facility] Work Phone: Blood erythrocytes count (nu mber/volume)on 01-17-2022 RBC (Bld) [#/Vol] 5.09 10*6/uL 4.2-5.4 [facility] Work Phone: Blood hemoglobin measurement (mass/volume)on 01-17-2022 Hemoglobin (Bld) [Mass/Vol] 15.6 g/dL 12.0-15.0 [facility] Work Phone: Blood lymphocytes/100 leukoc yteson 01-17-2022 Lymphocytes/100 WBC (Bld) 24.7 % 19-41 [facility] Work Phone: Blood monocytes/100 leukocyt eson 01-17-2022 Monocytes/100 WBC (Bld) 7.1 % 0-10 [facility] Work Phone: Blood platelet mean volumeon 01-17-2022 Platelet mean volume (Bld) [Entitic vol] 10.3 fL 6.2-12.0 [facility] Work Phone: Determination of erythrocyte mean corpuscular volume (MCV)on 01-17-2022 MCV (RBC) [Entitic vol] 90.6 fL 81-99 [facility] Work Phone: Erythrocyte sedimentation ra shobha 01-17-2022 ESR (Bld) [Velocity] 1 mm/h 0-[address] [facility] Work Phone: Hematocrit Auto (Bld) [Volum e fraction]on 01-17-2022 Hematocrit (Bld) [Volume fraction] 46.1 % 37-47 [facility] Work Phone: Laboratory - Chemistry and C hemistry - challengeon 01-17-2022 ALP [Catalytic activity/Vol] 72 U/L 45-117 [facility] Work Phone: ALT [Catalytic activity/Vol] 28 U/L 13-56 [facility] Work Phone: CO2 [Moles/Vol] 29.0 mmol/L 21.0-32.0 [facility] Work Phone: Globulin (S) [Mass/Vol] 3.6 g/dL 2.2-4.2 [facility] Work Phone: Urea nitrogen/Creatinine [Mass ratio] 7.4 mg/mg 10-20 [facility] Work Phone: Laboratory - Hematology and Cell countson 01-17-2022 Erythrocyte distribution width (RBC) [Entitic vol] 40.8 fL 35.1-43.9 [facility] Work Phone: Erythrocyte distribution width (RBC) [Ratio] 12.3 % 11.6-14.6 [facility] Work Phone: Immature granulocytes/100 WBC (Bld) 0.300 % 0.0-0.9 [facility] Work Phone: Comment on above: IG% - Immature Granu locytes (promyelocytes, myelocytes and metamyelocytes) > 1% indicates that a LEFT SHIFT is Present. MCH (RBC) [Entitic mass] 30.6 pg 27.0-32.0 [facility] Work Phone: Nucleated RBC/100 WBC (Bld) [Ratio] 0 % 0-5 [facility] Work Phone: MCHC Auto (RBC) [Mass/Vol]on 01-17-2022 MCHC (RBC) [Mass/Vol] 33.8 g/dL 32-36 [facility] Work Phone: No Panel Informationon 01-17 CA 19-9 Antigen Serial Monitoring See comment [facility] Work Phone: Comment on above: Scanned image report available in EMR Estimated GFR (MDRD) Amer 117 mL/min >60 [facility] Work Phone: Comment on above: GFR Calc Estimated GFR (MDRD) Non-Af Amer 97 mL/min >60 [facility] Work Phone: Comment on above: Non- GFR Calc Platelets bldon 01-17-2022 Platelets (Bld) [#/Vol] 331 10*3/uL 150-450 [facility] Work Phone: Serum or plasma C reactive p rotein measurement (mass/volume)on 01-17-2022 CRP [Mass/Vol] mg/L 0.0-3.0 [facility] Work Phone: Comment on above: C-Reactive Protein ( CRP) provides useful information for thediagnosis, therapy and monitoring of inflammatory processesand associated diseases. For the evaluation of Relative Riskfor Cardiovascular Disease, a High Sensitivity CRP (HSCRP)should be ordered. Serum or plasma albumin emilee urement (mass/volume)on 01-17-2022 Albumin [Mass/Vol] 4.5 g/dL 3.2-5.0 [facility] Work Phone: Serum or plasma albumin/glob ulin mass ratioon 01-17-2022 Albumin/Globulin [Mass ratio] 1.2 {ratio} 0.9-2.4 [facility] Work Phone: Serum or plasma calcium emilee urement (mass/volume)on 01-17-2022 Calcium [Mass/Vol] 9.5 mg/dL 8.5-10.1 [facility] Work Phone: Serum or plasma creatinine m easurement (mass/volume)on 01-17-2022 Creatinine [Mass/Vol] 0.67 mg/dL 0.55-1.02 [facility] Work Phone: Comment on above: The validity of the calculated GFR & GFRAA in patients over 70 years has not been determined. Clinical correlation is essential. Serum or plasma urea nitroge n measurement (mass/volume)on 01-17-2022 Urea nitrogen [Mass/Vol] 5 mg/dL 7-18 [facility] Work Phone: Thin prep Papanicolaou smear with manual screeningon 01-17-2022 Thin prep Papanicolaou smear with manual screening 17 U/L 15-37 [facility] Work Phone: Thin prep Papanicolaou smear with manual screening 4 5-15 [facility] Work Phone: [phone] Absolute lymphocyte counton 11-26-2021 Lymphocytes Auto (Unsp spec) [#/Vol] 1.55 10*3/uL 0.83-4.51 [facility] Work Phone: Basophil percentageon 2021 Basophils/100 WBC (Bld) 0.9 % 0-1 [facility] Work Phone: [phone] Bilirubin [Mass/Vol] 0.70 mg/dL 0.20-1.00 [facility] Work Phone: [phone] Comment on above: For patients on eltr ombopag therapy, use of Dimension [place] TBIL is not recommended. Chloride [Moles/Vol] 103 mmol/L 98-107 [facility] Work Phone: Eosinophils/100 WBC (Bld) 2.0 % 0-5 [facility] Work Phone: Glucose [Mass/Vol] 101 mg/dL 74-106 [facility] Work Phone: [phone] Comment on above: Fasting Glucose resu lt from 100 to 125 mg/dL suggests IMPAIRED HOMEOSTASIS per A.D.A. criteria. Neutrophils (Bld) [#/Vol] 5.5 10*3/uL 2.0-7.7 [facility] Work Phone: Neutrophils/100 WBC (Bld) 68.5 % 47-70 [facility] Work Phone: [phone] Potassium [Moles/Vol] 4.1 mmol/L 3.5-5.1 [facility] Work Phone: [phone] Protein [Mass/Vol] 7.9 g/dL 6.4-8.2 [facility] Work Phone: Sodium [Moles/Vol] 133 mmol/L 136-145 [facility] Work Phone: WBC (Bld) [#/Vol] 8.0 10*3/uL 4.4-11.0 [facility] Work Phone: Blood erythrocytes count (nu mber/volume)on 11-26-2021 RBC (Bld) [#/Vol] 5.08 10*6/uL 4.2-5.4 [facility] Work Phone: [phone] Blood hemoglobin measurement (mass/volume)on 11-26-2021 Hemoglobin (Bld) [Mass/Vol] 15.9 g/dL 12.0-15.0 [facility] Work Phone: Blood lymphocytes/100 leukoc yteson 11-26-2021 Lymphocytes/100 WBC (Bld) 19.5 % 19-41 [facility] Work Phone: Blood monocytes/100 leukocyt eson 11-26-2021 Monocytes/100 WBC (Bld) 8.8 % 0-10 [facility] Work Phone: Blood platelet mean volumeon 11-26-2021 Platelet mean volume (Bld) [Entitic vol] 9.8 fL 6.2-12.0 [facility] Work Phone: [phone] Determination of erythrocyte mean corpuscular volume (MCV)on 11-26-2021 MCV (RBC) [Entitic vol] 92.7 fL 81-99 [facility] Work Phone: Hematocrit Auto (Bld) [Volum e fraction]on 11-26-2021 Hematocrit (Bld) [Volume fraction] 47.1 % 37-47 [facility] Work Phone: [phone] Laboratory - Chemistry and C hemistry - challengeon 11-26-2021 ALP [Catalytic activity/Vol] 68 U/L 45-117 [facility] Work Phone: ALT [Catalytic activity/Vol] 30 U/L 13-56 [facility] Work Phone: CO2 [Moles/Vol] 27.0 mmol/L 21.0-32.0 [facility] Work Phone: Globulin (S) [Mass/Vol] 3.7 g/dL 2.2-4.2 [facility] Work Phone: Lipase [Catalytic activity/Vol] 89 U/L 73-393 [facility] Work Phone: Urea nitrogen/Creatinine [Mass ratio] 13.2 mg/mg 10-20 [facility] Work Phone: Laboratory - Hematology and Cell countson 11-26-2021 Erythrocyte distribution width (RBC) [Entitic vol] 44.2 fL 35.1-43.9 [facility] Work Phone: Erythrocyte distribution width (RBC) [Ratio] 12.9 % 11.6-14.6 [facility] Work Phone: Immature granulocytes/100 WBC (Bld) 0.300 % 0.0-0.9 [facility] Work Phone: Comment on above: IG% - Immature Granu locytes (promyelocytes, myelocytes and metamyelocytes) > 1% indicates that a LEFT SHIFT is Present. MCH (RBC) [Entitic mass] 31.3 pg 27.0-32.0 [facility] Work Phone: Nucleated RBC/100 WBC (Bld) [Ratio] 0 % 0-5 [facility] Work Phone: MCHC Auto (RBC) [Mass/Vol]on 11-26-2021 MCHC (RBC) [Mass/Vol] 33.8 g/dL 32-36 [facility] Work Phone: No Panel Informationon 11-26 Estimated GFR (MDRD) Amer 132 mL/min >60 [facility] Work Phone: Comment on above: GFR Calc Estimated GFR (MDRD) Non-Af Amer 109 mL/min >60 [facility] Work Phone: Comment on above: Non- GFR Calc Thyroid Stimulating Hormone (TSH) 1.59 uIU/mL 0.358-3.74 [facility] Work Phone: Platelets bldon 11-26-2021 Platelets (Bld) [#/Vol] 330 10*3/uL 150-450 [facility] Work Phone: Serum or plasma albumin emilee urement (mass/volume)on 11-26-2021 Albumin [Mass/Vol] 4.2 g/dL 3.2-5.0 [facility] Work Phone: Serum or plasma albumin/glob ulin mass ratioon 11-26-2021 Albumin/Globulin [Mass ratio] 1.1 {ratio} 0.9-2.4 [facility] Work Phone: Serum or plasma calcium emilee urement (mass/volume)on 11-26-2021 Calcium [Mass/Vol] 9.7 mg/dL 8.5-10.1 [facility] Work Phone: Serum or plasma creatinine m easurement (mass/volume)on 11-26-2021 Creatinine [Mass/Vol] 0.61 mg/dL 0.55-1.02 [facility] Work Phone: Comment on above: The validity of the calculated GFR & GFRAA in patients over 70 years has not been determined. Clinical correlation is essential. Serum or plasma urea nitroge n measurement (mass/volume)on 11-26-2021 Urea nitrogen [Mass/Vol] 8 mg/dL 7-18 [facility] Work Phone: Thin prep Papanicolaou smear with manual screeningon 11-26-2021 Thin prep Papanicolaou smear with manual screening 18 U/L 15-37 [facility] Work Phone: Thin prep Papanicolaou smear with manual screening 3 5-15 [facility] Work Phone: HPV w/Genotypeon 10-04-2019 HPV HighRisk Other [facility] Comment on above: Result Comment: Nega tive for HPV DNA high risk types: 31,33,35,39,45,51,52,56,58,59,66,68 by This test was developed and its performance characteristics determined by [facility] [place] ([facility]). It has not been cleared or approved by the FDA. RT-[facility] is regulated under CLIA as qualified to perform high-complexity testing. This test is used for clinical purposes. It should not be regarded as investigational or for research. PCR. This test was developed and its performance characteristics determined by [facility] [place] ([facility]). It has not been cleared or approved by the FDA. RT-[facility] is regulated under CLIA as qualified to perform high-complexity testing. This test is used for clinical purposes. It should not be regarded as investigational or for research. Performed By: #### H PVHRR #### [facility] [address] [phone] HPV HighRisk Type 16 NHPV16 Normal [facility] Reference Lab Comment on above: Performed By: #### H PVHRR #### [facility] [address] [phone] HPV HighRisk Type 18 NHPV18 Normal [facility] Comment on above: Performed By: #### H PVHRR #### [facility] [address] [phone] CYTOLOGYon 09-30-2019 CYTOLOGY ADDITIONAL PROCEDURES PRESENT Specimen #: [id number] Submitting Physician: HODAN MCCARTHY SPECIMEN SUBMITTED A: CERVICAL, SCREENING, FLUID FINAL DIAGNOSIS A. CERVICAL, SCREENING, FLUID Satisfactory for interpretation. Negative for intraepithelial lesion or malignancy. Nataly Gomez CT(ASCP) (Electronic Signature) ADDITIONAL PROCEDURE(S) HUMAN PAPILLOMA VIRUS Date Ordered: 10/03/2019 Date Reported: 10/04/2019 Procedure Results and Interpretation Negative for HPV DNA high risk type 16 by PCR. Negative for HPV DNA high risk type 18 by PCR. Negative for HPV DNA high risk types: 31,33,35,39,45,51,52,56, 58,59,66,68 by PCR. This test was developed and its performance characteristics determined by [facility] [place] ([email or web address]). It has not been cleared or approved by the FDA. -[facility] is regulated under CLIA as qualified to perform high-complexity testing. This test is used for clinical purposes. It should not be regarded as investigational or for research. 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 CLIA Number: [id number] The Pap Smear is a screening test for cervical cancer. False negative results occur with all screening tests, emphasizing the need for rescreening at recommended intervals, and clinical correlation. Normal [facility] Reference [facility] Comment on above: Performed By: #### C #### See report for performing lab information. Vital Signs Date Time Vital Sign Value Performing Clinician Facility 05-12-2025 10:22-0400 Body height 165.1 cm Zebulun Beam [employer] Work Phone: [phone])[phone] [place] [address] 05-12-2025 10:22-0400 Body mass index (BMI) [Ratio] 21.8 kg/m2 Zebulun Beam [employer] Work Phone: 4(033)547-839526 [place] [address] 05-12-2025 10:22-0400 Body temperature 97.6 [degF] Zebulun Beam [employer] Work Phone: 4(322)995-707726 [place] [address] 05-12-2025 10:22-0400 Body weight 59.59 kg Zebulun Beam [employer] Work Phone: 1(505)421-978726 [place] [address] 05-12-2025 10:22-0400 Diastolic blood pressure 84 mm[Hg] Zebulun Beam [employer] Work Phone: 5(337)156-564026 [place] [address] 05-12-2025 10:22-0400 Heart rate 66 /min Zebulun Beam [employer] Work Phone: 2(497)448-631526 [place] [address] 05-12-2025 10:22-0400 Respiratory rate 16 /min Zebulun Beam [employer] Work Phone: 0(080)384-518626 [place] [address] 05-12-2025 10:22-0400 SaO2% (BldA) [Mass fraction] 98 % Zebulun Beam [employer] Work Phone: 5(721)624-961926 [place] [address] 05-12-2025 10:22-0400 Systolic blood pressure 125 mm[Hg] Zebulun Beam [employer] Work Phone: 6(397)790-374326 [place] [address] 11-30-2024 12:49-0500 Body temperature 98.29 [degF] Michelle Navarro DO Work Phone: [facility] 11-30-2024 12:49-0500 Diastolic blood pressure 83 mm[Hg] Michelle Navarro DO Work Phone: [facility] 11-30-2024 12:49-0500 Heart rate 76 /min Michelle Elizondon DO Work Phone: [facility] 11-30-2024 12:49-0500 Respiratory rate 17 /min Michelle Elizondon DO Work Phone: [facility] 11-30-2024 12:49-0500 SaO2% (BldA) [Mass fraction] 100 % Michelle Navarro DO Work Phone: [facility] 11-30-2024 12:49-0500 Systolic blood pressure 139 mm[Hg] Michelle Elizondon DO Work Phone: [facility] 04-03-2024 16:09-0400 Body mass index (BMI) [Ratio] 18.35 kg/m2 Veronique Palma MD Work Phone: [facility] 04-03-2024 16:09-0400 Body temperature 98.1 [degF] Veronique Palma MD Work Phone: [facility] 04-03-2024 16:09-0400 Body weight 50.8 kg Veronique Palma MD Work Phone: [facility] 08-19-2023 13:26-0400 Body height 165.1 cm [facility] Work Phone: [facility] 08-19-2023 13:26-0400 Body mass index (BMI) [Ratio] 19.1 kg/m2 [facility] Work Phone: [facility] 08-19-2023 13:26-0400 Body temperature 97.3 [degF] [facility] Work Phone: [facility] 08-19-2023 13:26-0400 Body weight 52.16 kg [facility] Work Phone: [facility] 08-19-2023 13:26-0400 Diastolic blood pressure 107 mm[Hg] [facility] Work Phone: [facility] 08-19-2023 13:26-0400 Heart rate 90 /min [facility] Work Phone: [facility] 08-19-2023 13:26-0400 Respiratory rate 16 /min [facility] Work Phone: [facility] 08-19-2023 13:26-0400 SaO2% (BldA) [Mass fraction] 99 % [facility] Work Phone: [facility] 08-19-2023 13:26-0400 Systolic blood pressure 171 mm[Hg] [facility] Work Phone: [facility] 07-06-2022 10:08-0400 Body height 165.1 cm [facility] Work Phone: [facility] Work Phone: 07-06-2022 10:08-0400 Body mass index (BMI) [Ratio] 22.9 kg/m2 [facility] Work Phone: [facility] Work Phone: 07-06-2022 10:08-0400 Body weight 62.59 kg [facility] Work Phone: [facility] Work Phone: 07-06-2022 10:08-0400 Diastolic blood pressure 64 mm[Hg] [facility] Work Phone: [facility] Work Phone: 07-06-2022 10:08-0400 Heart rate 60 /min [facility] Work Phone: [facility] Work Phone: 07-06-2022 10:08-0400 SaO2% (BldA) [Mass fraction] 97 % [facility] Work Phone: [facility] Work Phone: 07-06-2022 10:08-0400 Systolic blood pressure 102 mm[Hg] [facility] Work Phone: [facility] Work Phone: 06-07-2022 12:44-0400 Body height 166.4 cm Veronique Palma MD Work Phone: [facility] 06-07-2022 12:44-0400 Body temperature 98.29 [degF] Veronique Palma MD Work Phone: [facility] 06-07-2022 12:44-0400 Body weight 53.07 kg Veronique Palma MD Work Phone: [facility] 06-07-2022 12:44-0400 Diastolic blood pressure 49 mm[Hg] Veronique Palma MD Work Phone: [facility] 06-07-2022 12:44-0400 Heart rate 67 /min Veronique Palma MD Work Phone: [facility] 06-07-2022 12:44-0400 Systolic blood pressure 92 mm[Hg] Veronique Palma MD Work Phone: [facility] 03-21-2022 09:46-0400 Body temperature 97.8 [degF] [facility] Work Phone: [facility] Work Phone: 03-21-2022 09:46-0400 Diastolic blood pressure 65 mm[Hg] [facility] Work Phone: [facility] Work Phone: 03-21-2022 09:46-0400 Heart rate 79 /min [facility] Work Phone: [facility] Work Phone: 03-21-2022 09:46-0400 Respiratory rate 16 /min [facility] Work Phone: [facility] Work Phone: 03-21-2022 09:46-0400 SaO2% (BldA) [Mass fraction] 100 % [facility] Work Phone: [facility] Work Phone: 03-21-2022 09:46-0400 Systolic blood pressure 103 mm[Hg] [facility] Work Phone: [facility] Work Phone: 03-21-2022 08:17-0400 Body height 165.1 cm [facility] Work Phone: [facility] Work Phone: 03-21-2022 08:17-0400 Body mass index (BMI) [Ratio] 19.1 kg/m2 [facility] Work Phone: [facility] Work Phone: 03-21-2022 08:17-0400 Body weight 52 kg [facility] Work Phone: [facility] Work Phone: 02-07-2022 09:17-0400 Body height 165.1 cm [facility] Work Phone: [facility] Work Phone: 02-07-2022 09:17-0400 Body mass index (BMI) [Ratio] 20.5 kg/m2 [facility] Work Phone: [facility] Work Phone: 02-07-2022 09:17-0400 Body weight 55.79 kg [facility] Work Phone: [facility] Work Phone: 02-07-2022 09:17-0400 Diastolic blood pressure 76 mm[Hg] [facility] Work Phone: [facility] Work Phone: 02-07-2022 09:17-0400 Heart rate 71 /min [facility] Work Phone: [facility] Work Phone: 02-07-2022 09:17-0400 SaO2% (BldA) [Mass fraction] 98 % [facility] Work Phone: [facility] Work Phone: 02-07-2022 09:17-0400 Systolic blood pressure 117 mm[Hg] [facility] Work Phone: [facility] Work Phone: 01-17-2022 07:38-0500 Body mass index (BMI) [Ratio] 19.8 kg/m2 [facility] Work Phone: [facility] Work Phone: 01-17-2022 07:38-0500 Body weight 53.97 kg [facility] Work Phone: [facility] Work Phone: Encounters Encounter Date Encounter Type Care Provider Facility Start: 06-07-2025 ambulatory Zebulun Beam VSC Facili ty:[facility] Start: 05-29-2025 End: 05-29-2025 ambulatory Zebulun Beam [employer] Work Phone: -Laboratory Start: 05-29-2025 End: 05-29-2025 Patient encounter procedure Xochilt Toscano NP-C -Laboratory Work Phone: Start: 05-28-2025 End: 05-29-2025 ambulatory Zebulun Beam [employer] Work Phone: -Cat Scan [facility] Start: 05-28-2025 End: 05-28-2025 Patient encounter procedure Xochilt Toscano NP-C -Cat Scan [facility] Work Phone: Start: 05-28-2025 End: 05-28-2025 ambulatory Zebulun Beam VSC Facility:[facility] Start: 05-12-2025 End: 05-12-2025 Patient encounter procedure Xochilt CRUZC -[facility] Work Phone: Start: 05-12-2025 End: 05-12-2025 ambulatory Zebulun Beam [employer]C Work Phone: -[facility] Start: 05-12-2025 End: 05-12-2025 ambulatory Zebulun Beam VSC Facility:[facility] Start: 04-30-2025 End: 05-01-2025 Telephone encounter Ralf Dunbar MD Work Phone: Neurology Start: 02-27-2025 End: 02-27-2025 ambulatory Itzdolores Evens [employer] Work Phone: [facility] Work Phone: Start: 02-27-2025 End: 02-27-2025 Patient encounter procedure Grabielann-marieradha Beam [employer]C -[facility] Start: 02-27-2025 End: 02-27-2025 ambulatory Grabielann-marieradha Beam VSC Facility:[facility] Start: 01-29-2025 End: 01-29-2025 ambulatory EVERTON GAMBLE DO Facility:A Start: 01-21-2025 End: 01-21-2025 ambulatory EVERTON GAMBLE DO Facility:A Start: 01-06-2025 End: 01-06-2025 ambulatory EVERTON GAMBLE DO Facility:A Start: 12-25-2024 End: 12-25-2024 ambulatory EVERTON GAMBLE DO Facility:A Start: 12-11-2024 End: 12-11-2024 ambulatory EVERTON ADELA GAMBLE DO Facility:A Start: 12-02-2024 End: 12-02-2024 Telephone encounter Hermilo Arias APRN.CARTOGRAPHIC TECHNICIAN [facility] Start: 11-30-2024 ambulatory MICHELLE NAVARRO Facility: [id number] Start: 11-30-2024 End: 11-30-2024 [facility] Comment on above: Fall (on) (from) oth er stairs and steps, initial encounter [W10.8XXA] Start: 11-30-2024 End: 11-30-2024 Patient encounter procedure Michelle Navarro DO Work Phone: [facility] Comment on above: Closed nondisplaced fracture of scaphoid of left wrist, unspecified portion of scaphoid, initial encounter (Primary Dx); Fall (on) (from) other stairs and steps, initial encounter Start: 11-30-2024 End: 11-30-2024 ambulatory SELF Facility:[id number] Start: 04-17-2024 Patient encounter procedure [facility] Provider [facility] Department Start: 04-17-2024 Telephone encounter Veronique purdy MD Work Phone: Rheumatology Comment on above: Records Start: 04-03-2024 End: 04-03-2024 Office outpatient visit 40 minutes Veronique Palma MD Work Phone: Rheumatology Comment on above: Polyarthralgia (Prim hodan Dx); Sicca, unspecified type (HCC) Start: 11-09-2023 End: 11-09-2023 ambulatory [facility] Work Phone: [facility] Work Phone: Start: 11-09-2023 End: 11-09-2023 Patient encounter procedure [facility] Work Phone: [facility]-Nuclear Medicine, [facility] Work Phone: Start: 10-17-2023 End: 10-17-2023 ambulatory [facility] Work Phone: [facility] Work Phone: Start: 10-17-2023 End: 10-17-2023 Patient encounter procedure [facility] Work Phone: [facility]-Ultrasound, [facility] Work Phone: Start: 10-06-2023 End: 10-06-2023 ambulatory [facility] Work Phone: [facility] Work Phone: Start: 10-06-2023 End: 10-06-2023 Patient encounter procedure [facility] Work Phone: [facility]-Ultrasound, [facility] Work Phone: Start: 10-03-2023 End: 10-03-2023 ambulatory [facility] Work Phone: [facility] Work Phone: Start: 10-03-2023 End: 10-03-2023 Patient encounter procedure [facility] Work Phone: [facility] Work Phone: Start: 08-19-2023 End: 08-19-2023 Emergency department patient visit [facility] Work [facility]: Start: 07-27-2023 End: 07-27-2023 ambulatory [facility] Work Phone: Start: 07-27-2023 End: 07-27-2023 Patient encounter procedure [facility]-Laboratory Work Phone: Start: 05-04-2023 End: 05-04-2023 ambulatory [facility] Work Phone: Start: 05-04-2023 End: 05-04-2023 Patient encounter procedure [facility]-Laboratory Start: 04-04-2023 End: 04-04-2023 ambulatory [facility] Work Phone: Start: 04-04-2023 End: 04-04-2023 Patient encounter procedure [facility]-Laboratory Start: 01-06-2023 End: 01-06-2023 Patient encounter procedure [facility] Comment on above: Laceration without f oreign body of right middle finger without damage to nail, initial encounter (Primary Dx); Laceration without foreign body of right ring finger without damage to nail, initial encounter Start: 01-04-2023 End: 01-04-2023 Patient encounter procedure [facility] Comment on above: Laceration without f oreign [...] call scheduling.) Start: 07-08-2022 End: 07-08-2022 ambulatory [facility] Work Phone: [facility] Work Phone: Start: 07-08-2022 End: 07-08-2022 Patient encounter procedure [facility] Work Phone: [facility]-Laboratory, Specimen Start: 07-06-2022 End: 07-06-2022 ambulatory [facility] Work Phone: [facility] Work Phone: Start: 07-06-2022 End: 07-06-2022 Patient encounter procedure [facility] Work Phone: [facility] Start: 06-10-2022 Telephone encounter Hue [...] Start: 04-04-2022 End: 04-04-2022 Patient encounter procedure [facility] Work Phone: [facility] Start: 03-21-2022 Non-patient / Non-visit [facility] Work Phone: [facility] Start: 03-21-2022 End: 03-21-2022 Admission to same day surgery center [facility] Work Phone: [facility]-Endoscopy Start: 03-11-2022 [facility] [place] Comment on above: Smoking Cessation Start: 02-25-2022 End: 02-25-2022 Subsequent hospital visit by physician Nathalie Boycemarsha (I-Stat/3t) Work Phone: Radiology Comment on above: 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] Start: 02-07-2022 End: 02-07-2022 Patient encounter procedure [facility] Work Phone: [facility] Start: 02-04-2022 End: 02-04-2022 Patient encounter procedure [facility] Work Phone: [facility]-MRI - [facility] Start: 01-18-2022 End: 01-18-2022 Patient encounter procedure [facility] Work Phone: [facility]-Laboratory, Specimen Start: 01-17-2022 End: 01-17-2022 Patient encounter procedure [facility] Work Phone: [facility]-Laboratory Start: 01-17-2022 End: 01-17-2022 Patient encounter procedure [facility] Work Phone: [facility] Start: 12-21-2021 End: 12-21-2021 Patient encounter procedure [facility] Start: 11-26-2021 End: 11-26-2021 Patient encounter procedure [facility] Work Phone: [facility]-Laboratory Procedures Date Procedure Procedure Detail Performing Clinician Start: 05-29-2025 Hepatitis A virus antibody, total measurement Zebulun Beam [employer]ER[employer] Work Phone: Comment on above: Comment: The HAV total antibody assay de tects both IgG andIgM but does not differentiate between them. A negativeresult suggests susceptibility to infection. A positiveresult could be due to vaccination, previously resolvedinfection or active infection. Testing for HAV IgM shouldbe performed if active HAV infection is suspected. [facility]corp[facility]ers profiles that will automatically reflex positive HAVtotal antibody results to IgM (e.g., panel #[id number] HAVAntibody w/ Rfx).Performed at: [address] [id number] Director: Aravind Gardner PhD, Phone: [phone] Start: 05-29-2025 Hepatitis C antibody measurement [employer] Work Phone: Comment on above: Reactive: Presumptive evidence of antibo dies to HCV. Follow CDC recommendations for supplemental testing.Non-Reactive: Antibodies to HCV were not detected; does not exclude the possibility of exposure to HCVReactive Results are presumptive evidence of antibodies to HCV. Follow CDC recommendations for supplemental testing.Order confirmation testing: HCV Quant by PCR testing - HCVPCR #[id number] Non Reactive: < 0.8 Equivocal: >/= 0.8 to < 1.0 Reactive: >/= 1.0The CDC requires that a reactive/equivocal HCV antibody result be sent out for confirmation. HCV Quant by PCR testing. Start: 05-29-2025 Procedure Zebulun Beam [employer] ST[employer]ER-C Work Phone: Comment on above: Test Ordered: [id number] Enhanced Liver Fibr osis (ELF)ELF(TM) Score 9.01 BN Reference Range: <9.80ELF(TM) Score Interpretation:Risk cut-offs to assess the likelihood of progressionto cirrhosis and liver-related clinical events within3.9 years following baseline ELF score (IQR: 14.0-22.4months)*: Lower risk < 9.80 Mid risk 9.80 - 11.29 Higher risk >11.29Note: The ELF(TM) Score is a unitless numerical value.*Michael SA, Robson VW, Eber T, et al. Selonsertibfor patients with bridging fibrosis or compensatedcirrhosis due to BARROW: Results from randomized phaseIII STELLAR trials. J Hepatol. 2020 May;73(1):26-39.Performed at: [address] [id number] Director: Pablo Fletcher MD, Phone: [phone] at: [facility]coH[facility] CenterGfcmnu[address] [place], [place] [id number] Director: Aravind Gardner PhD, Phone: [phone] Start: 05-28-2025 Computed tomography of abdomen and pelvis with contrast [employer] Work Phone: Start: 05-12-2025 Procedure [employer] [facility] Work Phone: Comment on above: Test Ordered: [id number] Phosphatidylethanol (PEth)PHOSPHATIDYLETHANOL Positive [A ] MX Reference Range: .Phosphatidylethanol (PEth) 1262 ng/mL MX Reference Range: .Analyzed compound: PEth 16:0/18:1. 7-tqdwpeoeq-0-dwunfn-zc-opgjddb-3-phosphoethanol.Analysis performed by Liquid Chromatography withTandem Mass Spectrometry (LC/MS/MS).Detection limit: 20 ng/mLPEth levels in excess of 20 ng/mL are considered evidenceof moderate to heavy ethanol consumption. However,the Center for Substance Abuse Treatment (CSAT) advisescaution in interpretation and use of biomarkers aloneto assess alcohol use. Results should be interpretedin the context of all available clinical and behavioralinformation.Reference: Substance Abuse and Mental Health Services Administration (2012). "The Role of Biomarkers in the Treatment of Alcohol Use Disorders", 2012 Revision. Advisory, Volume 11, Issue 2.This test was developed and its performance characteristicsdetermined by [employer]. It has not been cleared or approvedby the Food and Drug Administration.Performed at: [address] [place] [id number] Director: Kinsey Rivera [facility], Phone: [phone] at: [facility] [address] [id number] Director: Aravind Gardner PhD, Phone: [phone] Start: 11-09-2023 Radionuclide imaging of liver and/or biliary tract using radioactive isotope [facility] Work Phone: Start: 10-17-2023 Computed tomography of abdomen and pelvis with contrast [facility] Work Phone: Start: 10-06-2023 Ultrasonography of abdomen [facility] Work Phone: Start: 08-19-2023 Plain X-ray abdomen [facility] Work Phone: Start: 06-07-2022 Urnls dip stick/tablet rgnt auto w/o microscopy Bulk Order Provider Start: 03-21-2022 End: 03-21-2022 Viral antigen assay [facility] Work Phone: Start: 03-21-2022 Colonoscopy [facility] Work Phone: Start: 02-25-2022 Mri brain brain stem w/o w/contrast material Shruthi Elizabeth MD Work Phone: Start: 02-04-2022 Magnetic resonance cholangiopancreatography [facility] Work Phone: Start: 12-21-2021 CT of abdomen and pelvis without contrast [facility] Work Phone: Start: 11-26-2021 Diagnostic radiography of abdomen [facility] Work Phone: Start: 01-15-2021 Ecg routine ecg w/least 12 lds i&r only Start: 05-18-2016 Adult depression screening assessment Mri (I-Stat/3t) Work Phone: Start: 05-20-2015 Colonoscopy Mri (I-Stat/3t) Work Phone: H/O: tubal ligation Hx of tubal ligation [facility] Work Phone: Viral antigen assay [facility] Work Phone: Plan of Treatment Date Care Activity Detail Author Start: 12-25-2032 Urine microalbumin profile [facility] Start: 02-13-2029 Screening for malign ant neoplasm of cervix [facility] Start: 07-14-2025 Influenza vaccination Influenz a Vaccine (Season Ended) [facility] Start: 07-02-2025 End: 07-02-2025 Patient encounter procedure 07/02/2025 9:00 AM EDT Office Visit Neurology [address] [id number] Jackie Darby MD [address] [place], [place] [id number] Memory impairment-R41.3 Neurology Comment on above: Memory impairment-R4 1.3 Start: 05-12-[address] [facility] Start: 07-14-2024 Covid-19 Vaccine (1 - 2024-25 season) Covid-19 Vaccine ( season) [facility] Start: 07-14-2024 Influenza vaccination [facility] Start: 04-03-2024 End: 07-03-2024 C reactive protein [Mass/volume] in Serum or Plasma C-REACTIVE PROTEIN Lab Routine Polyarthralgia Sicca, unspecified type (HCC) Expected: 04/03/2024, Expires: 07/03/2024 [facility] Comment on above: Expected: 04/03/2024 , Expires: 07/03/2024 Start: 04-03-2024 End: 07-03-2024 CBC W Auto Differential panel - Blood COMPLETE BLOOD COUNT AND DIFFERENTIAL Lab Routine Polyarthralgia Sicca, unspecified type (HCC) Expected: 04/03/2024, Expires: 07/03/2024 [facility] Work Phone: Comment on above: Expected: 04/03/2024 , Expires: 07/03/2024 Start: 04-03-2024 End: 07-03-2024 Complement C3 [Mass/volume] in Serum or Plasma C3 COMPLEMENT Lab Routine Polyarthralgia Sicca, unspecified type (HCC) Expected: 04/03/2024, Expires: 07/03/2024 [facility] Comment on above: Expected: 04/03/2024 , Expires: 07/03/2024 Start: 04-03-2024 End: 07-03-2024 Complement C4 [Mass/volume] in Serum or Plasma C4 COMPLEMENT Lab Routine Polyarthralgia Sicca, unspecified type (HCC) Expected: 04/03/2024, Expires: 07/03/2024 [facility] Comment on above: Expected: 04/03/2024 , Expires: 07/03/2024 Start: 04-03-2024 End: 07-03-2024 Comprehensive metabolic 2000 panel - Serum or Plasma COMPREHENSIVE METABOLIC PANEL Lab Routine Polyarthralgia Sicca, unspecified type (HCC) Expected: 04/03/2024, Expires: 07/03/2024 [facility] Comment on above: Expected: 04/03/2024 , Expires: 07/03/2024 Start: 04-03-2024 End: 08-21-2024 Erythrocyte sedimentation rate SEDIMENTATION RATE, WESTERGREN Lab Routine Polyarthralgia Sicca, unspecified type (HCC) Expected: 04/03/2024, Expires: 07/03/2024 [facility] Comment on above: Expected: 04/03/2024 , Expires: 07/03/2024 Start: 04-03-2024 End: 07-03-2024 Urinalysis complete panel - Urine URINALYSIS, WITH MICROSCOPIC Lab Routine Polyarthralgia Sicca, unspecified type (HCC) Expected: 04/03/2024, Expires: 07/03/2024 [facility] Comment on above: Expected: 04/03/2024 , Expires: 07/03/2024 Start: 11-13-2023 Behavioral Health Screening Behavioral Health Screening [facility] Start: 10-03-[address] [facility] Start: 08-19-[address] [facility] Start: 07-14-2023 Covid-19 Vaccine () Covid-19 Vaccine () [facility] Start: 07-14-2023 Influenza vaccination INFLUENZA (Sea son Ended) [facility] Start: 11-13-2022 DEPRESSION ASSESSMENT DEPRESSION ASS ESSMENT [facility] Start: 07-14-2022 Influenza vaccination [facility] Start: 07-08-2022 Elastase, pancreatic (el-1), fecal; quantitative [facility] Work Phone: Start: 07-08-2022 Fat [Presence] in Stool [facility] Work Phone: Start: 06-07-2022 End: 08-07-2022 C reactive protein [Mass/volume] in Serum or Plasma [facility] Work Phone: Comment on above: Expected: 06/07/2022 , Expires: 08/07/2022 Start: 03-21-2022 Colonoscopy w/biopsy single/multiple COLONOSCOPY AND BIOPSY [facility] Work Phone: Start: 03-21-2022 Colsc flx w/rmvl of tumor polyp lesion snare tq COLONOSCOPY W/LESION REMOVAL [facility] Work Phone: Start: 03-21-2022 Egd transoral biopsy single/multiple EGD BIOPSY SINGLE/MULTIPLE [facility] Work Phone: Start: 03-21-2022 Patient discharge [facility] Work Phone: Start: 11-13-2021 DEPRESSION ASSESSMENT DEPRESSION ASS ESSMENT [facility] Start: 05-20-2018 Colonoscopy COLONOSCOPY [facility] Start: 05-20-2018 COLORECTAL CANCER SCREENING COLORECTAL CANCER SCREENING [facility] Start: 05-20-2018 Screening for malign ant neoplasm of colon [facility] Start: 03-09-2018 DIABETES SCREEN DIABETES SCREEN [facility] Start: 03-09-2018 Diabetes Screening Diabetes Screenin g [facility] Start: 2017 Influenza vaccination LUNG CANCER SC REENING [facility] Start: 2017 Screening for malign ant neoplasm of lung Lung Cancer Screening [facility] Start: 2017 SHINGRIX VACCINE (1 of 2) THACKER GRIX VACCINE (1 of 2) [facility] Start: 05-18-2017 Adult depression screening assessment DEPRESSION SCREENING [facility] Start: 2012 COLOGUARD (FIT-DNA) COLOGUARD (FIT-D NA) [facility] Start: [address] COLONOGRAPHY [facility] Start: 2012 FECAL OCCULT BLOOD FECAL OCCULT BLOO D [facility] Start: 2012 Lipid panel Lipid Screening [facility] Start: 2012 LIPID SCREEN LIPID SCREEN [facility] Start: 2012 Screening for malign ant neoplasm of colon [facility] Start: 2012 SIGMOIDOSCOPY SIGMOIDOSCOPY [facility] Start: 2007 Mammography MAMMOGRAM [facility] Start: 2007 Screening for malign ant neoplasm of breast Mammogram Screening [facility] Start: 1997 HPV TESTING HPV TESTING [facility] Start: 1988 PAP TESTING PAP TESTING [facility] Start: 1986 Hepatitis B Vaccine (1 of 3 - 19+ 3-dose series) Hepatitis B Vaccine (1 of 3 - 19+ 3-dose series) [facility] Start: 1986 Pneumococcal Vaccine : 50+ (1 of 2 - PCV) Pneumococcal Vaccine: 50+ (1 of 2 - PCV) [facility] Start: 1986 Urine microalbumin profile DTAP,TDAP,TD (1 - Tdap) [facility] Start: 1985 Depression Screening Depression Scre ening [facility] Start: 1985 HEPATITIS C SCREENING HEPATITIS C [facility] Start: 1985 Hepatitis C screening Hepatitis C [facility] Start: 1985 HIV SCREENING HIV SCREENING [facility] Start: 1985 HIV screening HIV Screening [facility] Start: 1973 PNEUMOCOCCAL (1 - PCV) PNEUMOCOCCAL (1 - PCV) [facility] Start: 1973 Pneumococcal vaccination Pneum ococcal Vaccine (1 of 2 - PCV) [facility] Start: 1972 COVID-19 VACCINE (1) Cl [facility] Start: 04-16-1968 COVID-19 VACCINE (#1) COVID-19 VACCI NE (#1) [facility] Start: 1967 HEPATITIS B (1 of 3 - 3-dose series) HEPATITIS B (1 of 3 - 3-dose series) [facility] CBC W Auto Different ial panel - Blood [facility] CT Abdomen and Pelvi s W contrast IV [facility] CT Abdomen and Pelvi s W contrast IV [facility] Fat [Mass/mass] in Stool [facility] Work Phone: Fat.neutral [Presenc e] in Stool [facility] Work Phone: Hepatic function panel [facility] Immunoglobulin measurement [facility] Work Phone: Patient Education Abdominal Pain [facility] Work Phone: Patient referral [facility] Work Phone: Procedure [facility] Prothrombin time [facility] Radionuclide imaging of liver and/or biliary tract using radioactive isotope [facility] Triacylglycerol lipa se measurement [facility] End: 07-07-2023 US SOFT TISSUE PELVIS US SOFT TISSUE PELVIS Radiology Routine Polyarthralgia Malaise and fatigue Skin rash Lymphadenopathy 1 Occurrences starting 06/07/2022 until 07/07/2023 [facility] Work Phone: Comment on above: 1 Occurrences starti ng 06/07/2022 until 07/07/2023 End: 07-07-2023 XR ANKLE GENERAL 3V AP/LAT/OBL LEFT XR ANKLE GENERAL 3V AP/LAT/OBL LEFT Radiology Routine Polyarthralgia Malaise and fatigue Skin rash 1 Occurrences starting 06/07/2022 until 07/07/2023 [facility] Work Phone: Comment on above: 1 Occurrences starti ng 06/07/2022 until 07/07/2023 End: 07-07-2023 XR ANKLE GENERAL 3V AP/LAT/OBL RIGHT XR ANKLE GENERAL 3V AP/LAT/OBL RIGHT Radiology Routine Polyarthralgia Malaise and fatigue Skin rash 1 Occurrences starting 06/07/2022 until 07/07/2023 [facility] Work Phone: Comment on above: 1 Occurrences starti ng 06/07/2022 until 07/07/2023 End: 12-30-2025 XR Elbow - left AP and Lateral and oblique XR ELBOW SPECIAL VIEWS AP/LAT/OTHER LEFT Radiology Routine Fall (on) (from) other stairs and steps, initial encounter 1 Occurrences starting 11/30/2024 until 12/30/2025 [facility] Comment on above: 1 Occurrences starti ng 11/30/2024 until 12/30/2025 XR Elbow - left AP a nd Lateral and oblique XR ELBOW SPECIAL VIEWS AP/LAT/OTHER LEFT Radiology Routine Fall (on) (from) other stairs and steps, initial encounter 11/30/2024 2:46 PM [facility] End: 07-07-2023 XR FOOT GENERAL 3V AP/LAT/OBL BILATERAL XR FOOT GENERAL 3V AP/LAT/OBL BILATERAL Radiology Routine Polyarthralgia Malaise and fatigue Skin rash 1 Occurrences starting 06/07/2022 until 07/07/2023 [facility] Work Phone: Comment on above: 1 Occurrences starti ng 06/07/2022 until 07/07/2023 End: 12-30-2025 XR Hand - left PA and Lateral and Oblique XR HAND GENERAL 3V PA/LAT/OBL LEFT Radiology Routine Fall (on) (from) other stairs and steps, initial encounter 1 Occurrences starting 11/30/2024 until 12/30/2025 [facility] Work Phone: Comment on above: 1 Occurrences starti ng 11/30/2024 until 12/30/2025 XR Hand - left PA an d Lateral and Oblique XR HAND GENERAL 3V PA/LAT/OBL LEFT Radiology Routine Fall (on) (from) other stairs and steps, initial encounter 11/30/2024 2:46 PM EST [facility] End: 07-07-2023 XR HAND GENERAL 3V PA/LAT/OBL BILATERAL XR HAND GENERAL 3V PA/LAT/OBL BILATERAL Radiology Routine Polyarthralgia Malaise and fatigue Skin rash 1 Occurrences starting 06/07/2022 until 07/07/2023 [facility] Work Phone: Comment on above: 1 Occurrences starti ng 06/07/2022 until 07/07/2023 End: 12-30-2025 XR Wrist - left 4 Views XR WRIST INJURY 4V PA/LAT/OBL/SCAPH LEFT Radiology Routine Fall (on) (from) other stairs and steps, initial encounter 1 Occurrences starting 11/30/2024 until 12/30/2025 [facility] Comment on above: 1 Occurrences starti ng 11/30/2024 until 12/30/2025 XR Wrist - left 4 Views XR WRIST INJURY 4V PA/LAT/OBL/SCAPH LEFT Radiology Routine Fall (on) (from) other stairs and steps, initial encounter 11/30/2024 2:46 PM [facility] Immunizations Immunization Date Immunization Notes Care Provider Urbano archuleta 12-25-2022 tetanus toxoid, redu radha diphtheria toxoid, and acellular pertussis vaccine, adsorbed Cc [facility] Payers Date Payer Category Payer Self-pay [id number] 2022 Unknown [facility] [id number] 2022-Present [phone] [address] [place] [address] [facility] [id number] 2014 Unknown [id number] 2014 Unknown [id number] 2014 Medicaid [employer] [facility] [place] [facility] [id number] 2014-Present [phone] [address] [place] [address] Medicaid [id number] 2014 Medicaid [id number] 1965 Unknown [id number] 1965 Unknown [id number] 1965 Unknown [id number] 1965 Unknown [id number] 1967 Unknown [id number] Unknown [id number] Unknown [id number] Unknown [id number] Unknown [id number] Unknown [id number] Unknown [id number] Social History Date Type Detail Facility Start: 02-07-2022 End: 10-03-2023 Tobacco smoking status NHIS Unknown if ever smoked [facility] Start: 04-04-2019 [facility] 1965 Sex Assigned At Female W [facility] Start: 03-09-2022 End: 10-03-2023 Tobacco smoking status NHIS Smokes tobacco daily [facility] Start: 11-13-1979 History of tobacco use Cigarette Smo ker [facility] Start: 01-11-2022 Alcohol intake Current drinke r of alcohol (finding) [facility] Start: 1965 Sex Assigned At Not on file [facility] Start: 02-15-2022 End: 06-07-2022 Exposure to SARS-CoV-2 (event) Not sure [facility] Start: 03-09-2022 End: 11-30-2024 Alcohol intake Ex-drinker (finding) [facility] Start: 03-09-2022 History SDOH Alcohol Comment 4-10 glasses per week; stopped 1-2 months [facility] Start: 03-09-2022 End: 11-25-2022 Cigarettes smoked current (pack per day) - Reported 1.5 [facility] Start: 03-09-2022 End: 11-30-2024 Tobacco use and exposure Smokeless tobacco non-user [facility] Work Phone: Start: 11-25-2022 End: 12-25-2022 Tobacco use panel [facility] National Score (1-10 0), lower number is lower risk 74 [facility] Start: 03-04-2025 Sex Female (finding) [facility] Goals Date Patient Goal Desired Activity /State Functional Status Date Assessment Result Facility 06-18-2015 Are you deaf, or do you have serious difficulty hearing No 06/18/2015 8:02 AM Leesa Hood Ma [facility] 06-18-2015 Are you blind, or do you have serious difficulty seeing, even when wearing glasses No 06/18/2015 8:02 AM Leesa Hood Ma [facility] 06-18-2015 Do you have serious difficulty walking or climbing stairs No 06/18/2015 8:02 AM Leesa Hood Ma [facility] 06-18-2015 Do you have difficul ty dressing or bathing No 06/18/2015 8:02 AM EDT Leesa Savage Ma [facility] 06-18-2015 Because of a physica l, mental, or emotional condition, do you have difficulty doing errands alone such as visiting a physician's office or shopping No 06/18/2015 8:02 AM EDT Leesa Savage Ma [facility] Mental Status Date Assessment Result Facility 03-21-2022 Cognitive function Voice/Name [facility] Work Phone: 06-18-2015 Because of a physica l, mental, or emotional condition, do you have serious difficulty concentrating, remembering, or making decisions No 06/18/2015 8:02 AM EDT Leesa Savage Ma [facility] Clinical Notes 02-25-2022 to 05-28-2025 Note Date & Type Note Facility 05-28-2025 Radiology Diagnostic study note [facility] [address] [place] [id number] Abdomen/Pelvis WITH Contrast MR#: [id number] Acct: [id number] Name: SHAYNA LYONS Rep #: [id number] : [id number] F [id number] From: Lopez Howard MD PCP: Mindy Horner [facility] Status: REG CLI Study:Abdomen/Pelvis WITH Contrast Date of Ex am: 05/28/25 Exam# [id number] Ordering Dr: Xochilt Toscano [employer] PROCEDURE: ABDOMEN/PELVIS WITH CONTRAST 05/28/2025 REASON FOR EXAM: ABDOMINAL PAIN History of chronic pancreatitis. TECHNIQUE: ABDOMEN/PELVIS WITH CONTRAST Coronal and Sagittal reconstruction series were provided. CONTRAST: Isovue-300 VOLUME: 88 mL One or more dose reduction techniques were used (e.g., Automated exposure control, adjustment of the mA and/or kV according to patient size, use of iterative reconstruction technique. RADIATION DOSE SUMMARY: CTDlvol: 12.2 mGy DLP: 537.57 mGycm COMPARISON: Prior study dated October 17, 2023. FINDINGS: Lung bases: Lung bases are clear. No significant coronary artery calcification is seen. Liver: Diffuse fatty infiltration. Mild hepatomegaly. Gallbladder: Unremarkable Spleen: Normal size. Pancreas: Punctate calcifications seen in the head of the pancreas. In keeping with chronic pancreatitis. Adrenals: Unremarkable Kidneys: Tiny nonobstructive left intrarenal calculus in the lower pole. Mild overlying cortical thickening in the inferior pole of the left kidney. Bladder: Unremarkable Reproductive Organs: Normal uterine size and contour. Ovaries are unremarkable. Bowel: Unremarkable Appendix: Unremarkable Lymph nodes: Unremarkable. Vasculature: The abdominal aorta and IVC are normal. Peritoneum / Retroperitoneum: Unremarkable Bones: Minimal degenerative changes. CT/Abdomen/Pelvis WITH Contrast IMPRESSION: Fatty infiltration of the liver. Mild hepatomegaly. Punctate calcifications seen in the head of the pancreas. Reading Location: [place] [address] CC: HODAN Toscano; [facility] Horner ~ Hospital Chaplain: Signed [facility] 05-12-2025 Evaluation note Diagnosis Onset Date Resolution Abdominal pain acute May 12, 2025 9:54am Bloating acute May 12 9:54am Diarrhea acute May 12 9:54am Nausea acute May 12 9:54am Weight gain acute May 12 9:54am [facility] Work Phone: 1(280) 402-725406-19-2025 Telephone encounter Note* Telephone Encounter - Gia Senior - 05/01/2025 10:23 AM EDT Patient returned call and is scheduled for 07/02/[address] [place] [address] Darby. [facility]06-19-2025 Miscellaneous Notes* Telephone Encounter - Gia Senior - 05/01/2025 10:23 AM EDT Patient returned call and is scheduled for 07/02/[address] [place] [address] Darby. * Telephone Encounter - [...] scheduling. Ld Lepe MA [facility] Telephone encounter Note * Telephone Encounter - Gia Senior - 05/01/2025 9:[address] attempt unable to leave a message to return call to Neurology to arrange appointment from outside referral records in scan docs. [facility]06-18-2025 Telephone encounter Note* Telephone Encounter - Ld Lepe MA - 04/30/2025 4:46 PM EDT Scan on 04/30/2025 7:52 AM by Provider, External, PA-C: Neurology Referral 04/30/25 Neurology referral received from Tobi Horner CNP (Ginette Starks provider). Reason: Memory impairment-R41.3 Please assist with scheduling. Ld Lepe MA [facility]01-18-2025 History of Present illness Narrative* Javier Rebollar [...] PATIENT PRESENTS WITH AN IMPLANTABLE OR ATTACHED SHAKE FEEDER: No RADIOLOGY DEPARTMENT: General X-ray: Exam(s) Completed: Upper Extremity X- Ray(s): Elbow, left , Wrist, left , and Hand, left PERIPHERAL IV DATA: Not applicable SIGNED BY: MILAGRO Espinoza) November 30, 2024 4:17 PM documented in this encounterGalion Hospital01-18-2025 NoteHNO ID: [id number] Author: JAVIER REBOLLAR RT(R) Service: ? Author [...] PATIENT PRESENTS WITH AN IMPLANTABLE OR ATTACHED SHAKE FEEDER: No RADIOLOGY DEPARTMENT: General X-ray: Exam(s) Completed: Upper Extremity X-Ray(s): Elbow, left , Wrist, left , and Hand, left PERIPHERAL IV DATA: Not applicable SIGNED BY: Javier Rebollar, RT(R) November 30, 2024 4:17 [facility]01-18-2025 NoteHNO ID: [id number] Author: MICHELLE NAVARRO, DO Service: ? Author [...] to take the slin (more content not included)...[facility]01-18-2025 History of Present illness Narrative* Michelle Navarro, [...] time. Emily Osuna LPN documented in [facility] encounterGal[facility]01-[facility]-2025 NoteHNO ID: [id number] Author: EMILY OSUNA LPN Service: ? Author Type: LICENSED NURSE Type: Progress Notes Filed: 11/30/2024 14:41 Note Text: Patient declined depression screening at this time. [facility] Telephone encounter Note* Telephone Encounter - Joel Palma MA - 04/17/2024 5:32 PM EDT Outside Medical Records: Records from Yeimi Chaudhary NP received Scanned into [employer] view under Warp 9s Tab Message Forwarded to Dr Palma Please review Joel Palma MA [facility]06-05-2024 Miscellaneous Notes* Telephone Encounter - Joel Palma MA - 04/17/2024 5:32 PM EDT Outside Medical Records: Records from Yeimi Chaudhary NP received Scanned into [employer] Cont[employer] view under Warp 9s Tab Message Forwarded to Dr Palma Please review Joel Palma MA documented in this encounterGalion Hospital05-31-2024 History of Present illness Narrative* Veronique Palma MD - 04/12/2024 1:52 PM EDT Images from the original note were not included. Rheumatology Outpatient Clinic Follow Up Visit Date of Service: 04/03/2024 Patient: Shayna Lyons Medical Record: [id number] Primary Care Physician: Nereida Davis CNP Last [...] has been ongoing. Has been told by [facility] expansion recruiter touse sam and sam baby shampoo, when she has used eye drops it has caused her pain. She has photosensitivity. Chaim munoz reports no parotid swelling lately She believes she has got "periodontal disease" from the dentist as they did not [...] 11.5 - 15.5 g/dL 12.7 14.7 Hemoglobin, Saira 12.0 - 16.0 g/dL 13.5 Hematocrit 36.0 - 46.0 % 39.5 44.1 Platelet Count 150 - 400 k/uL 310 317 Abs Neut (ANC) 1.45 - 7.50 k/uL 6.08 Abs Neut, Saira 2.0 - 8.1 k/uL 5.8 Abs Lymp, [place] 1.0 - 5.5 k/uL 2.2 Abs Lymph 1.00 - 4.00 k/uL 1.28 Latest Ref Rng & Units 02/23/2010 03/09/2015 CMP Sodium 132 - 148 mmol/L 141 Sodium, [place] 136 - 145 mmol/L 141 Potassium 3.5 - 5.0 mmol/L 4.6 Potassium, Saira 3.5 - 5.1 mmol/L 3.8 Chloride 98 - 110 mmol/L 106 Chloride, Saira 98 - 107 mmol/L 102 CO2 23 - 32 mmol/L 21 CO2, [place] 21.0 - 32.0 mmol/L 28.0 Glucose 65 - 100 mg/dL 78 Glucose, Saira 70 - 99 mg/dL 85 BUN 8 - 25 mg/dL 8 BUN, Saira 7 - 18 mg/dL 10 Creatinine 0.70 - 1.40 mg/dL 0.64 Creatinine, [place] 0.6 - 1.0 mg/dL 0.8 Calcium, [place] 8.5 - 10.1 mg/dL 9.1 Calcium 8.5 - 10.5 mg/dL 8.9 AST 7 - 40 U/L 21 AST, Saira 15 - 37 U/L 17 ALT 0 [...] AI <0.2 Sm Antibody Negative Negative Ribosomal CLASSIFYING MACHINE OPERATOR Ab <1.0 AI <0.2 Ribosomal CLASSIFYING MACHINE OPERATOR Qualitative Negative Negative Chromatin Ab <1.0 AI <0.2 Chromatin Ab Qual Negative Negative SSA Antibody Qual Negative Negative Anti-SSA <1.0 AI <0.2 Anti-SSB AI <0.2 CLASSIFYING MACHINE OPERATOR Antibody QUAL Negative Negative Scleroderma Ab Qual [...] she was told by Dr. 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 [facility]* Joel Palma MA - 04/03/2024 7:18 PM EDT Did not check BP due to pt was talking for long period of time regarding not related to her purposeof the visit today with Dr Palma. Run out of time of rooming. Joel Palma MA [facility] Nurse Note* Joel Palma MA - 04/03/2024 [...] if she needs help ., pt said "no and she is ok " also asked if he needs help., pt said " no he is very good person otherwise [...] and she doesn't w ant to leave him" Pt denies to get any help for her self and the friend as of now. Was advised to call 911 in case ofemergency. Joel Palma MA documented in this encounterGalion [facility]05-22-[facility]24 Nurse Note* Joel Palma MA - 04/03/2024 [...] if she needs help ., pt said "no and she is ok " also asked if he needs help., pt said " no he is very good person otherwise [...] and she doesn't w ant to leave him" Pt denies to get any help for her self and the friend as of now. Was advised to call 911 in case ofemergency. Joel Palma MA [facility]07-29-[facility]22 Miscellaneous Notes* Telephone Encounter - Hue George, - 06/10/2022 11:32 AM EDT Spoke with patient to review results of neuropsychological testing and address questions. documented in this encounterGalion [facility]07-26-[facility]22 History of Present illness Narrative* Markie Matson MD - 06/07/2022 2:17 PM EDT [facility] RECONSTRUCTIVE SURGERY PATIENT HISTORY AND PHYSICAL EXAM PATIENT INFO: Shayna Lyons is a 56 year old female. REFERRING M.D.: Aaron Mackenzie [address] [facility] [id number] Mackenzie for an [...] disorder) 2001 Shortness of breath on exertion PAST SURGICAL [...] Level: 4 - Moderate documented in this encounterGalion Hospital07-26-[facility]22 History of Present illness Narrative* Veronique Palma MD - 06/07/2022 1:00 PM EDT Images from the original note were not included. Rheumatology Outpatient Clinic Date of Service: 06/07/2022 Patient: Shyana Lyons Medical Record: [id number] Primary Care Physician: Nereida Davis CNP Last Rheumatology visit: [facility] Referring Provider: Aaron Mackenzie [address] [facility] [address] Umanzor for an [...] could not move out of her bed, "felt looked up", went to see chiropractor-told her that giving [...] helped her is chiropractic acre -feels a "tiny bit better, does not go away butfeels it takes the edge off" She feels stiff after prolonged sitting, morning [...] and was sleeping for prolonged periods. Dr Saravia at [facility] in [place], ? Inguinal adenopathy -underwent biopsy and results are pending From her PTSD standpoint, she has tried to follow with a psychiatrist twice-has taken cymbalta in the past, did not want to take it further, started experimenting with her meds [place] high dose of Vitamin D3 helped with [...] her eyes, watering from the eyes Feels "crystals" around her eyes Reports dry eyes-does not [...] W/CONFIRMATION <30 IU/mL - - <12 - CLASSIFYING MACHINE OPERATOR ANTIBODY QUAL Negative - - Negative - SSA ANTIBODY QUAL Negative - - Negative - JOAQUINA 1 ANTIBODY <1.0 AI - - <0.2 - JOAQUINA 1 ANTIBODY QUAL Negative - - Negative - RIBOSOMAL CLASSIFYING MACHINE OPERATOR AB <1.0 AI - - <0.2 - RIBOSOMAL CLASSIFYING MACHINE OPERATOR QUAL Negative - - Negative - ANTI-SSA [...] (98.3 F) (Temporal) Ht 166.4 cm (5' 5.5") Wt 53.1 kg (117lb) LMP 07/27/2017 BMI [...] workup that she is following with Dr Manjit for, reported inguinal adenopathy. Will get ultrasound [...] which included preparing to see the patient, [id number] patient care, completing clinical documentation, obtaining and/or reviewing separately obtained history, performing a medically appropriate examination, counseling and educating the pat ient/family/caregiver, ordering medications, tests, or procedures and communicating with other HCPs(not separately reported). Veronique Palma MD Rheumatology Date: June 06, 2022 Time: 4:34 PM documented in this encounterGalion Hospital07-26-2022 History of Present illness Narrative* Hue George, PhD - 06/07/2022 11:10 AM EDT [facility] Department of Neurology Section of Neuropsychology Neuropsychological [...] She described that the recall quality is "vague" and improves with cues. She has poor [...] with cognitive lapses. 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 Sheexperiences pain in her back and legs in the morning, which was partially associated with bowel concerns. Headaches were reported to be variable and can occur a couple times per week or less than once per month. When headaches occur, they were described as highly disruptive. "Hot spot" sensations in her head, described as intense [...] described as a stressor. Brain MRI (02/25/2022): "No acute intracranial abnormality. No pathologic enhancement. Scattered nonspecific white matter lesions as described, including some periventricular lesions. These are overall progressed from the prior study of 2015, however remain nonspecific. Clinical correlation advised." Medication List: Current Outpatient Medications on File [...] hospitalization. Currently, she reported her moods are "all over the place." She reported ongoing depression, anxiety, and PTSD [...] establishing coping strategies for ongoing stressors/mood symptoms. [facility] offers several options for medication and behavioral treatments through [facility]. To make an appointment, call [phone]. Brief psychotherapy through [facility] s social work team is also available ([phone]). Their primary care physician or insurance company can also be contacted for a list of available providers. Additionally, the following website can be used to find a provider: [email or web address]. Potential providers can be searched based on presenting concerns, accepted insurance, area of residence, etc. Simon haywood, Psychology graduate training programs often offer counseling services on a sliding scale fee.The patient can contact [facility] at [phone]. 3. Compensatory strategies for everyday cognitive lapses: Establish a structured and predictable daily routine. Use a day maintenance planner or electronic organizer to help monitor [...] make it relevant by rephrasing the information "in your own words"). Recheck tasks for mistakes. OVERVIEW The graph [...] shared electronic medical record and/or feedback. Hue Georeg, Ph.D. Staff Neuropsychologist Time testing and scoring (fiscal services manager): 3 hours Time completing additional tests, analyzing, interpreting and incorporating other available medicalinformation, clinical data review, and report writing (by neuropsychologist): 3 hours Tests Administered: Gomez Anxiety Inventory Gomez Depression Inventory Stigler Naming Test Brief Visuospatial Memory Test-Revised [place] Verbal Learning Test-II Bridget Continuous Performance Test-3 Controlled Oral Word Association Test Fatigue Severity Scale Chiu Verbal Learning Test Judgment of Line Orientation Kyle Complex Figure Symbol Digit Modalities Test [place] Making Test VSVT WAIS-IV subtests: Digit Span, Letter-Number Sequencing, Matrix Reasoning, Similarities [place] Card Sorting Test WMS-IV Logical Memory WRAT-IV Reading documented in this encounterGalion Hospital04-29-2022 Miscellaneous Notes* [facility] - [facility]/11/[facility]22 11:11 AM EDT Smoking Cessation Navigation Outcome of contact: Left Message Comments: A voicemail has been left for this patient regarding Tobacco Cessation support options. If this patient has any further questions they can email us at or call us at [phone]. [employer] Employee Operations Examiner/Smoking Cessation Navigator: Kayleigh Rewilfredo [facility] documented in this encounterGalion Hospital04-15-2022 History of Present illness Narrative* RT Donald(R) [...] 2022 TIME: 3:47 PM [facility]* Diagnosis Onset Date Resolution Status Abdominal pain acute Constipation acute Mesenteric lymphadenopathy a cute Nausea acute Pancreatic calcification acu te Abdominal pain acute Constipation acute Diarrhea acute Mesenteric lymphadenopathy a cute Nausea acute Pancreatic calcification acu te Vomiting acute [facility] Work Phone: Evaluation note* Diagnosis Demyelinating disease of central nervous system (HCC) Demyelinating disease of central nervous system, unspecified documented [facility] encounter [facility]* Diagnosis Demyelinating disease of central nervous system (HCC) Demyelinating disease of central nervous system, unspecified [facility]* Diagnosis Urinary frequency- Primary Urge incontinence of urine Urge incontinence documented in this encounter [facility] note* Diagnosis Polyarthralgia- Primary Pain in joint, multiple sites Malaise and fatigue Other malaise and fatigue Skin rash Rash and other nonspecific skin eruption Myalgia Mylagia and myositis, unspecified Lymphadenopathy Enlargement of lymph nodes documented [facility]* Diagnosis Screening for genitourinary condition Screening for other and unspecified genitourinary condition documented in this encounter [facility] note* Diagnosis Cognitive complaints with normal neuropsychological exam- Primary Other signs and symptoms involving cognition Abdominal pain, acute, right lower quadrant Abdominal pain, right lower quadrant Depression, unspecified depression type documented in [facility]* Diagnosis Onset Date Resolution Status Acid reflux acute Constipation acute Diarrhea acute Mesenteric lymphadenopathy a cute Pancreatic calcification acu te Tubular adenoma of colon acu te Constipation acute Mesenteric lymphadenitis acu te Pancreatic calcification acu te [facility] Work Phone: Evaluation note* Diagnosis Laceration without foreign body of right middle finger without damage to nail, initial encounter- Primary Laceration without foreign body of right ring finger without damage to nail, initial encounter documented in this encounter [facility] noteNo assessment information availableWMercy [facility] Work Phone: Evaluation note* Diagnosis Onset Date Resolution Status Acid reflux acute Diarrhea acute Mesenteric lymphadenopathy a cute Tubular adenoma of colon acu te Constipation chronic Pancreatic calcification chr onic [facility] Work Phone: Evaluation note* Diagnosis Polyarthralgia- Primary Pain in joint, multiple sites Sicca, unspecified type (HCC) documented in this encounter [facility] note* Diagnosis Closed nondisplaced fracture of scaphoid of left wrist, unspecified portion of scaphoid, initial encounter- Primary Fall (on) (from) other stairs and steps, initial encounter documented in this encounter [facility] note* Diagnosis Fall (on) (from) other stairs and steps, initial encounter documented in this encounter [facility] note* Diagnosis Onset Date Resolution Status Admit Date Abdominal pain acute May 12, 2025 9:54am Bloating acute May 12 9:54am Diarrhea acute May 12 9:54am Nausea acute May 12 9:54am Weight gain acute May 12 9:54am [facility] [place] [place] [facility] Work Phone: Reason for referral (narrative)* Diagnostic Procedure Only (Routine) - Pending Review Specialty Diagnoses / Procedures Referred By Semaj t Referred To Contact US IMAGING Diagnoses Polyarthralgia Malaise and fatigue Skin rash Lymphadenopathy Procedures US SOFT TISSUE PELVIS US PELVIC [facility]OBSTETRIC [facility] Veronique Palma MD [address] [facility] [address] [place] [address] Us Imaging Referral ID Status Reason Start Date Expiration Date Visits Requested Visits Authorized [id number] Pending Review Auto-Generat ed Referral 06/07/2022 07/07/2023 1 1 * Diagnostic Procedure Only (Routine) - Pending Review Specialty Diagnoses / Procedures Referred By Contac t Referred To Contact XR IMAGING Diagnoses Polyarthralgia Malaise and fatigue Skin rash Procedures XR ANKLE GENERAL 3V AP/LAT/OBL RIGHT RADEX ANKLE COMPLETE MINIMUM 3 VIEWS Veronique Palma MD [address] [place] [id number] Xr Imaging Referral ID Status Reason Start Date Expiration Date Visits Requested Visits Authorized [id number] Pending Review Auto-Generat ed Referral 06/07/2022 07/07/2023 1 1 * Diagnostic Procedure Only (Routine) - Pending Review Specialty Diagnoses / Procedures Referred By Contac t Referred To Contact XR IMAGING Diagnoses Polyarthralgia Malaise and fatigue Skin rash Procedures XR ANKLE GENERAL 3V AP/LAT/OBL LEFT RADEX ANKLE COMPLETE MINIMUM 3 VIEWS Veronique Palma MD [address] [place] [address] Xr Imaging Referral ID Status Reason Start Date Expiration Date Visits Requested Visits Authorized [id number] Pending Review Auto-Generat ed Referral 06/07/2022 07/07/2023 1 1 * Diagnostic Procedure Only (Routine) - Pending Review Specialty Diagnoses / Procedures Referred By Contac t Referred To Contact XR IMAGING Diagnoses Polyarthralgia Malaise and fatigue Skin rash Procedures XR FOOT GENERAL 3V AP/LAT/OBL BILATERAL RADEX FOOT COMPLETE MINIMUM 3 VIEWS Veronique Palma MD [address] [place] [address] Xr Imaging Referral ID Status Reason Start Date Expiration Date Visits Requested Visits Authorized [id number] Pending Review Auto-Generat ed Referral 06/07/2022 07/07/2023 1 1 * Diagnostic Procedure Only (Routine) - Pending Review Specialty Diagnoses / Procedures Referred By Contac t Referred To Contact XR IMAGING Diagnoses Polyarthralgia Malaise and fatigue Skin rash Procedures XR HAND GENERAL 3V PA/LAT/OBL BILATERAL RADEX HAND MINIMUM 3 VIEWS Veronique Palma MD [address] [place] [address] Xr Imaging Referral ID Status Reason Start Date Expiration Date Visits Requested Visits Authorized [id number] Pending Review Auto-Generat ed Referral 06/07/2022 07/07/2023 1 1 * Consult, Test, Treat (Routine) - Authorized Specialty Diagnoses / Procedures Referred By Contac t Referred To Contact Dermatology Diagnoses Skin rash Procedures CONSULT TO DERMATOLOGY OFFICE/OUTPATIENT [facility] 60-74 MINUTES Veronique Palma MD [address] [place] [address] Referral ID Status Reason Start Date Expiration Date Visits Requested Visits Authorized [id number] Authorized PCP Requested Referral 06/07/2022 06/07/2023 1 1 [facility] for referral (narrative)* Diagnostic Procedure Only (Routine) - Closed Specialty Diagnoses / Procedures Referred By Contac t Referred To Contact XR IMAGING Diagnoses Fall (on) (from) other stairs and steps, initial encounter Procedures XR ELBOW SPECIAL VIEWS AP/LAT/OTHER LEFT RADEX ELBOW COMPLETE MINIMUM 3 VIEWS Michelle Navarro DO [address] [place] [address] [place] [address] Referral ID Status Reason Start Date Expiration Date V isits Requested Visits Authorized [id number] Closed Auto-Generate d Referral 11/30/2024 12/30/2025 1 1 * Diagnostic Procedure Only (Routine) - Closed Specialty Diagnoses / Procedures Referred By Contac t Referred To Contact XR IMAGING Diagnoses Fall (on) (from) other stairs and steps, initial encounter Procedures XR WRIST INJURY 4V PA/LAT/OBL/SCAPH LEFT RADEX WRIST COMPLETE MINIMUM 3 VIEWS Michelle Navarro, DO [address] [place] [address] [place] [address] Referral ID Status Reason Start Date Expiration Date V isits Requested Visits Authorized [id number] Closed Auto-Generate d Referral 11/30/2024 12/30/2025 1 1 * Diagnostic Procedure Only (Routine) - Closed Specialty Diagnoses / Procedures Referred By Contac t Referred To Contact XR IMAGING Diagnoses Fall (on) (from) other stairs and steps, initial encounter Procedures XR HAND GENERAL 3V PA/LAT/OBL LEFT RADEX HAND MINIMUM 3 VIEWS Michelle Navarro DO [address] [place] [address] [place] [address] Referral ID Status Reason Start Date Expiration Date V isits Requested Visits Authorized [id number] Closed Auto-Generate d Referral 11/30/2024 12/30/2025 1 1 [facility] referral (narrative)No reason for referral information availableWMercy Health [facility] Work Phone: Reason for visit Narrative* Diagnostic Procedure Only (Routine) - Closed Specialty Diagnoses / Procedures Referred By Contac t Referred To Contact XR IMAGING Diagnoses Fall (on) (from) other stairs and steps, initial encounter Procedures XR ELBOW SPECIAL VIEWS AP/LAT/OTHER LEFT RADEX ELBOW COMPLETE MINIMUM 3 VIEWS Michelle Navarro, DO [address] [place] [address] [place] [address] Referral ID Status Reason Start Date Expiration Date V isits Requested Visits Authorized [id number] Closed Auto-Generate d Referral 11/30/2024 12/30/2025 1 1 [facility] Summary Purpose Family History No Family History [...] No February 08, 2021 11:46am Power of Tow Motor Operator No February 08 11:46am Advance Directive Response Recorded Date/ Time Living Will No March 16, 2022 2: 53pm Power of Tow Motor Operator No March 16, 2022 2:53pm Advance Directive Response Recorded Date/ Time Living Will No August 19 1:36pm Power of Tow Motor Operator No August 19 023 1:36pm Chief Complaint and Reason for [...] LAB ORDERS May 12, 2025 10:4 5am Chief Complaint Admit Date CHRONIC PANCREATITIS DISCUSS CT SCAN Apr 9:54am INT LAB ORDERS May 12, 2025 10:4 5am ABD PAIN, DIARRHEA, NAUSEA, WT GAIN, BLO ATING May 28, 2025 12:35pm INT LAB ORDERS May 29, 2025 12:2 0pm Reason for Referral Specialty Diagnoses / Procedures Referred By Contac t Referred To Contact MR IMAGING Diagnoses Demyelinating disease of central nervous system (HCC) Procedures MRI BRAIN WO/W IVCON MRI BRAIN BRAIN STEM W/O W/CONTRAST MATERIAL Aaron Mackenzie MD [address] [facility] [place] [id number] Mr Imaging Referral ID Status Reason Start Date Expiration Date Visits Requested Visits Authorized [id number] Waiting for Online Response Auto-Generat ed Referral 01/11/2022 02/10/2023 1 1 Specialty Diagnoses / Procedures Referred By Contac t Referred To Contact MR IMAGING Diagnoses Demyelinating disease of central nervous system (HCC) Procedures MRI THORACIC SPINE WO/W IVCON MRI SPINAL CANAL THORACIC W/O & W/CONTR ANTOINEL Aaron Mackenzie MD [address] [facility] [place] [id number] Mr Imaging Referral ID Status Reason Start Date Expiration Date V isits Requested Visits Authorized [id number] Closed Auto-Generate d Referral 02/10/2022 04/11/2022 1 1 Specialty Diagnoses / Procedures Referred By Contac t Referred To Contact MR IMAGING Diagnoses Demyelinating disease of central nervous system (HCC) Procedures MRI CERVICAL SPINE WO/W IVCON MRI SPINAL CANAL CERVICAL W/O & W/CONTR Aaron Gordon MD [address] [place] [address] Mr Imaging Referral ID Status Reason Start Date Expiration Date Visits Requested Visits Authorized [id number] Waiting for Online Response Auto-Generat ed Referral 01/11/2022 02/10/2023 1 1 Specialty Diagnoses / Procedures Referred By Contac t Referred To Contact Markie Matson MD [address] [place] [id number] Referral ID Status Reason Start Date Expiration Date Visits Re quested Visits Authorized [id number] Closed 1 1 Additional Source Comments INFORMATION SOURCE (unrecogn ized section and content) DATE CREATED AUTHOR 10/04/2019 [facility] DATE CREATED AUTHOR AUTHOR'S ORGANIZ ATION 01/31/2021 [facility] [place] DATE CREATED AUTHOR AUTHOR'S ORGANIZ ATION 12/02/2024 [facility] DATE CREATED AUTHOR AUTHOR'S ORGANIZ ATION 01/31/2025 [facility] DATE CREATED AUTHOR AUTHOR'S ORGANIZ ATION 05/04/2025 [facility] DATE CREATED AUTHOR AUTHOR'S ORGANIZ ATION 06/05/2025 [facility] Goals (unrecognized section and content) Goals may [...] or prosecute any alcohol or drug abuse patient.[facility] HospitalIn the event this information is protected by the Federal Confidentiality of Alcohol and Drug Abuse Patient Records regulations: The Federal rules restrict any use of the information to criminally investigate or prosecute any alcohol or drug abuse patient.[facility] ClinicIn the event this information is protected by the Federal Confidentiality of Alcohol and Drug Abuse Patient Records regulations: The Federal rules restrict any use of the information to criminally investigate or prosecute any alcohol or drug abuse patient.[facility] HospitalIn the event this information is protected by the Federal Confidentiality of Alcohol and Drug Abuse Patient Records regulations: The Federal rules restrict any use of the information to criminally investigate or prosecute any alcohol or drug abuse patient.[facility] HospitalIn the event this information is protected by the Federal Confidentiality of Alcohol and Drug Abuse Patient Records regulations: The Federal rules restrict any use of the information to criminally investigate or prosecute any alcohol or drug abuse patient.[facility] HospitalIn the event this information is protected by the Federal Confidentiality of Alcohol and Drug Abuse Patient Records regulations: The Federal rules restrict any use of the information to criminally investigate or prosecute any alcohol or drug abuse patient.[facility] HospitalIn the event this information is protected by the Federal Confidentiality of Alcohol and Drug Abuse Patient Records regulations: The Federal rules restrict any use of the information to criminally investigate or prosecute any alcohol or drug abuse patient.[facility] HospitalIn the event this information is protected by the Federal Confidentiality of Alcohol and Drug Abuse Patient Records regulations: The Federal rules restrict any use of the information to criminally investigate or prosecute any alcohol or drug abuse patient.[facility] HospitalIn the event this information is protected by the Federal Confidentiality of Alcohol and Drug Abuse Patient Records regulations: The Federal rules restrict any use of the information to criminally investigate or prosecute any alcohol or drug abuse patient.[facility] HospitalIn the event this information is protected by the Federal Confidentiality of Alcohol and Drug Abuse Patient Records regulations: The Federal rules restrict any use of the information to criminally investigate or prosecute any alcohol or drug abuse patient.[facility] HospitalIn the event this information is protected by the Federal Confidentiality of Alcohol and Drug Abuse Patient Records regulations: The Federal rules restrict any use of the information to criminally investigate or prosecute any alcohol or drug abuse patient.[facility] HospitalIn the event this information is protected by the Federal Confidentiality of Alcohol and Drug Abuse Patient Records regulations: The Federal rules restrict any use of the information to criminally investigate or prosecute any alcohol or drug abuse patient.[facility] HospitalIn the event this information is protected by the Federal Confidentiality of Alcohol and Drug Abuse Patient Records regulations: The Federal rules restrict any use of the information to criminally investigate or prosecute any alcohol or drug abuse patient.[facility] HospitalIn the event this information is protected by the Federal Confidentiality of Alcohol and Drug Abuse Patient Records regulations: The Federal rules restrict any use of the information to criminally investigate or prosecute any alcohol or drug abuse patient.[facility] HospitalIn the event this information is protected by the Federal Confidentiality of Alcohol and Drug Abuse Patient Records regulations: The Federal rules restrict any use of the information to criminally investigate or prosecute any alcohol or drug abuse patient.[facility] HospitalIn the event this information is protected by the Federal Confidentiality of Alcohol and Drug Abuse Patient Records regulations: The Federal rules restrict any use of the information to criminally investigate or prosecute any alcohol or drug abuse patient.[facility] HospitalIn the event this information is protected by the Federal Confidentiality of Alcohol and Drug Abuse Patient Records regulations: The Federal rules restrict any use of the information to criminally investigate or prosecute any alcohol or drug abuse patient.[facility] HospitalIn the event this information is protected by the Federal Confidentiality of Alcohol and Drug Abuse Patient Records regulations: The Federal rules restrict any use of the information to criminally investigate or prosecute any alcohol or drug abuse patient.[facility] HospitalIn the event this information is protected by the Federal Confidentiality of Alcohol and Drug Abuse Patient Records regulations: The Federal rules restrict any use of the information to criminally investigate or prosecute any alcohol or drug abuse patient.[facility] HospitalIn the event this information is protected by the Federal Confidentiality of Alcohol and Drug Abuse Patient Records regulations: The Federal rules restrict any use of the information to criminally investigate or prosecute any alcohol or drug abuse patient.[facility] HospitalIn the event this information is protected by the Federal Confidentiality of Alcohol and Drug Abuse Patient Records regulations: The Federal rules restrict any use of the information to criminally investigate or prosecute any alcohol or drug abuse patient.[facility] Reason for Visit (unrecogniz ed section and content) Reason Comments Radiology MRI Specialty Diagnoses / Procedures Referred By Contac t Referred To Contact MR IMAGING Diagnoses Demyelinating disease of central nervous system (HCC) Procedures MRI BRAIN WO/W IVCON MRI BRAIN BRAIN STEM W/O W/CONTRAST MATERIAL Aaron Mackenzie MD [address] [place] [address] Mr Imaging Referral ID Status Reason Start Date Expiration Date Visits Requested Visits Authorized [id number] Waiting for Online Response Auto-Generat ed Referral 01/11/2022 02/10/2023 1 1 Specialty Diagnoses / Procedures Referred By Contac t Referred To Contact MR IMAGING Diagnoses Demyelinating disease of central nervous system (HCC) Procedures MRI THORACIC SPINE WO/W IVCON MRI SPINAL CANAL THORACIC W/O & W/CONTR Aaron Gordon MD [address] [place] [address] Mr Imaging Referral ID Status Reason Start Date Expiration Date V isits Requested Visits Authorized [id number] Closed Auto-Generate d Referral 02/10/2022 04/11/2022 1 1 Specialty Diagnoses / Procedures Referred By Contac t Referred To Contact MR IMAGING Diagnoses Demyelinating disease of central nervous system (HCC) Procedures MRI CERVICAL SPINE WO/W IVCON MRI SPINAL CANAL CERVICAL W/O & W/CONTR Aaron Gordon MD [address] [place] [address] Mr Imaging Referral ID Status Reason Start Date Expiration Date Visits Requested Visits Authorized [id number] Waiting for Online Response Auto-Generat ed Referral 01/11/2022 02/10/2023 1 1 Reason Comments Smoking Cessation Reason Comments Consult Specialty Diagnoses / Procedures Referred By Contac t Referred To Contact Urology Diagnoses Urge incontinence of urine Overflow incontinence of urine Procedures CONSULT TO UROLOGY OFFICE/OUTPATIENT NEW HIGH MDM 60-74 MINUTES Aaron Mackenzie MD [address] [facility] [place] [address] Referral ID Status Reason Start Date Expiration Date V isits Requested Visits Authorized [id number] Closed PCP Requested Referral 03/09/2022 03/09/2023 1 1 Specialty Diagnoses / Procedures Referred By Contac t Referred To Contact Rheumatology Diagnoses Polyarthralgia Malaise and fatigue Skin rash Myalgia Procedures CONSULT TO RHEUM/IMMUN DISEASE OFFICE/OUTPATIENT [facility] 60-74 MINUTES Aaron Mackenzie MD [address] [place] [address] Referral ID Status Reason Start Date Expiration Date V isits Requested Visits Authorized [id number] Closed PCP Requested Referral 03/09/2022 03/09/2023 1 1 Reason Comments Results Reason Comments Appointment Called pt to resched devin 09/14 appt w/Dr. Mackenzie(Provider Unavailable) Lvm for [...] Care Teams (unrecognized sec tion and content) Reception Clerk Relationship Specialty Start Date End Date Nereida Davis CNP [address] [place] [id number] PCP - General Internal Medicine 12/28/21 Reception Clerk Relationship Specialty Start Date End Date Nereida Davis CNP [address] [place] [id number] PCP - General Internal Medicine 12/28/21 Reception Clerk Relationship Specialty Start Date End Date Nereida Davis CNP [address] [place] [id number] PCP - General Internal Medicine 12/28/21 Reception Clerk Relationship Specialty Start Date End Date Nereida Davis CNP [address] [place] [id number] PCP - General Internal Medicine 12/28/21 Reception Clerk Relationship Specialty Start Date End Date Nereida Davis CNP [address] [place] [id number] PCP - General Internal Medicine 12/28/21 Reception Clerk Relationship Specialty Start Date End Date Nereida Davis, CARTOGRAPHIC TECHNICIAN [address] [place] [address] PCP - General Internal Medicine 12/28/21 Reception Clerk Relationship Specialty Start Date End Date Nereida Davis, CARTOGRAPHIC TECHNICIAN [address] [place] [address] PCP - General Internal Medicine 12/28/21 Reception Clerk Relationship Specialty Start Date End Date Nereida Davis, CARTOGRAPHIC TECHNICIAN [address] [place] [address] PCP - General Internal Medicine 12/28/21 Reception Clerk Relationship Specialty Start Date End Date Nereida Davis, CARTOGRAPHIC TECHNICIAN [address] [place] [address] PCP - General Internal Medicine 12/28/21 Reception Clerk Relationship Specialty Start Date End Date Nereida Davis, CARTOGRAPHIC TECHNICIAN [address] [place] [address] PCP - General Internal Medicine 12/28/21 Team Status: Active Member Role Status [facility] Family Provider Active [facility] Primary Care Provider A ctive Team Status: Inactive Member Role Status [facility] Primary Care Provider A ctive Yeimi Chaudhary BREAD STACKER, BREAD STACKER-C Attending Provider, Referrin g Provider Active Team Status: Inactive Member Role Status [facility] Primary Care Provider A ctive AKI LIMA Attending Provider, Referring Provider Ac tive Team Status: Inactive Member Role Status [facility] Primary Care Provider, Referring Provider Active Dr. Pablo Friend , DO Attending Provider Active Team Status: Inactive Member Role Status [facility] Primary Care Provider A ctive Mejia Leblanc MD Attending Provider, Emergency Provid er Active Team Status: Active Member Role Status [facility] Primary Care Provider A ctive Dr. Samy Saravia , DO Attending Provider, Referring Provider Active Team Status: Inactive Member Role Status Dates [facility] Primary Care Provider A ctive Dr. Samy Saravia , DO Attending Provider Active Team Status: Inactive Member Role Status Dates [facility] Primary Care Provider A ctive Dr. Samy Saravia , DO Attending Provider, Referring Provider Active Reception Clerk Relationship Specialty Start Date End Date Nereida Davis CNP [address] [facility] [place] [address] PCP - General Internal Medicine 12/28/21 Yeimi Chaudhary NP [address] [place] [address] Referring Family Medicine 10/11/23 Reception Clerk Relationship Specialty Start Date End Date Nereida Davis CNP [address] [facility] [place] [address] PCP - General Internal Medicine 12/28/21 Yeimi Chaudhary NP [address] [place] [address] Referring Family Medicine 10/11/23 Reception Clerk Relationship Specialty Start Date End Date Nereida Davis CNP [address] [facility] [place] [address] PCP - General Internal Medicine 12/28/21 Yeimi Chaudhary NP [address] [place] [address] Referring Family Medicine 10/11/23 Reception Clerk Relationship Specialty Start Date End Date Nereida Davis CNP [address] [facility] [place] [address] PCP - General Internal Medicine 12/28/21 Yeimi Chaudhary NP [address] [place] [address] Referring Family Medicine 10/11/23 Reception Clerk Relationship Specialty Start Date End Date Nereida Davis CNP [address] [facility] [place] [address] PCP - General Internal Medicine 12/28/21 Yeimi Chaudhary NP [address] [place] [address] Referring Family Medicine 10/11/23 Reception Clerk Relationship Specialty Start Date End Date Nereida Davis CNP [address] [facility] [place] [address] PCP - General Internal Medicine 12/28/21 Yeimi Chaudhary NP [address] [place] [address] Referring Family Medicine 10/11/23 Team Status: Active Member Role Status Dates [facility] Family Provider Active Zebulun Beam VSC, BREAD STACKER-C Primary Care Provider Active Team Status: Inactive Member Role Status Dates Zebulun Beam VSC, BREAD STACKER-C Primary Care Provider Active Start: February 27, 2025 End: February 27, 2025 Zebulun Beam VSC, BREAD STACKER-C Attending Provider Active Start: February 27, 2025 End: February 27, 2025 Reception Clerk Relationship Specialty Start Date End Date Nereida Davis CNP [address] [place] [address] PCP - General Internal Medicine 12/28/21 Yeimi Chaudhary NP [address] [place] [address] Referring Family Medicine 10/11/23 Team Status: Active Member Role/Relationship Status Dates [facility] Family Provider Active Zebulun Beam VSC, BREAD STACKER-C Primary Care Provider Active Team Status: Inactive Member Role/Relationship Status Dates Zebulun Beam VSC, BREAD STACKER-C Primary Care Provider Active Start: February 27, 2025 End: February 27, 2025 Zebulun Beam VSC, BREAD STACKER-C Attending Provider Active Start: February 27, 2025 End: February 27, 2025 Team Status: Inactive Member Role/Relationship Status Dates Zebulun Beam VSC, BREAD STACKER-C Primary Care Provider Active Start: May 12, 2025 End: May 12, 2025 Grabielbulun Beam VSC, BREAD STACKER-C Referring Provider Active Start: May 12, 2025 End: May 12, 2025 Xochilt Toscano BREAD STACKER-C Attending Provider Active Start: May 12, 2025 End: May 12, 2025 Team Status: Active Member Role/Relationship Status Dates Zebulun Beam VSC, BREAD STACKER-C Primary Care Provider Active Team Status: Inactive Member Role/Relationship Status Dates Zebulun Beam VSC, BREAD STACKER-C Primary Care Provider Active Start: May 12, 2025 End: May 12, 2025 Xochilt Toscano BREAD STACKER-C Attending Provider Active Start: May 12, 2025 End: May 12, 2025 Xochilt Toscano BREAD STACKER-C Referring Provider Active Start: May 12, 2025 End: May 12, 2025 Team Status: Inactive Member Role/Relationship Status Dates Zebulun Beam VSC, BREAD STACKER-C Primary Care Provider Active Start: May 28, 2025 End: May 28, 2025 Xochilt Toscano BREAD STACKER-C Attending Provider Active Start: May 28, 2025 End: May 28, 2025 Xochilt Toscano BREAD STACKER-C Referring Provider Active Start: May 28, 2025 End: May 28, 2025 Team Status: Active Member Role/Relationship Status Dates Zebulun Beam VSC, BREAD STACKER-C Primary Care Provider Active Start: May 29, 2025 Xochilt Toscano BREAD STACKER-C Attending Provider Active Start: May 29, 2025 Xochilt Toscano BREAD STACKER-C Referring Provider Active Start: May 29, 2025 Team Status: Inactive Member Role/Relationship Status Dates Zebulun HODAN Duron Primary Care Provider Active Start: May 29, 2025 End: May 29, 2025 HODAN Trent Attending Provider Active Start: May 29, 2025 End: May 29, 2025 HODAN Trent Referring Provider Active Start: May 29, 2025 End: May 29, 2025 FOR RECORDS PERTAINING TO PATIENTS WHO [...] ON THE PRIMARY CLINICAL RECORDS. [facility], [facility]. provides no warranty or guarantee of the accuracy or completeness of information in this document.
== END | disposition home or self-care (01) ==
LOC: US 08:52
PROVIDERS: Referring Provider Nurse Practitioner Acute Care; Visit Provider Nurse Practitioner Acute Care
DX: K76.0 Fatty (change of) liver, not elsewhere classified (principal)
CPT/HCPCS: 76705; 76981

== ENCOUNTER → 2025-09-04 | Outpatient (CLI) | payer MEDICAID, SELFPAY ==
[2025-09-04 10:46] LABS: Hematocrit 46.3 % (37-47); Hemoglobin 16.2 g/dL (12.0-15.0); Immature Granulocytes Count 0.020 X10^3/uL (0.0-0.0); Mean Corp Hgb Conc 35.0 g/dL (32-36); Mean Corpuscular Volume 93.3 fL (81-99); Mean Platelet Vol. 10.3 fl (6.2-12.0); NRBC Flagged by Analyzer 0 % (0-5); Platelet Count 357 K/mm3 (150-450); RBC Distribution Width CV 12.8 % (11.6-14.6); RBC Distribution Width SD 44.3 fl (35.1-43.9); Red Blood Count 4.96 M/mm3 (4.2-5.4); White Blood Count 5.5 K/mm3 (4.4-11.0)
[2025-09-04 10:51] LABS: Prothrombin Time (Protime)PT. 13.4 SECONDS (11.7-14.9)
[2025-09-04 12:25] LABS: AST(SGOT) 28 U/L (<=31); Alanine Aminotransfer ALT/SGPT 28 U/L (<=34); Albumin, Serum 4.8 g/dL (3.5-5.0); Alkaline Phosphatase 92 U/L (35-104); Anion Gap 14 (5-15); BUN 8 mg/dL (4-19); BUN/Creat Ratio 10.1 RATIO (10-20); Calcium,Total 10.5 mg/dL (7.6-11.0); Carbon Dioxide 24.3 mmol/L (21.0-32.0); Chloride 97 mmol/L (98-108); Ferritin 156 ng/mL (22-378); Globulin 3.3 g/dL (2.2-4.2); Glucose 118 mg/dL (70-99); Potassium 4.2 mmol/L (3.3-5.1); Vitamin B12 681 pg/mL (180-914); Vitamin D,25 Hydroxy 79.0 ng/mL (30-100)
[2025-09-04 13:38] LABS: CRP < 3.00 mg/L (0.0-3.0); Cholesterol 291 mg/dL (<=200); Low Density Lipoprotein Calc. 194 mg/dL; Triglycerides 241 mg/dL; Very Low Density Lipoprotein 48 mg/dL (5-40); cholesterol:hdl ratio screen 5.77
[2025-09-05 13:08] LABS: Anti-Smooth Muscle ABS 5 Units (0-19)
== END | disposition home or self-care (01) ==
LOC: LAB 09:48
PROVIDERS: Referring Provider Internal Medicine; Visit Provider Internal Medicine
DX: K86.0 Alcohol-induced chronic pancreatitis (principal); K70.10 Alcoholic hepatitis without ascites; F10.90 Alcohol use, unspecified, uncomplicated; R10.9 Unspecified abdominal pain; E07.9 Disorder of thyroid, unspecified
CPT/HCPCS: 36415; 80053; 80061; 82306; 82390; 82607; 82728; 83516; 85025; 85610; 86140